=== PATIENT | female | born 1955 | race Caucasian/White ===

== ENCOUNTER → 2017-05-13 | Outpatient (CLI) | payer MEDICAID ==
--- NOTE | 2017-05-13 15:55 | MR ---
EXAMINATION TYPE: MR lumbar spine wo con DATE OF EXAM: 05/13/2017 COMPARISON: NONE HISTORY: Low back pain / Radiculopathy TECHNIQUE: Multiplanar, multisequence images of the lumbar spine were acquired. L1-L2: Normal disc appearance without desiccation. No herniation, protrusion or disc bulging. No ca nal stenosis is present. Foramina are patent bilaterally. L2-L3: Broad-based posterior disc bulge causes only slight anterior mass effect on the thecal sac. Fa cet arthropathy with hypertrophy of the ligamentum flavum encroaches on the lateral recesses. No sign ificant central stenosis or foraminal encroachment. L3-L4: Loss of disc height signal is present with endplate discogenic marrow signal change, spondylos is, circumferential posterior disc bulge is present with associated hypertrophy of the ligamentum fla vum, facet arthropathy resulting in the mild central canal stenosis, no significant foraminal encroac hment. L4-L5: Posterior extension of endplate disc bulge causes mild anterior mass effect on the thecal sac, listhesis as well as facet arthropathy with hypertrophy ligamentum flavum contributes to cause trefo il appearance of the thecal sac. No significant foraminal encroachment. L5-S1: Broad-based posterior disc bulge causes only slight contact with the anterior thecal sac and p ossibly proximal S1 nerve roots, no significant foraminal encroachment or spinal stenosis. There is f acet arthropathy with hypertrophy of the ligamentum flavum encroaching on the lateral recesses. Lumbar segments are intact. No paraspinal masses are identified. Conus medullaris has a normal appe arance. There is a spinal curvature. Minimal anterolisthesis grade 1 L4-5. IMPRESSION: Degenerative disc disease, facet arthropathy and additional findings above.
== END ==
LOC: RADMRIMAIN 10:30
PROVIDERS: ATTEND Orthopaedic Surgery Orthopaedic Surgery of the Spine
DX: M54.5 Low back pain (principal); M47.817 Spondylosis without myelopathy or radiculopathy, lumbosacral region; M54.16 Radiculopathy, lumbar region; M54.2 Cervicalgia; M46.1 Sacroiliitis, not elsewhere classified; M50.30 Other cervical disc degeneration, unspecified cervical region; M54.12 Radiculopathy, cervical region; S16.1XXA Strain of muscle, fascia and tendon at neck level, initial encounter; S39.012A Strain of muscle, fascia and tendon of lower back, initial encounter
CPT/HCPCS: 72148

== ENCOUNTER 2017-07-30 16:03 | Emergency (ER) | payer MEDICAID ==
[2017-07-30 16:09] VITALS: PULSE 79; TEMP 97.8
--- NOTE | 2017-07-30 16:39 | ED ---
General Adult HPI - General Chief complaint: Extremity Problem,Nontraumatic Stated complaint: Rt Shoulder Pain Time Seen by Provider: 07/30/17 16:25 Source: patient, RN notes reviewed Mode of arrival: ambulatory Limitations: no limitations - History of Present Illness Initial comments: Patient 61-year-old female presented to the emergency room today with a chief complaint of pain to the right shoulder over the last 4 weeks. Patient does admit that she had a rotator cuff repair 9 years ago. She states that 4 weeks ago began having some discomfort to the right shoulder that is worse with certain movements. She noticed that she cannot make certain movements and is worse with lifting. Patient denies any injury or trauma. She does admit that she's had some pain shoot down into the elbow at times and even some numbness tingling sensation down to the hands. She admits that she's had some neck pain as well and did have a surgery and some plates and the neck approximately 12 years ago. Patient denies any new injury to this area as well. Denies any other complaints. Patient denies any recent fever, chills, shortness of breath, chest pain, back pain, abdominal pain, nausea or vomiting, headaches or visual changes, or any other complaints. - Related Data Home Medications Medication Instructions Recorded Confirmed Cyanocobalamin (Vitamin B-12) 1,000 mcg PO DAILY 07/30/17 07/30/17 [Vitamin B-12] Previous Rx's Medication Instructions Recorded Dexamethasone 0.75 mg PO DIRECTED #12 tablet 07/30/17 Allergies Allergy/AdvReac Type Severity Reaction Status Date / Time No Known Allergies Allergy Verified 07/30/17 16:36 Review of Systems ROS Statement: Those systems with pertinent positive or pertinent negative responses have been documented in the HPI. ROS Other: All systems not noted in ROS Statement are negative. Past Medical History Past Medical History: No Reported History Additional Past Medical History / Comment(s): neck pain History of Any Multi-Drug Resistant Organisms: None Reported Additional Past Surgical History / Comment(s): neck surgery, rotator cuff Past Psychological History: No Psychological Hx Reported Smoking Status: Former smoker Past Alcohol Use History: None Reported Past Drug Use History: None Reported General Exam - General Exam Comments Initial Comments: General: The patient is awake and alert, in no distress, and does not appear acutely ill. Neck: The neck is supple, there is no tenderness or JVD. Musculoskeletal: Normal appearance of the right shoulder. Patient shows limited range of motion due to pain. Patient strength is 4/5 due to pain with both internal and external rotation and flexion and extension. Radial pulse 2+ . Sensation intact. Neurological: A&O x 3. CN II-XII intact, There are no obvious motor or sensory deficits. Coordination appears grossly intact. Speech is normal. Skin: Skin is warm and dry and no rashes or lesions are noted. Psychiatric: Normal mood and affect. Limitations: no limitations Course Vital Signs 07/30/17 16:06 Temperature 97.8 F Pulse Rate 79 Respiratory 18 Rate Blood Pressure 130/81 O2 Sat by Pulse 99 Oximetry Medical Decision Making - Medical Decision Making Patient's x-rays reviewed and are negative for any acute abnormality. Results were discussed with the patient. Patient currently on [place], Ultram, ibuprofen for pain. Patient will be started on a short course of steroids for her symptoms. Advised to follow-up with her orthopedic doctor further evaluation and possible MRI. Advised return if any symptoms increase or worsen or for any other concerns. Disposition Clinical Impression: Shoulder pain Disposition: HOME SELF-CARE Condition: Good Instructions: Shoulder Sprain (ED) Additional Instructions: Please use medication as discussed. Please follow-up with orthopedic/family doctor in the next 2 days. Please return to emergency room if the symptoms increase or worsen or for any other concerns. Prescriptions: Dexamethasone 0.75 mg PO DIRECTED #12 tablet Is patient prescribed a controlled substance at d/c from ED?: No Referrals: Jonathan Ly MD [Primary Care Provider] - 1-2 days Harlan Jimenez MD [STAFF PHYSICIAN] - 1-2 days Time of Disposition: 17:17
--- NOTE | 2017-07-30 16:55 | XR ---
EXAMINATION TYPE: XR shoulder complete RT DATE OF EXAM: 07/30/2017 CLINICAL HISTORY: Right shoulder pain with no known injury TECHNIQUE: Three views of the right shoulder are obtained. COMPARISON: None. FINDINGS: There is no acute fracture/dislocation evident in the right shoulder. There is widening o f the acromioclavicular joint space measuring 2.0 cm. Additionally the distal clavicle superior prakash x is inferior to the acromion. No overlying soft tissue swelling is seen. This appears chronic in com parison to exam of 12/06/2013. The acromioclavicular and glenohumeral joint spaces appear within norm al limits. The visualized ribs are intact and unremarkable. IMPRESSION: There is no acute fracture of the right shoulder. Chronic right acromioclavicular separa tion in comparison to exam of 2013. Old tear of the acromioclavicular ligament is suspected.
[2017-07-30 17:36] VITALS: BP 130/80; RESP 16
== END 2017-07-30 17:34 | disposition home or self-care (01) ==
LOC: EC 16:03
DX: M25.511 Pain in right shoulder (principal); M25.521 Pain in right elbow; R20.0 Anesthesia of skin; R20.2 Paresthesia of skin; M54.2 Cervicalgia; Z87.891 Personal history of nicotine dependence; Z79.899 Other long term (current) drug therapy; Z98.890 Other specified postprocedural states
CPT/HCPCS: 99283

== ENCOUNTER → 2017-07-31 | Outpatient (CLI) | payer MEDICAID ==
[2017-07-31 10:49] LABS: Basophils % (A) 1 %; Eosinophils # (A) 0.2 k/uL (0-0.7); Eosinophils % (A) 3 %; HCT 45.3 % (34.0-46.0); Lymphocytes # (A) 1.4 k/uL (1.0-4.8); Lymphocytes % (A) 23 %; MCH 32.5 pg (25.0-35.0); MCHC 33.2 g/dL (31.0-37.0); MCV 97.8 fL (80.0-100.0); Mean Platelet Volume 6.7; Monocytes # (A) 0.2 k/uL (0-1.0); Monocytes % (A) 4 %; Neutrophils # (A) 4.4 k/uL (1.3-7.7); Neutrophils % (A) 69 %; Platelet Count 239 k/uL (150-450); RBC 4.63 m/uL (3.80-5.40); RDW 13.7 % (11.5-15.5); WBC 6.3 k/uL (3.8-10.6)
[2017-07-31 11:03] LABS: ALT 27 U/L (9-52); AST 19 U/L (14-36); Albumin 4.5 g/dL (3.5-5.0); Alkaline Phosphatase 65 U/L (38-126); Anion Gap 11 mmol/L; Blood Urea Nitrogen 10 mg/dL (7-17); Calcium 9.6 mg/dL (8.4-10.2); Carbon Dioxide 26 mmol/L (22-30); Chloride 104 mmol/L (98-107); Cholesterol 236 mg/dL (<200); Glucose 99 mg/dL (74-99); HDL Cholesterol 68 mg/dL (40-60); LDL Cholesterol,Calculated 147 mg/dL (0-99); Potassium 4.5 mmol/L (3.5-5.1); Sodium 141 mmol/L (137-145); Total Bilirubin 0.4 mg/dL (0.2-1.3); Total Protein 6.9 g/dL (6.3-8.2); Triglycerides 104 mg/dL (<150)
== END | disposition home or self-care (01) ==
LOC: LABWHC1 10:16
PROVIDERS: ATTEND Internal Medicine
DX: Z00.00 Encounter for general adult medical examination without abnormal findings (principal)
CPT/HCPCS: 36415; 80053; 80061; 84443; 85025

== ENCOUNTER 2019-08-19 17:57 | Emergency (ER) | payer MEDICARE, OTHER ==
[2019-08-19 18:08] VITALS: BP 112/67; PULSE 89; RESP 18; TEMP 98.1
--- NOTE | 2019-08-19 19:12 | XR ---
EXAMINATION TYPE: XR femur LT DATE OF EXAM: 08/19/2019 COMPARISON: NONE HISTORY: Pain TECHNIQUE: 4 views FINDINGS: The hip joint and knee joint appear intact. There is slight narrowing of the medial joint s pace of the left knee. I see no fracture nor dislocation. Acetabulum is intact. IMPRESSION: Minor arthritic change at the knee joint. No fracture seen.
--- NOTE | 2019-08-19 19:14 | XR ---
EXAMINATION TYPE: XR knee 4V LT DATE OF EXAM: 08/19/2019 COMPARISON: 06/25/2012 HISTORY: Pain TECHNIQUE: 4 views FINDINGS: There is mild spurring of the medial tibial condyle. There is minimal medial meniscal calci fication. There is no evidence of joint effusion. Joint spaces overall are fairly well-maintained. I see no bony destructive process. IMPRESSION: Early osteoarthritis of the medial joint space with chondrocalcinosis. No fracture seen.
[2019-08-19] MEDS ORDERED: IBUPROFEN 600 MG STARTER PACK 4 TAB BTL PO STA (19:50)
--- NOTE | 2019-08-19 19:53 | ED ---
General Adult HPI - General Chief complaint: Extremity Injury, Lower Stated complaint: [facility] - fall, lt knee pain Time Seen by Provider: 08/19/19 18:11 Source: patient, RN notes reviewed, old records reviewed Mode of arrival: ambulatory Limitations: physical limitation - History of Present Illness Initial comments: 63-year-old female patient was eating a chief complaint of left knee pain and left distal femur pain. She reports that she slipped and fell on her left side while at work. Denies any trauma to head or neck. This occurred yesterday. Patient reports that she is having pain with bending her knee and it feels stiff. She denies any other complaints. Systemic: Pt denies fatigue, fever/chills, rash. Pt denies weakness, night sweats, weight loss. Neuro: Pt denies headache, visual disturbances, syncope or pre-syncope. HEENT: Pt denies ocular discharge or irritation, otalgia, rhinorrhea, pharyngitis or notable lymphadenopathy. Cardiopulmonary: Pt denies chest pain, SOB, heart palpitations, dyspnea on exertion. Abdominal/GI: Pt denies abdominal pain, n/v/d. : Pt denies dysuria, burning w/ urination, frequency/urgency. Denies new onset urinary or bowel incontinence. Neuro: Pt denies new onset weakness, paresthesias. - Related Data Home Medications Medication Instructions Recorded Confirmed Cyanocobalamin (Vitamin B-12) 1,000 mcg PO DAILY 07/30/17 08/19/19 [Vitamin B-12] HYDROcodone/APAP 10-325MG [[place] 1 tab PO DAILY PRN 08/19/19 08/19/19 10-325] Ibuprofen [Motrin] 800 mg PO TID 08/19/19 08/19/19 Multivitamins, Thera [Multivitamin 1 tab PO DAILY 08/19/19 08/19/19 (formulary)] Umeclidinium Brm/Vilanterol Tr 1 puff INHALATION RT-BID 08/19/19 08/19/19 [Anoro Ellipta 62.5-25 Mcg INH] traMADol HCL 100 mg PO TID 08/19/19 08/19/19 Allergies Allergy/AdvReac Type Severity Reaction Status Date / Time No Known Allergies Allergy Verified 08/19/19 19:25 Review of Systems ROS Statement: Those systems with pertinent positive or pertinent negative responses have been documented in the HPI. ROS Other: All systems not noted in ROS Statement are negative. Past Medical History Past Medical History: No Reported History Additional Past Medical History / Comment(s): neck pain History of Any Multi-Drug Resistant Organisms: None Reported Additional Past Surgical History / Comment(s): neck surgery, rotator cuff Past Psychological History: No Psychological Hx Reported Smoking Status: Former smoker Past Alcohol Use History: None Reported Past Drug Use History: None Reported General Exam - General Exam Comments Initial Comments: Constitutional: NAD, AOX3, Pt has pleasant affect. HEENT: NC/AT, trachea midline, neck supple, no lymphadenopathy. Posterior pharynx non erythematous, without exudates. External ears appear normal, without discharge. Mucous membranes moist. Eyes PERRLA, EOM intact. There is no scleral icterus. No pallor noted. Cardiopulmonary: RRR, no murmurs, rubs or gallops, no JVD noted. Lungs CTAB in anterior and posterior vasquez. No peripheral edema. Abdominal exam: Abdomen soft and non-distended. Abdomen non-tender to palpation in all 4 quadrants. Bowel sounds active in LLQ. No hepatosplenomegaly. No ecchymosis Neuro: CN II-XII grossly intact. No nuchal rigidity. No raccon eyes, no landry sign, no hemotympanum. No cervical spinal tenderness. MSK: Anterior aspect left knee mildly tender to palpation. Distal aspect of left femur moderately tender palpation. no skin changes. Patient able to bear weight. Range of motion is intact. Neurovascularly intact. Limitations: physical limitation Course Vital Signs 08/19/19 18:05 Temperature 98.1 F Pulse Rate 89 Respiratory 18 Rate Blood Pressure 112/67 O2 Sat by Pulse 96 Oximetry Medical Decision Making - Medical Decision Making 63-year-old female patient was ED with chief complaint of left femur and knee pain after slip and fall history. Denies hitting her head or neck. Amylase of blood thinners. Patient vital signs are stable, afebrile. Physical exam did display some tenderness to the left anterior and distal femur region. Plain film of femur and knee displayed arthritic changes but no acute process. Patient placed in knee immobilizer will discharge and will follow up with primary care provider and orthopedic consult on outpatient basis. Case discussed with Dr. Gannon. Disposition Clinical Impression: Knee sprain Disposition: HOME SELF-CARE Condition: Stable Instructions (If sedation given, give patient instructions): Knee Sprain (ED) Additional Instructions: Continue to wear knee immobilizer. Use crutches, do not bear weight and left lower extremity. Follow-up with primary care provider and orthopedic consult tomorrow. Return to ER if condition worsens. Is patient prescribed a controlled substance at d/c from ED?: No Referrals: Isaias Hay MD [Primary Care Provider] - 1-2 days Vamshi Murcia MD [Medical Doctor] - 1-2 days
== END 2019-08-19 20:14 | disposition home or self-care (01) ==
LOC: EC 17:57
DX: S83.92XA Sprain of unspecified site of left knee, initial encounter (principal); M79.652 Pain in left thigh; Z87.891 Personal history of nicotine dependence; W01.0XXA Fall on same level from slipping, tripping and stumbling without subsequent striking against object, initial encounter
CPT/HCPCS: 99284

== ENCOUNTER → 2019-08-23 | Outpatient (CLI) | payer OTHER ==
--- NOTE | 2019-08-23 12:36 | XR ---
EXAMINATION TYPE: XR tibia fibula LT DATE OF EXAM: 08/23/2019 COMPARISON: NONE HISTORY: Pain TECHNIQUE: Two views are submitted. FINDINGS: The osseous structures are intact. Arthropathy of the knee.. IMPRESSION: 1. No acute osseous abnormality.
== END | disposition home or self-care (01) ==
LOC: RADXRMAIN 12:00
PROVIDERS: ATTEND Emergency Medicine
DX: S80.12XA Contusion of left lower leg, initial encounter (principal)

== ENCOUNTER → 2020-02-28 | Outpatient (CLI) | payer MEDICARE ==
[2020-02-28 14:45] LABS: HCT 40.4 % (34.0-46.0); HGB 13.9 gm/dL (11.4-16.0); MCH 32.9 pg (25.0-35.0); MCHC 34.3 g/dL (31.0-37.0); Mean Platelet Volume 7.3; Platelet Count 265 k/uL (150-450); RBC 4.21 m/uL (3.80-5.40); RDW 12.6 % (11.5-15.5)
[2020-02-28 14:47] LABS: Appearance,Urine Cloudy (Clear); Bacteria,Urine Rare /hpf; Bilirubin,Urine Negative (Negative); Blood,Urine Negative (Negative); Color,Urine Yellow; Glucose,Urine (UA) Negative (Negative); Hyaline Casts,Urine 2 /lpf (0-2); Ketones,Urine Negative (Negative); Leukocyte Esterase,Urine Large (Negative); Mucus,Urine Many /hpf; Nitrite,Urine Negative (Negative); Protein,Urine Trace (Negative); RBC,Urine 1 /hpf (0-5); Specific Gravity,Urine 1.022 (1.001-1.035); Squamous Epithelial Cell,Urine 10 /hpf (0-4); WBC,Urine 21 /hpf (0-5)
[2020-02-28 20:20] LABS: ALT 14 U/L (8-44); AST 21 U/L (13-35); African American GFR (CKD) 106.9 (60.0-200.0); Albumin/Globulin Ratio 2.32 (1.60-3.17); Alkaline Phosphatase 83 U/L (41-126); BUN/Creat Ratio 14.29 Ratio (12.00-20.00); Calcium 9.4 mg/dL (8.7-10.3); Carbon Dioxide 25.1 mmol/L (21.6-31.8); Chloride 107 mmol/L (96-109); Globulin 1.9 g/dL (1.6-3.3); Glucose 116 mg/dL (70-110); Iron 84 ug/dL (50-170); Non-African American GFR(CKD) 92.2 (60.0-200.0); Potassium 3.8 mmol/L (3.5-5.5); Sodium 140 mmol/L (135-145); Total Bilirubin 0.2 mg/dL (0.2-1.2); Total Protein 6.3 g/dL (6.2-8.2)
[2020-02-28 21:07] LABS: Vitamin B12 >4000.0 pg/mL (211-911)
== END | disposition home or self-care (01) ==
LOC: LABWHC1 10:45
PROVIDERS: ATTEND Family Medicine
DX: R53.83 Other fatigue (principal)
CPT/HCPCS: 36415; 80053; 81001; 82306; 82607; 83540; 84439; 84443; 85027; 87086

== ENCOUNTER 2020-03-27 11:41 | Emergency (ER) | payer MEDICARE ==
[2020-03-27] MEDS ORDERED: ASPIRIN 81 MG PO STA (12:00)
--- NOTE | 2020-03-27 12:00 | ED ---
General Adult HPI - General Chief complaint: Arrhythmia/Palpitations Stated complaint: sob Time Seen by Provider: 03/27/20 11:41 Source: patient, RN notes reviewed, old records reviewed Mode of arrival: wheelchair Limitations: no limitations - History of Present Illness Initial comments: This is a 64-year-old female presents emergency department with past medical history significant for a pneumothorax secondary to trauma and she continues to smoke. Patient comes in today stating that last few days she's had difficulty breathing especially when she exerts herself. Patient denies any anterior chest pain. Patient states most of the chest pain is the lRight lower rib area. Patient denies any recent fever chills or cough per patient denies any pa lpitations. Patient denies any swelling to her legs or calf tenderness. Patient denies any abdominal pain patient denies nausea vomiting diarrhea. Patient denies lightheadedness or dizziness. -: week(s) - Related Data Home Medications Medication Instructions Recorded Confirmed Cyanocobalamin (Vitamin B-12) 1,000 mcg PO DAILY 07/30/17 03/27/20 [Vitamin B-12] HYDROcodone/APAP 10-325MG [[place] 1 tab PO DAILY PRN 08/19/19 03/27/20 10-325] Multivitamins, Thera [Multivitamin 1 tab PO DAILY 08/19/19 03/27/20 (formulary)] traMADol HCL 100 mg PO TID 08/19/19 03/27/20 Cholecalciferol [Vitamin D3 (25 25 mcg PO DAILY 03/27/20 03/27/20 Mcg = 1000 Iu)] Allergies Allergy/AdvReac Type Severity Reaction Status Date / Time No Known Allergies Allergy Verified 03/27/20 12:37 Review of Systems ROS Statement: Those systems with pertinent positive or pertinent negative responses have been documented in the HPI. ROS Other: All systems not noted in ROS Statement are negative. Past Medical History Past Medical History: No Reported History Additional Past Medical History / Comment(s): neck pain History of Any Multi-Drug Resistant Organisms: None Reported Additional Past Surgical History / Comment(s): neck surgery, rotator cuff Past Psychological History: No Psychological Hx Reported Smoking Status: Current every day smoker Past Alcohol Use History: None Reported Past Drug Use History: None Reported General Exam - General Exam Comments Initial Comments: GENERAL: Patient is well-developed and well-nourished. Patient is nontoxic and well- hydrated and is in Milddistress. ENT: Neck is soft and supple. No significant lymphadenopathy is noted. Oropharynx is clear. Moist mucous membranes. Neck has full range of motion without eliciting any pain. EYES: The sclera were anicteric and conjunctiva were pink and moist. Extraocular movements were intact and pupils were equal round and reactive to light. Eyelids were unremarkable. PULMONARY: Diminished breath sounds on the right. CARDIOVASCULAR: tient is tachycardic abouat 130 beats a minute ABDOMEN: Soft and nontender with normal bowel sounds. No palpable organomegaly was noted. There is no palpable pulsatile mass. SKIN: Skin is clear with no lesions or rashes and otherwise unremarkable. NEUROLOGIC: Patient is alert and oriented x3. Cranial nerves II through XII are grossly intact. Motor and sensory are also intact. Normal speech, volume and content. Symmetrical smile. MUSCULOSKELETAL: Normal extremities with adequate strength and full range of motion. No lower extremity swelling or edema. No calf tenderness. LYMPHATICS: No significant lymphadenopathy is noted PSYCHIATRIC: Normal psychiatric evaluation. interpersonal interactions appears functionally intact in deals appropriately with others. No signs of depressPa Limitations: no limitations Course Vital Signs 03/27/20 03/27/20 03/27/20 11:42 11:50 12:13 Temperature 98.2 F Pulse Rate 148 H 108 H Respiratory 22 24 18 Rate Blood Pressure 144/96 139/70 O2 Sat by Pulse 96 99 Oximetry 03/27/20 13:26 Temperature Pulse Rate 101 H Respiratory 18 Rate Blood Pressure 118/77 O2 Sat by Pulse 97 Oximetry Medical Decision Making - Medical Decision Making EKG shows sinus tachycardia at 131 bpm ME interval 134 QRS is under 12 QTC intervals 318 QTC is 469. Patient has significant ST segment depression in inferior leads 2 and 3 and in precordial leads V2 V3 V4 V5 and V6. Patient also has T-wave inversions inferiorly as well as Precordial leads V1 through V4 Chest x-ray shows large right-sided pleural effusion. I did a CAT scan the patient because her d-dimer was elevated did not show any pulmonary resident did show a large right-sided pleural effusionAs well as a suspicious nodule. I spoke with Dr. Hay he agreed to admit the patient admitted the patient wrote admitting orders. - Lab Data Result diagrams: 03/27/20 12:03 03/27/20 12:03 Lab Results 03/27/20 03/27/20 03/27/20 Range/Units 12:03 12:03 12:03 WBC 10.5 (3.8-10.6) k/uL RBC 5.04 (3.80-5.40) m/uL Hgb 16.4 H (11.4-16.0) gm/dL Hct 48.1 H (34.0-46.0) % MCV 95.3 (80.0-100.0) fL MCH 32.5 (25.0-35.0) pg MCHC 34.1 (31.0-37.0) g/dL RDW 12.7 (11.5-15.5) % Plt Count 341 (150-450) k/uL MPV 7.6 Neutrophils % 75 % Lymphocytes % 17 % Monocytes % 5 % Eosinophils % 2 % Basophils % 1 % Neutrophils # 7.8 H (1.3-7.7) k/uL Lymphocytes # 1.8 (1.0-4.8) k/uL Monocytes # 0.5 (0-1.0) k/uL Eosinophils # 0.2 (0-0.7) k/uL Basophils # 0.1 (0-0.2) k/uL PT 10.4 (9.0-12.0) sec INR 1.0 (<1.2) APTT 24.5 (22.0-30.0) sec D-Dimer 4.25 H (<0.60) mg/L FEU Sodium 134 L (137-145) mmol/L Potassium 3.9 (3.5-5.1) mmol/L Chloride 99 (98-107) mmol/L Carbon Dioxide 28 (22-30) mmol/L Anion Gap 7 mmol/L BUN 10 (7-17) mg/dL Creatinine 0.68 (0.52-1.04) mg/dL Est GFR (CKD-EPI)AfAm >90 (>60 ml/min/1.73 sqM) Est GFR (CKD-EPI)NonAf >90 (>60 ml/min/1.73 sqM) Glucose 127 H (74-99) mg/dL Plasma Lactic Acid Andrzej (0.7-2.0) mmol/L Calcium 9.9 (8.4-10.2) mg/dL Magnesium 1.5 L (1.6-2.3) mg/dL Total Bilirubin 0.4 (0.2-1.3) mg/dL AST 29 (14-36) U/L ALT 14 (4-34) U/L Alkaline Phosphatase 96 (38-126) U/L Troponin I (0.000-0.034) ng/mL NT-Pro-B Natriuret Pep pg/mL Total Protein 7.1 (6.3-8.2) g/dL Albumin 4.3 (3.5-5.0) g/dL 03/27/20 03/27/20 03/27/20 Range/Units 12:03 12:03 12:03 WBC (3.8-10.6) k/uL RBC (3.80-5.40) m/uL Hgb (11.4-16.0) gm/dL Hct (34.0-46.0) % MCV (80.0-100.0) fL MCH (25.0-35.0) pg MCHC (31.0-37.0) g/dL RDW (11.5-15.5) % Plt Count (150-450) k/uL MPV Neutrophils % % Lymphocytes % % Monocytes % % Eosinophils % % Basophils % % Neutrophils # (1.3-7.7) k/uL Lymphocytes # (1.0-4.8) k/uL Monocytes # (0-1.0) k/uL Eosinophils # (0-0.7) k/uL Basophils # (0-0.2) k/uL PT (9.0-12.0) sec INR (<1.2) APTT (22.0-30.0) sec D-Dimer (<0.60) mg/L FEU Sodium (137-145) mmol/L Potassium (3.5-5.1) mmol/L Chloride (98-107) mmol/L Carbon Dioxide (22-30) mmol/L Anion Gap mmol/L BUN (7-17) mg/dL Creatinine (0.52-1.04) mg/dL Est GFR (CKD-EPI)AfAm (>60 ml/min/1.73 sqM) Est GFR (CKD-EPI)NonAf (>60 ml/min/1.73 sqM) Glucose (74-99) mg/dL Plasma Lactic Acid Andrzej 1.5 (0.7-2.0) mmol/L Calcium (8.4-10.2) mg/dL Magnesium (1.6-2.3) mg/dL Total Bilirubin (0.2-1.3) mg/dL AST (14-36) U/L ALT (4-34) U/L Alkaline Phosphatase (38-126) U/L Troponin I <0.012 (0.000-0.034) ng/mL NT-Pro-B Natriuret Pep 40 pg/mL Total Protein (6.3-8.2) g/dL Albumin (3.5-5.0) g/dL Disposition Clinical Impression: Dyspnea, Pleural effusion, Lung nodule Disposition: ADMITTED IP TO THIS HOSP Referrals: Isaias Hay MD [Primary Care Provider] - 1-2 days Time of Disposition: 15:41
[2020-03-27 12:15] VITALS: RESP 18
--- NOTE | 2020-03-27 12:19 | XR ---
EXAMINATION TYPE: XR chest 2V DATE OF EXAM: 03/27/2020 COMPARISON: Chest x-ray December 06, 2013. CT lung low dose February 28, 2019 HISTORY: Shortness of breath TECHNIQUE: Frontal and lateral views of the chest are obtained. FINDINGS: Anterior fusion plate lower cervical spine partially imaged. There is now moderate right-s ided pleural effusion. Background moderate underlying emphysematous change. Left lung clear. Silhouet ting right heart border and hemidiaphragm. The cardiac silhouette size is likely within normal limits . IMPRESSION: New Moderate right-sided pleural effusion and associated compressive atelectasis on back ground moderate emphysematous change.
[2020-03-27 12:22] LABS: Basophils # (A) 0.1 k/uL (0-0.2); Basophils % (A) 1 %; Eosinophils # (A) 0.2 k/uL (0-0.7); Eosinophils % (A) 2 %; HCT 48.1 % (34.0-46.0); HGB 16.4 gm/dL (11.4-16.0); Lymphocytes # (A) 1.8 k/uL (1.0-4.8); Lymphocytes % (A) 17 %; MCH 32.5 pg (25.0-35.0); MCHC 34.1 g/dL (31.0-37.0); MCV 95.3 fL (80.0-100.0); Mean Platelet Volume 7.6; Monocytes # (A) 0.5 k/uL (0-1.0); Monocytes % (A) 5 %; Neutrophils # (A) 7.8 k/uL (1.3-7.7); Neutrophils % (A) 75 %; Platelet Count 341 k/uL (150-450); RBC 5.04 m/uL (3.80-5.40); RDW 12.7 % (11.5-15.5); WBC 10.5 k/uL (3.8-10.6)
[2020-03-27 12:36] LABS: ALT 14 U/L (4-34); AST 29 U/L (14-36); African American GFR (CKD) >90 (>60 ml/min/1.73 sqM); Albumin 4.3 g/dL (3.5-5.0); Alkaline Phosphatase 96 U/L (38-126); Anion Gap 7 mmol/L; Blood Urea Nitrogen 10 mg/dL (7-17); Calcium 9.9 mg/dL (8.4-10.2); Carbon Dioxide 28 mmol/L (22-30); Chloride 99 mmol/L (98-107); Glucose 127 mg/dL (74-99); Magnesium 1.5 mg/dL (1.6-2.3); Non-African American GFR(CKD) >90 (>60 ml/min/1.73 sqM); Potassium 3.9 mmol/L (3.5-5.1); Sodium 134 mmol/L (137-145); Total Bilirubin 0.4 mg/dL (0.2-1.3); Total Protein 7.1 g/dL (6.3-8.2)
[2020-03-27 12:41] LABS: Partial Thromboplastin Time 24.5 sec (22.0-30.0); Prothrombin Time 10.4 sec (9.0-12.0)
[2020-03-27 12:51] LABS: D-Dimer 4.25 mg/L FEU (<0.60)
--- NOTE | 2020-03-27 14:45 | CT ---
EXAMINATION TYPE: CT chest angio for PE DATE OF EXAM: 03/27/2020 COMPARISON: Same day chest x-ray. CT low-dose lung screening CT February 28, 2019 HISTORY: Elevated d-dimer. Shortness of breath. CT DLP: 194.6 mGycm Automated exposure control for dose reduction was used. CONTRAST: CT Chest for pulmonary embolism performed with with IV Contrast, patient injected with 66, 31 wasted mL of Isovue 370. FINDINGS: LUNGS: Moderate underlying emphysematous change redemonstrated. There is confirmation of moderate rig ht-sided pleural effusion as suspected on recent x-ray new from prior CT. There is associated compre ssive atelectasis. New Anterior 1.9 x 1.0 cm low dense nodule or nodular consolidation right mid lung axial image 89. Left l laine is clear. No mediastinal shift. Patent tracheobronchial tree. Right lower lobe volume loss noted. MEDIASTINUM: There is satisfactory enhancement of the pulmonary artery and its branches, there is no CT evidence for pulmonary embolism. There are no greater than 1 cm hilar or mediastinal lymph nodes. No cardiomegaly or pericardial effusion is seen. OTHER: Slight underlying scoliotic curvature with mild to moderate multilevel spurring. Subcentimeter lesion left hepatic lobe image 134 2 small to further characterize. IMPRESSION: 1. No CT evidence for acute pulmonary embolism. 2. Moderate emphysematous change with confirmation of moderate right-sided pleural effusion and assoc iated compressive atelectasis. Right lower lobe volume loss noted. No definitive new mass or nodule b ut slightly suspicious new 1.9 x 1.1 cm nodule or nodular consolidation medial anterior right mid to lower lung. Thoracentesis for diagnostic and/or therapeutic benefit would likely be beneficial.
[2020-03-27] MEDS ORDERED: MIDAZOLAM 1 MG/ML 5 ML VIAL IV STA (15:36)
[2020-03-27] MEDS ORDERED: LIDOCAINE 1% INJ 10MG/ML (20 ML MDV) SQ ONE (15:37)
[2020-03-27] MEDS ORDERED: SODIUM CHLORIDE 0.9% 1,000 ML IV ONE (15:42)
[2020-03-27 16:37] VITALS: BP 114/81; PULSE 100; TEMP 97.9
== END 2020-03-27 16:36 | disposition other institution (70) ==
LOC: EC 11:41 → UNDOADMOB 16:05 → 3SCARD 16:05 → EC 16:36
DX: J90 Pleural effusion, not elsewhere classified (principal); F17.200 Nicotine dependence, unspecified, uncomplicated; R91.1 Solitary pulmonary nodule
CPT/HCPCS: 36415; 93005; 85379; 83880; 80053; 83605; 83735; 84484; 85025; 85610; 85730; 71046; 71275; 99285; Q9967

== ENCOUNTER → 2020-04-13 | Day surgery (SDC) | payer MEDICARE ==
[~2020-04-13] MED LIST: SODIUM CHLORIDE 0.9% 500 ML 500 ML in EMPTY BAG 1 BAG IV PRN
[2020-04-13 12:59] VITALS: BP 131/82; PULSE 121; RESP 16; TEMP 98.7
--- NOTE | 2020-04-13 13:57 | XR ---
EXAMINATION TYPE: XR chest 1V portable DATE OF EXAM: 04/13/2020 COMPARISON: Chest x-ray 03/27/2020 HISTORY: Status post thoracentesis TECHNIQUE: Single frontal view of the chest is obtained. FINDINGS: Findings are similar to prior exam. No evident pneumothorax. IMPRESSION: No evident complication status post thoracentesis. Findings consistent with right pleura l effusion.
--- NOTE | 2020-04-13 16:02 | PCN ---
PROCEDURE NOTE PROCEDURE: Right-sided thoracentesis. Indication: Pleural effusion. A time-out was completed verifying correct patient, procedure, site, positioning, and implant (s) or special equipment if applicable. Ultrasound guidance was used and appropriate fluid pocket was identified and marked. Patient was positioned, prepped and draped in usual sterile fashion. Lidocaine was used to anesthetize the area. A thoracentesis catheter was introduced into the pleural space and fluid was removed. Blood loss was none. A chest x-ray was ordered to evaluate for pneumothorax. Total Fluid Removed: Roughly about 1350 mL Color of Fluid: Brown, bloody Fluid was sent for appropriate laboratory tests, including microbiology, cytology and chemistry. Patient tolerated the procedure well and there were no immediate complications. If the chest x-ray is normal, the patient can be discharged home. The procedure was done on the third floor [facility] in the outpatient area. MMODL / IJN: [id number] /
[2020-04-13 19:07] LABS: Color,BF Orange
[2020-04-13 19:08] LABS: Appearance,BF Cloudy; Nucleated Cells, Body Fluid 290 /uL; RBC, Body Fluid 16850 /uL
[2020-04-13 19:30] LABS: Mononuclear WBC,Body Fluid 85 %; Polynuclear WBC,Body Fluid 15 %; Total Cells Counted,Body Fluid 100
[2020-04-14 05:52] LABS: Glucose, BF Source Pleural Fluid; Glucose, Body Fluid 39 mg/dL; LDH, Body Fluid Source Pleural Fluid
== END ==
LOC: PROCWHC3 12:36
PROVIDERS: ATTEND Internal Medicine Critical Care Medicine
DX: J90 Pleural effusion, not elsewhere classified (principal); C78.00 Secondary malignant neoplasm of unspecified lung; C56.9 Malignant neoplasm of unspecified ovary; J43.9 Emphysema, unspecified; J93.9 Pneumothorax, unspecified; R00.0 Tachycardia, unspecified; R91.1 Solitary pulmonary nodule; F17.210 Nicotine dependence, cigarettes, uncomplicated; Z80.1 Family history of malignant neoplasm of trachea, bronchus and lung; Z82.5 Family history of asthma and other chronic lower respiratory diseases; Z98.1 Arthrodesis status
CPT/HCPCS: 32554; 71045; 82945; 83615; 84157; 87070; 87075; 87102; 87116; 87205; 87206; 87252; 87496; 87498; 87502; 87529; 87634; 87798; 88108; 88305; 88341; 88342; 89050

== ENCOUNTER → 2020-04-13 | Outpatient (CLI) | payer MEDICARE ==
--- NOTE | 2020-04-13 12:45 | US ---
EXAMINATION TYPE: US chest DATE OF EXAM: 04/13/2020 COMPARISON: Xray, CT CLINICAL HISTORY: J90 Pural effusion. Effusion TECHNIQUE: Targeted ultrasound of the posterior lower bilateral hemithoraces EXAM MEASUREMENTS: Right Pleural Effusion pocket size: 20.2 cm Right skin surface to fluid distance: 3.5 cm Right side marked for possible thoracentesis outside the dept. Left side NOT marked for possible thoracentesis outside the dept, No fluid visualized. Pulmonologists are able to review the images in the patient?s EMR. IMPRESSIONS: 1. Right pleural effusion
== END | disposition home or self-care (01) ==
LOC: RADUSWWP 12:04
PROVIDERS: ATTEND Internal Medicine Critical Care Medicine
DX: J90 Pleural effusion, not elsewhere classified (principal)
CPT/HCPCS: 76604

== ENCOUNTER → 2020-04-17 | Outpatient (CLI) | payer MEDICARE ==
--- NOTE | 2020-04-20 07:36 | PE ---
"EXAMINATION TYPE: PET CT fusion skull to thigh DATE OF EXAM: 04/17/2020 COMPARISON: CTA chest March 27, 2020 and older CTs. HISTORY: Solitary pulmonary nodule. Recent abnormal CT. TECHNIQUE: Following the intravenous administration of 10.19 mCi of F-18 FDG, whole body images are performed from the skull base to the midthigh. Images are reviewed on the computer in the coronal, a xial, and sagittal planes. Reconstructed rotating images are created on independent workstation and reviewed on the computer. A localization and attenuation correction CT is performed in conjunction with the PET scan. Blood glucose level equals 97. SCAN: Initial Scan FINDINGS: SKULL BASE AND NECK: No areas of abnormal hypermetabolic uptake. CHEST, MEDIASTINUM, AND HILAR REGION: Persistent background mild to moderate underlying emphysematous change. Moderate to large right pleural effusion shows interval increase in size from March 27 shayy dy. There is associated compressive atelectasis centrally extending anteriorly in the mid to lower jesu ng. No definitive abnormal hypermetabolic uptake to suggest obstructing central nodule or mass. Left lung shows no areas of focal groundglass opacity anomaly in the periphery of the left upper to m idlung greatest in the anterior aspect of left upper lobe. Areas of increased opacity centrally in th e right lung suggest degree of alveolar edema. Mild hypermetabolic uptake corresponds to the new area s of groundglass opacity. No enlarged or hypermetabolic thoracic lymph nodes. ABDOMEN AND PELVIS: Normal excretion is present. No adrenal masses. Moderate pelvic ascites with abno rmal hypermetabolic uptake is concerning axial image 209, max SUV is 5.07. OSSEOUS STRUCTURES: No suspicious hypermetabolic uptake. OTHER CT: Mild calcified plaque bilateral carotid bulb level. Hepatomegaly. Patient has little intra-abdominal fat. Moderate plaque of the aorta extends into iliac branch vessels. Anteverted uterus. Left-sided pelvic phleboliths. IMPRESSION: Worsening moderate to large right pleural effusion is ametabolic. No hypermetabolic right -sided lung nodule or mass. Moderate pelvic ascites with abnormal hypermetabolic uptake is concerning . New multifocal areas of groundglass opacity left lung raise concerning for covid-19 infection in cu rrent medical involvement. Correlate clinically. Would advise right-sided thoracentesis for both diag nostic and/or therapeutic values to further assess for possible malignancy. If negative, sampling of pelvic fluid may be necessary. A Yellow level critical message alert has been initiated for Tristen Mcclendon DO via the [employer] 36 0 | Critical Results System on 04/20/2020 7:34 AM. This message alert has been sent to Tristen Mcclendon DO via the preferences provided by the clinician for the receipt of Radiology Critical Findings. Mess age ID [id number]."
== END | disposition home or self-care (01) ==
LOC: RADPETMAIN 13:16
PROVIDERS: ATTEND Internal Medicine Critical Care Medicine
DX: R91.1 Solitary pulmonary nodule (principal)
CPT/HCPCS: 78815; A9552

== ENCOUNTER 2020-04-27 11:03 | Day surgery (SDC) | payer MEDICARE ==
--- NOTE | 2020-04-27 11:23 | US ---
EXAMINATION TYPE: US chest DATE OF EXAM: 04/27/2020 COMPARISON: NONE CLINICAL HISTORY: J90 Pleual Effusion. pleural effusion TECHNIQUE: Targeted ultrasound of the posterior lower bilateral hemithoraces EXAM MEASUREMENTS: Right Pleural Effusion pocket size: 14.3 cm Right skin surface to fluid distance: 2.1 cm Left Pleural Effusion pocket size: no significant fluid visualized Right side marked for possible thoracentesis outside the dept. Left side NOT marked for possible thoracentesis outside the dept. Pulmonologists are able to review the images in the patient?s EMR. IMPRESSIONS: Right pleural effusion
[2020-04-27 11:43] VITALS: TEMP 98.2
[2020-04-27] MEDS ORDERED: ATROPINE SULFATE 0.4 MG/ML 1 ML VIAL IM NR (12:15)
[2020-04-27 12:30] VITALS: BP 118/85; PULSE 96; RESP 16
--- NOTE | 2020-04-27 12:43 | XR ---
EXAMINATION TYPE: XR chest 1V portable DATE OF EXAM: 04/27/2020 Comparison: 04/13/2020 Clinical History: 64-year-old female post thoracentesis Findings: Heart normal size. Aorta and pulmonary vasculature within normal limits. Decreased now [id number] ate right effusion. No appreciable pneumothorax. Partially visualized ACDF hardware. Some strandy lef t basilar atelectasis. Impression: Decreased, now small to moderate right effusion with adjacent atelectasis and/or consolidation after thoracentesis. No pneumothorax.
--- NOTE | 2020-04-27 13:37 | PCN ---
PROCEDURE NOTE PROCEDURE: Right-sided thoracentesis. PREOPERATIVE DIAGNOSIS: Right pleural effusion. POSTOPERATIVE DIAGNOSIS: Right pleural effusion. Indication Pleural effusion. A time-out was completed verifying correct patient, procedure, site, positioning , and implant (s) or special equipment if applicable. Ultrasound guidance was used and appropriate fluid pocket was identified and marked. Patient was positioned, prepped and draped in usual sterile fashion. Lidocaine was used to anesthetize the area. A Thoracentesis catheter was introduced into the pleural space and fluid was removed. Blood loss was none. A chest x-ray was ordered to evaluate for pneumothorax. Total Fluid Removed: 2050 mL Color of Fluid: Bloody fluid. Fluid was not sent for appropriate laboratory tests. Patient tolerated the procedure well and there were no complications. 2050 mL of bloody fluid was removed from the right pleural space. The fluid will not be analyzed at this is her second thoracentesis. We have a diagnosis. The patient's procedure was done in [facility] 3rd floor. There was informed consent. There was universal timeout. The right posterior chest was marked by ultrasound. There was no immediate complication. A chest x-ray was ordered. As long as there is no complication, the patient will be discharged. MMODL / IJN: [id number] /
== END 2020-04-27 14:40 ==
LOC: PROCWHC3 11:03
PROVIDERS: ATTEND Internal Medicine Critical Care Medicine
DX: J90 Pleural effusion, not elsewhere classified (principal); J44.9 Chronic obstructive pulmonary disease, unspecified; Z80.1 Family history of malignant neoplasm of trachea, bronchus and lung; F17.210 Nicotine dependence, cigarettes, uncomplicated; Z83.6 Family history of other diseases of the respiratory system
CPT/HCPCS: 32554; 71045; 76604; 96372; J0461

== ENCOUNTER 2020-05-15 10:27 | Day surgery (SDC) | payer MEDICARE ==
[~2020-05-15 10:27] MED LIST changes: +ATROPINE SULFATE 0.4 MG/ML 1 ML VIAL IM NR
[2020-05-15 11:50] VITALS: RESP 16; TEMP 98.1
--- NOTE | 2020-05-15 12:44 | XR ---
EXAMINATION TYPE: XR chest 1V portable DATE OF EXAM: 05/15/2020 COMPARISON: 04/27/2020 HISTORY: Post right thoracentesis TECHNIQUE: Single frontal view of the chest is obtained. FINDINGS: Hyperinflation suggests COPD. Postsurgical change overlying the cervical spine. Diffuse os teopenia. Right-sided consolidation and pleural effusion. No overt failure. Heart size normal. Athero sclerotic change aorta. IMPRESSION: 1. COPD with right lower lobe infiltrate and small pleural effusion. 2. No sizable pneumothorax.
--- NOTE | 2020-05-15 12:52 | PCN ---
PROCEDURE NOTE PROCEDURE: Right thoracentesis. PREOPERATIVE DIAGNOSIS: Right pleural effusion. POSTOPERATIVE DIAGNOSIS: Right pleural effusion. ABA THERAPIST: Dr. Mcclendon. There was informed consent and universal timeout. Indication Pleural effusion. A time-out was completed verifying correct patient, procedure, site, positioning, and implant (s) or special equipment if applicable. Ultrasound guidance was used and appropriate fluid pocket was identified and marked. Patient was positioned, prepped and draped in usual sterile fashion. Lidocaine was used to anesthetize the area. A Thoracentesis catheter was introduced into the pleural space and fluid was removed. Blood loss was none. A chest x-ray was ordered to evaluate for pneumothorax. Total Fluid Removed: 2300 to 2400 mL. Color of Fluid: Dark brown. Fluid was not sent for appropriate laboratory tests. Patient tolerated the procedure well and there were no complications. Right posterior chest was marked by ultrasound. 8200-8737 mL of fluid was removed from the right pleural space. The fluid was dark brown in color. There was no immediate complication. A chest x-ray was ordered to rule out pneumothorax. The fluid does not need to be sent for analysis as it was analyzed before. There was no immediate complication. The patient tolerated the procedure well. Once there is no evidence of pneumothorax and chest x-ray, the patient could be discharged. Again the fluid could be discarded. No analysis needs to be done. MMODL / IJN: [id number] /
[2020-05-15 13:12] VITALS: BP 122/86; PULSE 112
== END 2020-05-18 07:59 ==
LOC: PROCWHC3 10:27
PROVIDERS: ATTEND Internal Medicine Critical Care Medicine
DX: J90 Pleural effusion, not elsewhere classified (principal); M85.88 Other specified disorders of bone density and structure, other site; J44.9 Chronic obstructive pulmonary disease, unspecified; F17.210 Nicotine dependence, cigarettes, uncomplicated; Z85.43 Personal history of malignant neoplasm of ovary; Z80.1 Family history of malignant neoplasm of trachea, bronchus and lung; Z83.6 Family history of other diseases of the respiratory system
CPT/HCPCS: 71045; 96372; 32554; J0461

== ENCOUNTER → 2020-05-15 | Outpatient (CLI) | payer MEDICARE ==
--- NOTE | 2020-05-15 10:51 | US ---
EXAMINATION TYPE: US chest DATE OF EXAM: 05/15/2020 COMPARISON: NONE CLINICAL HISTORY: J90 Pleural effusion. Right side pleural effusion. TECHNIQUE: Targeted ultrasound of the posterior lower right hemithorax EXAM MEASUREMENTS: Right Pleural Effusion pocket size: 18.5 cm Right skin surface to fluid distance: 1.9 cm Lung tissue seen at 5.8 cm in fluid pocket. Right side marked for possible thoracentesis outside the dept. Pulmonologists are able to review the images in the patient?s EMR. IMPRESSIONS: Right pleural effusion.
== END | disposition home or self-care (01) ==
LOC: RADUSWWP 10:09
PROVIDERS: ATTEND Internal Medicine Critical Care Medicine
DX: J90 Pleural effusion, not elsewhere classified (principal)
CPT/HCPCS: 76604

== ENCOUNTER → 2020-05-20 | Day surgery (SDC) | payer MEDICARE ==
[2020-05-19 10:16] VITALS: BMI 20.5
[~2020-05-20] MED LIST changes: -ATROPINE SULFATE 0.4 MG/ML 1 ML VIAL IM NR; +GLUCAGON 1 MG/ML VIAL ONE; +LACTATED RINGERS 1,000 ML IV SCH; +LIDOCAINE 1% (10MG/ML) FOR IV START INTRADERMA ONE; +LIDOCAINE 1% INJ 10MG/ML (20 ML MDV) ONE; +PROPOFOL 10 MG/ML 20 ML VIAL IV ONE; -SODIUM CHLORIDE 0.9% 500 ML 500 ML in EMPTY BAG 1 BAG IV PRN
[2020-05-20 13:06] VITALS: RESP 18
--- NOTE | 2020-05-20 13:48 | P.GSHP ---
History of Present Illness H&P Date: 05/20/20 Chief Complaint: GERD, screening colonoscopy 67-year-old female who presents today for EGD and screening colonoscopy.. Past Medical History Past Medical History: COPD Additional Past Medical History / Comment(s): hx of pleural effusion, recent thoracentesis, tinnitis, states "being worked up for possible cancer" History of Any Multi-Drug Resistant Organisms: None Reported Past Surgical History: Orthopedic Surgery, Tubal Ligation Additional Past Surgical History / Comment(s): fusion neck surgery, right rotator cuff Past Anesthesia/Blood Transfusion Reactions: No Reported Reaction Smoking Status: Former smoker - Past Family History Mother Family Medical History: Cancer Medications and Allergies Home Medications Medication Instructions Recorded Confirmed Type Cyanocobalamin (Vitamin B-12) 1,000 mcg PO DAILY 07/30/17 05/20/20 History [Vitamin B-12] HYDROcodone/APAP 10-325MG [Peterson 1 tab PO DAILY PRN 08/19/19 05/20/20 History 10-325] Multivitamins, Thera [Multivitamin 1 tab PO DAILY 08/19/19 05/20/20 History (formulary)] traMADol HCL 100 mg PO TID 08/19/19 05/19/20 History Cholecalciferol [Vitamin D3 (25 25 mcg PO DAILY 03/27/20 05/20/20 History Mcg = 1000 Iu)] Albuterol Inhaler [Ventolin Hfa 2 puff INHALATION BID 04/13/20 05/20/20 History Inhaler] ALPRAZolam [Xanax] 0.25 mg PO DAILY PRN 05/19/20 05/19/20 History Ibuprofen [Motrin] 800 mg PO Q8H 05/19/20 05/19/20 History Ipratropium-Albuterol Nebulize 3 ml INHALATION BID 05/19/20 05/20/20 History [Duoneb 0.5 mg-3 mg/3 ml Soln] Acetaminophen Tab [Tylenol] 325 mg PO Q4H 05/20/20 05/20/20 History Allergies Allergy/AdvReac Type Severity Reaction Status Date / Time No Known Allergies Allergy Verified 05/19/20 10:12 Surgical - Exam Vital Signs Pulse Resp BP Pulse Ox 114 H 18 121/73 96 05/20/20 13:05 05/20/20 13:05 05/20/20 13:05 05/20/20 13:05 - General well developed, well nourished, no distress - Eyes PERRL - ENT normal pinna - Neck no masses - Respiratory normal expansion - Cardiovascular Rhythm: regular - Abdomen Abdomen: soft, non tender Assessment and Plan Assessment: GERD, we'll perform EGD. We'll perform screening colonoscopy.
--- NOTE | 2020-05-20 14:10 | P.OP ---
Date of Procedure: 05/20/20 Preoperative Diagnosis: GERD Screening colonoscopy Postoperative Diagnosis: Antral gastritis Hiatal hernia Esophagitis Procedure(s) Performed: EGD Screening colonoscopy Anesthesia: MAC Surgeon: Robbin Epstein Pathology: other (Antrum, esophagus) Condition: stable Disposition: PACU Description of Procedure: The patient's placed on the endoscopy table in the lateral position. She received IV sedation. The gastroscope placed oropharynx passed in the esophagus and then into the stomach. Scope was placed the pylorus. First portion duodenum appeared normal. Scope was then brought back the antrum spinal inflamed. A biopsies performed. Scope was unretroflexed and remainder the stomach appeared normal. There was a moderate size hiatal hernia. The distal esophagus was inflamed. The GE junction was at 38 7 is. The distal esophagus was biopsied. The proximal esophagus appeared normal. Scope withdrawn for patient. Next digital rectal exam was performed which revealed no abnormalities. Flexible colonoscope was then placed patient anus passed throughout the colon. The colonoscope could not be passed beyond the mid transverse colon secondary to tortuosity valve. Several times made to maneuver the colonoscope was impossible. This point scope was withdrawn. The distal transverse colon descending colon sigmoid colon and rectum appeared normal however the colon was quite tortuous. Scope withdrawn the patient. She was scheduled for a barium enema.
[2020-05-20 14:20] VITALS: BP 106/73; PULSE 94
--- NOTE | 2020-05-21 12:54 | FL ---
The EXAMINATION TYPE: FL barium enema w single contrast DATE OF EXAM: 05/21/2020 COMPARISON: The HISTORY: Change in bowel habits. TECHNIQUE: Barium was colon from the rectum to the cecum. Multiple spot and overhead images are obta ined. FINDINGS: I do not see evidence for annular constricting lesion or fungating mass. No polypoid lesio ns are identified. Mucosal fold pattern has a normal appearance. No evidence for inflammatory bowel disease. No significant diverticular disease. IMPRESSION: No significant abnormality identified at this time.
== END ==
LOC: ORWHC2ENDO 12:40
PROVIDERS: ATTEND Surgery
DX: Z12.11 Encounter for screening for malignant neoplasm of colon (principal); Q43.8 Other specified congenital malformations of intestine; K31.9 Disease of stomach and duodenum, unspecified; K21.00 Gastro-esophageal reflux disease with esophagitis, without bleeding; K29.70 Gastritis, unspecified, without bleeding; K44.9 Diaphragmatic hernia without obstruction or gangrene; J44.9 Chronic obstructive pulmonary disease, unspecified; H93.19 Tinnitus, unspecified ear; Z87.09 Personal history of other diseases of the respiratory system; Z98.890 Other specified postprocedural states; Z98.51 Tubal ligation status; Z98.1 Arthrodesis status; Z87.891 Personal history of nicotine dependence; Z79.891 Long term (current) use of opiate analgesic; Z79.899 Other long term (current) drug therapy; Z79.1 Long term (current) use of non-steroidal anti-inflammatories (NSAID); Z80.9 Family history of malignant neoplasm, unspecified
CPT/HCPCS: 88305; 43239; J1610; J2001; J2704; G0121; 45378; 74280

== ENCOUNTER → 2020-06-04 | Day surgery (SDC) | payer MEDICARE, OTHER ==
[2020-06-04 11:53] VITALS: RESP 16; TEMP 98
[2020-06-04 12:29] VITALS: BP 119/72; PULSE 94
--- NOTE | 2020-06-04 12:49 | XR ---
EXAMINATION TYPE: XR chest 1V portable DATE OF EXAM: 06/04/2020 COMPARISON: Chest x-ray 05/15/2020 HISTORY: Status post thoracentesis TECHNIQUE: Single frontal view of the chest is obtained. FINDINGS: There is been interval improvement in aeration at the right lung base, patchy bandlike are as of increased attenuation and blunting the costophrenic angle persist. There is no evident pneumoth orax. No other significant interval change. IMPRESSION: No evident complication status post thoracentesis.
--- NOTE | 2020-06-04 21:00 | PCN ---
PROCEDURE NOTE PROCEDURE: Right thoracentesis. Financial Advocate: Tristen Mcclendon MD Indication Pleural effusion. A time-out was completed verifying correct patient, procedure, site, positioning , and implant (s) or special equipment if applicable. There was informed consent and universal timeout. Ultrasound guidance was used and appropriate fluid pocket was identified and marked. Patient was positioned, prepped and draped in usual sterile fashion. Lidocaine was used to anesthetize the area. A thoracentesis catheter was introduced into the pleural space and fluid was removed. Blood loss was none. A chest x-ray was ordered to evaluate for pneumothorax. Total Fluid Removed: 1.8 L Color of Fluid: Brown Fluid was not sent for appropriate laboratory tests. The patient tolerated the procedure well. There was no immediate complication. Once the chest x-ray is reviewed by Radiology, the patient will be discharged home. MMGEEL / CLARISSEN: [id number] /
== END ==
LOC: PROCWHC3 10:36
PROVIDERS: ATTEND Internal Medicine Critical Care Medicine
DX: J90 Pleural effusion, not elsewhere classified (principal); C56.9 Malignant neoplasm of unspecified ovary; R00.0 Tachycardia, unspecified; J43.9 Emphysema, unspecified; F17.210 Nicotine dependence, cigarettes, uncomplicated; Z80.1 Family history of malignant neoplasm of trachea, bronchus and lung; Z83.6 Family history of other diseases of the respiratory system; Z98.1 Arthrodesis status; Z79.891 Long term (current) use of opiate analgesic; Z79.51 Long term (current) use of inhaled steroids; Z79.899 Other long term (current) drug therapy
CPT/HCPCS: 32554; 71045

== ENCOUNTER → 2020-06-04 | Outpatient (CLI) | payer MEDICARE ==
--- NOTE | 2020-06-04 12:45 | US ---
EXAMINATION TYPE: US chest DATE OF EXAM: 06/04/2020 COMPARISON: NONE CLINICAL HISTORY: J90 Pleural effusion. TECHNIQUE: Targeted ultrasound of the posterior lower EXAM MEASUREMENTS: Right Pleural Effusion pocket size: 18.0 cm Right skin surface to fluid distance: 1.8 cm Right side marked for possible thoracentesis outside the dept. Pulmonologists are able to review the images in the patient?s EMR. IMPRESSIONS: 1. Right pleural effusion
== END | disposition home or self-care (01) ==
LOC: RADUSWWP 10:13
PROVIDERS: ATTEND Internal Medicine Critical Care Medicine
DX: J90 Pleural effusion, not elsewhere classified (principal)
CPT/HCPCS: 76604

== ENCOUNTER → 2020-06-05 | Outpatient (CLI) | payer MEDICARE, OTHER ==
[2020-06-05 11:43] VITALS: BP 115/81; PULSE 94; RESP 16; TEMP 97.8
[2020-06-05] MEDS: FAMOTIDINE 20 MG/2 ML VIAL IV ONE (11:43)
[2020-06-05] MEDS: SODIUM CHLORIDE 0.9% 500 ML 500 ML in EMPTY BAG 1 BAG IV PRN (11:43)
[2020-06-05] MEDS: DEXAMETHASONE SOD PHOSPHATE 10 MG/ML 1 ML VIAL IV ONE (11:45)
[2020-06-05] MEDS: ONDANSETRON 16 MG in SODIUM CHLORIDE 0.9% 50 ML IVPB ONE (11:53)
== END ==
LOC: PROCWHC3 10:32
PROVIDERS: ATTEND Internal Medicine Hematology & Oncology
DX: C48.2 Malignant neoplasm of peritoneum, unspecified (principal); Z87.891 Personal history of nicotine dependence
CPT/HCPCS: 96360; 96367; 96375; J1100; J2405

== ENCOUNTER → 2020-06-15 | Outpatient (CLI) | payer MEDICARE, OTHER ==
--- NOTE | 2020-06-15 13:19 | MR ---
EXAMINATION TYPE: MR brain wo/w con DATE OF EXAM: 06/15/2020 12:31 PM COMPARISON: NONE HISTORY: Nausea, Vomiting , Altered Mental Status, KINGSLEY CONTRAST: Patient received 5.5 mL intravenous Gadavist gadolinium contrast. Multiplanar and multispin-echo imaging of the brain was performed . Pre and post contrast enhanced i mages are obtained. The ventricles, basal cisterns and sulci overlying the cerebral convexities are minimally enlarged. There is evidence of mild periventricular white matter ischemic demyelination. There are a few scattered foci of increased signal within the deep and subcortical white matter of fawn th cerebral hemispheres totaling approximately 10 within the right cerebral hemisphere and approximat jeevan 6 within the left cerebral hemisphere. Lesion measure up to 3 mm in maximal dimension. Differenti al diagnostic possibilities include sequela of chronic migraine headaches, deep white matter ischemic change, demyelination, sequela of Lyme's disease to name a few. No acute edema is seen on diffusion weighted imaging. There is no evidence for midline shift or mass effect. Acute intracranial hemorrhage or extra-axial collection is not evident. No enhancing lesions are seen. The paranasal sinuses and mastoid air cells are well-aerated. IMPRESSION: 1. Nonspecific white matter changes. 2. No enhancing lesions identified.
== END | disposition home or self-care (01) ==
LOC: RADMRIMAIN 11:32
PROVIDERS: ATTEND Internal Medicine Hematology & Oncology
DX: R90.82 White matter disease, unspecified (principal); R51.9 Headache, unspecified; R11.0 Nausea; R11.10 Vomiting, unspecified; R41.82 Altered mental status, unspecified
CPT/HCPCS: 70553; A9585

== ENCOUNTER → 2020-07-17 | Outpatient (CLI) | payer MEDICARE, OTHER ==
[2020-07-17 13:22] LABS: African American GFR (CKD) >90 (>60 ml/min/1.73 sqM); Blood Urea Nitrogen 17 mg/dL (7-17); Non-African American GFR(CKD) >90 (>60 ml/min/1.73 sqM)
--- NOTE | 2020-07-17 14:49 | CT ---
EXAMINATION TYPE: CT ChestAbdPelvis w con DATE OF EXAM: 07/17/2020 COMPARISON: 04/17/2020 PET/CT HISTORY: 7 6Z03.89 Peritoneal CA C48.2 CONTRAST: CT scan of the chest, abdomen and pelvis is performed with Oral Contrast and with IV Contrast, patien t injected with 100 mL of Isovue 300. CT Chest: LUNGS: Persistent large right-sided pleural effusion however significantly decreased in size since pr ior examination. No distinct pulmonary nodules or masses. Previously noted areas of atelectasis and/o r infiltrate have resolved. Mild residual within the right middle lobe medially. MEDIASTINUM: Thoracic aorta is of normal caliber. The heart is not enlarged. No evidence for media stinal mass or adenopathy. HILAR STRUCTURES: No evidence for mass. No hilar adenopathy is appreciated. OTHER: No significant abnormality. CONTRAST CT ABDOMEN AND PELVIS FINDINGS: LIVER/GB: No calcified gallstones. No space occupying hepatic lesion. Biliary tree is of normal ca liber. PANCREAS: No inflammation. No distinct mass. SPLEEN: No splenic enlargement. No lesion seen. ADRENALS: No nodule. No thickening. KIDNEYS/BLADDER: There is interval development of fqar-th-yztlyemj right-sided hydronephrosis. No florentino dence for obstructing calculus or mass. Left renal collecting systems of normal size. No nephrolithia sis. No distinct renal mass. BOWEL: Normal appendix. Normal bowel caliber. No inflammation. GENITAL ORGANS: Heterogenous enhancement of the uterus may reflect underlying mass. Trace free fluid within the pelvis. No ovarian mass identified. LYMPH NODES: No greater than 1cm abdominal or pelvic lymph nodes are appreciated. AORTA: No significant abnormality. OSSEOUS STRUCTURES: No significant abnormality is seen. OTHER: No significant additional abnormality is seen. IMPRESSION: 1. Persistent right-sided pleural effusion is smaller in size. 2. Areas of atelectasis and/or infiltrate right lower lobe have for the most part resolved with mild residual noted. 3. Tegy-bi-vtliszmw right-sided hydronephrosis of uncertain etiology.
== END | disposition home or self-care (01) ==
LOC: RADCTMAIN 12:36
PROVIDERS: ATTEND Internal Medicine Hematology & Oncology
DX: C48.2 Malignant neoplasm of peritoneum, unspecified (principal); J90 Pleural effusion, not elsewhere classified; N13.30 Unspecified hydronephrosis
CPT/HCPCS: 82565; 84520; 71260; 74177; 36415; Q9967

== ENCOUNTER → 2020-08-27 | Outpatient (CLI) | payer MEDICARE, OTHER ==
[2020-08-27 14:38] LABS: HCT 37.6 % (37.2-46.3); HGB 12.1 g/dL (12.0-15.0); MCH 33.5 pg (27.0-32.0); MCHC 32.2 g/dL (32.0-37.0); MCV 104.2 fL (80.0-97.0); Platelet Count 176 X 10*3/uL (140-440); RBC 3.61 X 10*6/uL (4.10-5.20); RDW 15.3 % (11.5-14.5); WBC 3.61 X 10*3/uL (4.50-10.00)
[2020-08-27 15:21] LABS: African American GFR (CKD) 112.4 (60.0-200.0); Albumin 4.5 g/dL (3.80-4.90); Albumin/Globulin Ratio 1.96 (1.60-3.17); Anion Gap 7.3 mmol/L (4.00-12.00); BUN/Creat Ratio 21.67 Ratio (12.00-20.00); Calcium 9.5 mg/dL (8.7-10.3); Carbon Dioxide 27.7 mmol/L (21.6-31.8); Globulin 2.3 g/dL (1.6-3.3); Magnesium 1.6 mg/dL (1.5-2.4); Potassium 4.4 mmol/L (3.5-5.5); Total Bilirubin 0.3 mg/dL (0.3-1.2); Total Protein 6.8 g/dL (6.2-8.2)
[2020-08-27 15:45] LABS: Basophils # (A) 0.02 X 10*3/uL (0.00-0.10); Basophils % (A) 0.6 %; Eosinophils # (A) 0.09 X 10*3/uL (0.04-0.35); Eosinophils % (A) 2.5 %; Lymphocytes # (A) 1.02 X 10*3/uL (0.90-5.00); Lymphocytes % (A) 28.3 %; Monocytes # (A) 0.28 X 10*3/uL (0.20-1.00); Monocytes % (A) 7.8 %; Neutrophils % (A) 60.8 %
== END | disposition home or self-care (01) ==
LOC: LABWHC1 10:31
PROVIDERS: ATTEND Obstetrics & Gynecology
DX: Z01.810 Encounter for preprocedural cardiovascular examination (principal); Z01.812 Encounter for preprocedural laboratory examination; C56.9 Malignant neoplasm of unspecified ovary; Z20.822 Contact with and (suspected) exposure to COVID-19
CPT/HCPCS: 80053; 86304; 83735; 85025; 93005; 36415; U0003; U0005

== ENCOUNTER 2020-09-08 15:44 | Emergency (ER) | payer MEDICARE, OTHER ==
[2020-09-08] MEDS ORDERED: HYDROmorphone 1 MG/ML 1 ML SYRINGE IVP STA ×2 (16:33→18:21)
[2020-09-08 16:36] LABS: Basophils % (A) 0 %; Eosinophils # (A) 0.1 k/uL (0-0.7); Eosinophils % (A) 3 %; HCT 30.2 % (34.0-46.0); Lymphocytes # (A) 0.2 k/uL (1.0-4.8); Lymphocytes % (A) 8 %; MCHC 32.8 g/dL (31.0-37.0); Macrocytosis Moderate; Mean Platelet Volume 7.5; Monocytes # (A) 0.1 k/uL (0-1.0); Monocytes % (A) 4 %; Neutrophils # (A) 1.9 k/uL (1.3-7.7); Neutrophils % (A) 82 %; Platelet Count 253 k/uL (150-450); RBC 2.83 m/uL (3.80-5.40); RDW 15.5 % (11.5-15.5); WBC 2.3 k/uL (3.8-10.6)
[2020-09-08 16:40] LABS: HGB 9.9 gm/dL (11.4-16.0)
[2020-09-08 16:41] LABS: MCV 106.7 fL (80.0-100.0)
[2020-09-08 16:49] LABS: ALT 30 U/L (4-34); AST 32 U/L (14-36); African American GFR (CKD) >90 (>60 ml/min/1.73 sqM); Albumin 3.6 g/dL (3.5-5.0); Alkaline Phosphatase 88 U/L (38-126); Amylase <30 U/L (30-110); Anion Gap 10 mmol/L; Blood Urea Nitrogen 11 mg/dL (7-17); Carbon Dioxide 26 mmol/L (22-30); Chloride 101 mmol/L (98-107); Glucose 108 mg/dL (74-99); Lipase <10 U/L (23-300); Non-African American GFR(CKD) >90 (>60 ml/min/1.73 sqM); Potassium 3.8 mmol/L (3.5-5.1); Sodium 137 mmol/L (137-145); Total Bilirubin 0.6 mg/dL (0.2-1.3)
--- NOTE | 2020-09-08 17:19 | XR ---
EXAMINATION TYPE: XR KUB portable DATE OF EXAM: 09/08/2020 COMPARISON: NONE HISTORY: Abdominal pain TECHNIQUE: 2 views FINDINGS: There are skin greg in the midline abdomen. There is no sign of intestinal obstruction o r pneumoperitoneum. Fecal pattern is normal. There is some blunting of the costophrenic angles. IMPRESSION: There is small pleural effusions. Nonacute abdomen.
--- NOTE | 2020-09-08 18:25 | ED ---
General Adult HPI - General Chief complaint: Abdominal Pain Stated complaint: abd pain Time Seen by Provider: 09/08/20 16:16 Source: patient, EMS, RN notes reviewed Mode of arrival: EMS Limitations: no limitations - History of Present Illness Initial comments: Patient is a 64-year-old female that presents to emergency room complaining about pain. She was recently discharged from [facility] in [facility] status post hysterectomy and partial colectomy. She notes that she was taking her pain medication at home as prescribed but the pain was still too much. She is wanted to come in to make sure nothing was wrong. She denied any other issues or complaints. She denied any chest pain shortness breath headache diarrhea constipation fever fatigue chills. - Related Data Home Medications Medication Instructions Recorded Confirmed Cyanocobalamin (Vitamin B-12) 1,000 mcg PO DAILY 07/30/17 07/31/20 [Vitamin B-12] HYDROcodone/APAP 10-325MG [[place] 1 tab PO DAILY PRN 08/19/19 07/31/20 10-325] Multivitamins, Thera [Multivitamin 1 tab PO DAILY 08/19/19 07/31/20 (formulary)] traMADol HCL 100 mg PO TID 08/19/19 07/31/20 Cholecalciferol [Vitamin D3 (25 25 mcg PO DAILY 03/27/20 07/31/20 Mcg = 1000 Iu)] Albuterol Inhaler [Ventolin Hfa 2 puff INHALATION BID 04/13/20 07/31/20 Inhaler] ALPRAZolam [Xanax] 0.25 mg PO DAILY PRN 05/19/20 07/31/20 Ipratropium-Albuterol Nebulize 3 ml INHALATION BID 05/19/20 07/31/20 [Duoneb 0.5 mg-3 mg/3 ml Soln] Acetaminophen Tab [Tylenol] 325 mg PO Q4H 05/20/20 07/31/20 Prochlorperazine [Compazine] 1 tab PO TID 06/04/20 07/31/20 Famciclovir [Famvir] 500 mg PO Q8HR 06/19/20 07/31/20 Prochlorperazine [Compazine] 10 mg PO Q8H PRN 06/19/20 07/31/20 Allergies Allergy/AdvReac Type Severity Reaction Status Date / Time No Known Allergies Allergy Verified 07/10/20 07:36 Review of Systems ROS Statement: Those systems with pertinent positive or pertinent negative responses have been documented in the HPI. ROS Other: All systems not noted in ROS Statement are negative. Past Medical History Past Medical History: COPD Additional Past Medical History / Comment(s): hx of pleural effusion, recent thoracentesis, tinnitis, states "being worked up for possible cancer" History of Any Multi-Drug Resistant Organisms: None Reported Past Surgical History: Hysterectomy, Orthopedic Surgery, Tubal Ligation Additional Past Surgical History / Comment(s): fusion neck surgery, right rotator cuff, Past Anesthesia/Blood Transfusion Reactions: No Reported Reaction Past Psychological History: Anxiety Smoking Status: Former smoker Past Alcohol Use History: None Reported Past Drug Use History: None Reported - Past Family History Mother Family Medical History: Cancer General Exam Limitations: no limitations General appearance: alert, in no apparent distress Head exam: Present: atraumatic, normocephalic, normal inspection Eye exam: Present: normal appearance, PERRL, EOMI. Absent: scleral icterus, conjunctival injection, periorbital swelling Neck exam: Present: normal inspection Respiratory exam: Present: normal lung sounds bilaterally. Absent: respiratory distress, wheezes, rales, rhonchi, stridor Cardiovascular Exam: Present: regular rate, normal rhythm, normal heart sounds. Absent: systolic murmur, diastolic murmur, rubs, gallop, clicks GI/Abdominal exam: Present: soft, normal bowel sounds, other (Surgical incision is healing well, no signs or symptoms of infection no erythema.). Absent: d istended, tenderness, guarding, rebound, rigid Extremities exam: Present: normal inspection, full ROM, normal capillary refill. Absent: tenderness, pedal edema, joint swelling, calf tenderness Neurological exam: Present: alert, oriented X3 Psychiatric exam: Present: normal affect, normal mood Skin exam: Present: warm, dry, intact, normal color. Absent: rash Course Vital Signs 09/08/20 09/08/20 15:48 16:13 Temperature 98.4 F Pulse Rate 128 H Respiratory 30 H Rate Blood Pressure 117/62 O2 Sat by Pulse 85 L 94 L Oximetry Medical Decision Making - Medical Decision Making 54-year-old female complaining of abdominal pain status post hysterectomy and partial colectomy. Labs, KUB, 1 mg of Dilaudid, 4 mg Zofran, 1 L normal saline ordered. Labs unremarkable from baseline. KUB negative for any acute process. 2 mg of Dilaudid ordered for increased pain, patient is agreeable to go home and follow-up with surgeon. Case discussed with Dr. Albright, patient can discharge home in stable condition. - Lab Data Result diagrams: 09/08/20 16:30 09/08/20 16:30 Lab Results 09/08/20 09/08/20 Range/Units 16:30 16:30 WBC 2.3 L (3.8-10.6) k/uL RBC 2.83 L (3.80-5.40) m/uL Hgb 9.9 L D (11.4-16.0) gm/dL Hct 30.2 L (34.0-46.0) % MCV 106.7 H D (80.0-100.0) fL MCH 35.0 (25.0-35.0) pg MCHC 32.8 (31.0-37.0) g/dL RDW 15.5 (11.5-15.5) % Plt Count 253 (150-450) k/uL MPV 7.5 Neutrophils % 82 % Lymphocytes % 8 % Monocytes % 4 % Eosinophils % 3 % Basophils % 0 % Neutrophils # 1.9 (1.3-7.7) k/uL Lymphocytes # 0.2 L (1.0-4.8) k/uL Monocytes # 0.1 (0-1.0) k/uL Eosinophils # 0.1 (0-0.7) k/uL Basophils # 0.0 (0-0.2) k/uL Macrocytosis Moderate Sodium 137 (137-145) mmol/L Potassium 3.8 (3.5-5.1) mmol/L Chloride 101 (98-107) mmol/L Carbon Dioxide 26 (22-30) mmol/L Anion Gap 10 mmol/L BUN 11 (7-17) mg/dL Creatinine 0.51 L (0.52-1.04) mg/dL Est GFR (CKD-EPI)AfAm >90 (>60 ml/min/1.73 sqM) Est GFR (CKD-EPI)NonAf >90 (>60 ml/min/1.73 sqM) Glucose 108 H (74-99) mg/dL Calcium 10.0 (8.4-10.2) mg/dL Total Bilirubin 0.6 (0.2-1.3) mg/dL AST 32 (14-36) U/L ALT 30 (4-34) U/L Alkaline Phosphatase 88 (38-126) U/L Total Protein 6.0 L (6.3-8.2) g/dL Albumin 3.6 (3.5-5.0) g/dL Amylase <30 L (30-110) U/L Lipase <10 L (23-300) U/L - Radiology Data Radiology results: report reviewed, image reviewed KUB: Small pleural effusions. Nonacute abdomen. Disposition Clinical Impression: Abdominal pain Disposition: HOME SELF-CARE Condition: Stable Instructions (If sedation given, give patient instructions): Abdominal Pain (ED) Additional Instructions: Please return to the Emergency Department if symptoms worsen or any other concerns. Follow-up with surgeon in the next several days. Continue take at home pain medication as prescribed. Increase oral fluids. May use heating pad or ice packs to help alleviate some pain. Is patient prescribed a controlled substance at d/c from ED?: No Referrals: Isaias Hay MD [Primary Care Provider] - 1-2 days Time of Disposition: 18:24
[2020-09-08 18:58] VITALS: BP 108/61; PULSE 107; RESP 18; TEMP 98.8
== END 2020-09-08 19:21 | disposition home or self-care (01) ==
LOC: EC 15:44
DX: R10.9 Unspecified abdominal pain (principal); J44.9 Chronic obstructive pulmonary disease, unspecified; Z87.891 Personal history of nicotine dependence; Z90.710 Acquired absence of both cervix and uterus; Z90.49 Acquired absence of other specified parts of digestive tract
CPT/HCPCS: 99284; 96374; 96376; 36415; 80053; 82150; 83690; 85025; 74018; J1170

== ENCOUNTER 2020-09-28 13:18 | Inpatient (IN) | payer MEDICARE, OTHER ==
[2020-09-28] MEDS ORDERED: SODIUM CHLORIDE 0.9% 1,000 ML IV STA (14:13)
[2020-09-28] MEDS ORDERED: ONDANSETRON 4 MG/2 ML VIAL IVP STA (14:13)
[2020-09-28] MEDS ORDERED: SODIUM CHLORIDE 0.9% 500 ML 500 ML IV STA (14:13)
[2020-09-28] MEDS ORDERED: HYDROmorphone 0.5 MG/0.5 ML SYRINGE IVP STA ×2 (14:13→17:56)
--- NOTE | 2020-09-28 14:16 | ED ---
General Adult HPI - General Chief complaint: Nausea/Vomiting/Diarrhea Stated complaint: Possible Dehydration Time Seen by Provider: 09/28/20 13:45 Source: patient, RN notes reviewed, old records reviewed Mode of arrival: wheelchair Limitations: no limitations - History of Present Illness Initial comments: This is a 65-year-old female who presents emergency Department with a past medical history significant for peritoneal cancer. Patient comes emergency Department today complaining of a 2 day history of abdominal pain mostly on the left upper quadrant. Patient also states her nurse told her she looked dehydrated wanted to come in. Patient states she hasn't been eating or drinking because she has been persistently nauseated for the last few days. Patient denies any vomiting. Patient states she has an ostomy and has not noticed any changes in her bowel habits. Patient denies any chest pain difficulty breathing. Patient's any fever chills per patient has any back pain. Patient denies any dysuria hematuria urinary frequency. - Related Data Home Medications Medication Instructions Recorded Confirmed Cyanocobalamin (Vitamin B-12) 1,000 mcg PO DAILY 07/30/17 07/31/20 [Vitamin B-12] HYDROcodone/APAP 10-325MG [[place] 1 tab PO DAILY PRN 08/19/19 07/31/20 10-325] Multivitamins, Thera [Multivitamin 1 tab PO DAILY 08/19/19 07/31/20 (formulary)] traMADol HCL 100 mg PO TID 08/19/19 07/31/20 Cholecalciferol [Vitamin D3 (25 25 mcg PO DAILY 03/27/20 07/31/20 Mcg = 1000 Iu)] Albuterol Inhaler [Ventolin Hfa 2 puff INHALATION BID 04/13/20 07/31/20 Inhaler] ALPRAZolam [Xanax] 0.25 mg PO DAILY PRN 05/19/20 07/31/20 Ipratropium-Albuterol Nebulize 3 ml INHALATION BID 05/19/20 07/31/20 [Duoneb 0.5 mg-3 mg/3 ml Soln] Acetaminophen Tab [Tylenol] 325 mg PO Q4H 05/20/20 07/31/20 Prochlorperazine [Compazine] 1 tab PO TID 06/04/20 07/31/20 Famciclovir [Famvir] 500 mg PO Q8HR 06/19/20 07/31/20 Prochlorperazine [Compazine] 10 mg PO Q8H PRN 06/19/20 07/31/20 Allergies Allergy/AdvReac Type Severity Reaction Status Date / Time No Known Allergies Allergy Verified 09/28/20 13:49 Review of Systems ROS Statement: Those systems with pertinent positive or pertinent negative responses have been documented in the HPI. ROS Other: All systems not noted in ROS Statement are negative. Past Medical History Past Medical History: COPD Additional Past Medical History / Comment(s): hx of pleural effusion, recent thoracentesis, tinnitis, states "being worked up for possible cancer" peritoneal cancer, History of Any Multi-Drug Resistant Organisms: None Reported Past Surgical History: Hysterectomy, Orthopedic Surgery, Tubal Ligation Additional Past Surgical History / Comment(s): fusion neck surgery, right rotator cuff, colectomy with colostomy, Past Anesthesia/Blood Transfusion Reactions: No Reported Reaction Past Psychological History: Anxiety Smoking Status: Former smoker Past Alcohol Use History: None Reported Past Drug Use History: None Reported - Past Family History Mother Family Medical History: Cancer General Exam - General Exam Comments Initial Comments: GENERAL: Patient is well-developed and well-nourished. Patient is nontoxic and well- hydrated and is in mild distress. ENT: Neck is soft and supple. No significant lymphadenopathy is noted. Oropharynx is clear. Dry mucous membranes. Neck has full range of motion without eliciting any pain. EYES: The sclera were anicteric and conjunctiva were pink and moist. Extraocular movements were intact and pupils were equal round and reactive to light. Eyelids were unremarkable. PULMONARY: Unlabored respirations. Good breath sounds bilaterally. No audible rales rhonchi or wheezing was noted. CARDIOVASCULAR: There is a regular rate and rhythm without any murmurs gallops or rubs. ABDOMEN: Patient's abdomen is tender left upper quadrant no rebound but the patient is having some guarding SKIN: Skin is clear with no lesions or rashes and otherwise unremarkable. NEUROLOGIC: Patient is alert and oriented x3. Cranial nerves II through XII are grossly intact. Motor and sensory are also intact. Normal speech, volume and content. Symmetrical smile. MUSCULOSKELETAL: Normal extremities with adequate strength and full range of motion. No lower extremity swelling or edema. No calf tenderness. LYMPHATICS: No significant lymphadenopathy is noted PSYCHIATRIC: Normal psychiatric evaluation. Limitations: no limitations Course Vital Signs 09/28/20 09/28/20 13:46 18:39 Temperature 97.8 F Pulse Rate 118 H 85 Respiratory 18 18 Rate Blood Pressure 130/87 133/74 O2 Sat by Pulse 96 97 Oximetry Medical Decision Making - Medical Decision Making I went back into reevaluate the patient she stated she was more nauseous any more abdominal pain. No eye exam of the patient's belly and it was tender in both upper quadrants. EKG shows sinus rhythm at 92 bpm DE interval is 92 QRS is 96 QT interval 400 QTC is 494. Computed tomography scan showed fluid in the abdomen possibly consistent peritonitis. This occurred at 7:35 PM I started the patient on antibiotics. I spoke with Dr. Lockett he agreed to admit the patient admitted the patient I wrote admitting orders. - Lab Data Result diagrams: 09/28/20 14:34 09/28/20 16:38 Lab Results 09/28/20 09/28/20 09/28/20 Range/Units 14:34 14:34 16:38 WBC 6.4 (3.8-10.6) k/uL RBC 3.27 L (3.80-5.40) m/uL Hgb 11.1 L (11.4-16.0) gm/dL Hct 35.2 (34.0-46.0) % MCV 107.6 H (80.0-100.0) fL MCH 33.9 (25.0-35.0) pg MCHC 31.5 (31.0-37.0) g/dL RDW 15.0 (11.5-15.5) % Plt Count 508 H D (150-450) k/uL MPV 8.9 Neutrophils % 80 % Lymphocytes % 11 % Monocytes % 6 % Eosinophils % 1 % Basophils % 0 % Neutrophils # 5.2 (1.3-7.7) k/uL Lymphocytes # 0.7 L (1.0-4.8) k/uL Monocytes # 0.4 (0-1.0) k/uL Eosinophils # 0.1 (0-0.7) k/uL Basophils # 0.0 (0-0.2) k/uL Hypochromasia Moderate Macrocytosis Moderate Sodium 137 (137-145) mmol/L Potassium 3.7 (3.5-5.1) mmol/L Chloride 103 (98-107) mmol/L Carbon Dioxide 26 (22-30) mmol/L Anion Gap 8 mmol/L BUN 9 (7-17) mg/dL Creatinine 0.36 L (0.52-1.04) mg/dL Est GFR (CKD-EPI)AfAm >90 (>60 ml/min/1.73 sqM) Est GFR (CKD-EPI)NonAf >90 (>60 ml/min/1.73 sqM) Glucose 100 H (74-99) mg/dL Plasma Lactic Acid Andrzej (0.7-2.0) mmol/L Calcium 8.6 (8.4-10.2) mg/dL Total Bilirubin 0.1 L (0.2-1.3) mg/dL AST 19 (14-36) U/L ALT 6 (4-34) U/L Alkaline Phosphatase 128 H (38-126) U/L Total Protein 5.7 L (6.3-8.2) g/dL Albumin 2.8 L (3.5-5.0) g/dL Amylase 34 (30-110) U/L Lipase 29 (23-300) U/L Urine Color Yellow Urine Appearance Cloudy H (Clear) Urine pH 6.0 (5.0-8.0) Ur Specific [place] 1.033 (1.001-1.035) Urine Protein 1+ H (Negative) Urine Glucose (UA) Negative (Negative) Urine Ketones 1+ H (Negative) Urine Blood Small H (Negative) Urine Nitrite Negative (Negative) Urine Bilirubin Negative (Negative) Urine Urobilinogen <2.0 (<2.0) mg/dL Ur Leukocyte Esterase Negative (Negative) Urine RBC 26 H (0-5) /hpf Urine WBC 21 H (0-5) /hpf Ur Squamous Epith Cells 15 H (0-4) /hpf Urine Bacteria Rare H (None) /hpf Urine Mucus Many H (None) /hpf 09/28/20 Range/Units 16:38 WBC (3.8-10.6) k/uL RBC (3.80-5.40) m/uL Hgb (11.4-16.0) gm/dL Hct (34.0-46.0) % MCV (80.0-100.0) fL MCH (25.0-35.0) pg MCHC (31.0-37.0) g/dL RDW (11.5-15.5) % Plt Count (150-450) k/uL MPV Neutrophils % % Lymphocytes % % Monocytes % % Eosinophils % % Basophils % % Neutrophils # (1.3-7.7) k/uL Lymphocytes # (1.0-4.8) k/uL Monocytes # (0-1.0) k/uL Eosinophils # (0-0.7) k/uL Basophils # (0-0.2) k/uL Hypochromasia Macrocytosis Sodium (137-145) mmol/L Potassium (3.5-5.1) mmol/L Chloride (98-107) mmol/L Carbon Dioxide (22-30) mmol/L Anion Gap mmol/L BUN (7-17) mg/dL Creatinine (0.52-1.04) mg/dL Est GFR (CKD-EPI)AfAm (>60 ml/min/1.73 sqM) Est GFR (CKD-EPI)NonAf (>60 ml/min/1.73 sqM) Glucose (74-99) mg/dL Plasma Lactic Acid Andrzej 0.9 (0.7-2.0) mmol/L Calcium (8.4-10.2) mg/dL Total Bilirubin (0.2-1.3) mg/dL AST (14-36) U/L ALT (4-34) U/L Alkaline Phosphatase (38-126) U/L Total Protein (6.3-8.2) g/dL Albumin (3.5-5.0) g/dL Amylase (30-110) U/L Lipase (23-300) U/L Urine Color Urine Appearance (Clear) Urine pH (5.0-8.0) Ur Specific [place] (1.001-1.035) Urine Protein (Negative) Urine Glucose (UA) (Negative) Urine Ketones (Negative) Urine Blood (Negative) Urine Nitrite (Negative) Urine Bilirubin (Negative) Urine Urobilinogen (<2.0) mg/dL Ur Leukocyte Esterase (Negative) Urine RBC (0-5) /hpf Urine WBC (0-5) /hpf Ur Squamous Epith Cells (0-4) /hpf Urine Bacteria (None) /hpf Urine Mucus (None) /hpf Disposition Clinical Impression: Abdominal pain, Nausea, Peritonitis Disposition: ADMITTED IP TO THIS HOSP Referrals: Isaias Hay MD [Primary Care Provider] - 1-2 days Time of Disposition: 19:42
[2020-09-28 16:40] LABS: Appearance,Urine Cloudy (Clear); Bacteria,Urine Rare /hpf; Bilirubin,Urine Negative (Negative); Blood,Urine Small (Negative); Color,Urine Yellow; Glucose,Urine (UA) Negative (Negative); Ketones,Urine 1+ (Negative); Leukocyte Esterase,Urine Negative (Negative); Mucus,Urine Many /hpf; Nitrite,Urine Negative (Negative); Protein,Urine 1+ (Negative); RBC,Urine 26 /hpf (0-5); Specific Gravity,Urine 1.033 (1.001-1.035); Squamous Epithelial Cell,Urine 15 /hpf (0-4); Urobilinogen,Urine <2.0 mg/dL (<2.0); WBC,Urine 21 /hpf (0-5)
[2020-09-28 16:55] LABS: Basophils % (A) 0 %; Eosinophils # (A) 0.1 k/uL (0-0.7); Eosinophils % (A) 1 %; HCT 35.2 % (34.0-46.0); HGB 11.1 gm/dL (11.4-16.0); Hypochromasia Moderate; Lymphocytes # (A) 0.7 k/uL (1.0-4.8); Lymphocytes % (A) 11 %; MCH 33.9 pg (25.0-35.0); MCHC 31.5 g/dL (31.0-37.0); MCV 107.6 fL (80.0-100.0); Macrocytosis Moderate; Mean Platelet Volume 8.9; Monocytes # (A) 0.4 k/uL (0-1.0); Monocytes % (A) 6 %; Neutrophils # (A) 5.2 k/uL (1.3-7.7); Neutrophils % (A) 80 %; RBC 3.27 m/uL (3.80-5.40); WBC 6.4 k/uL (3.8-10.6)
[2020-09-28 16:58] LABS: ALT 6 U/L (4-34); AST 19 U/L (14-36); African American GFR (CKD) >90 (>60 ml/min/1.73 sqM); Albumin 2.8 g/dL (3.5-5.0); Alkaline Phosphatase 128 U/L (38-126); Amylase 34 U/L (30-110); Anion Gap 8 mmol/L; Blood Urea Nitrogen 9 mg/dL (7-17); Calcium 8.6 mg/dL (8.4-10.2); Carbon Dioxide 26 mmol/L (22-30); Chloride 103 mmol/L (98-107); Glucose 100 mg/dL (74-99); Lipase 29 U/L (23-300); Non-African American GFR(CKD) >90 (>60 ml/min/1.73 sqM); Potassium 3.7 mmol/L (3.5-5.1); Sodium 137 mmol/L (137-145); Total Bilirubin 0.1 mg/dL (0.2-1.3); Total Protein 5.7 g/dL (6.3-8.2)
[2020-09-28 17:03] LABS: Platelet Count 508 k/uL (150-450)
[2020-09-28] MEDS ORDERED: METOCLOPRAMIDE 5 MG/ML 2 ML VIAL IVP STA (17:57)
--- NOTE | 2020-09-28 19:28 | CT ---
EXAMINATION TYPE: CT abdomen pelvis w con DATE OF EXAM: 09/28/2020 COMPARISON: None HISTORY: Abdominal pain with nausea. Recent hysterectomy and bowel resection with colostomy reversal. CT DLP: 737.9 mGycm Automated exposure control for dose reduction was used. TECHNIQUE: Helical acquisition of images was performed from the lung bases through the pelvis. CONTRAST: Performed without Oral Contrast and with IV Contrast, patient injected with 100 mL of Isovue 370. FINDINGS: LUNG BASES: She visualized moderate right and small left effusion and adjacent atelectasis. LIVER/GB: There is perihepatic loculated fluid that measures simple fluid attenuation but demonstrate s peripheral enhancement. There is a locule of air within the perihepatic fluid collection on the lef t. Subcentimeter hypodensities in the liver are too small to characterize. Gallbladder is distended raúl uring up to 4.7 cm axially and there subtle hypodense rim sign predominantly on the left. No biliary ductal dilatation. PANCREAS: No significant abnormality is seen. SPLEEN: Spleen is not enlarged however there is a splenic fluid that demonstrates rim enhancement. ADRENALS: There is redemonstration of a 9 mm hypodense left adrenal nodule that measures approximatel y 40 Hounsfield units. KIDNEYS: No significant abnormality is seen. Extrarenal pelvis on the right. FREE AIR: Few locules of air are noted in the upper abdomen. RETROPERITONEAL ADENOPATHY: Retroperitoneal lymph nodes. REPRODUCTIVE ORGANS: Patient is status post hysterectomy. URINARY BLADDER: Distended with a tiny amount of nondependent air. PELVIC ADENOPATHY: None. OSSEOUS STRUCTURES: Degenerative changes of the spine. Suspicious osseous lesions. BOWEL: Right lower quadrant ostomy. Bowel sutures noted in the left upper quadrant. Small amount of free fluid in the pelvis. Haziness and edema of the mesenteric fat. Anterior abdominal wall skin sutu res. OTHER: Atherosclerotic disease of the abdominal aorta and iliac vessels. No abdominal aortic aneurysm . IMPRESSION: 1. Postsurgical appearance of the abdomen with moderate amount of the rim-enhancing perihepatic and p erisplenic fluid which is concerning for peritonitis. A tiny amount of intraperitoneal free air is li keri postprocedural. 2. Gallbladder distention similar to prior. Correlate with ultrasound. 3. Partial visualization of a moderate right and small left effusion with adjacent atelectasis. 4. Sub-centimeter, enhancing left adrenal nodule. When patient condition allows consider adrenal prot ocol CT for further characterization.
[2020-09-28] MEDS ORDERED: PIPERACILLIN-TAZOBACTAM 3.375 GM in SODIUM CHLORIDE 0.9% 100 ML IVPB STA (19:39)
[2020-09-28] MEDS ORDERED: SODIUM CHLORIDE 0.9% 1,000 ML IV ONE (19:42)
[2020-09-28] MEDS: ONDANSETRON 4 MG/2 ML VIAL IVP PRN (22:18)
[2020-09-28] MEDS: HYDROmorphone 0.5 MG/0.5 ML SYRINGE IVP PRN (22:18)
[2020-09-28] MEDS ORDERED: IPRATROPIUM-ALBUTEROL 3 ML NEB INHALATION PRN (22:21)
[2020-09-28] MEDS ORDERED: PANTOPRAZOLE 40 MG TABLET PO PRN (22:21)
[2020-09-28] MEDS ORDERED: ACETAMINOPHEN TAB 325 MG TAB PO PRN (22:21)
[2020-09-28] MEDS ORDERED: ONDANSETRON 4 MG TAB PO PRN (22:21)
[2020-09-28] MEDS ORDERED: SUCRALFATE 1 GM TAB PO PRN (22:21)
[2020-09-29] MEDS: HYDROmorphone 0.5 MG/0.5 ML SYRINGE IVP PRN ×2 (02:18→08:29)
[2020-09-29] MEDS: traMADol 50 MG TAB PO PRN (04:37)
[2020-09-29] MEDS: ONDANSETRON 4 MG/2 ML VIAL IVP PRN ×4 (04:38→21:46)
[2020-09-29 05:49] LABS: Basophils % (A) 0 %; Eosinophils # (A) 0.1 k/uL (0-0.7); Eosinophils % (A) 2 %; HCT 29.5 % (34.0-46.0); Hypochromasia Marked; Lymphocytes # (A) 0.9 k/uL (1.0-4.8); Lymphocytes % (A) 13 %; MCH 34.1 pg (25.0-35.0); MCHC 31.2 g/dL (31.0-37.0); MCV 109.1 fL (80.0-100.0); Macrocytosis Marked; Mean Platelet Volume 7.5; Monocytes # (A) 0.4 k/uL (0-1.0); Monocytes % (A) 5 %; Neutrophils # (A) 4.9 k/uL (1.3-7.7); Neutrophils % (A) 77 %; Platelet Count 486 k/uL (150-450); RBC 2.71 m/uL (3.80-5.40); RDW 15.8 % (11.5-15.5); WBC 6.4 k/uL (3.8-10.6)
[2020-09-29 05:50] LABS: HGB 9.2 gm/dL (11.4-16.0)
--- NOTE | 2020-09-29 08:23 | HP ---
HISTORY AND PHYSICAL HISTORY OF PRESENT ILLNESS: 65-year-old white female with past medical history of peritoneal cancer, status post surgery x2 apparently. She has history of abdominal pain, left upper quadrant. Looks dehydrated, wants to come in. She has not been eating or drinking because she has been persistently nauseated for the last few days. Denies any vomiting. She has an ostomy and no changes in her bowel habits. Denies any chest pain, difficulty breathing, fever, chills or back pain. Denies any hematuria or urinary frequency. Home medicines: Vitamin B12, [place] 10/325 q.8 hours p.r.n., multivitamin daily, albuterol 2 puffs q.4 hours p.r.n., vitamin D 1000 international units daily, Xanax 0.25 daily, DuoNeb 3 mL q.i.d., Tylenol 325 q.4 Compazine 1 tab t.i.d., Famvir 500 q.8h, Compazine 10 mg q.8h p.r.n. ALLERGIES: Negative. REVIEW OF SYMPTOMS: 14 point review of systems otherwise negative. PAST MEDICAL HISTORY: History of pleural effusion, recent thoracentesis, tinnitus, peritoneal cancer. SURGERIES: Hysterectomy, orthopedic surgery, tubal ligation, anxiety. SOCIAL HISTORY: Former smoker. No alcohol. No drugs. FAMILY HISTORY: Mother cancer. PHYSICAL EXAM: Vital signs stable. Afebrile. Well developed, well nourished, no acute distress. CARDIOVASCULAR S1, S2. LUNGS: Clear. GI soft. Pupils equal, round, reactive. HEMATOLOGY negative [place]. PSYCH: Fair mood and affect. SKIN: Decreased skin turgor, dry mucous membranes. MUSCULOSKELETAL: Range of motion fair. Pulse is 85-118, respiratory 16 to 18, blood pressure 130s over 70s to 80s. O2 96 to 97. ASSESSMENT: 1. Dehydration. 2. Peritoneal cancer. 3. Abdominal plain. 4. Fluid in the abdomen on CT scan showing peritonitis. Surgical consult. IV antibiotics. Infectious Disease consult. GI and surgery consult. Prognosis guarded. MMODL / IJN: [id number] /
[2020-09-29] MEDS: PIPERACILLIN-TAZOBACTAM 3.375 GM in SODIUM CHLORIDE 0.9% 100 ML IVPB SCH ×3 (08:29→23:53)
[2020-09-29] MEDS: GABAPENTIN 100 MG CAP PO SCH ×3 (08:29→21:06)
[2020-09-29] MEDS: PANTOPRAZOLE 40 MG/10 ML VIAL IVP SCH ×2 (12:23→19:28)
[2020-09-29] MEDS: MORPHINE SULFATE 4 MG/ML SYRINGE IVP PRN ×4 (12:23→22:59)
[2020-09-29 13:04] LABS: ALT <8 U/L (8-44); AST 15 U/L (13-35); African American GFR (CKD) 127.6 (60.0-200.0); Albumin/Globulin Ratio 1.15 (1.60-3.17); Alkaline Phosphatase 120 U/L (41-126); Calcium 8.6 mg/dL (8.7-10.3); Carbon Dioxide 25.8 mmol/L (21.6-31.8); Chloride 108 mmol/L (96-109); Globulin 2.7 g/dL (1.6-3.3); Glucose 94 mg/dL (70-110); Non-African American GFR(CKD) 110.1 (60.0-200.0); Potassium 5.2 mmol/L (3.5-5.5); Sodium 145 mmol/L (135-145); Total Bilirubin 0.1 mg/dL (0.3-1.2); Total Protein 5.8 g/dL (6.2-8.2)
--- NOTE | 2020-09-29 13:49 | P.CONS ---
History of Present Illness - Reason for Consult Consult date: 09/29/20 Ovar - Chief Complaint Increased abdominal pain - History of Present Illness Malignant Pleural Effusion Follow Up Visit HPI : This is a very nice lady who presented with worsening dyspnea,some abdominal bloating and weight loss over 2-3 months duration. CXR done on 03/27/2020 revealed large right pleural effusion. CT angiogram of chest on 03/27/2020,was negative for PE but it showed large rig ht pleural effusion. 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 On 04/17/2020,PET scan revealed ametabolic right pleural effusion,moderate ascites with abnormal hypermetabolic uptake. EGD was negative,colonoscopy and barium enema (due to incomplete coloscopy) were negative. On 05/15/2020,she had repeat right thoracentesis due to worsening dyspnea,2400 cc was removed. 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 She had repeat thoracentesis on 06/08/2020. On 07/02/2020,CA125 was down to 542.(was 1432 on 04/28/2020). On 07/17/2020,repeat CT scan of chest/abdomen/pelvis revealed improvement in her pleural effusion She has significant nausea,under better control,she also has constipation,which are somewhat better,she also had bone pain,takes ultram as needed,her BP is under control while Recently treated on avastin,she has not required any repeat thoracentesis however persistented with poor tolerance and inability to eat without vomiting. therefore she was seen by [facility] in August and per patient underwent surgery resulting in ostomy. I have requested these operative reports. I have also reached out to Dr. Vigil for gudance moving forward. She presented with increased nausea, vomiting, pain, inability to tolerate PO intake, even since surgery. CT abdomen and pelvis reveal rim enhancing perihepatic and persplenic fluid concerning for peritonitis. IV antibiotics initiated. 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 History of Any Multi-Drug Resistant Organisms: None Reported Past Surgical History: Hysterectomy, Orthopedic Surgery, Tubal Ligation Additional Past Surgical History / Comment(s): fusion neck surgery, right rotator cuff, colectomy with colostomy, Past Anesthesia/Blood Transfusion Reactions: No Reported Reaction Past Psychological History: Anxiety Additional Psychological History / Comment(s): due to recent health issues Smoking Status: Former smoker Past Alcohol Use History: None Reported Additional Past Alcohol Use History / Comment(s): quit smoking 03/2020, smoked 1/2ppd from teens Past Drug Use History: None Reported - Past Family History Mother Family Medical History: Cancer Medications and Allergies Home Medications Medication Instructions Recorded Confirmed Type traMADol HCL 100 mg PO TID PRN 08/19/19 09/28/20 History Albuterol Inhaler [Ventolin Hfa 1 - 2 puff INHALATION RT-BID PRN 04/13/20 09/28/20 History Inhaler] Ipratropium-Albuterol Nebulize 3 ml INHALATION RT-BID PRN 05/19/20 09/28/20 H istory [Duoneb 0.5 mg-3 mg/3 ml Soln] Acetaminophen Tab [Tylenol] 650 mg PO Q6H PRN 05/20/20 09/28/20 History Cyclobenzaprine [Flexeril] 5 mg PO TID PRN 09/28/20 09/28/20 History Gabapentin [Neurontin] 100 mg PO TID 09/28/20 09/28/20 History Omeprazole 20 mg PO DAILY PRN 09/28/20 09/28/20 History Ondansetron [Zofran] 4 mg PO Q8H PRN 09/28/20 09/28/20 History Sucralfate [Carafate] 1 gm PO TID PRN 09/28/20 09/28/20 History oxyCODONE HCL [OxyCONTIN] 10 mg PO BID PRN 09/28/20 09/28/20 History Allergies Allergy/AdvReac Type Severity Reaction Status Date / Time No Known Allergies Allergy Verified 09/28/20 21:01 Physical Exam Vitals: Vital Signs Temp Pulse Pulse Pulse Resp BP BP 09/29/20 11:32 98.2 F 94 16 148/88 09/29/20 08:49 09/29/20 08:00 97 18 09/29/20 05:58 97 18 09/29/20 05:44 97.5 F L 97 18 163/92 09/29/20 03:00 98.0 F 81 16 143/88 09/28/20 22:11 97.9 F 91 18 114/70 09/28/20 18:39 85 18 133/74 09/28/20 13:46 97.8 F 118 H 18 130/87 Pulse Ox 09/29/20 11:32 97 09/29/20 08:49 97 09/29/20 08:00 09/29/20 05:58 09/29/20 05:44 97 09/29/20 03:00 96 09/28/20 22:11 95 09/28/20 18:39 97 09/28/20 13:46 96 Intake and Output 09/28/20 09/29/20 09/29/20 22:59 06:59 14:59 Other: Voiding Method Bedside Commode Bedside Commode # Voids 1 Weight 53.524 kg - Constitutional General appearance: cooperative, no acute distress - EENT Eyes: EOMI, poor dentition ENT: hard of hearing, NA/AT - Neck Neck: normal ROM - Respiratory Respiratory: bilateral: diminished - Cardiovascular Rhythm: regular leg Peripheral Edema: bilateral: 1+ - Gastrointestinal RLQ ostomy General gastrointestinal: tenderness - Integumentary Integumentary: pale - Neurologic Neurologic: CNII-XII intact - Musculoskeletal Musculoskeletal: generalized weakness, strength equal bilaterally - Psychiatric Psychiatric: A&O x's 3, appropriate affect, intact judgment & insight Results CBC & Chem 7: 09/29/20 05:12 09/29/20 05:12 Labs: Abnormal Lab Results - Last 24 Hours (Table) 09/28/20 09/28/20 09/28/20 Range/Units 14:34 14:34 16:38 RBC 3.27 L (3.80-5.40) m/uL Hgb 11.1 L (11.4-16.0) gm/dL Hct (34.0-46.0) % MCV 107.6 H (80.0-100.0) fL RDW (11.5-15.5) % Plt Count 508 H D (150-450) k/uL Lymphocytes # 0.7 L (1.0-4.8) k/uL Macrocytosis BUN (9.0-27.0) mg/dL Creatinine 0.36 L (0.52-1.04) mg/dL Glucose 100 H (74-99) mg/dL Calcium (8.7-10.3) mg/dL Total Bilirubin 0.1 L (0.2-1.3) mg/dL ALT (8-44) U/L Alkaline Phosphatase 128 H (38-126) U/L Total Protein 5.7 L (6.3-8.2) g/dL Albumin 2.8 L (3.5-5.0) g/dL Albumin/Globulin Ratio (1.60-3.17) g/dL Urine Appearance Cloudy H (Clear) Urine Protein 1+ H (Negative) Urine Ketones 1+ H (Negative) Urine Blood Small H (Negative) Urine RBC 26 H (0-5) /hpf Urine WBC 21 H (0-5) /hpf Ur Squamous Epith Cells 15 H (0-4) /hpf Urine Bacteria Rare H (None) /hpf Urine Mucus Many H (None) /hpf 09/29/20 09/29/20 Range/Units 05:12 05:12 RBC 2.71 L (3.80-5.40) m/uL Hgb 9.2 L D (11.4-16.0) gm/dL Hct 29.5 L (34.0-46.0) % MCV 109.1 H (80.0-100.0) fL RDW 15.8 H (11.5-15.5) % Plt Count 486 H (150-450) k/uL Lymphocytes # 0.9 L (1.0-4.8) k/uL Macrocytosis Marked A BUN 8.0 L (9.0-27.0) mg/dL Creatinine 0.4 L (0.52-1.04) mg/dL Glucose (74-99) mg/dL Calcium 8.6 L (8.7-10.3) mg/dL Total Bilirubin 0.1 L (0.2-1.3) mg/dL ALT <8 L (8-44) U/L Alkaline Phosphatase (38-126) U/L Total Protein 5.8 L (6.3-8.2) g/dL Albumin 3.10 L (3.5-5.0) g/dL Albumin/Globulin Ratio 1.15 L (1.60-3.17) g/dL Urine Appearance (Clear) Urine Protein (Negative) Urine Ketones (Negative) Urine Blood (Negative) Urine RBC (0-5) /hpf Urine WBC (0-5) /hpf Ur Squamous Epith Cells (0-4) /hpf Urine Bacteria (None) /hpf Urine Mucus (None) /hpf Microbiology - Last 24 Hours (Table) 09/28/20 14:34 Urine Culture - Preliminary Urine,Voided CT scan - abdomen: report reviewed CT scan - pelvis: report reviewed Assessment and Plan (1) Ovarian cancer Current Visit: Yes Status: Acute Code(s): C56.9 - MALIGNANT NEOPLASM OF UNSPECIFIED OVARY SNOMED Code(s): 978939772 (2) Peritonitis Current Visit: Yes Status: Acute Code(s): K65.9 - PERITONITIS, UNSPECIFIED SNOMED Code(s): 90737855 Plan: Continue on antibiotics and continue pain management in the interim. I will discuss further with [employer] for any additional recommendations. Monitor daily CBC and CMP Recheck Ca125 Discuss in detail with sister and patient Physician Attest: I have completed the full history and physical and agree with above dictation, dictated as a ascribe.
--- NOTE | 2020-09-29 14:35 | P.CONS ---
History of Present Illness - Reason for Consult Consult date: 09/29/20 Peritonitis Requesting physician: Isaias Hay - Chief Complaint Nausea and vomiting, abdominal pain - History of Present Illness This a pleasant 65-year-old white female with a history of ovarian cancer which was diagnosed in March of this year who follows with Dr. Vigil and Dr. Burrell. She recently underwent a hysterectomy and colon surgery by Dr. Vigil, states she had a bowel resection and temporary colostomy for infection in August,. She presented to the emergency department with complaints of abdominal pain mostly in the left upper quadrant, nausea, vomiting, diarrhea and decreased appetite over the last 1 week duration. She denies any fever, sick contacts. She states she started chemotherapy after her diagnosis but stopped for her surgeries. She had an EGD and colonoscopy 05/[address] Ramses Jaramillo with findings of antral gastritis, hiatal hernia, and esophagitis. Colonoscopy showed a tortuous colon and was aborted, patient underwent a barium enema which was normal. As part of her workup in the emergency department she had a CT of the abdomen and pelvis showing postsurgical appearance of the abdomen with moderate amount of rim enhancing perihepatic and. Splenic fluid which is concerning for peritonitis. A tiny amount of intraperitoneal free air is likely postprocedural. Gallbladder distention similar to prior. Correlate with u ltrasound. Partial visualization of moderate right and small left effusion with adjacent atelectasis. Subcentimeter, enhancing left adrenal nodule. When patient condition allows consider adrenal protocol CT for further characterization. Presenting labs WBC 6, hemoglobin 9.2, hematocrit 29, plate let count 486,000, total bilirubin 0.1, alkaline phosphatase 128, AST 19, ALT 6, lipase 29, amylase 34. She is currently on Zosyn, infectious disease has also been consulted. Review of Systems REVIEW OF SYSTEMS: CARDIOPULMONARY: No chest pain or shortness of breath. Gastrointestinal: Right upper quadrant pain.. Nausea, no vomiting. Decreased appetite. No hematemesis, coffee-ground emesis. No rectal bleeding, or melena. GENITOURINARY: No dysuria or hematuria. MUSCULOSKELETAL: Reports normal range of motion., Joint pain. SKIN: No rashes. No jaundice. ENDOCRINE: No chills, fevers. No excessive weight gain or loss. No polydipsia or polyuria. PSYCHIATRIC: Unremarkable. NEUROLOGY: No change in mental status. Denies dizziness, headache. ENT: Vision unremarkable. CONSTITUTIONAL: No recent weight loss. No fever, chills, night sweats. 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 History of Any Multi-Drug Resistant Organisms: None Reported Past Surgical History: Hysterectomy, Orthopedic Surgery, Tubal Ligation Additional Past Surgical History / Comment(s): fusion neck surgery, right rotator cuff, colectomy with colostomy, Past Anesthesia/Blood Transfusion Reactions: No Reported Reaction Past Psychological History: Anxiety Additional Psychological History / Comment(s): due to recent health issues Smoking Status: Former smoker Past Alcohol Use History: None Reported Additional Past Alcohol Use History / Comment(s): quit smoking 03/2020, smoked 1/2ppd from teens Past Drug Use History: None Reported - Past Family History Mother Family Medical History: Cancer Medications and Allergies Home Medications Medication Instructions Recorded Confirmed Type traMADol HCL 100 mg PO TID PRN 08/19/19 09/28/20 History Albuterol Inhaler [Ventolin Hfa 1 - 2 puff INHALATION RT-BID PRN 04/13/20 09/28/20 History Inhaler] Ipratropium-Albuterol Nebulize 3 ml INHALATION RT-BID PRN 05/19/20 09/28/20 History [Duoneb 0.5 mg-3 mg/3 ml Soln] Acetaminophen Tab [Tylenol] 650 mg PO Q6H PRN 05/20/20 09/28/20 History Cyclobenzaprine [Flexeril] 5 mg PO TID PRN 09/28/20 09/28/20 History Gabapentin [Neurontin] 100 mg PO TID 09/28/20 09/28/20 History Omeprazole 20 mg PO DAILY PRN 09/28/20 09/28/20 History Ondansetron [Zofran] 4 mg PO Q8H PRN 09/28/20 09/28/20 History Sucralfate [Carafate] 1 gm PO TID PRN 09/28/20 09/28/20 History oxyCODONE HCL [OxyCONTIN] 10 mg PO BID PRN 09/28/20 09/28/20 History Allergies Allergy/AdvReac Type Severity Reaction Status Date / Time No Known Allergies Allergy Verified 09/28/20 21:01 Physical Exam Vitals: Vital Signs Temp Pulse Pulse Resp BP BP Pulse Ox 09/29/20 08:49 97 09/29/20 08:00 97 18 09/29/20 05:58 97 18 09/29/20 05:44 97.5 F L 97 18 163/92 97 09/29/20 03:00 98.0 F 81 16 143/88 96 09/28/20 22:11 97.9 F 91 18 114/70 95 09/28/20 18:39 85 18 133/74 97 09/28/20 13:46 97.8 F 118 H 18 130/87 96 Intake and Output 09/28/20 09/29/20 09/29/20 22:59 06:59 14:59 Other: Voiding Method Bedside Commode Bedside Commode # Voids 1 Weight 53.524 kg General appearance: The patient is alert, oriented, appears in no acute distress. HET: Head is normocephalic and atraumatic. Conjunctiva pink. Sclera anicteric. Neck: Supple without lymphadenopathy. Trachea midline. Heart: S1 S2. Regular rate and rhythm. Lungs: Clear to auscultation. Abdomen: Soft, abdomen nontender, patient has tenderness over rib cages bilaterally, greater on left than right. nondistended with bowel sounds. No guarding or rigidity. Skin: No rashes. No jaundice. Extremities: Normal skin color and turgor. No pedal edema. Neurological: No focal deficits. Alert and oriented 3.. Results CBC & Chem 7: 09/29/20 05:12 09/29/20 05:12 Labs: Abnormal Lab Results - Last 24 Hours (Table) 09/28/20 09/28/20 09/28/20 Range/Units 14:34 14:34 16:38 RBC 3.27 L (3.80-5.40) m/uL Hgb 11.1 L (11.4-16.0) gm/dL Hct (34.0-46.0) % MCV 107.6 H (80.0-100.0) fL RDW (11.5-15.5) % Plt Count 508 H D (150-450) k/uL Lymphocytes # 0.7 L (1.0-4.8) k/uL Macrocytosis Creatinine 0.36 L (0.52-1.04) mg/dL Glucose 100 H (74-99) mg/dL Total Bilirubin 0.1 L (0.2-1.3) mg/dL Alkaline Phosphatase 128 H (38-126) U/L Total Protein 5.7 L (6.3-8.2) g/dL Albumin 2.8 L (3.5-5.0) g/dL Urine Appearance Cloudy H (Clear) Urine Protein 1+ H (Negative) Urine Ketones 1+ H (Negative) Urine Blood Small H (Negative) Urine RBC 26 H (0-5) /hpf Urine WBC 21 H (0-5) /hpf Ur Squamous Epith Cells 15 H (0-4) /hpf Urine Bacteria Rare H (None) /hpf Urine Mucus Many H (None) /hpf 09/29/20 Range/Units 05:12 RBC 2.71 L (3.80-5.40) m/uL Hgb 9.2 L D (11.4-16.0) gm/dL Hct 29.5 L (34.0-46.0) % MCV 109.1 H (80.0-100.0) fL RDW 15.8 H (11.5-15.5) % Plt Count 486 H (150-450) k/uL Lymphocytes # 0.9 L (1.0-4.8) k/uL Macrocytosis Marked A Creatinine (0.52-1.04) mg/dL Glucose (74-99) mg/dL Total Bilirubin (0.2-1.3) mg/dL Alkaline Phosphatase (38-126) U/L Total Protein (6.3-8.2) g/dL Albumin (3.5-5.0) g/dL Urine Appearance (Clear) Urine Protein (Negative) Urine Ketones (Negative) Urine Blood (Negative) Urine RBC (0-5) /hpf Urine WBC (0-5) /hpf Ur Squamous Epith Cells (0-4) /hpf Urine Bacteria (None) /hpf Urine Mucus (None) /hpf Comments: CT of the abdomen and pelvis showing postsurgical appearance of the abdomen with moderate amount of rim enhancing perihepatic and. Splenic fluid which is concerning for peritonitis. A tiny amount of intraperitoneal free air is likely postprocedural. Gallbladder distention similar to prior. Correlate with u ltrasound. Partial visualization of moderate right and small left effusion with adjacent atelectasis. Subcentimeter, enhancing left adrenal nodule. When patient condition allows consider adrenal protocol CT for further characterization. Assessment and Plan (1) Peritonitis Narrative/Plan: 65-year-old female who presented to the emergency department with decreased appetite due to nausea, left upper quadrant pain, and weakness. Patient was r ecently diagnosed with ovarian cancer in March of this year and follows with Dr. Vigil and Dr. Burrell. She initially was started on chemotherapy but that was stopped due to impending surgery. Patient underwent hysterectomy and bowel resection due to infection in August of this year. Ever since the surgery patient has had decreased appetite, nausea, but states no vomiting. States she can only eat usually about every other day. She had a CT of the abdomen and pelvis done in the emergency department showing postsurgical appearance of the abdomen with moderate amount of rim enhancing perihepatic and. Splenic fluid which is concerning for peritonitis. A tiny amount of intraperitoneal free air is likely postprocedural. Gallbladder distention similar to prior. Correlate with ultrasound. Partial visualization of moderate right and small left effusion with adjacent atelectasis. Subcentimeter, enhancing left adrenal nodule. When patient condition allows consider adrenal protocol CT for further characterization. Today she states she is feeling better, she denies any change from her ostomy output, denies any blood or black stool. States she still has some nausea, but no vomiting. Started on IV Zosyn, infectious disease has been consult it. Current Visit: Yes Status: Acute Code(s): K65.9 - PERITONITIS, UNSPECIFIED SNOMED Code(s): 50404192 (2) Abdominal pain Current Visit: Yes Status: Acute Code(s): R10.9 - UNSPECIFIED ABDOMINAL PAIN SNOMED Code(s): 18841388 (3) Nausea Current Visit: Yes Status: Acute Code(s): R11.0 - NAUSEA SNOMED Code(s): 398417938 (4) Ovarian cancer Current Visit: Yes Status: Acute Code(s): C56.9 - MALIGNANT NEOPLASM OF UNSPECIFIED OVARY SNOMED Code(s): 290727686 Plan: 1. Continue IV Zosyn 2. Continue antiemetics as needed 3. Patient may have clear liquid diet 4. Ensure clear ordered 5. Continue symptomatic and supportive care 6. Infectious disease and oncology following patient Thank you for this consultation, we will continue to follow Dr. Rajput I agree with the dictator's note, documented as a scribe by Stacie Benavidez.
--- NOTE | 2020-09-29 23:31 | P.CONS ---
History of Present Illness - Reason for Consult Consult date: 09/29/20 peritonitis Requesting physician: Isaias Hay - Chief Complaint abd pain x 2 days - History of Present Illness History of present illness : Patient is a 65-year female with a past medical history notable for ovarian cancer diagnosed in March 2020 in this pa tient who is status post hysterectomy and colon surgery with a temporary colostomy that was completed in August 2020 patient presented to [facility] yesterday afternoon for evaluation of abdominal pain patient pain has been going on for about 2 days and mostly left upper abdominal area patient described the pain to be more of a sharp in nature intensity can be 5-6 over 10 no radiation patient has been nauseated but no vomiting did have decreased oral intake patient denies having any fever or any chills on presentation to the hospital the patient was afebrile and no fever was recorded subsequently patient did have a normal white count there was a was a normal urine was mildly positive patient did have a CT of abdominal pelvis which did show some postsurgical appearance of the abdominal with moderate amount of rim-enhancing perihepatic and perisplenic fluid concerning for peritonitis patient has been admitted to the hospital patient was started on Zosyn infectious disease was consulted for further management of antibiotic therapy Review of system: Positive point has been mentioned in HPI rest of the systems are negative Past medical history : Reviewed, documented below Past surgical history : Reviewed, documented below Social history: Reviewed, documented below Medications: Reviewed, as documented below GENERAL DESCRIPTION: Middle-aged female lying in bed, no distress. No tachypnea or accessory muscle of respiration use. HEENT: Shows Pallor , no scleral icterus. Oral mucous membrane is dry. NECK: Trachea central, no thyromegaly. LUNGS: Unlabored breathing. Clear to auscultation anteriorly. No wheeze or crackle. HEART: S1, S2, regular rate and rhythm. ABDOMEN: Soft, no tenderness , midline abdominal incision with no swelling or redness or drainage EXTREMITIES: No edema of feet. SKIN: No rash, no masses palpable. NEUROLOGICAL: The patient is awake, alert, oriented x3, mood and affect normal. LABS AND RADIOLOGY: Reviewed results see below Assessment : Patient with a recent diagnosis of ovarian cancer metastatic in this patient status post hysterectomy and diverting colostomy, now presented to hospital with abdominal pain in this patient with no fever or elevated white count CT abdominal pelvis did shows perisplenic and perihepatic fluid collection concerning for possible abscess though clinically not behaving as an abscess with no fever or elevated white count and no tenderness Plan: 1-CT will be reviewed with radiologist to see if the fluid can be CT- guided aspirated and sent for culture 2-patient to continue with empiric Zosyn at this point while waiting for condition to stabilize and work-up to complete Multiple family member at the bedside their questions and concerns were answered We will follow on clinical condition and cultures to further adjust medication if needed Thank you for this consultation we will follow the patient along with you 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 History of Any Multi-Drug Resistant Organisms: None Reported Past Surgical History: Hysterectomy, Orthopedic Surgery, Tubal Ligation Additional Past Surgical History / Comment(s): fusion neck surgery, right rotator cuff, colectomy with colostomy, Past Anesthesia/Blood Transfusion Reactions: No Reported Reaction Past Psychological History: Anxiety Additional Psychological History / Comment(s): due to recent health issues Smoking Status: Former smoker Past Alcohol Use History: None Reported Additional Past Alcohol Use History / Comment(s): quit smoking 03/2020, smoked 1/2ppd from teens Past Drug Use History: None Reported - Past Family History Mother Family Medical History: Cancer Medications and Allergies Home Medications Medication Instructions Recorded Confirmed Type traMADol HCL 100 mg PO TID PRN 08/19/19 09/28/20 History Albuterol Inhaler [Ventolin Hfa 1 - 2 puff INHALATION RT-BID PRN 04/13/20 09/28/20 History Inhaler] Ipratropium-Albuterol Nebulize 3 ml INHALATION RT-BID PRN 05/19/20 09/28/20 History [Duoneb 0.5 mg-3 mg/3 ml Soln] Acetaminophen Tab [Tylenol] 650 mg PO Q6H PRN 05/20/20 09/28/20 History Cyclobenzaprine [Flexeril] 5 mg PO TID PRN 09/28/20 09/28/20 History Gabapentin [Neurontin] 100 mg PO TID 09/28/20 09/28/20 History Omeprazole 20 mg PO DAILY PRN 09/28/20 09/28/20 History Ondansetron [Zofran] 4 mg PO Q8H PRN 09/28/20 09/28/20 History Sucralfate [Carafate] 1 gm PO TID PRN 09/28/20 09/28/20 History oxyCODONE HCL [OxyCONTIN] 10 mg PO BID PRN 09/28/20 09/28/20 History Allergies Allergy/AdvReac Type Severity Reaction Status Date / Time No Known Allergies Allergy Verified 09/28/20 21:01 Physical Exam Vitals: Vital Signs Temp Pulse Pulse Pulse Resp BP BP 09/29/20 11:32 98.2 F 94 16 148/88 09/29/20 08:49 09/29/20 08:00 97 18 09/29/20 05:58 97 18 09/29/20 05:44 97.5 F L 97 18 163/92 09/29/20 03:00 98.0 F 81 16 143/88 09/28/20 22:11 97.9 F 91 18 114/70 09/28/20 18:39 85 18 133/74 Pulse Ox 09/29/20 11:32 97 09/29/20 08:49 97 09/29/20 08:00 09/29/20 05:58 09/29/20 05:44 97 09/29/20 03:00 96 09/28/20 22:11 95 09/28/20 18:39 97 Intake and Output 09/29/20 09/29/20 09/29/20 06:59 14:59 22:59 Intake Total 600 Balance 600 Intake: Intake, IV Titration 600 Amount Sodium Chloride 0.9% 1, 600 000 ml @ 75 mls/hr IV . [id number] ONE Rx#:[id number] Other: Voiding Method Bedside Commode Bedside Commode # Voids 1 Weight 53.524 kg Results CBC & Chem 7: 09/29/20 05:12 09/29/20 05:12 Labs: Abnormal Lab Results - Last 24 Hours (Table) 09/28/20 09/28/20 09/28/20 Range/Units 14:34 14:34 16:38 RBC 3.27 L (3.80-5.40) m/uL Hgb 11.1 L (11.4-16.0) gm/dL Hct (34.0-46.0) % MCV 107.6 H (80.0-100.0) fL RDW (11.5-15.5) % Plt Count 508 H D (150-450) k/uL Lymphocytes # 0.7 L (1.0-4.8) k/uL Macrocytosis BUN (9.0-27.0) mg/dL Creatinine 0.36 L (0.52-1.04) mg/dL Glucose 100 H (74-99) mg/dL Calcium (8.7-10.3) mg/dL Total Bilirubin 0.1 L (0.2-1.3) mg/dL ALT (8-44) U/L Alkaline Phosphatase 128 H (38-126) U/L Total Protein 5.7 L (6.3-8.2) g/dL Albumin 2.8 L (3.5-5.0) g/dL Albumin/Globulin Ratio (1.60-3.17) g/dL Urine Appearance Cloudy H (Clear) Urine Protein 1+ H (Negative) Urine Ketones 1+ H (Negative) Urine Blood Small H (Negative) Urine RBC 26 H (0-5) /hpf Urine WBC 21 H (0-5) /hpf Ur Squamous Epith Cells 15 H (0-4) /hpf Urine Bacteria Rare H (None) /hpf Urine Mucus Many H (None) /hpf 09/29/20 09/29/20 Range/Units 05:12 05:12 RBC 2.71 L (3.80-5.40) m/uL Hgb 9.2 L D (11.4-16.0) gm/dL Hct 29.5 L (34.0-46.0) % MCV 109.1 H (80.0-100.0) fL RDW 15.8 H (11.5-15.5) % Plt Count 486 H (150-450) k/uL Lymphocytes # 0.9 L (1.0-4.8) k/uL Macrocytosis Marked A BUN 8.0 L (9.0-27.0) mg/dL Creatinine 0.4 L (0.52-1.04) mg/dL Glucose (74-99) mg/dL Calcium 8.6 L (8.7-10.3) mg/dL Total Bilirubin 0.1 L (0.2-1.3) mg/dL ALT <8 L (8-44) U/L Alkaline Phosphatase (38-126) U/L Total Protein 5.8 L (6.3-8.2) g/dL Albumin 3.10 L (3.5-5.0) g/dL Albumin/Globulin Ratio 1.15 L (1.60-3.17) g/dL Urine Appearance (Clear) Urine Protein (Negative) Urine Ketones (Negative) Urine Blood (Negative) Urine RBC (0-5) /hpf Urine WBC (0-5) /hpf Ur Squamous Epith Cells (0-4) /hpf Urine Bacteria (None) /hpf Urine Mucus (None) /hpf Microbiology - Last 24 Hours (Table) 09/28/20 14:34 Urine Culture - Preliminary Urine,Voided
[2020-09-29] MEDS: CYCLOBENZAPRINE 5 MG TAB PO PRN (23:53)
[2020-09-30] MEDS: MORPHINE SULFATE 4 MG/ML SYRINGE IVP PRN ×4 (02:03→12:01)
[2020-09-30] MEDS: ONDANSETRON 4 MG/2 ML VIAL IVP PRN (07:46)
[2020-09-30] MEDS: PANTOPRAZOLE 40 MG/10 ML VIAL IVP SCH ×2 (07:46→21:03)
[2020-09-30] MEDS: PIPERACILLIN-TAZOBACTAM 3.375 GM in SODIUM CHLORIDE 0.9% 100 ML IVPB SCH ×3 (07:46→23:18)
[2020-09-30] MEDS: GABAPENTIN 100 MG CAP PO SCH ×3 (07:47→21:03)
[2020-09-30] MEDS ORDERED: PROMETHAZINE 25 MG TAB PO PRN (10:43)
[2020-09-30] MEDS: traMADol 50 MG TAB PO PRN (11:27)
[2020-09-30] MEDS: ONDANSETRON 4 MG/2 ML VIAL IVP SCH ×3 (11:27→23:18)
[2020-09-30 13:47] LABS: INR 2.3 (<1.2); Prothrombin Time 22.7 sec (9.0-12.0)
--- NOTE | 2020-09-30 14:11 | P.PN ---
Subjective Progress Note Date: 09/30/20 Principal diagnosis: peritonitis patient is seen and examined lying in bed. Patient states she is having severe pain still in her abdomen and her back. States she still having nausea, no vomiting. Infectious disease is following patient and is planning on fluid culture from peritoneal fluid.no other acute changes through the night. She's been afebrile, no evidence of leukocytosis. Objective - Vital Signs Vital signs: Vital Signs Temp 98.6 F 09/30/20 05:00 Pulse 114 H 09/30/20 05:00 Resp 20 09/30/20 05:00 BP 150/71 09/30/20 05:00 Pulse Ox 93 L 09/30/20 05:00 Intake & Output 09/29/20 09/30/20 09/30/20 18:59 06:59 18:59 Intake Total 600 1050 Output Total 200 Balance 600 850 Intake: Intake, IV Titration 600 700 Amount Piperacillin-Tazobactam 3 100 .375 gm In Sodium Chloride 0.9% 100 ml @ 25 mls/hr IVPB Q8HR [facility] Rx# :[id number] Sodium Chloride 0.9% 1, 600 600 000 ml @ 75 mls/hr IV . [id number] ONE Rx#:[id number] Oral 350 Output: Stool 200 Other: Voiding Method Bedside Commode Toilet # Voids 4 3 - Exam General appearance: The patient is alert, oriented, appears in no acute distress. HET: Head is normocephalic and atraumatic. Conjunctiva pink. Sclera anicteric. Neck: Supple without lymphadenopathy. Abdomen: Soft, diffuse tenderness, worse in the left lower quadrant, nondistended with bowel sounds. Colostomy bag with loose brown/green stool. No guarding or rigidity. Extremities: Normal skin color and turgor. No pedal edema Skin: No rashes, no jaundice Neurological: No focal deficits. Alert and oriented 3. - Labs CBC & Chem 7: 09/29/20 05:12 09/29/20 05:12 Labs: Abnormal Lab Results - Last 24 Hours (Table) 09/29/20 Range/Units 05:12 BUN 8.0 L (9.0-27.0) mg/dL Creatinine 0.4 L (0.6-1.5) mg/dL Calcium 8.6 L (8.7-10.3) mg/dL Total Bilirubin 0.1 L (0.3-1.2) mg/dL ALT <8 L (8-44) U/L Total Protein 5.8 L (6.2-8.2) g/dL Albumin 3.10 L (3.80-4.90) g/dL Albumin/Globulin Ratio 1.15 L (1.60-3.17) g/dL Microbiology - Last 24 Hours (Table) 09/28/20 14:34 Urine Culture - Preliminary Urine,Voided Assessment and Plan (1) Peritonitis Narrative/Plan: 65-year-old female who presented to the emergency department with decreased appetite due to nausea, left upper quadrant pain, and weakness. Patient was recently diagnosed with ovarian cancer in March of this year and follows with Dr. Vigil and Dr. Burrell. She initially was started on chemotherapy but that was stopped due to impending surgery. Patient underwent hysterectomy and bowel resection due to infection in August of this year. Ever since the surgery patient has had decreased appetite, nausea, but states no vomiting. States she can only eat usually about every other day. She had a CT of the abdomen and pelvis done in the emergency department showing postsurgical appearance of the abdomen with moderate amount of rim enhancing perihepatic and. Splenic fluid which is concerning for peritonitis. A tiny amount of intraperitoneal free air is likely postprocedural. Gallbladder distention similar to prior. Correlate with ultrasound. Partial visualization of moderate right and small left effusion with adjacent atelectasis. Subcentimeter, enhancing left adrenal nodule. When patient condition allows consider adrenal protocol CT for further characterization. Today she states she is feeling better, she denies any change from her ostomy output, denies any blood or black stool. States she still has some nausea, but no vomiting. Started on IV Zosyn, infectious disease has been consult it. Current Visit: Yes Status: Acute Code(s): K65.9 - PERITONITIS, UNSPECIFIED SNOMED Code(s): 48055550 (2) Abdominal pain Current Visit: Yes Status: Acute Code(s): R10.9 - UNSPECIFIED ABDOMINAL PAIN SNOMED Code(s): 03064973 (3) Nausea Current Visit: Yes Status: Acute Code(s): R11.0 - NAUSEA SNOMED Code(s): 592027641 (4) Ovarian cancer Current Visit: Yes Status: Acute Code(s): C56.9 - MALIGNANT NEOPLASM OF UNSPECIFIED OVARY SNOMED Code(s): 822392922 Plan: 1. Continue IV Zosyn 2. Continue antiemetics as needed 3. Advance diet as tolerated 4. Ensure clear ordered 5. Continue symptomatic and supportive care 6. Infectious disease on consult, follow their recommendations on IV antibi otics. Thank you for this consultation, we will continue to follow Dr. Rajput I agree with the dictator's note, documented as a scribe by Stacie Benavidez.
--- NOTE | 2020-09-30 14:27 | P.PN ---
Subjective Progress Note Date: 09/30/20 Principal diagnosis: Worsening pain and nausea and inability to eat Her surgeon states she was improved post operatively and eating. She is not tolerating anything PO and complains of pain not controlled with dilaudid 0.5, therefore changed to MS q3, however this has not helped either. Fentanyl patch added, dilaudid 1mg PRN. SPoke with Dr. Sharp. Baseline BC, will ask for Picc line and start TPN. IR to drain fluid collection for cultures as well. Continue Bowel Rest Objective - Vital Signs Vital signs: Vital Signs Temp 97.3 F L 09/30/20 11:41 Pulse 105 H 09/30/20 11:41 Resp 18 09/30/20 11:41 BP 155/88 09/30/20 11:41 Pulse Ox 93 L 09/30/20 11:41 Intake & Output 09/29/20 09/30/20 09/30/20 18:59 06:59 18:59 Intake Total 600 1050 Output Total 200 Balance 600 850 Intake: Intake, IV Titration 600 700 Amount Piperacillin-Tazobactam 3 100 .375 gm In Sodium Chloride 0.9% 100 ml @ 25 mls/hr IVPB Q8HR [facility] Rx# :[id number] Sodium Chloride 0.9% 1, 600 600 000 ml @ 75 mls/hr IV . [id number] ONE Rx#:[id number] Oral 350 Output: Stool 200 Other: Voiding Method Bedside Commode Toilet # Voids 4 3 - Exam Constitutional General appearance: cooperative, no acute distress - EENT Eyes: EOMI, poor dentition ENT: hard of hearing, NA/AT - Neck Neck: normal ROM - Respiratory Respiratory: bilateral: diminished - Cardiovascular Rhythm: regular leg Peripheral Edema: bilateral: 1+ - Gastrointestinal RLQ ostomy, Pain General gastrointestinal: tenderness - Integumentary Integumentary: pale - Neurologic Neurologic: CNII-XII intact - Musculoskeletal Musculoskeletal: generalized weakness, strength equal bilaterally - Psychiatric Psychiatric: A&O x's 3, appropriate affect, intact judgment & insight - Labs CBC & Chem 7: 09/30/20 13:20 09/30/20 13:20 Labs: Abnormal Lab Results - Last 24 Hours (Table) 09/30/20 Range/Units 13:20 PT 22.7 H (9.0-12.0) sec INR 2.3 H (<1.2) Microbiology - Last 24 Hours (Table) 09/28/20 14:34 Urine Culture - Final Urine,Voided Assessment and Plan (1) Ovarian cancer Current Visit: Yes Status: Acute Code(s): C56.9 - MALIGNANT NEOPLASM OF UNSPECIFIED OVARY SNOMED Code(s): 914808112 (2) Peritonitis Current Visit: Yes Status: Acute Code(s): K65.9 - PERITONITIS, UNSPECIFIED SNOMED Code(s): 89351447 Plan: Continue on antibiotics and continue pain management in the interim. I will discuss further with DIRECTOR [employer]ALENT [employer] [facility] for any additional recommendations. Monitor daily CBC and CMP Recheck Ca125 post operatively and eating. She is not tolerating anything PO and complains of pain not controlled with dilaudid 0.5, therefore changed to MS q3, however this has not helped either. Fentanyl patch added, dilaudid 1mg PRN. SPoke with Dr. Sharp. Baseline BC, will ask for Picc line and start TPN. IR to drain fluid collection for cultures as well. Continue Bowel Rest Prolonged INR - VItamin K Deficiency due to no PO intake, Vitamin K ordered 5mg in anticipation of fluid culture and picc line. Physician Attest: I have completed the full history and physical and agree with above dictation, dictated as a ascribe
--- NOTE | 2020-09-30 14:37 | PN ---
PROGRESS NOTE DATE OF SERVICE: 09/30/2020 REASON FOR FOLLOWUP VISIT: 1. Intraabdominal abscess. 2. Abdominal wall wound. INTERVAL HISTORY: Patient is afebrile. She has been complaining of pain to the abdomen mostly in the midsection, some radiation across the abdomen. Denies any worsening or any improvement since admission. No chest pain, shortness of breath or cough. No vomiting or diarrhea. PHYSICAL EXAMINATION: Blood pressure is 155/88 with a pulse of 105, temperature 97.3. She is 93% on room air. General description is a middle-aged female lying in bed in no distress. Respiratory system: Unlabored breathing, clear to auscultation anteriorly. Heart S1, S2. Regular rate and rhythm. Abdomen soft, rigidity. Extremities: No edema of the feet. LAB: Hemoglobin 9.1, white count 6.4, BUN of 8, creatinine 0.4. Chest CT reviewed with Radiology, Dr. Cabrera. The patient did have a right upper quadrant loculated fluid suspicious for abscess. DIAGNOSTIC IMPRESSION AND PLAN: 1. Patient with intraabdominal collection right upper quadrant multi lobe concern for possible abscess. CT-guided aspirate will be requested to send for both cytology and cultures. The patient is covered with Zosyn. May benefit from surgery consultation. 2. Patient with abdominal wall wound open area to be packed with dry Aquacel silver dressing to be changed every 48 hours. MMODL / IJN: [id number] /
[2020-09-30] MEDS: HYDROmorphone 1 MG/ML 1 ML SYRINGE IVP PRN ×3 (15:15→23:25)
[2020-09-30 15:23] LABS: ALT 6 U/L (4-34); AST 21 U/L (14-36); African American GFR (CKD) >90 (>60 ml/min/1.73 sqM); Albumin 2.7 g/dL (3.5-5.0); Albumin/Globulin Ratio 0.9; Alkaline Phosphatase 121 U/L (38-126); Anion Gap 10 mmol/L; Blood Urea Nitrogen 3 mg/dL (7-17); Calcium 8.3 mg/dL (8.4-10.2); Carbon Dioxide 23 mmol/L (22-30); Chloride 102 mmol/L (98-107); Glucose 100 mg/dL (74-99); Magnesium 1.3 mg/dL (1.6-2.3); Non-African American GFR(CKD) >90 (>60 ml/min/1.73 sqM); Potassium 3.4 mmol/L (3.5-5.1); Sodium 135 mmol/L (137-145); Total Bilirubin 0.2 mg/dL (0.2-1.3); Total Protein 5.7 g/dL (6.3-8.2)
[2020-09-30] MEDS ORDERED: PHYTONADIONE 5 MG in SODIUM CHLORIDE 0.9% 50 ML IVPB STA (15:23)
[2020-09-30 15:24] LABS: Basophils % (A) 0 %; Eosinophils % (A) 1 %; HCT 31.5 % (34.0-46.0); HGB 9.8 gm/dL (11.4-16.0); Hypochromasia Moderate; Lymphocytes # (A) 0.7 k/uL (1.0-4.8); Lymphocytes % (A) 10 %; MCH 33.8 pg (25.0-35.0); MCHC 31.2 g/dL (31.0-37.0); MCV 108.3 fL (80.0-100.0); Macrocytosis Marked; Mean Platelet Volume 7.7; Monocytes # (A) 0.4 k/uL (0-1.0); Monocytes % (A) 6 %; Neutrophils # (A) 5.7 k/uL (1.3-7.7); Neutrophils % (A) 82 %; Platelet Count 499 k/uL (150-450); RBC 2.91 m/uL (3.80-5.40); RDW 15.3 % (11.5-15.5)
[2020-09-30 15:28] VITALS: BMI 20.9
[2020-09-30] MEDS: CYCLOBENZAPRINE 5 MG TAB PO PRN (22:32)
[2020-10-01] MEDS: HYDROmorphone 1 MG/ML 1 ML SYRINGE IVP PRN ×4 (03:19→17:57)
[2020-10-01] MEDS: ONDANSETRON 4 MG/2 ML VIAL IVP SCH ×3 (05:25→17:26)
[2020-10-01] MEDS: CYCLOBENZAPRINE 5 MG TAB PO PRN ×2 (05:28→16:35)
[2020-10-01 06:00] LABS: Basophils % (A) 0 %; Eosinophils % (A) 0 %; HCT 29.2 % (34.0-46.0); HGB 9.1 gm/dL (11.4-16.0); Hypochromasia Marked; Lymphocytes # (A) 0.7 k/uL (1.0-4.8); Lymphocytes % (A) 7 %; MCH 34.1 pg (25.0-35.0); MCHC 31.3 g/dL (31.0-37.0); MCV 109.1 fL (80.0-100.0); Mean Platelet Volume 7.8; Monocytes # (A) 0.6 k/uL (0-1.0); Monocytes % (A) 6 %; Neutrophils # (A) 7.8 k/uL (1.3-7.7); Neutrophils % (A) 85 %; Platelet Count 413 k/uL (150-450); RBC 2.67 m/uL (3.80-5.40); RDW 15.2 % (11.5-15.5); WBC 9.3 k/uL (3.8-10.6)
[2020-10-01 06:01] LABS: Macrocytosis Marked
[2020-10-01 06:03] LABS: INR 1.4 (<1.2)
--- NOTE | 2020-10-01 06:21 | PN ---
PROGRESS NOTE 65-year-old white female, supposed to get a CT scan guided needle biopsy with abdominal fluid drained tomorrow. Wait for cultures for long-acting antibiotics with PICC line. Cardiovascular S1-S2. Lungs clear. GI is open sores times 3-4 midline abdomen. ASSESSMENT: 1. Intraabdominal abscess. 2. Abdominal wound cellulitis. Cover with Zosyn. Possible surgery consultation for abdominal wall wounds. Aquacel Silver every 48 hours to the wounds. MMODL / IJN: [id number] /
[2020-10-01 06:32] LABS: Ionized Calcium 4.8 mg/dL (4.5-5.3)
[2020-10-01 06:35] LABS: ALT <6 U/L (4-34); AST 19 U/L (14-36); African American GFR (CKD) >90 (>60 ml/min/1.73 sqM); Albumin 2.8 g/dL (3.5-5.0); Alkaline Phosphatase 115 U/L (38-126); Anion Gap 9 mmol/L; Blood Urea Nitrogen 4 mg/dL (7-17); Calcium 8.5 mg/dL (8.4-10.2); Carbon Dioxide 24 mmol/L (22-30); Chloride 103 mmol/L (98-107); Globulin 2.9 g/dL; Glucose 112 mg/dL (74-99); Magnesium 1.4 mg/dL (1.6-2.3); Non-African American GFR(CKD) >90 (>60 ml/min/1.73 sqM); Potassium 3.6 mmol/L (3.5-5.1); Sodium 136 mmol/L (137-145); Total Bilirubin 0.4 mg/dL (0.2-1.3); Total Protein 5.7 g/dL (6.3-8.2)
[2020-10-01] MEDS: PIPERACILLIN-TAZOBACTAM 3.375 GM in SODIUM CHLORIDE 0.9% 100 ML IVPB SCH ×2 (07:53→16:21)
[2020-10-01] MEDS ORDERED: PANTOPRAZOLE 40 MG TABLET PO SCH (09:00)
[2020-10-01] MEDS ORDERED: HYDROmorphone 1 MG/ML 1 ML SYRINGE IVP STA (09:54)
[2020-10-01] MEDS ORDERED: LIDOCAINE 1% INJ 10MG/ML (20 ML MDV) SQ ONE (10:21)
--- NOTE | 2020-10-01 10:49 | XR ---
EXAMINATION TYPE: XR chest 1V confirm line plctn DATE OF EXAM: 10/01/2020 COMPARISON: 06/04/2020 HISTORY: PICC line placement TECHNIQUE: Single frontal view of the chest is obtained. FINDINGS: Bilateral infiltrate and pleural effusion greater on the right. There is interstitial sunday torie correlate for venous congestion. Right-sided PICC line seen with the tip overlying the cavoatrial junction. Postsurgical change involving the cervical spine and hilum are noted. Diffuse osteopenia w ith chronic arthropathy of the shoulders. Underlying COPD suspected. IMPRESSION: 1. PICC line in good position. 2. Bilateral infiltrate and pleural effusion. Underlying venous congestion not excluded.
[2020-10-01] MEDS ORDERED: MVI, ADULT NO.4 WITH VIT K 10 ML, TRACE (CONC-1ML/DOSE) 1 ML in AMINO ACID 5%-D20W+LYTE... IV SCH ×3 (11:00)
[2020-10-01] MEDS ORDERED: POTASSIUM CHLORIDE 20 MEQ in WATER FOR INJECTION 1 100ML.BAG IVPB ONE (11:00)
[2020-10-01] MEDS: MAGNESIUM SULFATE-D5W PMX 1 GM in DEXTROSE/WATER 1 100ML.BAG IVPB SCH ×3 (11:16→15:06)
[2020-10-01] MEDS: GABAPENTIN 100 MG CAP PO SCH ×2 (11:16→16:35)
--- NOTE | 2020-10-01 11:29 | IR ---
PICC LINE PLACEMENT: HISTORY: TPN therapy PROCEDURE: Ultrasound guidance of PICC line placement. HEAVY DUTY PRESS OPERATOR: Dr. Kellogg. COMPLICATIONS: None ANESTHESIA: 1. 1% Lidocaine locally. FINDINGS/TECHNIQUE: The procedure was explained to the patient. The risks, complications, benefits and alternatives were discussed and any questions were answered. Informed consent was obtained. The patient was placed supine on the fluoroscopic table and prepped and draped in the usual sterile fash ion. Utilizing a 21 gauge needle and sonographic guidance, access in the right basilic vein was ach ieved and there is placement of a 0.018 guidewire. The vein is patent. A 5-F. sheath was placed ove r the guidewire. The guidewire and dilator were removed and a 5-F. Double lumen PICC line was placed through the sheath with the chest x-ray confirming the tip at the level of the SVC. The sheath was removed, the catheter was flushed and sutured into position. The patient was stable throughout the p rocedure and remained stable upon discharge from the Department of Radiology. The vein puncture was patent under ultrasound. A kenny scale image was obtained to document patency of the vein punctured. All elements of the maximal barrier technique were utilized. IMPRESSION: 1. Successful PICC line placement under ultrasound performed bedside.
--- NOTE | 2020-10-01 12:09 | P.GSCN ---
<Prerna Sam - Last Filed: 10/01/20 13:00> History of Present Illness Consult date: 10/01/20 History of present illness: CHIEF COMPLAINT: Abdominal pain HISTORY OF PRESENT ILLNESS: This is a 65-year-old female with a known history of ovarian cancer that was diagnosed in March 2020. She is status post hysterectomy. She had a bowel resection in August 2020 with colostomy placed due to infection in her colon. The surgery was completed at [facility] with a Dr. Vigil. Patient presents to the hospital with complaints of abdominal pain for the last 2 days. Most of her pain is in the left upper quadrant. She has been nauseated. Patient had started chemotherapy but this was stopped due to her surgeries. Patient had computed tomography scan of abdomen and pelvis showing postsurgical appearance of abdomen with moderate amount of REM enhancing perihepatic and parasplenic fluid which is concerning for peritonitis. A tiny amount of intraperitoneal free air is likely post procedural. Gallbladder distention similar to prior. Partial visualization of moderate this right and small left effusion with atelectasis. Subcentimeter enhancing left adrenal gland. Surgical service was consult that in regards to abdominal wall wounds. Patient reports having a home care nurse has been coming out in changing her incisional dressings. She does have trip in the incision. She denies any dr kleber from the incision. She denies any significant pain at the incision site. Patient is scheduled for CT-guided drainage of abdominal fluid by interventional radiology today. Patient is currently admitted to the hospital for peritonitis. Patient also reports that her ostomy is functioning yazmin ropriately. PAST MEDICAL HISTORY: See list. PAST SURGICAL HISTORY: See list. MEDICATIONS: See list. ALLERGIES: See list. SOCIAL HISTORY: No illicit drug use. REVIEW OF SYSTEMS: CONSTITUTIONAL: Denies fever or chills. HEENT: Denies blurred vision, vision changes, or eye pain. Denies hemoptysis CARDIOVASCULAR: Denies chest pain or pressure. RESPIRATORY: No shortness of breath. GASTROINTESTINAL: See HPI for pertinent findings HEMATOLOGIC: Denies bleeding disorders. GENITOURINARY: Denies any blood in urine or increased urinary frequency. SKIN: Denies pruitis. Denies rash. PHYSICAL EXAM: VITAL SIGNS: Reviewed GENERAL: Well-developed in no acute distress. HEENT: No sclera icterus. Extraocular movements grossly intact. Moist buccal mucosa. Head is atraumatic, normocephalic. No nasal drainage. ABDOMEN: Soft. Nondistended. Left upper quadrant abdominal tenderness with p alpation. Incision site is clean dry and intact. She has abdominal trip placed in the incision. No evidence of erythema or cellulitis. No significant drainage noted. Ostomy functioning NEUROLOGIC: Alert and oriented. Cranial nerves II through XII grossly intact. LABORATORY DATA: WBC is 9.3 hemoglobin 9.1 platelets 413 INR is 1.4 sodium 136 potassium 3.6 creatinine 0.34 Magnesium 1.4 LFTs normal Lipase normal IMAGING: Computed tomography scan findings as stated above ASSESSMENT: 1. Peritonitis 2. Abdominal incision site examined no evidence of cellulitis or infection noted 3. History of ovarian cancer 4. History of recent bowel resection with colostomy in August [address] Ford veronica out of [facility] PLAN: -No surgical intervention planned -Continue supportive care -Continue local wound care at incision site -Continue antibiotics per ID -Further recognitions forthcoming per surgeon Physician Stock Plan Administrator note has been reviewed by physician. Signing provider agrees with the documented findings, assessment, and plan of care. 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 History of Any Multi-Drug Resistant Organisms: None Reported Past Surgical History: Hysterectomy, Orthopedic Surgery, Tubal Ligation Additional Past Surgical History / Comment(s): fusion neck surgery, right rotator cuff, colectomy with colostomy, Past Anesthesia/Blood Transfusion Reactions: No Reported Reaction Past Psychological History: Anxiety Additional Psychological History / Comment(s): due to recent health issues Smoking Status: Former smoker Past Alcohol Use History: None Reported Additional Past Alcohol Use History / Comment(s): quit smoking 03/2020, smoked 1/2ppd from teens Past Drug Use History: None Reported - Past Family History Mother Family Medical History: Cancer Medications and Allergies Home Medications Medication Instructions Recorded Confirmed Type traMADol HCL 100 mg PO TID PRN 08/19/19 09/28/20 History Albuterol Inhaler [Ventolin Hfa 1 - 2 puff INHALATION RT-BID PRN 04/13/20 09/28/20 History Inhaler] Ipratropium-Albuterol Nebulize 3 ml INHALATION RT-BID PRN 05/19/20 09/28/20 History [Duoneb 0.5 mg-3 mg/3 ml Soln] Acetaminophen Tab [Tylenol] 650 mg PO Q6H PRN 05/20/20 09/28/20 History Cyclobenzaprine [Flexeril] 5 mg PO TID PRN 09/28/20 09/28/20 History Gabapentin [Neurontin] 100 mg PO TID 09/28/20 09/28/20 History Omeprazole 20 mg PO DAILY PRN 09/28/20 09/28/20 History Ondansetron [Zofran] 4 mg PO Q8H PRN 09/28/20 09/28/20 History Sucralfate [Carafate] 1 gm PO TID PRN 09/28/20 09/28/20 History oxyCODONE HCL [OxyCONTIN] 10 mg PO BID PRN 09/28/20 09/28/20 History Allergies Allergy/AdvReac Type Severity Reaction Status Date / Time No Known Allergies Allergy Verified 09/28/20 21:01 Surgical - Exam Vital Signs Temp Pulse Resp BP Pulse Ox 97.8 F 118 H 18 130/87 96 09/28/20 13:46 09/28/20 13:46 09/28/20 13:46 09/28/20 13:46 09/28/20 13:46 Results - Labs 10/01/20 05:16 10/01/20 05:16 Abnormal Lab Results - Last 24 Hours (Table) 09/30/20 09/30/20 09/30/20 Range/Units 13:20 13:20 13:20 RBC 2.91 L (3.80-5.40) m/uL Hgb 9.8 L (11.4-16.0) gm/dL Hct 31.5 L (34.0-46.0) % MCV 108.3 H (80.0-100.0) fL Plt Count 499 H (150-450) k/uL Neutrophils # (1.3-7.7) k/uL Lymphocytes # 0.7 L (1.0-4.8) k/uL Macrocytosis Marked A PT 22.7 H (9.0-12.0) sec INR 2.3 H (<1.2) Sodium 135 L (137-145) mmol/L Potassium 3.4 L (3.5-5.1) mmol/L BUN 3 L (7-17) mg/dL Creatinine 0.36 L (0.52-1.04) mg/dL Glucose 100 H (74-99) mg/dL Calcium 8.3 L (8.4-10.2) mg/dL Magnesium 1.3 L (1.6-2.3) mg/dL Total Protein 5.7 L (6.3-8.2) g/dL Albumin 2.7 L (3.5-5.0) g/dL 10/01/20 10/01/20 10/01/20 Range/Units 05:16 05:16 05:16 RBC 2.67 L (3.80-5.40) m/uL Hgb 9.1 L (11.4-16.0) gm/dL Hct 29.2 L (34.0-46.0) % MCV 109.1 H (80.0-100.0) fL Plt Count (150-450) k/uL Neutrophils # 7.8 H (1.3-7.7) k/uL Lymphocytes # 0.7 L (1.0-4.8) k/uL Macrocytosis Marked A PT 14.0 H (9.0-12.0) sec INR 1.4 H (<1.2) Sodium 136 L (137-145) mmol/L Potassium (3.5-5.1) mmol/L BUN 4 L (7-17) mg/dL Creatinine 0.34 L (0.52-1.04) mg/dL Glucose 112 H (74-99) mg/dL Calcium (8.4-10.2) mg/dL Magnesium 1.4 L (1.6-2.3) mg/dL Total Protein 5.7 L (6.3-8.2) g/dL Albumin 2.8 L (3.5-5.0) g/dL Microbiology - Last 24 Hours (Table) 09/28/20 14:34 Urine Culture - Final Urine,Voided Diabetes panel 09/30/20 10/01/20 Range/Units 13:20 05:16 Sodium 135 L 136 L (137-145) mmol/L Potassium 3.4 L 3.6 (3.5-5.1) mmol/L Chloride 102 103 (98-107) mmol/L Carbon Dioxide 23 24 (22-30) mmol/L BUN 3 L 4 L (7-17) mg/dL Creatinine 0.36 L 0.34 L (0.52-1.04) mg/dL Glucose 100 H 112 H (74-99) mg/dL Calcium 8.3 L 8.5 (8.4-10.2) mg/dL AST 21 19 (14-36) U/L ALT 6 <6 (4-34) U/L Alkaline Phosphatase 121 115 (38-126) U/L Total Protein 5.7 L 5.7 L (6.3-8.2) g/dL Albumin 2.7 L 2.8 L (3.5-5.0) g/dL Calcium panel 09/30/20 10/01/20 Range/Units 13:20 05:16 Calcium 8.3 L 8.5 (8.4-10.2) mg/dL Ionized Calcium [place] 4.8 (4.5-5.3) mg/dL Phosphorus 3.0 (2.5-4.5) mg/dL Albumin 2.7 L 2.8 L (3.5-5.0) g/dL Pituitary panel 09/30/20 10/01/20 Range/Units 13:20 05:16 Sodium 135 L 136 L (137-145) mmol/L Potassium 3.4 L 3.6 (3.5-5.1) mmol/L Chloride 102 103 (98-107) mmol/L Carbon Dioxide 23 24 (22-30) mmol/L BUN 3 L 4 L (7-17) mg/dL Creatinine 0.36 L 0.34 L (0.52-1.04) mg/dL Glucose 100 H 112 H (74-99) mg/dL Calcium 8.3 L 8.5 (8.4-10.2) mg/dL Adrenal panel 09/30/20 10/01/20 Range/Units 13:20 05:16 Sodium 135 L 136 L (137-145) mmol/L Potassium 3.4 L 3.6 (3.5-5.1) mmol/L Chloride 102 103 (98-107) mmol/L Carbon Dioxide 23 24 (22-30) mmol/L BUN 3 L 4 L (7-17) mg/dL Creatinine 0.36 L 0.34 L (0.52-1.04) mg/dL Glucose 100 H 112 H (74-99) mg/dL Calcium 8.3 L 8.5 (8.4-10.2) mg/dL Total Bilirubin 0.2 0.4 (0.2-1.3) mg/dL AST 21 19 (14-36) U/L ALT 6 <6 (4-34) U/L Alkaline Phosphatase 121 115 (38-126) U/L Total Protein 5.7 L 5.7 L (6.3-8.2) g/dL Albumin 2.7 L 2.8 L (3.5-5.0) g/dL <Ho Dempsey - Last Filed: 10/01/20 16:15> History of Present Illness History of present illness: As above. Patient with increasing pain over the last 1 week. CAT scan reviewed with radiology and shows multiple fluid collections including a fluid collection adjacent to the previous anastomosis left abdomen containing air. Suspect patient may have a small leak from that anastomotic site however the patient is thankfully diverted. Attempts at percutaneous drainage earlier today were unsuccessful because of the patient's inability to lay flat. Strongly advised transfer back to the patient's surgeon who performed his procedure recently. Patient's family apparently has already reached out to their office and both the patient's family, the patient herself, and [employer] oncology agree with that plan. Surgical - Exam Vital Signs Temp Pulse Resp BP Pulse Ox 97.8 F 118 H 18 130/87 96 09/28/20 13:46 09/28/20 13:46 09/28/20 13:46 09/28/20 13:46 09/28/20 13:46 Results - Labs 10/01/20 05:16 10/01/20 05:16 Abnormal Lab Results - Last 24 Hours (Table) 10/01/20 10/01/20 10/01/20 Range/Units 05:16 05:16 05:16 RBC 2.67 L (3.80-5.40) m/uL Hgb 9.1 L (11.4-16.0) gm/dL Hct 29.2 L (34.0-46.0) % MCV 109.1 H (80.0-100.0) fL Neutrophils # 7.8 H (1.3-7.7) k/uL Lymphocytes # 0.7 L (1.0-4.8) k/uL Macrocytosis Marked A PT 14.0 H (9.0-12.0) sec INR 1.4 H (<1.2) Sodium 136 L (137-145) mmol/L BUN 4 L (7-17) mg/dL Creatinine 0.34 L (0.52-1.04) mg/dL Glucose 112 H (74-99) mg/dL Magnesium 1.4 L (1.6-2.3) mg/dL Total Protein 5.7 L (6.3-8.2) g/dL Albumin 2.8 L (3.5-5.0) g/dL Diabetes panel 10/01/20 Range/Units 05:16 Sodium 136 L (137-145) mmol/L Potassium 3.6 (3.5-5.1) mmol/L Chloride 103 (98-107) mmol/L Carbon Dioxide 24 (22-30) mmol/L BUN 4 L (7-17) mg/dL Creatinine 0.34 L (0.52-1.04) mg/dL Glucose 112 H (74-99) mg/dL Calcium 8.5 (8.4-10.2) mg/dL AST 19 (14-36) U/L ALT <6 (4-34) U/L Alkaline Phosphatase 115 (38-126) U/L Total Protein 5.7 L (6.3-8.2) g/dL Albumin 2.8 L (3.5-5.0) g/dL Triglycerides 119.0 (0.0-149.0) mg/dL Calcium panel 10/01/20 Range/Units 05:16 Calcium 8.5 (8.4-10.2) mg/dL Ionized Calcium [place] 4.8 (4.5-5.3) mg/dL Phosphorus 3.0 (2.5-4.5) mg/dL Albumin 2.8 L (3.5-5.0) g/dL Pituitary panel 10/01/20 Range/Units 05:16 Sodium 136 L (137-145) mmol/L Potassium 3.6 (3.5-5.1) mmol/L Chloride 103 (98-107) mmol/L Carbon Dioxide 24 (22-30) mmol/L BUN 4 L (7-17) mg/dL Creatinine 0.34 L (0.52-1.04) mg/dL Glucose 112 H (74-99) mg/dL Calcium 8.5 (8.4-10.2) mg/dL Adrenal panel 10/01/20 Range/Units 05:16 Sodium 136 L (137-145) mmol/L Potassium 3.6 (3.5-5.1) mmol/L Chloride 103 (98-107) mmol/L Carbon Dioxide 24 (22-30) mmol/L BUN 4 L (7-17) mg/dL Creatinine 0.34 L (0.52-1.04) mg/dL Glucose 112 H (74-99) mg/dL Calcium 8.5 (8.4-10.2) mg/dL Total Bilirubin 0.4 (0.2-1.3) mg/dL AST 19 (14-36) U/L ALT <6 (4-34) U/L Alkaline Phosphatase 115 (38-126) U/L Total Protein 5.7 L (6.3-8.2) g/dL Albumin 2.8 L (3.5-5.0) g/dL
[2020-10-01 12:27] VITALS: RESP 20
[2020-10-01] MEDS: INSULIN ASPART (NovoLOG) 100 UNIT/ML VIAL SQ SCH ×2 (13:17→17:27)
--- NOTE | 2020-10-01 15:54 | P.PN ---
Subjective Progress Note Date: 10/01/20 Principal diagnosis: peritonitis Patient seen and examined lying in bed. Patient went down to interventional radiology for possible drainage of peritoneal fluid. Patient was unable to proceed with procedure. She did undergo a PICC line placement for TPN. Patient states she is still feeling nauseated and not taking in much oral fluids or food. Complains that she still has severe abdominal pain. She has been afebrile. Infectious diseases on consult and continues with current IV antibiotics. Gen. surgery has been consult.. Objective - Vital Signs Vital signs: Vital Signs Temp 98.3 F 10/01/20 04:50 Pulse 116 H 10/01/20 04:50 Resp 18 10/01/20 04:50 BP 124/76 10/01/20 04:50 Pulse Ox 90 L 10/01/20 04:50 Intake & Output 09/30/20 10/01/20 10/01/20 18:59 06:59 18:59 Intake Total 25 Output Total 100 200 Balance -75 -200 Weight 53.524 kg Intake: Intake, IV Titration 25 Amount Piperacillin-Tazobactam 3 25 .375 gm In Sodium Chloride 0.9% 100 ml @ 25 mls/hr IVPB Q8HR [facility] Rx# :[id number] Output: Stool 100 200 Other: Voiding Method Toilet # Voids 2 - Exam General appearance: The patient is alert, oriented, appears in no acute distress. HET: Head is normocephalic and atraumatic. Conjunctiva pink. Sclera anicteric. Neck: Supple without lymphadenopathy. Abdomen: Soft, diffuse tenderness, worse in the left lower quadrant, nondistended with bowel sounds. Colostomy bag with loose brown/green stool. No guarding or rigidity. Extremities: Normal skin color and turgor. No pedal edema Skin: No rashes, no jaundice Neurological: No focal deficits. Alert and oriented 3. - Labs CBC & Chem 7: 10/01/20 05:16 10/01/20 05:16 Labs: Abnormal Lab Results - Last 24 Hours (Table) 09/30/20 09/30/20 09/30/20 Range/Units 13:20 13:20 13:20 RBC 2.91 L (3.80-5.40) m/uL Hgb 9.8 L (11.4-16.0) gm/dL Hct 31.5 L (34.0-46.0) % MCV 108.3 H (80.0-100.0) fL Plt Count 499 H (150-450) k/uL Neutrophils # (1.3-7.7) k/uL Lymphocytes # 0.7 L (1.0-4.8) k/uL Macrocytosis Marked A PT 22.7 H (9.0-12.0) sec INR 2.3 H (<1.2) Sodium 135 L (137-145) mmol/L Potassium 3.4 L (3.5-5.1) mmol/L BUN 3 L (7-17) mg/dL Creatinine 0.36 L (0.52-1.04) mg/dL Glucose 100 H (74-99) mg/dL Calcium 8.3 L (8.4-10.2) mg/dL Magnesium 1.3 L (1.6-2.3) mg/dL Total Protein 5.7 L (6.3-8.2) g/dL Albumin 2.7 L (3.5-5.0) g/dL 10/01/20 10/01/20 10/01/20 Range/Units 05:16 05:16 05:16 RBC 2.67 L (3.80-5.40) m/uL Hgb 9.1 L (11.4-16.0) gm/dL Hct 29.2 L (34.0-46.0) % MCV 109.1 H (80.0-100.0) fL Plt Count (150-450) k/uL Neutrophils # 7.8 H (1.3-7.7) k/uL Lymphocytes # 0.7 L (1.0-4.8) k/uL Macrocytosis Marked A PT 14.0 H (9.0-12.0) sec INR 1.4 H (<1.2) Sodium 136 L (137-145) mmol/L Potassium (3.5-5.1) mmol/L BUN 4 L (7-17) mg/dL Creatinine 0.34 L (0.52-1.04) mg/dL Glucose 112 H (74-99) mg/dL Calcium (8.4-10.2) mg/dL Magnesium 1.4 L (1.6-2.3) mg/dL Total Protein 5.7 L (6.3-8.2) g/dL Albumin 2.8 L (3.5-5.0) g/dL Microbiology - Last 24 Hours (Table) 09/28/20 14:34 Urine Culture - Final Urine,Voided Assessment and Plan (1) Peritonitis Narrative/Plan: 65-year-old female who presented to the emergency department with decreased appetite due to nausea, left upper quadrant pain, and weakness. Patient was recently diagnosed with ovarian cancer in March of this year and follows with Dr. Vigil and Dr. Burrell. She initially was started on chemotherapy but that was stopped due to impending surgery. Patient underwent hysterectomy and bowel resection due to infection in August of this year. Ever since the surgery patient has had decreased appetite, nausea, but states no vomiting. States she can only eat usually about every other day. She had a CT of the abdomen and pelvis done in the emergency department showing postsurgical appearance of the abdomen with moderate amount of rim enhancing perihepatic and. Splenic fluid which is concerning for peritonitis. A tiny amount of intraperitoneal free air is likely postprocedural. Gallbladder distention similar to prior. Correlate with ultrasound. Partial visualization of moderate right and small left effusion with adjacent atelectasis. Subcentimeter, enhancing left adrenal nodule. When patient condition allows consider adrenal protocol CT for further characterization. Today she states she is feeling better, she denies any change from her ostomy output, denies any blood or black stool. States she still has some nausea, but no vomiting. Started on IV Zosyn, infectious disease has been consult it. Current Visit: Yes Status: Acute Code(s): K65.9 - PERITONITIS, UNSPECIFIED SNOMED Code(s): 32029449 (2) Abdominal pain Current Visit: Yes Status: Acute Code(s): R10.9 - UNSPECIFIED ABDOMINAL PAIN SNOMED Code(s): 76872694 (3) Nausea Current Visit: Yes Status: Acute Code(s): R11.0 - NAUSEA SNOMED Code(s): 039189256 (4) Ovarian cancer Current Visit: Yes Status: Acute Code(s): C56.9 - MALIGNANT NEOPLASM OF UNSPECIFIED OVARY SNOMED Code(s): 759832844 Plan: 1. Continue IV Zosyn 2. Continue antiemetics as needed 3. Diet as tolerated, agree with TPN 4. Ensure clear ordered 5. Continue symptomatic and supportive care 6. Infectious disease on consult, follow their recommendations on IV antibiotics. 7. Gen. surgery on consult, appreciate their recommendations. Agree with transfer. Thank you for this consultation, we will sign off at this time. Dr. Rajput I agree with the dictator's note, documented as a scribe by Stacie Benavidez.
--- NOTE | 2020-10-01 16:11 | P.PN ---
Subjective Progress Note Date: 10/01/20 Principal diagnosis: Worsening pain and nausea and inability to eat Patient was taken to IR today for fluid culture, however she stated she was in too much pain to proceed therefore brought back to floor. Additional medication added for prior to procedure, patient agreed to moving forward. A few hours later Nona (family) calls and is frustrated stating she doesnt understand why patient needs to wait to have re-scheduled cultures, why she is she uncomfortable and stating she doesnt know the plan. The plan was discussed in detail with last eventing and the evening before with the changes of her pain medication, the addition of Picc line and TPN as well as pulling fluid from area that appears to be the primary cause. Attempted to re-communicate this with family, who does not seem to understand that rescheduling for this procedure is needed. Increased medication prior to procedure was also told to her twice, but she stated again that "Yarelis wont tolerate since we will not do anything different". Yarelis was agreeable to plan with increased pain medication and ativan prior to IR procedure, therefore we will move foreward and continue communication with family as we have been, however re-education may need to be needed. Objective - Vital Signs Vital signs: Vital Signs Temp 100.8 F H 10/01/20 12:05 Pulse 115 H 10/01/20 12:05 Resp 20 10/01/20 12:05 BP 133/77 10/01/20 12:05 Pulse Ox 91 L 10/01/20 12:05 Intake & Output 09/30/20 10/01/20 10/01/20 18:59 06:59 18:59 Intake Total 25 Output Total 100 200 50 Balance -75 -200 -50 Weight 53.524 kg Intake: Intake, IV Titration 25 Amount Piperacillin-Tazobactam 3 25 .375 gm In Sodium Chloride 0.9% 100 ml @ 25 mls/hr IVPB Q8HR COUNT INCLUDES THE [facility] Rx# :[id number] Output: Stool 100 200 50 Other: Voiding Method Toilet Toilet # Voids 2 - Exam Constitutional General appearance: cooperative, no acute distress - EENT Eyes: EOMI, poor dentition ENT: hard of hearing, NA/AT - Neck Neck: normal ROM - Respiratory Respiratory: bilateral: diminished - Cardiovascular Rhythm: regular leg Peripheral Edema: bilateral: 1+ - Gastrointestinal RLQ ostomy, Pain General gastrointestinal: tenderness - Integumentary Integumentary: pale - Neurologic Neurologic: CNII-XII intact - Musculoskeletal Musculoskeletal: generalized weakness, strength equal bilaterally - Psychiatric Psychiatric: A&O x's 3, appropriate affect, intact judgment & insight - Labs CBC & Chem 7: 10/01/20 05:16 10/01/20 05:16 Labs: Abnormal Lab Results - Last 24 Hours (Table) 10/01/20 10/01/20 10/01/20 Range/Units 05:16 05:16 05:16 RBC 2.67 L (3.80-5.40) m/uL Hgb 9.1 L (11.4-16.0) gm/dL Hct 29.2 L (34.0-46.0) % MCV 109.1 H (80.0-100.0) fL Neutrophils # 7.8 H (1.3-7.7) k/uL Lymphocytes # 0.7 L (1.0-4.8) k/uL Macrocytosis Marked A PT 14.0 H (9.0-12.0) sec INR 1.4 H (<1.2) Sodium 136 L (137-145) mmol/L BUN 4 L (7-17) mg/dL Creatinine 0.34 L (0.52-1.04) mg/dL Glucose 112 H (74-99) mg/dL Magnesium 1.4 L (1.6-2.3) mg/dL Total Protein 5.7 L (6.3-8.2) g/dL Albumin 2.8 L (3.5-5.0) g/dL Assessment and Plan (1) Ovarian cancer Current Visit: Yes Status: Acute Code(s): C56.9 - MALIGNANT NEOPLASM OF UNSPECIFIED OVARY SNOMED Code(s): 186097724 (2) Peritonitis Current Visit: Yes Status: Acute Code(s): K65.9 - PERITONITIS, UNSPECIFIED SNOMED Code(s): 15132989 Plan: Continue on antibiotics and continue pain management in the interim. I will discuss further with [facility] for any additional recommendations. Monitor daily CBC and CMP Recheck Ca125 post operatively and eating. She is not tolerating anything PO and complains of pain not controlled with dilaudid 0.5, therefore changed to MS q3, however this has not helped either. Fentanyl patch added, dilaudid 1mg PRN. SPoke with Dr. Sharp. Baseline BC, will ask for Picc line and start TPN. IR to drain fluid collection for cultures as well. Continue Bowel Rest Dilaudid 2mg prior to procedures Ativan added prn Picc line today and TPN Interval of pain medication decreased to 3 hours as well Physician Attest: I have completed the full history and physical and agree with above dictation, dictated as a ascribe Greater than 45 minutes spent with patient and Family member
[2020-10-01] MEDS: traMADol 50 MG TAB PO PRN (16:12)
--- NOTE | 2020-10-01 16:36 | PN ---
PROGRESS NOTE DATE OF SERVICE: 10/01/2020. REASON FOR FOLLOW UP: Intraabdominal abscess. INTERVAL HISTORY: The patient did have a low grade fever 100.8 this afternoon. The patient has been breathing comfortably. She was taken to radiology for a CT guided drainage of this abscess. However, the patient was unable to lie flat and the procedure was postponed. The patient complaining of abdominal pain, lower, across the abdominal pain. Some nausea but no vomiting and no diarrhea. PHYSICAL EXAMINATION: On examination, blood pressure 133/77, pulse 103, temperature 98.8, she is 91% on 3 L nasal cannula. General description is a middle aged female lying in bed in no distress. Respiratory system: Unlabored breathing, clear to auscultation anteriorly. Heart: S1, S2 regular rate and rhythm. Abdomen soft, mildly distended. No guarding. Extremities: No edema of the feet. LABORATORY DATA: Hemoglobin 9.1, white count 9.0, BUN 4, creatinine 0.34. DIAGNOSTIC IMPRESSION AND PLAN: Patient with abdominal pain in this patient who did have CT suspicious for abdominal abscess multiloculated with surgery for ovarian tumor. Abscess could not be drained surgically. Surgical team did not recommend any procedure. Mentioned for the patient to be transferred back to [facility] to be seen by her surgeon. Continue Zosyn and monitor clinical course closely. MMODL / IJN: [id number] /
[2020-10-01] MEDS ORDERED: HYDROmorphone 2 MG TAB PO ONE (19:00)
[2020-10-01] MEDS ORDERED: HYDROmorphone 1 MG/ML 1 ML SYRINGE IVP ONE (19:30)
[2020-10-01 19:55] VITALS: BP 159/93; PULSE 128; TEMP 99.1
[2020-10-02] MEDS ORDERED: FAT EMULSION 20% 250 ML in EMPTY BAG 1 BAG IV SCH (09:00)
[2020-10-04] MEDS ORDERED: 1: MVI, ADULT NO.4 WITH VIT K 10 ML, TRACE (CONC-1ML/DOSE) 1 ML in AMINO ACID 5%-D20W+LY IV SCH ×3 (11:00)
== END 2020-10-01 20:45 | disposition short-term general hospital (02) | DRG 372 ==
LOC: EC 13:18 → 5NMEDONC 19:43
PROVIDERS: ADMIT Family Medicine; ATTEND Family Medicine
PROC: 3E0436Z Introduction of Nutritional Substance into Central Vein, Percutaneous Approach (ICD-10-PCS; 2020-10-01)
PROC: 02HV33Z Insertion of Infusion Device into Superior Vena Cava, Percutaneous Approach (ICD-10-PCS; principal; 2020-10-01 07:30)
DX: K65.1 Peritoneal abscess (principal); C56.9 Malignant neoplasm of unspecified ovary; C78.5 Secondary malignant neoplasm of large intestine and rectum; J91.0 Malignant pleural effusion; J98.11 Atelectasis; E27.8 Other specified disorders of adrenal gland; Z43.3 Encounter for attention to colostomy; E86.0 Dehydration; J44.9 Chronic obstructive pulmonary disease, unspecified; K82.8 Other specified diseases of gallbladder; K44.9 Diaphragmatic hernia without obstruction or gangrene; M54.9 Dorsalgia, unspecified; R19.7 Diarrhea, unspecified; K59.00 Constipation, unspecified; M79.7 Fibromyalgia; H93.19 Tinnitus, unspecified ear; H91.90 Unspecified hearing loss, unspecified ear; F41.9 Anxiety disorder, unspecified; Z90.710 Acquired absence of both cervix and uterus; Z79.899 Other long term (current) drug therapy; Z87.891 Personal history of nicotine dependence; Z87.42 Personal history of other diseases of the female genital tract; Z98.51 Tubal ligation status; Z98.1 Arthrodesis status; Z87.39 Personal history of other diseases of the musculoskeletal system and connective tissue; Z87.19 Personal history of other diseases of the digestive system; Z90.49 Acquired absence of other specified parts of digestive tract; Z98.890 Other specified postprocedural states; Z80.9 Family history of malignant neoplasm, unspecified
CPT/HCPCS: 36415; 36573; 74177; 80053; 81001; 82150; 82330; 83605; 83690; 83735; 84100; 84478; 85025; 85610; 86850; 86900; 86901; 87040; 87086; 93005; 94760; 96361; 96365; 96375; 96376; 99285

== ENCOUNTER → 2021-01-01 | Outpatient (CLI) | payer MEDICARE, OTHER ==
[2021-01-01 10:30] LABS: African American GFR (CKD) >90 (>60 ml/min/1.73 sqM); Blood Urea Nitrogen 16 mg/dL (7-17); Non-African American GFR(CKD) >90 (>60 ml/min/1.73 sqM)
--- NOTE | 2021-01-01 11:17 | CT ---
EXAMINATION TYPE: CT abdomen pelvis w con DATE OF EXAM: 01/01/2021 COMPARISON: 09/28/2020, 07/17/2020 HISTORY: Malignant neoplasm of peritoneum CT DLP: 449 mGycm Automated exposure control for dose reduction was used. CONTRAST: CT scan of the abdomen pelvis is performed with IV Contrast, patient injected with 100 mL of Isovue 3 00. FINDINGS- LUNG BASES-bilateral consolidation with small pleural effusion reduced from the prior exam. There yazmin ears to be a drainage catheter within the left pleural space correlate clinically.. LIVER/GB-Subcentimeter hypodensities in the liver are too small to characterize. Gallbladder is diste nded measuring up to 4.7 cm axially and there subtle hypodense rim sign predominantly on the left. No biliary ductal dilatation. PANCREAS- No gross abnormality is seen. SPLEEN- No gross abnormality is seen. ADRENALS- There is redemonstration of a 9 mm hypodense left adrenal nodule that measures approximate ly 40 Hounsfield units. KIDNEYS/BLADDER-There is heterogeneous enhancement of the kidneys which may be related to the phase o f imaging. Would recommend correlation with urinalysis to exclude pyelonephritis. 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 BOWEL-Right lower quadrant ostomy. Bowel sutures noted in the left upper quadrant. Small amount of fr ee fluid in the pelvis. Haziness and edema of the mesenteric fat. Anterior abdominal wall skin suture s. There is thickening of the left paracolic gutter which is nonspecific but improved from the prior exam where there appear to be a loculated abscess. No sizable fluid collection is seen. LYMPH NODES- No greater than 1cm abdominal or pelvic lymph nodes areappreciated. OSSEOUS STRUCTURES-hypertrophic and degenerative changes of the spine.. OTHER- the multiple loculated areas of fluid collection within the upper abdomen are markedly improv ed relative to the prior exam. There is some residual fluid surrounding the liver as well as a small loculated collection adjacent to the gallbladder fossa which is improved from prior exam. Atherosclerotic change of the aorta with no evidence of aneurysm. IMPRESSION- 1. Interval marked improvement in reduction of the amount of fluid in fluid collection suspected to b e abscess within the abdomen showing significant interval improvement. 2. Interval reduction in the size of pleural fluid bilaterally with left-sided pleural drainage pradeep ter suspected. 3. Heterogeneous enhancement of the kidneys may be related to the phase of imaging correlate with uri nalysis to exclude a mild pyelonephritis. Next line 4. Findings are compatible with moderate right hydronephrosis which may be secondary to a congenital right-sided UPJ obstruction
== END | disposition home or self-care (01) ==
LOC: RADCTMAIN 09:40
PROVIDERS: ATTEND Internal Medicine Hematology & Oncology
DX: Z03.89 Encounter for observation for other suspected diseases and conditions ruled out (principal); C48.2 Malignant neoplasm of peritoneum, unspecified; R10.84 Generalized abdominal pain
CPT/HCPCS: 82565; 84520; 74177; 36415; Q9967

== ENCOUNTER → 2021-01-19 | Outpatient (CLI) | payer MEDICARE, OTHER ==
--- NOTE | 2021-01-19 23:48 | US ---
EXAMINATION TYPE: US chest DATE OF EXAM: 01/19/2021 COMPARISON: NONE CLINICAL HISTORY: J90 pleural effusion. SOB, known COPD TECHNIQUE: Targeted ultrasound of the posterior lower Right EXAM MEASUREMENTS: Right Pleural Effusion pocket size: 7.9cm Right skin surface to fluid distance: 1.9cm Right side NOT marked, no free fluid noted, all consolidated, solid appearing collection. Pulmonologists are able to review the images in the patient?s EMR. IMPRESSIONS: 1. Small right pleural effusion
== END | disposition home or self-care (01) ==
LOC: RADUSWWP 15:48
PROVIDERS: ATTEND Internal Medicine Critical Care Medicine
DX: J90 Pleural effusion, not elsewhere classified (principal)
CPT/HCPCS: 76604

== ENCOUNTER → 2021-03-10 | Outpatient (CLI) | payer MEDICARE, OTHER ==
--- NOTE | 2021-03-10 15:55 | XR ---
EXAMINATION TYPE: XR femur LT DATE OF EXAM: 03/10/2021 CLINICAL HISTORY: Pain TECHNIQUE: Two views of the left femur are obtained. COMPARISON: None FINDINGS: There is no acute fracture or dislocation seen in the left femur. There is mild to moderat e concentric narrowing the joint space. There is a chronic deformity involving the inferior pubic cari us likely in the basis of remote fracture. Diffuse osteopenia. No destructive lesion seen. No blastic lesions identified. Arthropathy of the knee joint. IMPRESSION: 1. No diagnostic evidence of metastasis by plain film x-ray. Correlate with bone scan as clinically w arranted. 2. Remote fracture involving the left inferior pubic ramus.
--- NOTE | 2021-03-10 15:57 | XR ---
EXAMINATION TYPE: XR Hip Complete LT DATE OF EXAM: 03/10/2021 COMPARISON: NONE HISTORY: Pain TECHNIQUE: 2 views submitted FINDINGS: There is no evidence of erosive change or acute fracture. Diffuse osteopenia with mild to moderate concentric narrowing of the hip joint. Calcification overlyi ng the superior pubic ramus likely vascular. Remote fracture left inferior pubic ramus. No diagnostic evidence of destructive change. IMPRESSION: 1. No acute osseous abnormality. 2. Remote fracture left inferior pubic ramus. 3. Arthropathy
--- NOTE | 2021-03-10 16:02 | XR ---
EXAMINATION TYPE: XR sacrum coccyx DATE OF EXAM: 03/10/2021 COMPARISON: CT scan 01/01/2021 HISTORY: Pain Three views are submitted. Sacrum is intact. SI joints are symmetric. Coccyx appears to be intact. Visualized pelvic structures intact. Facet arthropathy and degenerative change of the lumbar spine . No destructive changes. Asymmetric sclerosis involving the left iliac bone likely is positional. IMPRESSION: 1. Degenerative change lower lumbar spine with diffuse osteopenia. There is asymmetric sclerosis of t he left iliac bone adjacent to the SI joint which is seen on only one view. This is felt to be most l ikely due to rotation and positioning. Recent CT scan dated 01/01/2021 demonstrates no abnormality in this region.
--- NOTE | 2021-03-10 16:03 | XR ---
EXAM TYPE: LUMBAR SPINE X RAY SERIES COMPARISON: NONE HISTORY: Lower back pain TECHNIQUE: 4 views are submitted. FINDINGS: Alignment is anatomic. The pedicles are intact. The transverse processes are intact. There is no s pondylolysis or spondylolisthesis. There is multilevel degenerative disc disease with facet arthropat hy. Vascular calcifications noted. Diffuse osteopenia. Multilevel hypertrophic spurring. Slight curva ture of the spine correlate for scoliosis. No compression deformities. No destructive changes seen. IMPRESSION: 1. Multilevel mild to moderate degenerative disc disease and facet arthropathy.
== END | disposition home or self-care (01) ==
LOC: RADXRMAIN 14:37
PROVIDERS: ATTEND Internal Medicine Hematology & Oncology
DX: C48.2 Malignant neoplasm of peritoneum, unspecified (principal); J91.0 Malignant pleural effusion; B37.0 Candidal stomatitis; M79.7 Fibromyalgia; M47.896 Other spondylosis, lumbar region; M85.88 Other specified disorders of bone density and structure, other site
CPT/HCPCS: 72100; 72220; 73502

== ENCOUNTER 2021-06-24 20:50 | Inpatient (IN) | payer MEDICARE, OTHER ==
[2021-06-24] MEDS ORDERED: DEXAMETHASONE SOD PHOSPHATE 10 MG/ML 1 ML VIAL IV STA (21:05)
--- NOTE | 2021-06-24 21:05 | ED ---
General Adult HPI - General Stated complaint: Shortness of Breath Time Seen by Provider: 06/24/21 20:58 - History of Present Illness Initial comments: Dictation was produced using [employer] dictation software. please excuse any grammatical, word or spelling errors. Chief Complaint: Patient is 65-year-old male past medical history peritoneal cancer, COPD, home oxygen presents emergency department for shortness of breath. She does positive for COVID-19 today History of Present Illness: Patient is a 65-year-old female she has past medical history peritoneal cancer. She wears home oxygen at 4 L nasal cannula for COPD. States that she's been having URI symptoms for the last 3 days. She taken at home Covid test today which ended up being positive. Brought in by EMS. EMS states the patient was not hypoxic. They still however did put her on nonrebreather. Patient states a lot of her Covid symptoms have improved. She is not vaccinated because she did not want to feel sick from the vaccinations. The ROS documented in this emergency department record has been reviewed and confirmed by me. Those systems with pertinent positive or negative responses have been documented in the HPI. All other systems are other negative and/or noncontributory. PHYSICAL EXAM: General Impression: Alert and oriented x3, dyspneic HEENT: Normocephalic atraumatic, extra-ocular movements intact, pupils equal and reactive to light bilaterally, mucous membranes moist. Cardiovascular: Heart regular rate and rhythm Chest: Able to complete full sentences, no retractions, no tachypnea, clear lung sounds bilaterally Abdomen: abdomen soft, non-tender, non-distended, no organomegaly Musculoskeletal: Pulses present and equal in all extremities, no peripheral edema Motor: no focal deficits noted Neurological: CN II-XII grossly intact, no focal motor or sensory deficits noted Skin: Intact with no visualized rashes Psych: Normal affect and mood ED course: 65-year-old female with multiple comorbidities presents emergency department for Covid symptoms 3 days. Patient is not hypoxic on her home O2. She is on 4 L is a cannula and satting in the high 90s. Patient tachypneic at 28, heart rate is 114. Chest x-ray shows bilateral pleural effusions that seems unchanged from most previous x-ray. He ceases leukopenia of 2.9. She does have some macrocytosis which appears to be baseline. Metabolic panel shows potassium 3.2, magnesium 1.5. Slight elevation of creatinine 1.11. D-dimer is elevated at 5.97. Coag panel is unremarkable. Patient's negative for influenza and RSV. Patient reevaluated bedside at 10:15 PM pot to be in s table medical condition. She is breathing much more comfortably. There is likely component of anxiety. Patient is not hypoxic status oriented signs respiratory distress. Risks and benefits were discussed regarding monoclonal antibodies. Patient would meet criteria given that she is not dyspneic and not hypoxic. Patient is agreeable. EKG interpretation: Ventricular rate 105, sinus tachycardia,. 104, QS 123, QTc 440. No ND prolongation, no QTC prolongation, no ST or T-wave changes noted. EKG compared to 09/28/2020 that shows new right bundle branch block. - Related Data Home Medications Medication Instructions Recorded Confirmed Gabapentin [Neurontin] 100 mg PO TID PRN 09/28/20 06/24/21 ALPRAZolam [Xanax] 0.5 mg PO BID PRN 06/24/21 06/24/21 Apixaban [Eliquis] 2.5 mg PO BID 06/24/21 06/24/21 Cyclobenzaprine [Flexeril] 10 mg PO BID PRN 06/24/21 06/24/21 Loratadine 10 mg PO DAILY 06/24/21 06/24/21 Megestrol [Megace] 600 mg PO DAILY 06/24/21 06/24/21 Metoprolol Succinate (ER) [Toprol 25 mg PO DAILY 06/24/21 06/24/21 Xl] Morphine Sulfate ER [Ms Contin] 60 mg PO TID 06/24/21 06/24/21 Niraparib Tosylate [Zejula] 100 mg PO BID 06/24/21 06/24/21 OLANZapine [ZyPREXA] 5 mg PO HS 06/24/21 06/24/21 ondansetron HCL [Zofran] 8 mg PO Q6H PRN 06/24/21 06/24/21 oxyCODONE HCL [oxyCODONE HCL (IR)] 15 mg PO Q6H PRN 06/24/21 06/24/21 Allergies Allergy/AdvReac Type Severity Reaction Status Date / Time No Known Allergies Allergy Verified 06/24/21 21:38 Review of Systems ROS Statement: Those systems with pertinent positive or pertinent negative responses have been documented in the HPI. ROS Other: All systems not noted in ROS Statement are negative. 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 History of Any Multi-Drug Resistant Organisms: None Reported Past Surgical History: Hysterectomy, Orthopedic Surgery, Tubal Ligation Additional Past Surgical History / Comment(s): fusion neck surgery, right rotator cuff, colectomy with colostomy, Past Anesthesia/Blood Transfusion Reactions: No Reported Reaction Smoking Status: Former smoker - Past Family History Mother Family Medical History: Cancer Course Vital Signs 06/24/21 06/24/21 21:00 21:30 Temperature 97.6 F Pulse Rate 114 H Respiratory 28 H 40 H Rate Blood Pressure 146/78 O2 Sat by Pulse 99 Oximetry Medical Decision Making - Lab Data Result diagrams: 06/24/21 21:11 06/24/21 21:11 Lab Results 06/24/21 06/24/21 06/24/21 Range/Units 21:11 21:11 21:11 WBC 2.9 L (3.8-10.6) k/uL RBC 4.90 (3.80-5.40) m/uL Hgb 15.9 (11.4-16.0) gm/dL Hct 50.1 H (34.0-46.0) % MCV 102.2 H (80.0-100.0) fL MCH 32.4 (25.0-35.0) pg MCHC 31.7 (31.0-37.0) g/dL RDW 13.0 (11.5-15.5) % Plt Count 104 L (150-450) k/uL MPV 7.9 Neutrophils % 72 % Lymphocytes % 17 % Monocytes % 6 % Eosinophils % 2 % Basophils % 2 % Neutrophils # 2.1 (1.3-7.7) k/uL Lymphocytes # 0.5 L (1.0-4.8) k/uL Monocytes # 0.2 (0-1.0) k/uL Eosinophils # 0.1 (0-0.7) k/uL Basophils # 0.1 (0-0.2) k/uL Macrocytosis Slight PT 11.4 (9.0-12.0) sec INR 1.1 (<1.2) APTT 26.5 (22.0-30.0) sec D-Dimer 5.97 H (<0.60) mg/L FEU Sodium 138 (137-145) mmol/L Potassium 3.2 L (3.5-5.1) mmol/L Chloride 103 (98-107) mmol/L Carbon Dioxide 20 L (22-30) mmol/L Anion Gap 15 mmol/L BUN 12 (7-17) mg/dL Creatinine 1.11 H (0.52-1.04) mg/dL Est GFR (CKD-EPI)AfAm 61 (>60 ml/min/1.73 sqM) Est GFR (CKD-EPI)NonAf 53 (>60 ml/min/1.73 sqM) Glucose 130 H (74-99) mg/dL Plasma Lactic Acid Andrzej (0.7-2.0) mmol/L Calcium 9.7 (8.4-10.2) mg/dL Magnesium 1.5 L (1.6-2.3) mg/dL Troponin I (0.000-0.034) ng/mL C-Reactive Protein 2.1 H (<1.0) mg/dL NT-Pro-B Natriuret Pep pg/mL Influenza Type A (PCR) (Not Detectd) Influenza Type B (PCR) (Not Detectd) RSV (PCR) (Not Detectd) SARS-CoV-2 (PCR) (Not Detectd) 06/24/21 06/24/21 06/24/21 Range/Units 21:11 21:11 21:11 WBC (3.8-10.6) k/uL RBC (3.80-5.40) m/uL Hgb (11.4-16.0) gm/dL Hct (34.0-46.0) % MCV (80.0-100.0) fL MCH (25.0-35.0) pg MCHC (31.0-37.0) g/dL RDW (11.5-15.5) % Plt Count (150-450) k/uL MPV Neutrophils % % Lymphocytes % % Monocytes % % Eosinophils % % Basophils % % Neutrophils # (1.3-7.7) k/uL Lymphocytes # (1.0-4.8) k/uL Monocytes # (0-1.0) k/uL Eosinophils # (0-0.7) k/uL Basophils # (0-0.2) k/uL Macrocytosis PT (9.0-12.0) sec INR (<1.2) APTT (22.0-30.0) sec D-Dimer (<0.60) mg/L FEU Sodium (137-145) mmol/L Potassium (3.5-5.1) mmol/L Chloride (98-107) mmol/L Carbon Dioxide (22-30) mmol/L Anion Gap mmol/L BUN (7-17) mg/dL Creatinine (0.52-1.04) mg/dL Est GFR (CKD-EPI)AfAm (>60 ml/min/1.73 sqM) Est GFR (CKD-EPI)NonAf (>60 ml/min/1.73 sqM) Glucose (74-99) mg/dL Plasma Lactic Acid Andrzej 2.9 H* (0.7-2.0) mmol/L Calcium (8.4-10.2) mg/dL Magnesium (1.6-2.3) mg/dL Troponin I 0.012 (0.000-0.034) ng/mL C-Reactive Protein (<1.0) mg/dL NT-Pro-B Natriuret Pep 48 pg/mL Influenza Type A (PCR) (Not Detectd) Influenza Type B (PCR) (Not Detectd) RSV (PCR) (Not Detectd) SARS-CoV-2 (PCR) (Not Detectd) 06/24/21 Range/Units 21:11 WBC (3.8-10.6) k/uL RBC (3.80-5.40) m/uL Hgb (11.4-16.0) gm/dL Hct (34.0-46.0) % MCV (80.0-100.0) fL MCH (25.0-35.0) pg MCHC (31.0-37.0) g/dL RDW (11.5-15.5) % Plt Count (150-450) k/uL MPV Neutrophils % % Lymphocytes % % Monocytes % % Eosinophils % % Basophils % % Neutrophils # (1.3-7.7) k/uL Lymphocytes # (1.0-4.8) k/uL Monocytes # (0-1.0) k/uL Eosinophils # (0-0.7) k/uL Basophils # (0-0.2) k/uL Macrocytosis PT (9.0-12.0) sec INR (<1.2) APTT (22.0-30.0) sec D-Dimer (<0.60) mg/L FEU Sodium (137-145) mmol/L Potassium (3.5-5.1) mmol/L Chloride (98-107) mmol/L Carbon Dioxide (22-30) mmol/L Anion Gap mmol/L BUN (7-17) mg/dL Creatinine (0.52-1.04) mg/dL Est GFR (CKD-EPI)AfAm (>60 ml/min/1.73 sqM) Est GFR (CKD-EPI)NonAf (>60 ml/min/1.73 sqM) Glucose (74-99) mg/dL Plasma Lactic Acid Andrzej (0.7-2.0) mmol/L Calcium (8.4-10.2) mg/dL Magnesium (1.6-2.3) mg/dL Troponin I (0.000-0.034) ng/mL C-Reactive Protein (<1.0) mg/dL NT-Pro-B Natriuret Pep pg/mL Influenza Type A (PCR) Not Detected (Not Detectd) Influenza Type B (PCR) Not Detected (Not Detectd) RSV (PCR) Not Detected (Not Detectd) SARS-CoV-2 (PCR) Detected A (Not Detectd) Disposition Referrals: Kieran Burrell MD [Primary Care Provider] - 1-2 days
[2021-06-24 21:22] LABS: Basophils # (A) 0.1 k/uL (0-0.2); Basophils % (A) 2 %; Eosinophils # (A) 0.1 k/uL (0-0.7); Eosinophils % (A) 2 %; HCT 50.1 % (34.0-46.0); HGB 15.9 gm/dL (11.4-16.0); Lymphocytes # (A) 0.5 k/uL (1.0-4.8); Lymphocytes % (A) 17 %; MCH 32.4 pg (25.0-35.0); MCHC 31.7 g/dL (31.0-37.0); MCV 102.2 fL (80.0-100.0); Macrocytosis Slight; Mean Platelet Volume 7.9; Monocytes # (A) 0.2 k/uL (0-1.0); Monocytes % (A) 6 %; Neutrophils # (A) 2.1 k/uL (1.3-7.7); Neutrophils % (A) 72 %; Platelet Count 104 k/uL (150-450); WBC 2.9 k/uL (3.8-10.6)
[2021-06-24 21:38] LABS: C Reactive Protein 2.1 mg/dL (<1.0); Calcium 9.7 mg/dL (8.4-10.2); Magnesium 1.5 mg/dL (1.6-2.3); Potassium 3.2 mmol/L (3.5-5.1)
[2021-06-24] MEDS ORDERED: MAGNESIUM OXIDE 400 MG TAB PO STA (21:40)
[2021-06-24] MEDS ORDERED: POTASSIUM CHLORIDE ER 20 MEQ TAB.ER PO STA (21:40)
[2021-06-24] MEDS ORDERED: METOCLOPRAMIDE 5 MG/ML 2 ML VIAL IVP STA (21:41)
[2021-06-24] MEDS ORDERED: SODIUM CHLORIDE 0.9% 500 ML 500 ML IV STA (21:41)
--- NOTE | 2021-06-24 21:43 | XR ---
EXAMINATION TYPE: XR chest 1V portable DATE OF EXAM: 06/24/2021 9:26 PM COMPARISON: CT chest from same date 10/01/2020, chest radiograph 05/06/2021 TECHNIQUE: XR chest 1V portable Frontal view of the chest. CLINICAL INDICATION:Female, 65 years old with history of covid dyspnea; FINDINGS: Lungs/Pleura: Interstitial and bilateral pleural effusions. No evidence of pneumothorax or focal cons olidation. Pulmonary vascularity: Unremarkable. Heart/mediastinum: Cardiomediastinal silhouette is unremarkable. Musculoskeletal: No acute osseous pathology. There is fixation hardware in the lower cervical spine. IMPRESSION: Bilateral layering pleural effusions without evidence for significant change from prior.
[2021-06-24 22:06] LABS: INR 1.1 (<1.2); Partial Thromboplastin Time 26.5 sec (22.0-30.0); Prothrombin Time 11.4 sec (9.0-12.0)
[2021-06-24] MEDS ORDERED: ACETAMINOPHEN TAB 325 MG TAB PO PRN (22:26)
[2021-06-24] MEDS ORDERED: NALOXONE 0.4 MG/ML 1 ML VIAL IV PRN (22:26)
[2021-06-24] MEDS ORDERED: BEBTELOVIMAB (EUA) 175 MG/2 ML VIAL IV ONE (22:30)
[2021-06-24] MEDS ORDERED: MORPHINE SULFATE 4 MG/ML SYRINGE IVP STA (22:49)
--- NOTE | 2021-06-24 22:55 | CT ---
EXAMINATION TYPE: CT angio chest DATE OF EXAM: 06/24/2021 COMPARISON: 07/17/2020 HISTORY: POSITIVE D-DIMER. SOB CT DLP: 196.3 mGycm Automated exposure control for dose reduction was used. CONTRAST: Performed with IV Contrast, patient injected with 60ml mL of Isovue 370. Images obtained from the thoracic inlet to the diaphragm without IV contrast. There are Three-D postp rocessed images. There is some mild pulmonary emphysema. There is small right pleural effusion. There is no mediastina l adenopathy. There are no hilar masses. There is normal contrast opacification of the pulmonary kelli cristobal. No filling defect. There is 1 cm right bronchial lymph nodes. Thoracic aorta is intact. No aneu rysm or dissection. Heart size is fairly normal. There is some airspace consolidation at both posteri or lung bases with atelectasis. The thoracic spine is intact. No compression fracture. The sternum is intact IMPRESSION: No evidence of pulmonary embolism. Bilateral pleural effusions with lower lobe pneumonia and atelectasis. Right pleural effusion improved compared to old exam. Lower lobe pneumonia and atelectasis appears ne w compared to old exam.
[2021-06-24] MEDS: SODIUM CHLORIDE 0.9% 1,000 ML IV SCH (23:09)
--- NOTE | 2021-06-25 02:54 | P.HPIM ---
History of Present Illness H&P Date: 06/24/21 Chief Complaint: Covid positive 45-year-old female with history of cancer status post ileostomy, COPD with chronic hypoxic respiratory failure on 4 L nasal cannula Patient comes in with a 3 day history of upper respiratory infection like symptoms complaining of cough and sore throat with generalized body aches and low-grade fevers chills she difficult to test today and was positive for which she decided come the hospital for evaluation she reports that she is not hypoxic denies any nausea vomiting denies any bleeding denies any loss of smell and taste sensation denies any changes in bowel or urinary habits denies any abdominal pain. Denies any sick contacts denies any recent hospitalization denies any recent travel he denies any history of blood clots patient is on blood thinner low dose she is not sure why In the ED workup showed elevated d-dimer CTA of the chest no acute PE Elevated kidney function low potassium and low magnesium Lactic acidosis Leukopenia Covid test is positive Review of Systems Pertinent positives as noted in HPI. 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 History of Any Multi-Drug Resistant Organisms: None Reported Past Surgical History: Hysterectomy, Orthopedic Surgery, Tubal Ligation Additional Past Surgical History / Comment(s): fusion neck surgery, right rotator cuff, colectomy with colostomy, Past Anesthesia/Blood Transfusion Reactions: No Reported Reaction Smoking Status: Former smoker - Past Family History Mother Family Medical History: Cancer Medications and Allergies Home Medications Medication Instructions Recorded Confirmed Type Gabapentin [Neurontin] 100 mg PO TID PRN 09/28/20 06/24/21 History ALPRAZolam [Xanax] 0.5 mg PO BID PRN 06/24/21 06/24/21 History Apixaban [Eliquis] 2.5 mg PO BID 06/24/21 06/24/21 History Cyclobenzaprine [Flexeril] 10 mg PO BID PRN 06/24/21 06/24/21 History Loratadine 10 mg PO DAILY 06/24/21 06/24/21 History Megestrol [Megace] 600 mg PO DAILY 06/24/21 06/24/21 History Metoprolol Succinate (ER) [Toprol 25 mg PO DAILY 06/24/21 06/24/21 History Xl] Morphine Sulfate ER [Ms Contin] 60 mg PO TID 06/24/21 06/24/21 History Niraparib Tosylate [Zejula] 100 mg PO BID 06/24/21 06/24/21 History OLANZapine [ZyPREXA] 5 mg PO HS 06/24/21 06/24/21 History ondansetron HCL [Zofran] 8 mg PO Q6H PRN 06/24/21 06/24/21 History oxyCODONE HCL [oxyCODONE HCL (IR)] 15 mg PO Q6H PRN 06/24/21 06/24/21 History Allergies Allergy/AdvReac Type Severity Reaction Status Date / Time No Known Allergies Allergy Verified 06/24/21 21:38 Physical Exam Vitals: Vital Signs Temp Pulse Resp BP Pulse Ox 06/25/21 01:11 112 H 30 H 138/93 95 06/24/21 22:48 101 H 18 147/89 98 06/24/21 21:30 40 H 06/24/21 21:00 97.6 F 114 H 28 H 146/78 99 Intake and Output 06/24/21 06/24/21 06/25/21 14:59 22:59 06:59 Other: Weight 51.71 kg 51.71 kg Constitutional: No acute distress, conversant, pleasant Eyes: Anicteric sclerae, moist conjunctiva, Pupils equal round reactive to light ENMT: NC/AT Oropharynx clear, no erythema, or exudates Neck: Supple, , no masses, or JVD No carotid bruits No thyromegaly Lungs: Clear to auscultation Clear to percussion Normal respiratory effort, no accessory muscle use Cardiovascular: Heart regular in rate and rhythm, No murmurs, gallops, or rubs No peripheral edema Abdominal: Soft, right ileostomy bag in place and functional no bleeding Nontender, no guarding, rebound or rigidity Abdomen moving with respiration Normoactive bowel sounds No hepatomegaly, No splenomegaly No palpable mass No abdominal wall hernia noted Skin: Normal temperature, tone, texture, turgor No induration No subcutaneous nodules No rash, lesions No ulcers Extremities: No digital cyanosis No clubbing Pedal pulses intact and symmetrical Radial pulses intact and symmetrical No calf tenderness Psychiatric: Alert and oriented to person, place and time Appropriate affect fair judgement Neuro Muscles Strength 4/5 in all 4 extremities Sensation to light touch grossly present throughout Cranial nerves II-XII grossly intact No focal sensory deficits Lymphatics: no palpable cervical or supraclavicular , or inguinal lymph nodes Results CBC & Chem 7: 06/24/21 21:11 06/24/21 21:11 Labs: Abnormal Lab Results - Last 24 Hours (Table) 06/24/21 06/24/21 06/24/21 Range/Units 21:11 21:11 21:11 WBC 2.9 L (3.8-10.6) k/uL Hct 50.1 H (34.0-46.0) % MCV 102.2 H (80.0-100.0) fL Plt Count 104 L (150-450) k/uL Lymphocytes # 0.5 L (1.0-4.8) k/uL D-Dimer 5.97 H (<0.60) mg/L FEU Potassium 3.2 L (3.5-5.1) mmol/L Carbon Dioxide 20 L (22-30) mmol/L Creatinine 1.11 H (0.52-1.04) mg/dL Glucose 130 H (74-99) mg/dL Plasma Lactic Acid Andrzej (0.7-2.0) mmol/L Magnesium 1.5 L (1.6-2.3) mg/dL C-Reactive Protein 2.1 H (<1.0) mg/dL SARS-CoV-2 (PCR) (Not Detectd) 06/24/21 06/24/21 Range/Units 21:11 21:11 WBC (3.8-10.6) k/uL Hct (34.0-46.0) % MCV (80.0-100.0) fL Plt Count (150-450) k/uL Lymphocytes # (1.0-4.8) k/uL D-Dimer (<0.60) mg/L FEU Potassium (3.5-5.1) mmol/L Carbon Dioxide (22-30) mmol/L Creatinine (0.52-1.04) mg/dL Glucose (74-99) mg/dL Plasma Lactic Acid Andrzej 2.9 H* (0.7-2.0) mmol/L Magnesium (1.6-2.3) mg/dL C-Reactive Protein (<1.0) mg/dL SARS-CoV-2 (PCR) Detected A (Not Detectd) Assessment and Plan Assessment: Covid pneumonia Chronic hypoxic respiratory failure and supplemental oxygen stable COPD compensated Lactic acidosis IRENE Plan Supportive care Continue supplemental oxygen Decadron daily Initiate full anticoagulation with Lovenox due to elevated d-dimer CTA of the lungs negative for acute PE Supportive care Contact and droplet precautions Gentle IV fluid hydration with normal saline, Avoid nephrotoxic meds Monitor urine output Pulmonary consult Patient given monoclonal antibody in the ED DVT prophylaxis on full anticoagulation with Lovenox due to elevated d-dimer Full code Anticipated length of stay less than 2 midnights
[2021-06-25] MEDS ORDERED: ALBUTEROL HFA INHALER INHALATION PRN (02:56)
[2021-06-25] MEDS ORDERED: ENOXAPARIN 60 MG/0.6 ML SYRINGE SQ SCH (03:00)
[2021-06-25] MEDS: MORPHINE SULFATE ER 30 MG TABLET PO PRN ×3 (03:25→19:02)
[2021-06-25] MEDS: ONDANSETRON 4 MG/2 ML VIAL IVP PRN (03:25)
[2021-06-25] MEDS: GABAPENTIN 100 MG CAP PO PRN ×2 (03:25→11:07)
[2021-06-25] MEDS ORDERED: LORATADINE 10 MG TAB PO SCH (09:00)
[2021-06-25] MEDS ORDERED: NIRAPARIB TOSYLATE 100 MG PO SCH ×2 (09:00→21:00)
[2021-06-25] MEDS ORDERED: HYDROmorphone 1 MG/ML 1 ML SYRINGE IVP STA (09:05)
[2021-06-25 09:23] LABS: Basophils # (A) 0.01 X 10*3/uL (0.00-0.10); Basophils % (A) 0.2 %; Eosinophils # (A) 0 X 10*3/uL (0.04-0.35); Eosinophils % (A) 0 %; HCT 46.5 % (37.2-46.3); HGB 14.9 g/dL (12.0-15.0); Immature Grans, Automated 0.2 %; Lymphocytes # (A) 0.29 X 10*3/uL (0.90-5.00); Lymphocytes % (A) 5.9 %; MCH 32.4 pg (27.0-32.0); MCV 101.1 fL (80.0-97.0); Mean Platelet Volume 10.5 fL (9.5-12.2); Monocytes # (A) 0.14 X 10*3/uL (0.20-1.00); Monocytes % (A) 2.9 %; NRBC Per 100 WBC 0 /100 WBCS (0.0-0.0); Neutrophils # (A) 4.43 X 10*3/uL (1.80-7.70); Neutrophils % (A) 90.8 %; Platelet Count 114 X 10*3/uL (140-440); WBC 4.88 X 10*3/uL (4.50-10.00)
[2021-06-25] MEDS: MEGESTROL 400 MG/10 ML CUP PO SCH (09:25)
[2021-06-25] MEDS: METOPROLOL SUCCINATE (ER) 25 MG TAB.ER.24H PO SCH (09:29)
[2021-06-25] MEDS: DEXAMETHASONE SOD PHOSPHATE 10 MG/ML 1 ML VIAL IV SCH (09:30)
[2021-06-25 09:43] LABS: Albumin 4.7 g/dL (3.8-4.9); Albumin/Globulin Ratio 1.7 (1.60-3.17); BUN/Creat Ratio 11.3 Ratio (12.00-20.00); Blood Urea Nitrogen 11.3 mg/dL (9.0-27.0); C Reactive Protein 1.5 mg/dL (0.00-0.80); Calcium 9.4 mg/dL (8.7-10.3); Carbon Dioxide 17.4 mmol/L (20.0-27.5); Globulin 2.7 g/dL (1.6-3.3); Non-African American GFR(CKD) 59.5 (60.0-200.0); Potassium 4.1 mmol/L (3.5-5.5); Total Bilirubin 0.2 mg/dL (0.30-1.20); Total Protein 7.4 g/dL (6.2-8.2)
[2021-06-25] MEDS ORDERED: REMDESIVIR 200 MG in SODIUM CHLORIDE 0.9% 250 ML IVPB ONE (10:00)
--- NOTE | 2021-06-25 11:26 | P.CNPUL ---
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 Patient came in to the emergency department on 06/24/2021 with 3 day history of worsening shortness of breath, sore throat, green phlegm production. She denied any fever,. She does report some nausea and vomiting which has resolved now. She has abdominal pain but states this is mostly chronic for her and may be related to her history of severe and cancer. She is on pain medications on a regular basis. She was not vaccinated for COVID-19 because of a fear of an ALLERGIC reaction. Chest x-ray in the emergency department showed bilateral pleural effusions without evidence for significant change compared to 05/07/2021 chest x-ray. Patient was found to be positive for COVID-19, she tested negative for influenza A and B and RSV. Blood work showed a white blood cell count of 2.9, hemoglobin 15.9, d-dimer was 5.97, sodium is 138, potassium 3.8, lactic a kareem was mildly elevated at 2.9, troponin was negative at 0.012, CRP was 2.1, proBNP was within normal limits at 48. She is currently on 3 L of oxygen, her pulse ox is 96%, she appears to be in no respiratory distress, and she is mainly complaining of abdominal pain, and the abdomen is tender, and patient states this is chronic for her, and not significantly changed. CT angios Fransico in the chest showed no evidence of pulmonary embolism, bilateral pleural effusions with lower lobe pneumonia and atelectasis, and right pleural effusion improved compared old computed tomography scan. Patient was given Bebtelovimab in the emergency department, started on IV Decadron, IV hydration, and this consult was initiated. Review of Systems All systems: negative Constitutional: Reports fatigue, Reports weakness, Denies chills, Denies fever Eyes: denies blurred vision, denies pain Ears, nose, mouth and throat: Reports sore throat, Denies headache Cardiovascular: Denies chest pain, Denies shortness of breath Respiratory: Reports dyspnea, Denies cough Gastrointestinal: Reports vomiting, Denies abdominal pain, Denies diarrhea, Denies nausea Genitourinary: Denies dysuria, Denies hematuria Musculoskeletal: Denies myalgias Integumentary: Denies pruritus, Denies rash Neurological: Denies numbness, Denies weakness Psychiatric: Denies anxiety, Denies depression Endocrine: Denies fatigue, Denies weight change 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 History of Any Multi-Drug Resistant Organisms: None Reported Past Surgical History: Hysterectomy, Orthopedic Surgery, Tubal Ligation Additional Past Surgical History / Comment(s): fusion neck surgery, right rotator cuff, colectomy with colostomy, Past Anesthesia/Blood Transfusion Reactions: No Reported Reaction Smoking Status: Former smoker - Past Family History Mother Family Medical History: Cancer Additional Family Medical History / Comment(s): bone cancer Father Family Medical History: COPD Medications and Allergies Home Medications Medication Instructions Recorded Confirmed Type Gabapentin [Neurontin] 100 mg PO TID PRN 09/28/20 06/24/21 History ALPRAZolam [Xanax] 0.5 mg PO BID PRN 06/24/21 06/24/21 History Apixaban [Eliquis] 2.5 mg PO BID 06/24/21 06/24/21 History Cyclobenzaprine [Flexeril] 10 mg PO BID PRN 06/24/21 06/24/21 History Loratadine 10 mg PO DAILY 06/24/21 06/24/21 History Megestrol [Megace] 600 mg PO DAILY 06/24/21 06/24/21 History Metoprolol Succinate (ER) [Toprol 25 mg PO DAILY 06/24/21 06/24/21 History Xl] Morphine Sulfate ER [Ms Contin] 60 mg PO TID 06/24/21 06/24/21 History Niraparib Tosylate [Zejula] 100 mg PO BID 06/24/21 06/24/21 History OLANZapine [ZyPREXA] 5 mg PO HS 06/24/21 06/24/21 History ondansetron HCL [Zofran] 8 mg PO Q6H PRN 06/24/21 06/24/21 History oxyCODONE HCL [oxyCODONE HCL (IR)] 15 mg PO Q6H PRN 06/24/21 06/24/21 History Allergies Allergy/AdvReac Type Severity Reaction Status Date / Time No Known Allergies Allergy Verified 06/24/21 21:38 Physical Exam Vitals: Vital Signs Temp Pulse Pulse Pulse Resp BP BP 06/25/21 09:36 107 H 06/25/21 07:00 98.0 F 107 H 20 113/76 06/25/21 02:22 96 F L 86 18 117/75 06/25/21 01:11 112 H 30 H 138/93 06/24/21 22:48 101 H 18 147/89 06/24/21 21:30 40 H 06/24/21 21:00 97.6 F 114 H 28 H 146/78 Pulse Ox 06/25/21 09:36 06/25/21 07:00 100 06/25/21 02:22 96 06/25/21 01:11 95 06/24/21 22:48 98 06/24/21 21:30 06/24/21 21:00 99 Intake and Output 06/24/21 06/25/21 06/25/21 22:59 06:59 14:59 Intake Total 180 Balance 180 Intake: Oral 180 Other: # Voids 1 1 # Bowel Movements 1 Weight 51.71 kg 51.71 kg GENERAL EXAM: Alert, 65-year-old white female, in moderate amount of distress from abdominal discomfort, crying, but does not appear to be in any respiratory distress, on 3 L of oxygen pulse ox 100% HEAD: Normocephalic/atraumatic. EYES: Normal reaction of pupils, equal size. Conjunctiva pink, sclera white. NOSE: Clear with pink turbinates. THROAT: No erythema or exudates. NECK: No masses, no JVD, no thyroid enlargement, no adenopathy. CHEST: No chest wall deformity. Symmetrical expansion. LUNGS: Equal air entry with no crackles, wheeze, rhonchi or dullness. CVS: Regular rate and rhythm, normal S1 and S2, no gallops, no murmurs, no rubs ABDOMEN: Soft, tender. Ostomy is in place No hepatosplenomegaly, normal bowel sounds, no guarding or rigidity. EXTREMITIES: No clubbing, no edema, no cyanosis, 2+ pulses and upper and lower extremities. MUSCULOSKELETAL: Muscle strength and tone normal. SPINE: No scoliosis or deformity SKIN: No rashes CENTRAL NERVOUS SYSTEM: Alert and oriented -3. No focal deficits, tone is normal in all 4 extremities. PSYCHIATRIC: Alert and oriented -3. Appropriate affect. Intact judgment and insight. Results - Laboratory Findings CBC and BMP: 06/25/21 05:08 06/25/21 05:08 PT/INR, D-dimer PT 11.4 sec (9.0-12.0) 06/24/21 21:11 INR 1.1 (<1.2) 06/24/21 21:11 D-Dimer 6.53 mg/L FEU (<0.60) H 06/25/21 05:08 Abnormal lab findings: Abnormal Labs 06/24/21 06/24/21 06/24/21 21:11 21:11 21:11 WBC 2.9 L Hct 50.1 H MCV 102.2 H MCH Plt Count 104 L Lymphocytes # 0.5 L Monocytes # Eosinophils # D-Dimer 5.97 H Potassium 3.2 L Carbon Dioxide 20 L Creatinine 1.11 H Est GFR (CKD-EPI)NonAf BUN/Creatinine Ratio Glucose 130 H Plasma Lactic Acid Andrzej Magnesium 1.5 L Total Bilirubin Lactate Dehydrogenase C-Reactive Protein 2.1 H SARS-CoV-2 (PCR) 06/24/21 06/24/21 06/25/21 21:11 21:11 05:08 WBC Hct 46.5 H MCV 101.1 H MCH 32.4 H Plt Count 114 L Lymphocytes # 0.29 L Monocytes # 0.14 L Eosinophils # 0 L D-Dimer Potassium Carbon Dioxide Creatinine Est GFR (CKD-EPI)NonAf BUN/Creatinine Ratio Glucose Plasma Lactic Acid Andrzej 2.9 H* Magnesium Total Bilirubin Lactate Dehydrogenase C-Reactive Protein SARS-CoV-2 (PCR) Detected A 06/25/21 06/25/21 05:08 05:08 WBC Hct MCV MCH Plt Count Lymphocytes # Monocytes # Eosinophils # D-Dimer 6.53 H Potassium Carbon Dioxide 17.4 L Creatinine Est GFR (CKD-EPI)NonAf 59.5 L BUN/Creatinine Ratio 11.30 L Glucose 128 H Plasma Lactic Acid Andrzej Magnesium Total Bilirubin 0.20 L Lactate Dehydrogenase 250 H C-Reactive Protein 1.50 H SARS-CoV-2 (PCR) - Diagnostic Findings Chest x-ray: report reviewed, image reviewed CT scan - chest: report reviewed, image reviewed Assessment and Plan Plan: Assessment: #1. Acute on chronic hypoxic respiratory failure related to acute COVID-19 infection, and small bilateral pleural effusions with the possibility of pneumonia. Patient states she started with her symptoms 3 days ago, none X and it for COVID-19, she status post Bebtelovimab infusion in the emergency de partment, and she is a candidate for Remdesivir and will be started on it today on 06/25/2021 #2. History of metastatic ovarian cancer, peritoneal metastases, status post hysterectomy #3. 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 COPD on home oxygen #5. Fibromyalgia #6. Former smoker #7. Chronic pain syndrome Plan: Patient denies any significant respiratory distress She has however complaining of significant abdominal pain Continue home dose MS Contin, we'll give the patient one-time dose of IV Dilaudid We'll start Remdesivir per protocol Continue Decadron Patient is on Eliquis at home, unclear for what reason She continues on therapeutic dose Lovenox here We'll obtain lower extremity Dopplers Continue supportive medical treatment We'll continue to follow her clinical course I have personally seen and examined the patient, performed the documentation and the assessment and plan as written. Number of minutes spent on the visit: [15] Time with Patient: Greater than 30
--- NOTE | 2021-06-25 11:43 | US ---
EXAMINATION TYPE: US venous doppler duplex LE DATE OF EXAM: 06/25/2021 9:52 AM COMPARISON: NONE CLINICAL HISTORY: elevated d-dimeer. elevated D-Dimer SIDE PERFORMED: bilateral TECHNIQUE: The lower extremity deep venous system is examined utilizing real time linear array sonog heather with graded compression, doppler sonography and color-flow sonography. VESSELS IMAGED: Common Femoral Vein Deep Femoral Vein Greater Saphenous Vein * Femoral Vein Popliteal Vein Small Saphenous Vein * Proximal Calf Veins (* superficial vessels) There is normal flow, compressibility, vascular waveforms. Right Leg: no evidence of DVT Left Leg: no evidence of DVT IMPRESSION: No evident deep venous thrombosis within the lower extremities from the level of the knee s centrally
[2021-06-25 12:03] VITALS: BMI 20.2
[2021-06-25] MEDS: APIXABAN 2.5 MG TABLET PO SCH ×2 (12:18→21:00)
[2021-06-25] MEDS ORDERED: CYCLOBENZAPRINE 10 MG TAB PO PRN (13:12)
--- NOTE | 2021-06-25 14:35 | P.PN ---
Subjective Progress Note Date: 06/25/21 Principal diagnosis: shortness of breath Patient was seen and examined. No acute events overnight. Currently on 3 L nasal cannula. This is baseline for the patient. She reports slight improvement in her symptoms since admission. She continues complaint of shortness of breath. Reports intractable pain related to her diagnosis of cancer would like her home narcotic medications restarted. Objective - Vital Signs Vital signs: Vital Signs Temp 98.2 F 06/25/21 13:14 Pulse 113 H 06/25/21 13:14 Resp 20 06/25/21 13:14 BP 138/81 06/25/21 13:14 Pulse Ox 99 06/25/21 13:14 Intake & Output 06/24/21 06/25/21 06/25/21 18:59 06:59 18:59 Intake Total 180 Output Total 250 Balance -70 Weight 51.71 kg 51.71 kg Intake: Oral 180 Output: Stool 250 Other: # Voids 1 1 # Bowel Movements 1 - Exam General: [non toxic], [no distress], [appears at stated age] Derm: [warm], [dry] Head: [atraumatic], [normocephalic], [symmetric] Eyes: [EOMI], [no lid lag], [anicteric sclera] Mouth: [no lip lesion], [mucus membranes moist] Cardiovascular: [S1S2 reg], [no murmur] Lungs: [decreased breath sounds bilateral], [no rhonchi, no rales] , [no accessory muscle use] Abdominal: [soft], [ nontender to palpation], [no guarding], [no appreciable organomegaly] Ext: [no gross muscle atrophy], [no edema], [no contractures] Neuro: [no focal neuro deficits] Psych: [Alert], [oriented], [appropriate affect] - Labs CBC & Chem 7: 06/25/21 05:08 06/25/21 05:08 Labs: Abnormal Lab Results - Last 24 Hours (Table) 06/24/21 06/24/21 06/24/21 Range/Units 21:11 21:11 21:11 WBC 2.9 L (3.8-10.6) k/uL Hct 50.1 H (34.0-46.0) % MCV 102.2 H (80.0-100.0) fL MCH (27.0-32.0) pg Plt Count 104 L (150-450) k/uL Lymphocytes # 0.5 L (1.0-4.8) k/uL Monocytes # (0.20-1.00) X 10*3/uL Eosinophils # (0.04-0.35) X 10*3/uL D-Dimer 5.97 H (<0.60) mg/L FEU Potassium 3.2 L (3.5-5.1) mmol/L Carbon Dioxide 20 L (22-30) mmol/L Creatinine 1.11 H (0.52-1.04) mg/dL Est GFR (CKD-EPI)NonAf (60.0-200.0) BUN/Creatinine Ratio (12.00-20.00) Ratio Glucose 130 H (74-99) mg/dL Plasma Lactic Acid Andrzej (0.7-2.0) mmol/L Magnesium 1.5 L (1.6-2.3) mg/dL Ferritin (10.0-291.0) ng/mL Total Bilirubin (0.30-1.20) mg/dL Lactate Dehydrogenase (120-246) U/L C-Reactive Protein 2.1 H (<1.0) mg/dL SARS-CoV-2 (PCR) (Not Detectd) 06/24/21 06/24/21 06/25/21 Range/Units 21:11 21:11 05:08 WBC (3.8-10.6) k/uL Hct 46.5 H (34.0-46.0) % MCV 101.1 H (80.0-100.0) fL MCH 32.4 H (27.0-32.0) pg Plt Count 114 L (150-450) k/uL Lymphocytes # 0.29 L (1.0-4.8) k/uL Monocytes # 0.14 L (0.20-1.00) X 10*3/uL Eosinophils # 0 L (0.04-0.35) X 10*3/uL D-Dimer (<0.60) mg/L FEU Potassium (3.5-5.1) mmol/L Carbon Dioxide (22-30) mmol/L Creatinine (0.52-1.04) mg/dL Est GFR (CKD-EPI)NonAf (60.0-200.0) BUN/Creatinine Ratio (12.00-20.00) Ratio Glucose (74-99) mg/dL Plasma Lactic Acid Andrzej 2.9 H* (0.7-2.0) mmol/L Magnesium (1.6-2.3) mg/dL Ferritin (10.0-291.0) ng/mL Total Bilirubin (0.30-1.20) mg/dL Lactate Dehydrogenase (120-246) U/L C-Reactive Protein (<1.0) mg/dL SARS-CoV-2 (PCR) Detected A (Not Detectd) 06/25/21 06/25/21 Range/Units 05:08 05:08 WBC (3.8-10.6) k/uL Hct (34.0-46.0) % MCV (80.0-100.0) fL MCH (27.0-32.0) pg Plt Count (150-450) k/uL Lymphocytes # (1.0-4.8) k/uL Monocytes # (0.20-1.00) X 10*3/uL Eosinophils # (0.04-0.35) X 10*3/uL D-Dimer 6.53 H (<0.60) mg/L FEU Potassium (3.5-5.1) mmol/L Carbon Dioxide 17.4 L (22-30) mmol/L Creatinine (0.52-1.04) mg/dL Est GFR (CKD-EPI)NonAf 59.5 L (60.0-200.0) BUN/Creatinine Ratio 11.30 L (12.00-20.00) Ratio Glucose 128 H (74-99) mg/dL Plasma Lactic Acid Andrzej (0.7-2.0) mmol/L Magnesium (1.6-2.3) mg/dL Ferritin 1950.0 H (10.0-291.0) ng/mL Total Bilirubin 0.20 L (0.30-1.20) mg/dL Lactate Dehydrogenase 250 H (120-246) U/L C-Reactive Protein 1.50 H (<1.0) mg/dL SARS-CoV-2 (PCR) (Not Detectd) Assessment and Plan Assessment: #Acute on chronic hypoxic respiratory failure #COVID-19 pneumonia #Chronic pain syndrome along with fibromyalgia #Metabolic acidosis #Elevated d-dimer #Macrocytosis Resolved: Lactic acidosis, Hypokalemia Chronic conditions: History of metastatic ovarian cancer with peritoneal m etastasis, chronic pleural effusion status post thoracentesis, COPD without exacerbation Patient is status post Bebtelovimab infusion in the ED. She has been started on Remdesivir. Supplemental O2 to maintain oxygen saturation greater than 92%. Albuterol inhaler as needed for shortness of breath and wheezing. Continue Decadron 6 mg IV daily. Telemetry monitoring. Trend CRP, LDH, Ferritin and D- Dimer. Restart home medication of morphine sulfate and oxycodone as needed for severe pain. Continue gabapentin. Continue Flexeril as needed. Continue normal saline at 75 mL per hour. Repeat BMP tomorrow morning. CT chest ruled out PE. D-dimer elevation likely related to COVID-19 infection. Patient refusing Lovenox injections. Continue Eliquis home dose. Started due to hypercoaguable state of her diagnosis of cancer according to the patient. DVT prophylaxis: [Eliquis] Discussed with: [Patient] Anticipated discharge: [2-3 days] Anticipated discharge place: [Home] A total of [45] minutes was spent on the care of this complex patient more than 50% of the time was spent in counseling and care coordination.
[2021-06-25] MEDS: ALPRAZolam 0.5 MG TAB PO PRN (16:25)
[2021-06-25] MEDS ORDERED: ONDANSETRON 4 MG TAB PO PRN (16:53)
[2021-06-25] MEDS ORDERED: LORATADINE 10 MG TAB PO PRN (16:54)
[2021-06-25] MEDS ORDERED: ONDANSETRON 8 MG TAB PO PRN (17:03)
[2021-06-25] MEDS: SODIUM CHLORIDE 0.9% 1,000 ML IV SCH (17:23)
[2021-06-25] MEDS: NIRAPARIB TOSYLATE 100 MG PO SCH (19:06)
[2021-06-25] MEDS: OLANZapine 5 MG TAB PO SCH (21:00)
[2021-06-25] MEDS: ASCORBIC ACID 500 MG TAB PO SCH (21:00)
[2021-06-26] MEDS: SODIUM CHLORIDE 0.9% 1,000 ML IV SCH (01:42)
[2021-06-26] MEDS: GABAPENTIN 100 MG CAP PO PRN ×2 (04:50→14:06)
[2021-06-26] MEDS: REMDESIVIR 100 MG in SODIUM CHLORIDE 0.9% 250 ML IVPB SCH (09:13)
[2021-06-26] MEDS: MEGESTROL 400 MG/10 ML CUP PO SCH ×2 (09:14→09:17)
[2021-06-26] MEDS: METOPROLOL SUCCINATE (ER) 25 MG TAB.ER.24H PO SCH (09:15)
[2021-06-26] MEDS: ASCORBIC ACID 500 MG TAB PO SCH ×2 (09:15→20:22)
[2021-06-26] MEDS: CHOLECALCIFEROL 25 MCG (1000 IU) TABLET PO SCH (09:15)
[2021-06-26] MEDS: DEXAMETHASONE SOD PHOSPHATE 10 MG/ML 1 ML VIAL IV SCH (09:15)
[2021-06-26] MEDS: APIXABAN 2.5 MG TABLET PO SCH ×2 (09:15→20:22)
[2021-06-26] MEDS: MORPHINE SULFATE ER 30 MG TABLET PO PRN (09:33)
--- NOTE | 2021-06-26 10:03 | P.PN ---
Subjective Progress Note Date: 06/26/21 Principal diagnosis: shortness of breath Patient was seen and examined. No acute events overnight. Currently on 3 L nasal cannula. This is baseline for the patient. She continues complaint of shortness of breath. Symptoms have slowly started to improve. Objective - Vital Signs Vital signs: Vital Signs Temp 99 F 06/26/21 07:27 Pulse 86 06/26/21 07:27 Resp 16 06/26/21 07:27 BP 112/70 06/26/21 07:27 Pulse Ox 94 L 06/26/21 07:52 Intake & Output 06/25/21 06/26/21 06/26/21 18:59 06:59 18:59 Intake Total 720 900 Output Total 250 200 Balance 470 700 Weight 51.71 kg Intake: IV 900 Sodium Chloride 0.9% 1, 900 000 ml @ 75 mls/hr IV . [id number] [facility] Rx#:[id number] Oral 720 Output: Stool 250 200 Other: Voiding Method Bedside Commode # Voids 1 3 - Exam General: [non toxic], [no distress], [appears at stated age] Derm: [warm], [dry] Head: [atraumatic], [normocephalic], [symmetric] Eyes: [EOMI], [no lid lag], [anicteric sclera] Mouth: [no lip lesion], [mucus membranes moist] Cardiovascular: [S1S2 reg], [no murmur] Lungs: [decreased breath sounds bilateral], [no rhonchi, no rales] , [no accessory muscle use] Abdominal: [soft], [ nontender to palpation], [no guarding], [no appreciable organomegaly] Ext: [no gross muscle atrophy], [no edema], [no contractures] Neuro: [no focal neuro deficits] Psych: [Alert], [oriented], [appropriate affect] - Labs CBC & Chem 7: 06/25/21 05:08 06/25/21 05:08 Labs: Abnormal Lab Results - Last 24 Hours (Table) 06/25/21 Range/Units 05:08 Ferritin 1950.0 H (10.0-291.0) ng/mL Assessment and Plan Assessment: #Acute on chronic hypoxic respiratory failure #COVID-19 pneumonia #Chronic pain syndrome along with fibromyalgia #Metabolic acidosis #Elevated d-dimer #Macrocytosis Resolved: Lactic acidosis, Hypokalemia Chronic conditions: History of metastatic ovarian cancer with peritoneal metastasis, chronic pleural effusion status post thoracentesis, COPD without exacerbation Patient is status post Bebtelovimab infusion in the ED. Continue Remdesivir. Supplemental O2 to maintain oxygen saturation greater than 92%. Albuterol inhaler as needed for shortness of breath and wheezing. Continue Decadron 6 mg IV daily. Telemetry monitoring. Trend CRP, LDH, Ferritin and D-Dimer. Restart home medication of morphine sulfate and oxycodone as needed for severe pain. Continue gabapentin. Continue Flexeril as needed. DC IVF and encourage hydration by mouth. Repeat BMP tomorrow morning. CT chest ruled out PE. D-dimer elevation likely related to COVID-19 infection. Patient refusing Lovenox injections. Continue Eliquis home dose. Started due to hypercoaguable state of her diagnosis of cancer according to the patient. DVT prophylaxis: [Eliquis] Discussed with: [Patient] Anticipated discharge: [2 days] Anticipated discharge place: [Home] A total of [30] minutes was spent on the care of this complex patient more than 50% of the time was spent in counseling and care coordination. She is pending clinical improvement. Continue Remdesivir and supportive treat ment. Pulmonology on board. Anticipate DC on Monday.
--- NOTE | 2021-06-26 12:22 | P.PN ---
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 Patient came in to the emergency department on 06/24/2021 with 3 day history of worsening shortness of breath, sore throat, green phlegm production. She denied any fever,. She does report some nausea and vomiting which has resolved now. She has abdominal pain but states this is mostly chronic for her and may be related to her history of severe and cancer. She is on pain medications on a regular basis. She was not vaccinated for COVID-19 because of a fear of an ALLERGIC reaction. Chest x-ray in the emergency department showed bilateral pleural effusions without evidence for significant change compared to 05/07/2021 chest x-ray. Patient was found to be positive for COVID-19, she tested negative for influenza A and B and RSV. Blood work showed a white blood cell count of 2.9, hemoglobin 15.9, d-dimer was 5.97, sodium is 138, potassium 3.8, lactic acid was mildly elevated at 2.9, troponin was negative at 0.012, CRP was 2.1, proBNP was within normal limits at 48. She is currently on 3 L of oxygen, her pulse ox is 96%, she appears to be in no respiratory distress, and she is mainly complaining of abdominal pain, and the abdomen is tender, and patient states this is chronic for her, and not significantly changed. CT angios Fransico in the chest showed no evidence of pulmonary embolism, bilateral pleural effusions with lower lobe pneumonia and atelectasis, and right pleural effusion improved compared old computed tomography scan. Patient was given Bebtelovimab in the emergency department, started on IV Decadron, IV hydration, and this consult was initiated. The patient is seen today 06/26/2021 in follow-up on the regular medical floor. She is currently sitting up in bed. Awake and alert in no acute distress. Maintaining O2 saturations in the 90s on 3 L/m per nasal cannula. She's been afebrile. This is day #2 of Remdesivir. She remains on antibiotics in the form of ceftriaxone and azithromycin. She is on Decadron and vitamin supplements. Anticoagulated with Eliquis. Objective - Vital Signs Vital signs: Vital Signs Temp 99 F 06/26/21 07:27 Pulse 86 06/26/21 07:27 Resp 18 06/26/21 08:00 BP 112/70 06/26/21 07:27 Pulse Ox 94 L 06/26/21 07:52 Intake & Output 06/25/21 06/26/21 06/26/21 18:59 06:59 18:59 Intake Total 720 900 Output Total 250 200 Balance 470 700 Weight 51.71 kg Intake: IV 900 Sodium Chloride 0.9% 1, 900 000 ml @ 75 mls/hr IV . [id number] [facility] Rx#:[id number] Oral 720 Output: Stool 250 200 Other: Voiding Method Bedside Commode # Voids 1 3 - Exam GENERAL EXAM: Alert, pleasant 65-year-old female patient, on 3 L nasal cannula, comfortable in no apparent distress. HEAD: Normocephalic. EYES: Normal reaction of pupils, equal size. NOSE: Clear with pink turbinates. THROAT: No erythema or exudates. NECK: No masses, no JVD. CHEST: No chest wall deformity. LUNGS: Equal air entry with crackles in the posterior bases. CVS: S1 and S2 normal with no audible murmur, regular rhythm. ABDOMEN: No hepatosplenomegaly, normal bowel sounds, no guarding or rigidity. SPINE: No scoliosis or deformity SKIN: No rashes CENTRAL NERVOUS SYSTEM: No focal deficits, tone is normal in all 4 extremities. EXTREMITIES: There is no peripheral edema. No clubbing, no cyanosis. Peripheral pulses are intact. - Labs CBC & Chem 7: 06/25/21 05:08 06/25/21 05:08 Labs: Abnormal Lab Results - Last 24 Hours (Table) 06/25/21 Range/Units 05:08 Ferritin 1950.0 H (10.0-291.0) ng/mL Assessment and Plan Assessment: 1 Acute on chronic hypoxic respiratory failure related to acute COVID-19 infection, and small bilateral pleural effusions with the possibility of pneumonia. 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 Number of minutes spent on the visit: 10.
[2021-06-26] MEDS: ALPRAZolam 0.5 MG TAB PO PRN (13:18)
[2021-06-26] MEDS: AZITHROMYCIN 500 MG TAB PO SCH (13:19)
[2021-06-26] MEDS: ONDANSETRON 4 MG/2 ML VIAL IVP PRN (15:22)
[2021-06-26] MEDS: MORPHINE SULFATE ER 30 MG TABLET PO SCH ×2 (16:50→20:23)
[2021-06-26] MEDS ORDERED: ONDANSETRON 4 MG/2 ML VIAL IVP STA (17:28)
[2021-06-26] MEDS: NIRAPARIB TOSYLATE 100 MG PO SCH (19:10)
[2021-06-26] MEDS: OLANZapine 5 MG TAB PO SCH (20:22)
--- NOTE | 2021-06-27 07:02 | XR ---
EXAMINATION TYPE: XR chest 1V portable DATE OF EXAM: 06/27/2021 COMPARISON: 06/24/2021 HISTORY: Covid, dyspnea TECHNIQUE: Single frontal view of the chest is obtained. FINDINGS: There is been no interval change in the opacity obscuring the right hemidiaphragm consiste nt with a small to moderate right pleural effusion. The left lung is clear. . There heart size is normal and the pulmonary vasculature is not congested. There are postsurgical changes in the cervical spine otherwise the osseous structures are intact. IMPRESSION: Acute cardiopulmonary disease with no interval change as described above.
[2021-06-27] MEDS: DEXAMETHASONE SOD PHOSPHATE 10 MG/ML 1 ML VIAL IV SCH (08:11)
[2021-06-27] MEDS: APIXABAN 2.5 MG TABLET PO SCH ×2 (08:11→21:11)
[2021-06-27] MEDS: ASCORBIC ACID 500 MG TAB PO SCH ×2 (08:11→21:11)
[2021-06-27] MEDS: METOPROLOL SUCCINATE (ER) 25 MG TAB.ER.24H PO SCH (08:11)
[2021-06-27] MEDS: CHOLECALCIFEROL 25 MCG (1000 IU) TABLET PO SCH (08:11)
[2021-06-27] MEDS: MEGESTROL 400 MG/10 ML CUP PO SCH (08:12)
[2021-06-27] MEDS: AZITHROMYCIN 500 MG TAB PO SCH (08:13)
[2021-06-27] MEDS: REMDESIVIR 100 MG in SODIUM CHLORIDE 0.9% 250 ML IVPB SCH (09:22)
[2021-06-27] MEDS: MORPHINE SULFATE ER 30 MG TABLET PO SCH ×3 (09:23→21:10)
--- NOTE | 2021-06-27 11:40 | P.PN ---
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 Patient came in to the emergency department on 06/24/2021 with 3 day history of worsening shortness of breath, sore throat, green phlegm production. She denied any fever,. She does report some nausea and vomiting which has resolved now. She has abdominal pain but states this is mostly chronic for her and may be related to her history of severe and cancer. She is on pain medications on a regular basis. She was not vaccinated for COVID-19 because of a fear of an ALLERGIC reaction. Chest x-ray in the emergency department showed bilateral pleural effusions without evidence for significant change compared to 05/07/2021 chest x-ray. Patient was found to be positive for COVID-19, she tested negative for influenza A and B and RSV. Blood work showed a white blood cell count of 2.9, hemoglobin 15.9, d-dimer was 5.97, sodium is 138, potassium 3.8, lactic acid was mildly elevated at 2.9, troponin was negative at 0.012, CRP was 2.1, proBNP was within normal limits at 48. She is currently on 3 L of oxygen, her pulse ox is 96%, she appears to be in no respiratory distress, and she is mainly complaining of abdominal pain, and the abdomen is tender, and patient states this is chronic for her, and not significantly changed. CT angios Fransico in the chest showed no evidence of pulmonary embolism, bilateral pleural effusions with lower lobe pneumonia and atelectasis, and right pleural effusion improved compared old computed tomography scan. Patient was given Bebtelovimab in the emergency department, started on IV Decadron, IV hydration, and this consult was initiated. The patient is seen today 06/26/2021 in follow-up on the regular medical floor. She is currently sitting up in bed. Awake and alert in no acute distress. Maintaining O2 saturations in the 90s on 3 L/m per nasal cannula. She's been afebrile. This is day #2 of Remdesivir. She remains on antibiotics in the form of ceftriaxone and azithromycin. She is on Decadron and vitamin supplements. Anticoagulated with Eliquis. Patient is seen today 06/27/2021 in follow-up on the regular medical floor. She is currently sitting up in bed. Awake and alert in no acute distress. She is still having significant abdominal discomfort. Denies any worsening shortness of breath, cough or congestion. Chest x-ray continues to revealed opacities care in the right hemidiaphragm consistent with small to moderate right pleural effusion. Left lung is clear. Day #3 of Remdesivir. Anticoagulated with Eliquis. Continued on vitamin supplements. Remains on Decadron 6 mg daily. Antibiotics in the form of ceftriaxone and azithromycin. She is maintaining O2 saturations up to 100% on 3 L/m per nasal cannula. She's been afebrile. Hemodynamically stable. Objective - Vital Signs Vital signs: Vital Signs Temp 98.6 F 06/27/21 07:39 Pulse 73 06/27/21 08:00 Resp 18 06/27/21 08:00 BP 146/83 06/27/21 07:39 Pulse Ox 100 06/27/21 07:39 Intake & Output 06/26/21 06/27/21 06/27/21 18:59 06:59 18:59 Intake Total 118 150 480 Output Total 500 500 Balance -382 150 -20 Intake: Oral 118 150 480 Output: Stool 500 500 Other: Voiding Method Toilet Toilet # Voids 3 - Exam GENERAL EXAM: Alert, pleasant 65-year-old female patient, on 3 L nasal cannula, comfortable in no apparent distress. HEAD: Normocephalic. EYES: Normal reaction of pupils, equal size. NOSE: Clear with pink turbinates. THROAT: No erythema or exudates. NECK: No masses, no JVD. CHEST: No chest wall deformity. LUNGS: Equal air entry with crackles in the posterior bases. CVS: S1 and S2 normal with no audible murmur, regular rhythm. ABDOMEN: No hepatosplenomegaly, normal bowel sounds, no guarding or rigidity. SPINE: No scoliosis or deformity SKIN: No rashes CENTRAL NERVOUS SYSTEM: No focal deficits, tone is normal in all 4 extremities. EXTREMITIES: There is no peripheral edema. No clubbing, no cyanosis. Peripheral pulses are intact. - Labs CBC & Chem 7: 06/25/21 05:08 06/25/21 05:08 Assessment and Plan Assessment: 1 Acute on chronic hypoxic respiratory failure related to acute COVID-19 infection, and small bilateral pleural effusions with the possibility of pneumonia. Patient states she started with her symptoms 4 days ago, she status post Bebtelovimab infusion in the emergency department, and initiated on Remdesivir 06/25/2021. 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 Number of minutes spent on the visit: 10.
--- NOTE | 2021-06-27 12:29 | P.PN ---
Subjective Progress Note Date: 06/27/21 Principal diagnosis: shortness of breath Patient was seen and examined. No acute events overnight. Currently on 3 L nasal cannula. This is baseline for the patient. She continues complaint of shortness of breath. Symptoms have slowly started to improve. She is complaining about the timing of her Morphine and Oxycodone. Objective - Vital Signs Vital signs: Vital Signs Temp 98.6 F 06/27/21 07:39 Pulse 73 06/27/21 08:00 Resp 18 06/27/21 08:00 BP 146/83 06/27/21 07:39 Pulse Ox 100 06/27/21 07:39 Intake & Output 06/26/21 06/27/21 06/27/21 18:59 06:59 18:59 Intake Total 118 150 480 Output Total 500 500 Balance -382 150 -20 Intake: Oral 118 150 480 Output: Stool 500 500 Other: Voiding Method Toilet Toilet # Voids 3 - Exam General: [non toxic], [no distress], [appears at stated age] Derm: [warm], [dry] Head: [atraumatic], [normocephalic], [symmetric] Eyes: [EOMI], [no lid lag], [anicteric sclera] Mouth: [no lip lesion], [mucus membranes moist] Cardiovascular: [S1S2 reg], [no murmur] Lungs: [decreased breath sounds bilateral], [no rhonchi, no rales] , [no accessory muscle use] Abdominal: [soft], [ nontender to palpation], [no guarding], [no appreciable organomegaly] Ext: [no gross muscle atrophy], [no edema], [no contractures] Neuro: [no focal neuro deficits] Psych: [Alert], [oriented], [appropriate affect] - Labs CBC & Chem 7: 06/25/21 05:08 06/25/21 05:08 Assessment and Plan Assessment: #Acute on chronic hypoxic respiratory failure #COVID-19 pneumonia #Chronic pain syndrome along with fibromyalgia #Metabolic acidosis #Elevated d-dimer #Macrocytosis Resolved: Lactic acidosis, Hypokalemia Chronic conditions: History of metastatic ovarian cancer with peritoneal m etastasis, chronic pleural effusion status post thoracentesis, COPD without exacerbation Patient is status post Bebtelovimab infusion in the ED. Continue Remdesivir (day 3). Supplemental O2 to maintain oxygen saturation greater than 92%. Albuterol inhaler as needed for shortness of breath and wheezing. Continue Decadron 6 mg IV daily. Telemetry monitoring. Trend CRP, LDH, Ferritin and D-Dimer. Restart home medication of morphine sulfate and oxycodone as needed for severe pain. Continue gabapentin. Continue Flexeril as needed. DC IVF and encourage hydration by mouth. Repeat BMP tomorrow morning. CT chest ruled out PE. D-dimer elevation likely related to COVID-19 infection. Patient refusing Lovenox injections. Continue Eliquis home dose. Started due to hypercoaguable state of her diagnosis of cancer according to the patient. DVT prophylaxis: [Eliquis] Discussed with: [Patient] Anticipated discharge: [1 days] Anticipated discharge place: [Home] A total of [30] minutes was spent on the care of this complex patient more than 50% of the time was spent in counseling and care coordination. She is pending clinical improvement. Continue Remdesivir and supportive treatment. Pulmonology on board. Anticipate DC on Monday.
[2021-06-27] MEDS: ONDANSETRON 4 MG/2 ML VIAL IVP PRN (17:10)
[2021-06-27] MEDS: ALPRAZolam 0.5 MG TAB PO PRN (19:51)
[2021-06-27] MEDS: OLANZapine 5 MG TAB PO SCH (21:10)
[2021-06-28 07:05] LABS: African American GFR (CKD) >90 (>60 ml/min/1.73 sqM); Anion Gap 9 mmol/L; Blood Urea Nitrogen 16 mg/dL (7-17); Calcium 8.7 mg/dL (8.4-10.2); Carbon Dioxide 24 mmol/L (22-30); Chloride 107 mmol/L (98-107); Glucose 84 mg/dL (74-99); Non-African American GFR(CKD) >90 (>60 ml/min/1.73 sqM); Potassium 3.3 mmol/L (3.5-5.1); Sodium 140 mmol/L (137-145)
[2021-06-28 08:14] VITALS: BP 159/80; PULSE 86; RESP 15; TEMP 98.3
[2021-06-28] MEDS ORDERED: POTASSIUM CHLORIDE ER 20 MEQ TAB.ER PO STA (08:14)
[2021-06-28] MEDS: DEXAMETHASONE SOD PHOSPHATE 10 MG/ML 1 ML VIAL IV SCH (08:15)
[2021-06-28] MEDS: CHOLECALCIFEROL 25 MCG (1000 IU) TABLET PO SCH (08:17)
[2021-06-28] MEDS: APIXABAN 2.5 MG TABLET PO SCH (08:17)
[2021-06-28] MEDS: AZITHROMYCIN 500 MG TAB PO SCH (08:17)
[2021-06-28] MEDS: ASCORBIC ACID 500 MG TAB PO SCH (08:17)
[2021-06-28] MEDS: METOPROLOL SUCCINATE (ER) 25 MG TAB.ER.24H PO SCH (08:17)
[2021-06-28] MEDS: MEGESTROL 400 MG/10 ML CUP PO SCH (08:20)
--- NOTE | 2021-06-28 09:25 | P.DS ---
Providers Date of admission: 06/25/21 11:23 Expected date of discharge: 06/28/21 Attending physician: Palak Hastings MD Consults: 06/25/21 02:56 Consult Physician Stat Consulting Provider: James Reed Consult Reason/Comments: COVID Do you want consulting provider notified?: Yes, Notify in am Primary care physician: [facility] Course: 45-year-old female with history of cancer status post ileostomy, COPD with chronic hypoxic respiratory failure on 4 L nasal cannula Patient comes in with a 3 day history of upper respiratory infection like sympto ms complaining of cough and sore throat with generalized body aches and low- grade fevers chills she difficult to test today and was positive for which she decided come the hospital for evaluation she reports that she is not hypoxic denies any nausea vomiting denies any bleeding denies any loss of smell and taste sensation denies any changes in bowel or urinary habits denies any abdominal pain. Denies any sick contacts denies any recent hospitalization denies any recent travel he denies any history of blood clots patient is on blood thinner low dose she is not sure why. In the ED workup showed elevated d-dimer CTA of the chest no acute PE Elevated kidney function low potassium and low magnesium Lactic acidosis Leukopenia COVID 19 positive Patient was started on Rocephin and azithromycin for concerns of community acquired pneumonia. She was given Bebtelovimab infusion in the ED. She was given 2 doses of Remdesivir. She was started on Decadron and given Albuterol inhaler as needed for shortness of breath and wheezing. Inflammatory labs were trended. She was able to be weaned off to her home O2 of 3L. Pulmonology was consulted and followed the patient during her hospitalization. She was seen and examined on 06/28. She reported feeling back at baseline and was requesting to be discharged home. She was prescribed Levaquin for 4 more days (total of 7 days antibiotics) along with 6 more days of Decadron (total of 10 days). She was advised to follow up with her PCP within 1-2 days of discharge and Pulmonology within 2 weeks of discharge. Patient verbalized understanding of the plan. General: [non toxic], [no distress], [appears at stated age] Derm: [warm], [dry] Head: [atraumatic], [normocephalic], [symmetric] Eyes: [EOMI], [no lid lag], [anicteric sclera] Mouth: [no lip lesion], [mucus membranes moist] Cardiovascular: [S1S2 reg], [no murmur] Lungs: [decreased breath sounds bilateral], [no rhonchi, no rales] , [no accessory muscle use] Ext: [no gross muscle atrophy], [no edema], [no contractures] Neuro: [no focal neuro deficits] Psych: [Alert], [oriented], [appropriate affect] Discharge Diagnosis: #Acute on chronic hypoxic respiratory failure #COVID-19 pneumonia #Hypokalemia #Chronic pain syndrome along with fibromyalgia #Elevated d-dimer #Macrocytosis Resolved: Lactic acidosis, Metabolic acidosis Chronic conditions: History of metastatic ovarian cancer with peritoneal metastasis, chronic pleural effusion status post thoracentesis, COPD without exacerbation Pertinent Studies: Chest X ray Venous Doppler CTA chest Patient Condition at Discharge: Stable Plan - Discharge Summary New Discharge Prescriptions: New Levofloxacin [Levaquin] 750 mg PO DAILY 4 Days #4 tab Dexamethasone [Decadron] 6 mg PO DAILY #6 tablet Albuterol Inhaler [Ventolin Hfa Inhaler] 2 puff INHALATION RT-Q6H PRN #1 inh PRN Reason: Shortness Of Breath Or Wheezing Continue Gabapentin [Neurontin] 100 mg PO TID PRN PRN Reason: Pain oxyCODONE HCL [oxyCODONE HCL (IR)] 15 mg PO Q6H PRN PRN Reason: Breakthrough Pain Metoprolol Succinate (ER) [Toprol XL] 25 mg PO DAILY Apixaban [Eliquis] 2.5 mg PO BID ALPRAZolam [Xanax] 0.5 mg PO BID PRN PRN Reason: Anxiety ondansetron HCL [Zofran] 8 mg PO Q6H PRN PRN Reason: Nausea And Vomiting OLANZapine [ZyPREXA] 5 mg PO HS Morphine Sulfate ER [Ms Contin] 60 mg PO TID Megestrol [Megace] 600 mg PO DAILY Loratadine 10 mg PO DAILY Cyclobenzaprine [Flexeril] 10 mg PO BID PRN PRN Reason: Muscle Spasm Niraparib Tosylate [Zejula] 100 mg PO BID Discharge Medication List Gabapentin [Neurontin] 100 mg PO TID PRN 09/28/20 [History] ALPRAZolam [Xanax] 0.5 mg PO BID PRN 06/24/21 [History] Apixaban [Eliquis] 2.5 mg PO BID 06/24/21 [History] Cyclobenzaprine [Flexeril] 10 mg PO BID PRN 06/24/21 [History] Loratadine 10 mg PO DAILY 06/24/21 [History] Megestrol [Megace] 600 mg PO DAILY 06/24/21 [History] Metoprolol Succinate (ER) [Toprol XL] 25 mg PO DAILY 06/24/21 [History] Morphine Sulfate ER [Ms Contin] 60 mg PO TID 06/24/21 [History] Niraparib Tosylate [Zejula] 100 mg PO BID 06/24/21 [History] OLANZapine [ZyPREXA] 5 mg PO HS 06/24/21 [History] ondansetron HCL [Zofran] 8 mg PO Q6H PRN 06/24/21 [History] oxyCODONE HCL [oxyCODONE HCL (IR)] 15 mg PO Q6H PRN 06/24/21 [History] Albuterol Inhaler [Ventolin Hfa Inhaler] 2 puff INHALATION RT-Q6H PRN #1 inh 06/28/21 [Rx] Dexamethasone [Decadron] 6 mg PO DAILY #6 tablet 06/28/21 [Rx] Levofloxacin [Levaquin] 750 mg PO DAILY 4 Days #4 tab 06/28/21 [Rx] Follow up Appointment(s)/Referral(s): Luz Norris MD [STAFF PHYSICIAN] - 2 Weeks Kieran Burrell MD [Primary Care Provider] - 1-2 days Activity/Diet/Wound Care/Special Instructions: Patients home oxycodone and morphine sulfate ER are in the inpatient pharmacy. FU with PCP within 1-2 days of discharge. FU with Pulmonology within 2 weeks of discharge. Take all medications as advised. Come back to the ED or call 911 for worsening shortness of breath, chest pain, palpitations, lightheadedness/dizziness. Discharge Disposition: HOME SELF-CARE
[2021-06-28] MEDS: REMDESIVIR 100 MG in SODIUM CHLORIDE 0.9% 250 ML IVPB SCH (09:30)
== END 2021-06-28 11:43 | disposition home or self-care (01) | DRG 177 ==
LOC: EC 20:50 → 6NMEDSUR 22:26 → OBSVTOIN 06-25 11:23
PROVIDERS: ADMIT Internal Medicine; ATTEND Internal Medicine
PROC: XW043E5 Introduction of Remdesivir Anti-infective into Central Vein, Percutaneous Approach, New Technology Group 5 (ICD-10-PCS; principal; 2021-06-25)
DX: U07.1 COVID-19 (principal); J96.21 Acute and chronic respiratory failure with hypoxia; J12.82 Pneumonia due to coronavirus disease 2019; N17.9 Acute kidney failure, unspecified; D68.59 Other primary thrombophilia; E87.2 Acidosis; J44.0 Chronic obstructive pulmonary disease with (acute) lower respiratory infection; J90 Pleural effusion, not elsewhere classified; C78.6 Secondary malignant neoplasm of retroperitoneum and peritoneum; C78.5 Secondary malignant neoplasm of large intestine and rectum; M79.7 Fibromyalgia; D72.819 Decreased white blood cell count, unspecified; E87.6 Hypokalemia; F41.9 Anxiety disorder, unspecified; G89.4 Chronic pain syndrome; I45.10 Unspecified right bundle-branch block; D75.89 Other specified diseases of blood and blood-forming organs; Z79.01 Long term (current) use of anticoagulants; Z79.899 Other long term (current) drug therapy; Z82.5 Family history of asthma and other chronic lower respiratory diseases; Z85.43 Personal history of malignant neoplasm of ovary; Z87.891 Personal history of nicotine dependence; Z90.710 Acquired absence of both cervix and uterus; Z93.2 Ileostomy status; Z99.81 Dependence on supplemental oxygen; Z83.6 Family history of other diseases of the respiratory system; Z98.51 Tubal ligation status
CPT/HCPCS: 36415; 71045; 71275; 80048; 80053; 82728; 82784; 83605; 83615; 83735; 83880; 84484; 85025; 85379; 85384; 85610; 85730; 86140; 87636; 93005; 93970; 94760; 96361; 96374; 96375; 99285

== ENCOUNTER → 2021-09-17 | Outpatient (CLI) | payer MEDICARE, OTHER ==
--- NOTE | 2021-09-19 22:24 | CT ---
EXAMINATION TYPE: CT ChestAbdPelvis w con DATE OF EXAM: 09/17/2021 COMPARISON: 06/24/2021 and abdomen pelvis 01/01/2021 HISTORY: 65-year-old female C48.2, peritoneal cancer TECHNIQUE: Contiguous axial scanning of the chest, abdomen, and pelvis performed with IV Contrast, pa tient injected with 70ml mL of Isovue 300. Delayed images through the kidneys were obtained. Coronal/ sagittal reconstructions performed. CT DLP: 465.7 mGycm Automated exposure control for dose reduction was used. FINDINGS: CHEST: The heart is normal in size without pericardial effusion. Aorta normal caliber with conventional branching anatomy. Precarinal lymph node mildly enlarged at 1.3 cm versus 9 mm, previously. Right infrahilar lymph node at 1.5 cm versus 1.3 cm, previously Right axillary nodes measuring up to 1.8 cm versus 1.7 cm, previously. Increasing loculated pleural fluid posterior right upper lobe with scalloped margins measuring up to 2.3 cm thick. Corresponded mild pleural-based thickening. Increased irregular pleural thickening anterior medial right mid chest. Continued small right pleural effusion with associated pleural thickening and adjacent opacity. Patch y opacity is increasing medial basilar right middle lobe and centrally within the basilar right lower lobe. Unchanged lobulated nodular subpleural opacity posterior left lower lobe. Background moderate emphysematous change. ABDOMEN: A couple tiny subcentimeter hypodensities, unchanged in the left liver lobe, probable small cysts. Gallbladder, right adrenal gland, and spleen with only the body and tail of the pancreas is well seen . Remainder not well delineated. There is new nodularity in the gastrohepatic ligament region measuring 1.9 cm, axial image 68. Additional peripancreatic nodularity measuring 1.8 cm just below, axial image 73. There is new fluid in thickening of the left subphrenic region minimally encasing the upper pole of t he spleen and also the fundus proximal body of the stomach. Unchanged nodularity associated with the right adrenal gland measuring 1.5 cm. Unchanged right-sided pelviectasis/extrarenal pelvis. No excretion of contrast on the delayed kidney images. Correlation needs to be made to exclude acute kidney injury. Moderate atherosclerotic calcifications abdominal aorta and iliac arteries. No dilated small bowel or free air. There is limited assessment of the abdomen and pelvis due to extensive artifact from retained barium within the colon. There appears to be a right lower quadrant diverting enterostomy. PELVIS: Limited assessment due to artifact from retained barium. Bladder under distended. No definite pelvic lymphadenopathy. BONES: Facet arthropathy lower lumbar spine. No osseous destructive process. IMPRESSION: 1. FINDINGS SUSPICIOUS FOR DISEASE PROGRESSION. THERE IS INCREASED COMPLEX PLEURAL FLUID RIGHT UPPER LOBE WITH SCALLOPED MARGINS MEASURING UP TO 2.3 CM THICK. CORRESPONDING SCATTERED MILD IRREGULAR PLEU RAL THICKENING RIGHT HEMITHORAX. CONTINUED SMALL COMPLICATED BASILAR RIGHT PLEURAL EFFUSION WITH PLEU RAL THICKENING. INCREASING ADJACENT RIGHT LOWER LOBE OPACITY COULD REPRESENT ADDITIONAL DISEASE PROGR ESSION OR CONCURRENT PNEUMONIA. CLINICALLY CORRELATE. 2. RIGHT AXILLARY NODES RELATIVELY SIMILAR AT 1.8 CM VERSUS 1.7 CM, PREVIOUSLY. PRECARINAL LYMPH NODE INCREASING IN SIZE AT 1.3 CM VERSUS 9 MM, PREVIOUSLY. 3. NEW NODULARITY IN THE UPPER ABDOMEN WITHIN THE GASTROHEPATIC LIGAMENT AND PERIPANCREATIC REGION ME ASURING UP TO 1.9 CM. NEW LEFT SUBPHRENIC ASCITES FLUID MINIMALLY SURROUNDING THE UPPER POLE OF THE S PLEEN AND MORE PROMINENTLY SURROUNDING THE FUNDUS AND PROXIMAL BODY OF THE STOMACH. FINDINGS SUSPECTE D TO REPRESENT RECURRENT PERITONEAL DISEASE. 4. LIMITED ASSESSMENT OF MOST OF THE ABDOMEN AND PELVIS DUE TO EXTENSIVE ARTIFACT FROM RETAINED BARIU M CONTRAST IN THE COLON.
== END | disposition home or self-care (01) ==
LOC: RADCTMAIN 12:25
PROVIDERS: ATTEND Internal Medicine Hematology & Oncology
DX: Z03.89 Encounter for observation for other suspected diseases and conditions ruled out (principal); C48.2 Malignant neoplasm of peritoneum, unspecified
CPT/HCPCS: 82565; 84520; 71260; 74177; 36415; Q9967

== ENCOUNTER → 2021-09-23 | Outpatient (CLI) | payer MEDICARE, OTHER ==
--- NOTE | 2021-09-24 10:02 | CA ---
Transthoracic Echo Report Name: Yarelis Reddy Age: 66 Gender: F : 1955 Exam Date: 09/23/2021 15:54 Exam Location: [place] [facility] Ht (in): 63 Wt (lb): 117 Ordering Physician: Kieran Burrell MD Attending/Referring Phys: Seat Scooper Machine Maryellen Tellez RDCS Procedure CPT: Indications: Z01.818 PRE PROCEDURAL Cardiac Hx: Technical Quality: Fair Contrast 1: Total Dose (mL): Contrast 2: Total Dose (mL): MEASUREMENTS (Male / Female) Normal Values 2D ECHO LV Diastolic Diameter PLAX 4.3 cm 4.2 - 5.9 / 3.9 - 5.3 cm LV Systolic Diameter PLAX 2.9 cm IVS Diastolic Thickness 1.2 cm 0.6 - 1.0 / 0.6 - 0.9 cm LVPW Diastolic Thickness 1.1 cm 0.6 - 1.0 / 0.6 - 0.9 cm LV Relative Wall Thickness 0.5 LA Volume 21.5 cm??? 18 - 58 / 22 - 52 cm??? M-MODE Aortic Root Diameter MM 3.0 cm LA Systolic Diameter MM 2.5 cm LA Ao Ratio MM 0.8 AV Cusp Separation MM 1.7 cm DOPPLER AV Peak Velocity 132.8 cm/s AV Peak Gradient 7.1 mmHg LVOT Peak Velocity 78.6 cm/s LVOT Peak Gradient 2.5 mmHg MV Area PHT 3.7 cm??? Mitral E Point Velocity 66.9 cm/s Mitral A Point Velocity 64.8 cm/s Mitral E to A Ratio 1.0 MV Deceleration Time 203.6 ms MV E' Velocity 5.6 cm/s Mitral E to MV E' Ratio 11.9 TR Peak Velocity 171.8 cm/s TR Peak Gradient 11.8 mmHg Right Ventricular Systolic Press 16.8 mmHg FINDINGS Left Ventricle Mildly increased left ventricular wall thickness. Normal left ventricular systolic function with no obvious regional wall motion abnormalities. Normal left ventricular diastolic filling pattern. Left ventricular ejection fraction is estimated at 55-60 %. Right Ventricle Normal right ventricular size and function. Right ventricular systolic pressure within normal limits. Right Atrium Normal right atrial size. Left Atrium Normal left atrial size. No evidence for an atrial septal defect. Mitral Valve Structurally normal mitral valve. No mitral stenosis, regurgitation or prolapse. Aortic Valve No aortic valve stenosis or regurgitation. Tricuspid Valve Structurally normal tricuspid valve. Mild tricuspid regurgitation. Pulmonic Valve Trace pulmonic regurgitation. Pericardium No pericardial effusion. Aorta Normal size aortic root and proximal ascending aorta. CONCLUSIONS Normal LV size and systolic function Previewed by: Dr. Eliezer Garcia MD (Electronically Signed) Final Date: 24 September 2021 10:01
== END | disposition home or self-care (01) ==
LOC: RADECHMAIN 15:50
PROVIDERS: ATTEND Internal Medicine Hematology & Oncology
DX: Z01.818 Encounter for other preprocedural examination (principal)
CPT/HCPCS: 93306

== ENCOUNTER 2021-10-21 11:57 | Inpatient (IN) | payer MEDICARE, OTHER ==
[2021-10-21 12:02] VITALS: RESP 18
--- NOTE | 2021-10-21 13:33 | XR ---
EXAMINATION TYPE: XR chest 2V DATE OF EXAM: 10/21/2021 COMPARISON: 06/27/2021 TECHNIQUE: PA and lateral views submitted. HISTORY: Chest pain FINDINGS: Right lower lobe infiltrate with small effusion. Diffuse hyperinflation. Soft tissue artifact overlyi ng the left lower lung field. Chronic rib deformities are seen and there is a Mediport catheter with a large right hilar abnormal attenuation. AC joint chronic disease noted. Atherosclerotic change aort a. Coverage of spine with degenerative changes. IMPRESSION: 1. COPD with right lower lobe infiltrate and pleural effusion. There is a large area of abnormal dens ity in the right hilum could represent mass\adenopathy or aortic aneurysm recommend CT chest.
--- NOTE | 2021-10-21 15:25 | ED ---
General Adult HPI - General Chief complaint: Chest Pain Stated complaint: chest pain Time Seen by Provider: 10/21/21 14:57 Source: patient, RN notes reviewed Mode of arrival: ambulatory Limitations: no limitations - History of Present Illness Initial comments: Patient is a pleasant 66-year-old female presenting to the emergency Department with right-sided chest discomfort. Onset of symptoms was around a week ago. Patient may have some minimal associated dyspnea. 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 Patient has had thoracentesis twice previously with symptoms similar to what she is presenting with today. Patient denies having abdominal discomfort. No cough. No fever. - Related Data Home Medications Medication Instructions Recorded Confirmed Gabapentin [Neurontin] 100 mg PO TID 09/28/20 10/21/21 ALPRAZolam [Xanax] 0.5 mg PO BID PRN 06/24/21 10/21/21 Apixaban [Eliquis] 2.5 mg PO BID 06/24/21 10/21/21 Loratadine 10 mg PO DAILY PRN 06/24/21 10/21/21 Metoprolol Succinate (ER) [Toprol 25 mg PO DAILY 06/24/21 10/21/21 XL] Morphine Sulfate ER [Ms Contin] 60 mg PO TID 06/24/21 10/21/21 ondansetron HCL [Zofran] 8 mg PO Q6H PRN 06/24/21 10/21/21 oxyCODONE HCL [oxyCODONE HCL (IR)] 15 mg PO Q6H PRN 06/24/21 10/21/21 Previous Rx's Medication Instructions Recorded Albuterol Inhaler [Ventolin Hfa 2 puff INHALATION RT-Q6H PRN #1 inh 06/28/21 Inhaler] Allergies Allergy/AdvReac Type Severity Reaction Status Date / Time ciprofloxacin [From Cipro] Allergy Rash/Hives Verified 10/21/21 18:31 Review of Systems ROS Statement: Those systems with pertinent positive or pertinent negative responses have been documented in the HPI. ROS Other: All systems not noted in ROS Statement are negative. 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 History of Any Multi-Drug Resistant Organisms: None Reported Past Surgical History: Hysterectomy, Orthopedic Surgery, Tubal Ligation Additional Past Surgical History / Comment(s): fusion neck surgery, right rotator cuff, colectomy with colostomy, Past Anesthesia/Blood Transfusion Reactions: No Reported Reaction Past Psychological History: Anxiety Smoking Status: Former smoker - Past Family History Mother Family Medical History: Cancer Additional Family Medical History / Comment(s): bone cancer Father Family Medical History: COPD General Exam Limitations: no limitations General appearance: alert, in no apparent distress Head exam: Present: normocephalic Eye exam: Present: normal appearance Neck exam: Present: normal inspection Respiratory exam: Present: decreased breath sounds (Right-sided) Cardiovascular Exam: Present: regular rate, normal rhythm GI/Abdominal exam: Present: soft, tenderness (Mild tenderness right upper quadrant.). Absent: distended Extremities exam: Present: normal inspection Neurological exam: Present: alert Psychiatric exam: Present: normal affect, normal mood Skin exam: Present: normal color Course Vital Signs 10/21/21 12:00 Temperature 98.0 F Pulse Rate 90 Respiratory 18 Rate Blood Pressure 128/89 O2 Sat by Pulse 97 Oximetry EKG Findings - EKG Comments: EKG Findings:: Sinus rhythm with rate of 72. PA 135. QRS 100. QT 396. QTc 420. Normal axis. Normal QRS. No acute ST change. Medical Decision Making - Medical Decision Making Patient reevaluated. Patient updated on results and plan. Case discussed with practitioner Gale, covering Dr. Trinidad, who will admit. There is concern for right lower lobe effusion which may be partially chronic however there may be additional infiltrate component. Patient will need pulmonary evaluation for this. Patient also has thrombocytopenia and could benefit from oncology evaluation. - Lab Data Result diagrams: 10/21/21 15:30 10/21/21 15:30 Lab Results 09/01/22 09/01/22 09/01/22 Range/Units 15:30 15:30 15:30 WBC 3.0 L (3.8-10.6) k/uL RBC 3.38 L (3.80-5.40) m/uL Hgb 11.5 (11.4-16.0) gm/dL Hct 34.3 (34.0-46.0) % MCV 101.6 H (80.0-100.0) fL MCH 34.1 (25.0-35.0) pg MCHC 33.5 (31.0-37.0) g/dL RDW 12.5 (11.5-15.5) % Plt Count 37 L (150-450) k/uL MPV 8.6 Neutrophils % 69 % Lymphocytes % 22 % Monocytes % 4 % Eosinophils % 2 % Basophils % 1 % Neutrophils # 2.1 (1.3-7.7) k/uL Lymphocytes # 0.7 L (1.0-4.8) k/uL Monocytes # 0.1 (0-1.0) k/uL Eosinophils # 0.1 (0-0.7) k/uL Basophils # 0.0 (0-0.2) k/uL Manual Slide Review Performed PT 10.8 (9.0-12.0) sec INR 1.0 (<1.2) APTT >200.0 H* (22.0-30.0) sec Sodium 136 L (137-145) mmol/L Potassium 3.5 (3.5-5.1) mmol/L Chloride 99 (98-107) mmol/L Carbon Dioxide 25 (22-30) mmol/L Anion Gap 12 mmol/L BUN 10 (7-17) mg/dL Creatinine 0.64 (0.52-1.04) mg/dL Est GFR (CKD-EPI)AfAm >90 (>60 ml/min/1.73 sqM) Est GFR (CKD-EPI)NonAf >90 (>60 ml/min/1.73 sqM) Glucose 91 (74-99) mg/dL Plasma Lactic Acid Andrzej (0.7-2.0) mmol/L Calcium 9.0 (8.4-10.2) mg/dL Total Bilirubin 0.2 (0.2-1.3) mg/dL AST 37 H (14-36) U/L ALT 23 (4-34) U/L Alkaline Phosphatase 101 (38-126) U/L Total Protein 6.5 (6.3-8.2) g/dL Albumin 4.1 (3.5-5.0) g/dL 10/21/21 10/21/21 Range/Units 15:30 16:52 WBC (3.8-10.6) k/uL RBC (3.80-5.40) m/uL Hgb (11.4-16.0) gm/dL Hct (34.0-46.0) % MCV (80.0-100.0) fL MCH (25.0-35.0) pg MCHC (31.0-37.0) g/dL RDW (11.5-15.5) % Plt Count (150-450) k/uL MPV Neutrophils % % Lymphocytes % % Monocytes % % Eosinophils % % Basophils % % Neutrophils # (1.3-7.7) k/uL Lymphocytes # (1.0-4.8) k/uL Monocytes # (0-1.0) k/uL Eosinophils # (0-0.7) k/uL Basophils # (0-0.2) k/uL Manual Slide Review PT (9.0-12.0) sec INR (<1.2) APTT 24.7 (22.0-30.0) sec Sodium (137-145) mmol/L Potassium (3.5-5.1) mmol/L Chloride (98-107) mmol/L Carbon Dioxide (22-30) mmol/L Anion Gap mmol/L BUN (7-17) mg/dL Creatinine (0.52-1.04) mg/dL Est GFR (CKD-EPI)AfAm (>60 ml/min/1.73 sqM) Est GFR (CKD-EPI)NonAf (>60 ml/min/1.73 sqM) Glucose (74-99) mg/dL Plasma Lactic Acid Andrzej 0.9 (0.7-2.0) mmol/L Calcium (8.4-10.2) mg/dL Total Bilirubin (0.2-1.3) mg/dL AST (14-36) U/L ALT (4-34) U/L Alkaline Phosphatase (38-126) U/L Total Protein (6.3-8.2) g/dL Albumin (3.5-5.0) g/dL - Radiology Data Radiology results: report reviewed (Chest x-ray shows no pulmonary embolism. Redemonstrates [id number] partially loculated right pleural effusion with basilar consolidation/atelectasis. Left lower lobe nodular thickening. Mediastinal and right hilar lymphadenopathy.), image reviewed (Chest x-ray shows COPD right lower lobe infiltrate/effusion. Abnormal density right hilum possible mass or aneurysm.) Disposition Clinical Impression: Pleural effusion, Thrombocytopenia Disposition: ADMITTED IP TO THIS HOSP Is patient prescribed a controlled substance at d/c from ED?: No Referrals: Tristen Mcclendon DO [Primary Care Provider] - 1-2 days Time of Disposition: 19:13
[2021-10-21 16:28] LABS: Prothrombin Time 10.8 sec (9.0-12.0)
[2021-10-21 16:32] LABS: Basophils % (A) 1 %; Eosinophils # (A) 0.1 k/uL (0-0.7); Eosinophils % (A) 2 %; HCT 34.3 % (34.0-46.0); HGB 11.5 gm/dL (11.4-16.0); Lymphocytes # (A) 0.7 k/uL (1.0-4.8); Lymphocytes % (A) 22 %; MCH 34.1 pg (25.0-35.0); MCHC 33.5 g/dL (31.0-37.0); MCV 101.6 fL (80.0-100.0); Mean Platelet Volume 8.6; Monocytes # (A) 0.1 k/uL (0-1.0); Monocytes % (A) 4 %; Neutrophils # (A) 2.1 k/uL (1.3-7.7); Neutrophils % (A) 69 %; RBC 3.38 m/uL (3.80-5.40); RDW 12.5 % (11.5-15.5)
[2021-10-21 16:35] LABS: Platelet Count 37 k/uL (150-450)
[2021-10-21 16:41] LABS: ALT 23 U/L (4-34); Alkaline Phosphatase 101 U/L (38-126)
[2021-10-21 16:46] LABS: Partial Thromboplastin Time >200.0 sec (22.0-30.0)
[2021-10-21 17:12] LABS: AST 37 U/L (14-36); African American GFR (CKD) >90 (>60 ml/min/1.73 sqM); Albumin 4.1 g/dL (3.5-5.0); Anion Gap 12 mmol/L; Blood Urea Nitrogen 10 mg/dL (7-17); Carbon Dioxide 25 mmol/L (22-30); Chloride 99 mmol/L (98-107); Glucose 91 mg/dL (74-99); Non-African American GFR(CKD) >90 (>60 ml/min/1.73 sqM); Potassium 3.5 mmol/L (3.5-5.1); Sodium 136 mmol/L (137-145); Total Bilirubin 0.2 mg/dL (0.2-1.3); Total Protein 6.5 g/dL (6.3-8.2)
--- NOTE | 2021-10-21 18:16 | CT ---
Result: History: dyspnea, eval R hilum and aorta COMPARISON: 09/17/2021 TECHNIQUE: Contrast enhanced CT of the chest, abdomen and pelvis was obtained per departmental PE pr otocol; post processed coronal, sagittal and MIPS reformatted images were also reviewed. 100 mL of Isovue-370 was administered without noted event. Coronal and sagittal reformatted images were also provided. Imaging dose reduction technique was util ized per protocol. FINDINGS: Chest: This CT study is diagnostic to the subsegmental level branches of the pulmonary artery and demonstrat es no pulmonary emboli. There are mild thoracic aorta and coronary calcifications. Otherwise the heart and great vessels are unremarkable. There is no pericardial effusion. There are scattered multiple mildly enlarged medias tinal lymph nodes with index lesion measuring 12 mm short axis, similar to prior study. There is als o mild right hilar fullness, consistent with lymphadenopathy. There is small to moderate partially loculated right pleural effusion. There is moderate compressive consolidation in the right middle lobe. There is unchanged 1.4 cm left lower lobe nodular opacity, co ntiguous with a 1.1 cm focal nodular thickening of the posterior left lower lobe. There is moderate c entrilobular emphysema. No pneumothorax. Osseous structures demonstrate no acute abnormality. There is a right IJ port catheter in place. Pa rtially imaged cervical spine fusion seen. Abdomen/pelvis: There are scattered few low attenuating hepatic foci measuring up to 3 mm. There is 1.2 cm left adren al nodule. Otherwise no acute abnormality of the liver, gallbladder, pancreas, adrenal gland or splee n. There is moderate right renal pelvic ectasia without obstructing calculus or nephrolithiasis seen. No left hydronephrosis or nephrolithiasis. No bowel obstruction, free air or fluid. Normal appendix. No lymphadenopathy. Moderate atherosclerotic disease. No acute osseous abnormality. IMPRESSION: No acute pulmonary embolus. Redemonstrated small to moderate partially loculated right pleural effusion with basilar consolidatio n/atelectasis. Also left lower lobe and adjacent pleural nodular thickening are similar to prior study. Grossly unchanged mediastinal and right hilar lymphadenopathy. Unchanged few subcentimeter hepatic low attenuating foci, may represent cysts. Other etiologies not e xcluded. Unchanged left adrenal nodule. Otherwise no acute abnormality of the abdomen/pelvis.
[2021-10-21] MEDS ORDERED: AZITHROMYCIN 500 MG in SODIUM CHLORIDE 0.9% 250 ML IVPB STA (19:13)
[2021-10-21] MEDS ORDERED: PNEUMONIA PROTOCOL UTILIZED 1 EACH MISC PO PRN (19:13)
[2021-10-22] MEDS ORDERED: ONDANSETRON 4 MG/2 ML VIAL IVP STA (00:21)
[2021-10-22 06:18] VITALS: BP 111/74; PULSE 73; TEMP 97.9
--- NOTE | 2021-10-22 09:13 | XR ---
EXAMINATION TYPE: XR chest 1V DATE OF EXAM: 10/22/2021 COMPARISON: 10/21/2021 HISTORY: pneumonia TECHNIQUE: Single frontal view of the chest is obtained. FINDINGS: Right lower lobe infiltrate with small effusion. Diffuse hyperinflation. Soft tissue artif act overlying the left lower lung field. Chronic rib deformities are seen and there is a Mediport cat heter with a large right hilar abnormal attenuation. AC joint chronic disease noted. Atherosclerotic change aorta. Coverage of spine with degenerative changes. IMPRESSION: COPD with right lower lobe infiltrate and pleural effusion. There is a large area of abn ormal density in the right hilum could represent mass adenopathy or aortic aneurysm recommend CT ches t.
--- NOTE | 2021-10-22 12:53 | P.CNPUL ---
History of Present Illness Consult date: 10/22/21 Chief complaint: Right-sided chest pain History of present illness: 66-year-old female patient with a known history of metastatic malignancy/ovarian cancer with a malignant right-sided pleural effusion was coming into the hospital because of some right-sided chest wall pain. This is an ongoing chronic pain and probably slightly worse as the patient was not taking anything can a regular basis. No significant worsening shortness of breath and the patient's dyspnea is essentially chronic. No fever. No chills. No hemoptysis or pleurisy. Most recently, the patient was found to have elevation in her markers and the patient was started on oral chemotherapeutic agents. Mother the patient has metastatic ovarian cancer diagnosed in March 2020. She is post hysterectomy. The patient was also found to have peritoneal cancer/involvement and the patient underwent colectomy, colostomy. The patient was subsequently treated with systemic chemotherapy using a combination of carboplatinum and Taxol and Avastin. During the course of her illness, the patient required thoracentesis of the right lung 2 and her last thoracentesis was in was in April 2020. Since then, the patient has not had any further thoracentesis. The patient had a CAT scan of the chest which was done using the CVA protocol and the patient also had a CAT scan of the abdomen and pelvis. In summary, there was no evidence of any pulmonary embolism. There was right hilar lymphadenopathy which is essentially stable. There is also a small right-sided pleural effusion which is loculated in the right basilar atelectasis. There is also some left lower lobe and adjacent pleural nodular thickening similar to the prior studies. Overall, there is no major changes in the mediastinal and hilar lymphadenopathy. The CAT scan of the abdomen was also consistent with stable findings. There was moderate right renal pelvic ectasia without obstruction or calculus or nephrolithiasis. No evidence of any hydronephrosis. No abdominal lymphadenopathy. A small loculated right-sided pleural effusion was again seen. At this point in time, the patient is on long-term and accommodation with Eliquis and this was given to her because of her underlying malignancy and i ncreased risk of pulmonary embolism although this has not been documented in this patient. The patient also was in the hospital back in June 2021 treated for COVID 19 infection and she was successfully treated and she was discharged home. The white cell count today's at 3 with a hemoglobin 11.5 and a platelet count of 37. The patient's electrolytes all within normal limits. Review of Systems Constitutional: Reports fatigue, Reports weakness, Denies chills, Denies fever Eyes: denies blurred vision, denies pain Ears, nose, mouth and throat: Reports sore throat, Denies headache Cardiovascular: Denies chest pain, Denies shortness of breath, right chest wall pain Respiratory: Reports dyspnea, Denies cough Gastrointestinal: Reports vomiting, Denies abdominal pain, Denies diarrhea, Denies nausea Genitourinary: Denies dysuria, Denies hematuria Musculoskeletal: Denies myalgias Integumentary: Denies pruritus, Denies rash Neurological: Denies numbness, Denies weakness Psychiatric: Denies anxiety, Denies depression Endocrine: Denies fatigue, Denies weight change 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 History of Any Multi-Drug Resistant Organisms: None Reported Past Surgical History: Hysterectomy, Orthopedic Surgery, Tubal Ligation Additional Past Surgical History / Comment(s): fusion neck surgery, right rotator cuff, colectomy with colostomy, Past Anesthesia/Blood Transfusion Reactions: No Reported Reaction Past Psychological History: Anxiety Smoking Status: Former smoker - Past Family History Mother Family Medical History: Cancer Additional Family Medical History / Comment(s): bone cancer Father Family Medical History: COPD Medications and Allergies Home Medications Medication Instructions Recorded Confirmed Type Gabapentin [Neurontin] 100 mg PO TID 09/28/20 10/21/21 History ALPRAZolam [Xanax] 0.5 mg PO BID PRN 06/24/21 10/21/21 History Apixaban [Eliquis] 2.5 mg PO BID 06/24/21 10/21/21 History Loratadine 10 mg PO DAILY PRN 06/24/21 10/21/21 History Metoprolol Succinate (ER) [Toprol 25 mg PO DAILY 06/24/21 10/21/21 History XL] Morphine Sulfate ER [Ms Contin] 60 mg PO TID 06/24/21 10/21/21 History ondansetron HCL [Zofran] 8 mg PO Q6H PRN 06/24/21 10/21/21 History oxyCODONE HCL [oxyCODONE HCL (IR)] 15 mg PO Q6H PRN 06/24/21 10/21/21 History Albuterol Inhaler [Ventolin Hfa 2 puff INHALATION RT-Q6H PRN #1 inh 06/28/21 Rx Inhaler] Allergies Allergy/AdvReac Type Severity Reaction Status Date / Time ciprofloxacin [From Cipro] Allergy Rash/Hives Verified 10/21/21 18:31 Physical Exam Vitals: Vital Signs Temp Pulse Resp BP Pulse Ox 10/22/21 06:15 97.9 F 73 18 111/74 94 L 10/22/21 01:35 82 18 116/79 93 L 10/21/21 19:49 68 18 100/60 95 GENERAL EXAM: Alert, 65-year-old white female on room air oxygen and breathing is nonlabored HEAD: Normocephalic/atraumatic. EYES: Normal reaction of pupils, equal size. Conjunctiva pink, sclera white. NOSE: Clear with pink turbinates. THROAT: No erythema or exudates. NECK: No masses, no JVD, no thyroid enlargement, no adenopathy. CHEST: No chest wall deformity. Symmetrical expansion. LUNGS: Equal air entry with no crackles, wheeze, rhonchi or dullness. CVS: Regular rate and rhythm, normal S1 and S2, no gallops, no murmurs, no rubs ABDOMEN: Soft, tender. Ostomy is in place No hepatosplenomegaly, normal bowel sounds, no guarding or rigidity. EXTREMITIES: No clubbing, no edema, no cyanosis, 2+ pulses and upper and lower extremities. MUSCULOSKELETAL: Muscle strength and tone normal. SPINE: No scoliosis or deformity SKIN: No rashes CENTRAL NERVOUS SYSTEM: Alert and oriented -3. No focal deficits, tone is normal in all 4 extremities. PSYCHIATRIC: Alert and oriented -3. Appropriate affect. Intact judgment and insight. Results - Laboratory Findings CBC and BMP: 10/21/21 15:30 10/21/21 15:30 ABG WBC 3.0 k/uL (3.8-10.6) L 10/21/21 15:30 RBC 3.38 m/uL (3.80-5.40) L 10/21/21 15:30 Hgb 11.5 gm/dL (11.4-16.0) 10/21/21 15:30 Hct 34.3 % (34.0-46.0) 10/21/21 15: MCV 101.6 fL (80.0-100.0) H 10/21/21 15:30 MCH 34.1 pg (25.0-35.0) 10/21/21 15: MCHC 33.5 g/dL (31.0-37.0) 10/21/21 15:30 RDW 12.5 % (11.5-15.5) 10/21/21 15:30 Plt Count 37 k/uL (150-450) L 10/21/21: MPV 8.6 10/21/21 15:30 Neutrophils % 69 % 10/21/21 15:30 Lymphocytes % 22 % 10/21/21 15:30 Monocytes % 4 % 10/21/21 15:30 Eosinophils % 2 % 10/21/21: Basophils % 1 % 10/21/21 15:30 Neutrophils # 2.1 k/uL (1.3-7.7) 10/21/21 15:30 Lymphocytes # 0.7 k/uL (1.0-4.8) L 10/21/21 15:30 Monocytes # 0.1 k/uL (0-1.0) 10/21/21 15:30 Eosinophils # 0.1 k/uL (0-0.7) 10/21/21 15:30 Basophils # 0.0 k/uL (0-0.2) 10/21/21 15:30 Manual Slide Review Performed 10/21/21 15:30 PT 10.8 sec (9.0-12.0) 10/21/21 15:30 INR 1.0 (<1.2) 10/21/21 15:30 APTT 24.7 sec (22.0-30.0) 10/21/21 16:52 Sodium 136 mmol/L (137-145) L 10/21/21 15:30 Potassium 3.5 mmol/L (3.5-5.1) 10/21/21 15:30 Chloride 99 mmol/L (98-107) 10/21/21 15:30 Carbon Dioxide 25 mmol/L (22-30) 10/21/21 15:30 Anion Gap 12 mmol/L 10/21/21 15:30 BUN 10 mg/dL (7-17) 10/21/21 15:30 Creatinine 0.64 mg/dL (0.52-1.04) 10/21/21 15:30 Est GFR (CKD-EPI)AfAm >90 (>60 ml/min/1.73 sqM) 10/21/21 15:30 Est GFR (CKD-EPI)NonAf >90 (>60 ml/min/1.73 sqM) 10/21/21 15:30 Glucose 91 mg/dL (74-99) 10/21/21 15:30 Plasma Lactic Acid Andrzej 0.9 mmol/L (0.7-2.0) 10/21/21 15:30 Calcium 9.0 mg/dL (8.4-10.2) 10/21/21 15:30 Total Bilirubin 0.2 mg/dL (0.2-1.3) 10/21/21 15:30 AST 37 U/L (14-36) H 10/21/21 15:30 ALT 23 U/L (4-34) 10/21/21 15:30 Alkaline Phosphatase 101 U/L (38-126) 10/21/21 15:30 Total Protein 6.5 g/dL (6.3-8.2) 10/21/21 15:30 Albumin 4.1 g/dL (3.5-5.0) 10/21/21 15:30 PT/INR, D-dimer PT 10.8 sec (9.0-12.0) 10/21/21 15:30 INR 1.0 (<1.2) 10/21/21 15:30 Abnormal lab findings: Abnormal Labs 10/21/21 10/21/21 10/21/21 15:30 15:30 15:30 WBC 3.0 L RBC 3.38 L MCV 101.6 H Plt Count 37 L Lymphocytes # 0.7 L APTT >200.0 H* Sodium 136 L AST 37 H - Diagnostic Findings Chest x-ray: image reviewed CT scan - chest: image reviewed Assessment and Plan Plan: Right chest wall pain, nonspecific, unchanged. Rule out malignancy involving the chest wall. The patient has a stable small loculated right-sided pleural effusion and right basilar atelectasis. The patient also has unchanged right hilar/lymphadenopathy. Chronic malignant right-sided pleural effusion with previous thoracentesis in March or April 2020 and the fluid was consistent with metastatic adenocarcinoma with primary ovarian origin Metastatic ovarian cancer with peritoneal metastases and the patient is currently on oral therapeutic/chemotherapeutic agents COPD, currently inactive and stable, mild Fibromyalgia History of smoking Mild leukopenia thrombus cytopenia, could be drug induced and the patient is on oral chemotherapeutic agents. Plan The patient was seen and evaluated in the emergency. The patient was felt to be stable. The patient is chronic and the patient has been prescribed MS Contin and oxycodone for pain control. This can be resumed. No need for antibiotic coverage. No signs of any infection. Follow-up with oncology. The patient can discharge from the pulmonary standpoint. She is currently on room air oxygen. She is hemodynamically stable. CAT scan of the chest was noted and there is no concern for pulmonary embolism. In the correlation can be resumed on outpatient basis upon the request of medical oncology.
[2021-10-22] MEDS ORDERED: ALPRAZolam 0.5 MG TAB PO PRN (16:05)
[2021-10-22] MEDS ORDERED: ALBUTEROL NEBULIZED 2.5 MG/3 ML INHALATION PRN (16:05)
--- NOTE | 2021-10-22 20:08 | P.CONS ---
History of Present Illness - Reason for Consult Consult date: 10/22/21 metastatic Cancer - Chief Complaint Exertional Dyspnea - History of Present Illness This is a very nice lady who presented with worsening dyspnea,some abdominal bloating and weight loss over 2-3 months duration. CXR done on 03/27/2020 revealed large right pleural effusion. CT angiogram of chest on 03/27/2020,was negative for PE but it showed large right pleural effusion. 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 On 04/17/2020,PET scan revealed ametabolic right pleural effusion,moderate ascites with abnormal hypermetabolic uptake. EGD was negative,colonoscopy and barium enema (due to incomplete coloscopy) were negative. On 05/15/2020,she had repeat right thoracentesis due to worsening dyspnea,2400 cc was removed. 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 She had repeat thoracentesis on 06/08/2020. On 07/02/2020,CA125 was down to 542.(was 1432 on 04/28/2020). On 07/17/2020,repeat CT scan of chest/abdomen/pelvis revealed improvement in her pleural effusion She had total of 4 cycles of neoadjuvant carbo/taxol/avastin. On 09/03/2020 she underwent debulking surgery,which was complicated by bowel perforation which required surgical repair. On 12/04/2020,she resumed carboplatin/taxol and completed 3 addiitonal cycles on 01/15/2021 On 01/01/2021 CT scan of abdomen/pelvis (done because she had pain) revealed significant improvement in ascites and pleural effusion She started zejula end of 01/[address] scan of chest/abdomen/pelvis in 02/2021 revealed stable disease. CA125 on 03/03/2021 was down to 369 CA125 on 04/21/2021 was down to 365. CA125 on 05/26/2021 was 493. CA125 on 08/31/2021 was 775. On 09/17/2021,repeat CT scan of chest/abdomen/pelvis revealed disease progression in chesta nd abdomen She feels tired,she is also more short of breath,she also gets a lot of anxiety.Her neuropathy is stable, back on gabapentin,has some abdominal bloating,no nausea or vomiting,has her chronic musculoskeletal pain. Last Visit with Dr Burrell had a discussion with the patient and her brother today. She has clinical and radio graphic evidence of disease progression. She may discontinue zejula at this time. As next line therapy,we discussed carbo/doxil,potential benefit/side effects,she agreed to proceed with it. Baseline echo will be ordered. arrange for port placement. She is status post cycle one of carboplatin and Doxil for recent progression, she has required two recent thoracentesisi for recurrent effusions, her symptoms are similar to prior thoracentesis. 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 History of Any Multi-Drug Resistant Organisms: None Reported Past Surgical History: Hysterectomy, Orthopedic Surgery, Tubal Ligation Additional Past Surgical History / Comment(s): fusion neck surgery, right rotator cuff, colectomy with colostomy, Past Anesthesia/Blood Transfusion Reactions: No Reported Reaction Past Psychological History: Anxiety Smoking Status: Former smoker - Past Family History Mother Family Medical History: Cancer Additional Family Medical History / Comment(s): bone cancer Father Family Medical History: COPD Medications and Allergies Home Medications Medication Instructions Recorded Confirmed Type Gabapentin [Neurontin] 100 mg PO TID 09/28/20 10/21/21 History ALPRAZolam [Xanax] 0.5 mg PO BID PRN 06/24/21 10/21/21 History Apixaban [Eliquis] 2.5 mg PO BID 06/24/21 10/21/21 History Loratadine 10 mg PO DAILY PRN 06/24/21 10/21/21 History Metoprolol Succinate (ER) [Toprol 25 mg PO DAILY 06/24/21 10/21/21 History XL] Morphine Sulfate ER [Ms Contin] 60 mg PO TID 06/24/21 10/21/21 History ondansetron HCL [Zofran] 8 mg PO Q6H PRN 06/24/21 10/21/21 History oxyCODONE HCL [oxyCODONE HCL (IR)] 15 mg PO Q6H PRN 06/24/21 10/21/21 History Albuterol Inhaler [Ventolin Hfa 2 puff INHALATION RT-Q6H PRN #1 inh 06/28/21 10/21/21 Rx Inhaler] Allergies Allergy/AdvReac Type Severity Reaction Status Date / Time ciprofloxacin [From Cipro] Allergy Rash/Hives Verified 10/21/21 18:31 Physical Exam Vitals: Vital Signs Temp Pulse Resp BP Pulse Ox 10/22/21 06:15 97.9 F 73 18 111/74 94 L 10/22/21 01:35 82 18 116/79 93 L 10/21/21 19:49 68 18 100/60 95 - Constitutional General appearance: cooperative, mild distress - EENT Eyes: EOMI ENT: NA/AT - Neck Neck: normal ROM - Respiratory Respiratory: bilateral: diminished (increased effort) - Cardiovascular Rhythm: regularly irregular - Gastrointestinal General gastrointestinal: soft - Integumentary Integumentary: pale - Neurologic Neurologic: CNII-XII intact - Musculoskeletal Musculoskeletal: generalized weakness - Psychiatric Psychiatric: A&O x's 3, appropriate affect, intact judgment & insight Results CBC & Chem 7: 10/21/21 15:30 10/21/21 15:30 Labs: Abnormal Lab Results - Last 24 Hours (Table) 10/21/21 10/21/21 10/21/21 Range/Units 15:30 15:30 15:30 WBC 3.0 L (3.8-10.6) k/uL RBC 3.38 L (3.80-5.40) m/uL MCV 101.6 H (80.0-100.0) fL Plt Count 37 L (150-450) k/uL Lymphocytes # 0.7 L (1.0-4.8) k/uL APTT >200.0 H* (22.0-30.0) sec Sodium 136 L (137-145) mmol/L AST 37 H (14-36) U/L Chest x-ray: report reviewed Assessment and Plan (1) Pleural effusion Narrative/Plan: Pulmonary is following Current Visit: Yes Status: Acute Code(s): J90 - PLEURAL EFFUSION, NOT ELSEWHERE CLASSIFIED SNOMED Code(s): 32024323 (2) Thrombocytopenia Narrative/Plan: Hold AC therapy, no NSAIDS or Aspirin Transfuse platlets lesst than 50K Monitor CBC daily Current Visit: Yes Status: Acute Code(s): D69.6 - THROMBOCYTOPENIA, UNSPECIFIED SNOMED Code(s): 126674290 (3) Ovarian cancer Narrative/Plan: Recent progression status post cycle one carboplatin and Doxil Current Visit: No Status: Acute Code(s): C56.9 - MALIGNANT NEOPLASM OF UNSPECIFIED OVARY SNOMED Code(s): 054278846 Plan: Dr. Ngo: I have completed the full history and physical and developed the above impression and plan agree with dictation dictated as a scribe
[2021-10-22] MEDS ORDERED: AZITHROMYCIN 500 MG TAB PO SCH (21:00)
[2021-10-22] MEDS ORDERED: GABAPENTIN 100 MG CAP PO SCH (22:00)
[2021-10-22] MEDS ORDERED: MORPHINE SULFATE ER 60 MG TABLET PO SCH (22:00)
[2021-10-23] MEDS ORDERED: METOPROLOL SUCCINATE (ER) 25 MG TAB.ER.24H PO SCH (09:00)
--- NOTE | 2021-10-24 21:00 | P.HPIM ---
History of Present Illness H&P Date: 10/22/21 Chief Complaint: Chest pain 66-year-old female with history of COPD, fibromyalgia, presenting to the emergency Department with right-sided chest discomfort. Onset of symptoms was around a week ago. Patient may have some minimal associated dyspnea. 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 Patient has had thoracentesis twice previously with symptoms similar to what she is presenting with today. Patient denies having abdominal discomfort. No cough. No fever. Most recently, the patient was found to have elevation in her markers and the patient was started on oral chemotherapeutic agents. Mother the patient has metastatic ovarian cancer diagnosed in March 2020. She is post hysterectomy. The patient was also found to have peritoneal cancer/involvement and the patient underwent colectomy, colostomy. The patient was subsequently treated with systemic chemotherapy using a combination of carboplatinum and Taxol and Avastin. During the course of her illness, the patient required thoracentesis of the right lung 2 and her last thoracentesis was in was in April 2020. Since then, the patient has not had any further thoracentesis. The patient had a CAT scan of the chest which was done using the CVA protocol and the patient also had a CAT scan of the abdomen and pelvis. In summary, there was no evidence of any pulmonary embolism. There was right hilar lymphadenopathy which is essentially stable. There is also a small right-sided pleural effusion which is loculated in the right basilar atelectasis. There is also some left lower lobe and adjacent pleural nodular thickening similar to the prior studies. Overall, there is no major changes in the mediastinal and hilar lymphadenopathy. Review of Systems REVIEW OF SYSTEMS: CONSTITUTIONAL: No fever, no malaise, no fatigue. HEENT: No recent visual problems or hearing problems. Denied any sore throat. CARDIOVASCULAR: No chest pain, orthopnea, PND, no palpitations, no syncope. PULMONARY: No shortness of breath, no cough, no hemoptysis. GASTROINTESTINAL: No diarrhea, no nausea, no vomiting, no abdominal pain. NEUROLOGICAL: No headaches, no weakness, no numbness. HEMATOLOGICAL: Denies any bleeding or petechiae. GENITOURINARY: Denies any burning micturition, frequency, or urgency. MUSCULOSKELETAL/RHEUMATOLOGICAL: Denies any joint pain, swelling, or any muscle pain. ENDOCRINE: Denies any polyuria or polydipsia. The rest of the 14-point review of systems is negative. 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 History of Any Multi-Drug Resistant Organisms: None Reported Past Surgical History: Hysterectomy, Orthopedic Surgery, Tubal Ligation Additional Past Surgical History / Comment(s): fusion neck surgery, right rotator cuff, colectomy with colostomy, Past Anesthesia/Blood Transfusion Reactions: No Reported Reaction Past Psychological History: Anxiety Smoking Status: Former smoker - Past Family History Mother Family Medical History: Cancer Additional Family Medical History / Comment(s): bone cancer Father Family Medical History: COPD Medications and Allergies Home Medications Medication Instructions Recorded Confirmed Type Gabapentin [Neurontin] 100 mg PO TID 09/28/20 10/21/21 History ALPRAZolam [Xanax] 0.5 mg PO BID PRN 06/24/21 10/21/21 History Apixaban [Eliquis] 2.5 mg PO BID 06/24/21 10/21/21 History Loratadine 10 mg PO DAILY PRN 06/24/21 10/21/21 History Metoprolol Succinate (ER) [Toprol 25 mg PO DAILY 06/24/21 10/21/21 History XL] Morphine Sulfate ER [Ms Contin] 60 mg PO TID 06/24/21 10/21/21 History ondansetron HCL [Zofran] 8 mg PO Q6H PRN 06/24/21 10/21/21 History oxyCODONE HCL [oxyCODONE HCL (IR)] 15 mg PO Q6H PRN 06/24/21 10/21/21 History Albuterol Inhaler [Ventolin Hfa 2 puff INHALATION RT-Q6H PRN #1 inh 06/28/21 10/21/21 Rx Inhaler] Allergies Allergy/AdvReac Type Severity Reaction Status Date / Time ciprofloxacin [From Cipro] Allergy Rash/Hives Verified 10/21/21 18:31 Physical Exam Vitals: Vital Signs Temp Pulse Resp BP Pulse Ox 10/22/21 06:15 97.9 F 73 18 111/74 94 L 10/22/21 01:35 82 18 116/79 93 L 10/21/21 19:49 68 18 100/60 95 GENERAL EXAM: Alert, 65-year-old white female on room air oxygen and breathing is nonlabored HEAD: Normocephalic/atraumatic. EYES: Normal reaction of pupils, equal size. Conjunctiva pink, sclera white. NOSE: Clear with pink turbinates. THROAT: No erythema or exudates. NECK: No masses, no JVD, no thyroid enlargement, no adenopathy. CHEST: No chest wall deformity. Symmetrical expansion. LUNGS: Equal air entry with no crackles, wheeze, rhonchi or dullness. CVS: Regular rate and rhythm, normal S1 and S2, no gallops, no murmurs, no rubs ABDOMEN: Soft, tender. Ostomy is in place No hepatosplenomegaly, normal bowel sounds, no guarding or rigidity. EXTREMITIES: No clubbing, no edema, no cyanosis, 2+ pulses and upper and lower extremities. MUSCULOSKELETAL: Muscle strength and tone normal. SPINE: No scoliosis or deformity SKIN: No rashes CENTRAL NERVOUS SYSTEM: Alert and oriented -3. No focal deficits, tone is normal in all 4 extremities. Results CBC & Chem 7: 10/21/21 15:30 10/21/21 15:30 Labs: Abnormal Lab Results - Last 24 Hours (Table) 10/21/21 10/21/21 10/21/21 Range/Units 15:30 15:30 15:30 WBC 3.0 L (3.8-10.6) k/uL RBC 3.38 L (3.80-5.40) m/uL MCV 101.6 H (80.0-100.0) fL Plt Count 37 L (150-450) k/uL Lymphocytes # 0.7 L (1.0-4.8) k/uL APTT >200.0 H* (22.0-30.0) sec Sodium 136 L (137-145) mmol/L AST 37 H (14-36) U/L Assessment and Plan Assessment: 1. Right-sided chest wall pain; concerned about malignancy involving chest wall - CT of the chest revealed small loculated right-sided pleural effusion along with a right hilar lymphadenopathy which is unchanged from previous CT - Patient is planned to be admitted for evaluation by pulmonary and oncology service 2. Chronic malignant right-sided pleural effusion; patient underwent thoracentesis in 2020 at which time pleural fluid was consistent with metastatic adenocarcinoma with primary ovarian origin; patient does not seem to be in acute distress due to the effusions which are unchanged from previous exam; await further recommendations from pulmonary service 3. COPD; not in exacerbation; continue with home inhaler therapy 4. Mild leukopenia/thrombocytopenia; likely induced by chemotherapy; we will monitor CBC closely 5. Fibromyalgia 6. Metastatic ovarian cancer with peritoneal metastases; patient is currently on oral chemotherapy - Oncology is consulted for further recommendations
== END 2021-10-22 17:19 | disposition left against medical advice (07) | DRG 755 ==
LOC: EC 11:57 → 5NMEDONC 19:14 → 3SCARD 10-22 15:40
PROVIDERS: ADMIT Hospitalist; ATTEND Hospitalist
DX: C56.9 Malignant neoplasm of unspecified ovary (principal); C78.6 Secondary malignant neoplasm of retroperitoneum and peritoneum; J91.0 Malignant pleural effusion; J98.11 Atelectasis; R18.8 Other ascites; D69.59 Other secondary thrombocytopenia; M79.7 Fibromyalgia; Z93.3 Colostomy status; J44.9 Chronic obstructive pulmonary disease, unspecified; G62.9 Polyneuropathy, unspecified; G89.29 Other chronic pain; D72.819 Decreased white blood cell count, unspecified; T45.1X5A Adverse effect of antineoplastic and immunosuppressive drugs, initial encounter; F41.9 Anxiety disorder, unspecified; Z79.01 Long term (current) use of anticoagulants; Z79.891 Long term (current) use of opiate analgesic; Z79.899 Other long term (current) drug therapy; Z98.1 Arthrodesis status; Z88.1 Allergy status to other antibiotic agents; Z87.891 Personal history of nicotine dependence; Z80.8 Family history of malignant neoplasm of other organs or systems; Z82.5 Family history of asthma and other chronic lower respiratory diseases
CPT/HCPCS: 36415; 71045; 71046; 71275; 74177; 80053; 83605; 85025; 85610; 85730; 87040; 93005; 96365; 96366; 96368; 99285

== ENCOUNTER → 2021-12-17 | Outpatient (CLI) | payer MEDICARE, OTHER ==
[2021-12-17 13:38] LABS: African American GFR (CKD) >90 (>60 ml/min/1.73 sqM); Blood Urea Nitrogen 16 mg/dL (7-17); Non-African American GFR(CKD) 86 (>60 ml/min/1.73 sqM)
--- NOTE | 2021-12-20 07:04 | CT ---
EXAMINATION TYPE: CT ChestAbdPelvis w con DATE OF EXAM: 12/17/2021 COMPARISON: 09/17/2021 and older studies HISTORY: Malignant neoplasm of peritoneum CT DLP: 474.60 mGycm Automated exposure control for dose reduction was used. CONTRAST: CT scan of the chest, abdomen and pelvis is performed with Oral Contrast and with IV Contrast, patien t injected with 70 ml mL of Isovue 300. FINDINGS: CT chest: Background mild to moderate underlying emphysematous change redemonstrated. There is persistent locul ated small right pleural effusion or fluid collection. There is persistent peribronchial wall thicken ing and consolidation in the right infrahilar region extending inferiorly to the base. There is a peripheral 1.5 cm parenchymal nodule in the left lung base which is similar in size compar ed to previous. There are multiple stable mediastinal lymph nodes some which are prominent and abnormal enlarged. For reference is a 1.8 x 1.2 cm paracarinal lymph node axial image 27 stable from most recent CT There are postoperative changes of cervical fusion otherwise the osseous structures are grossly intac t. New right subclavian Mediport catheter. Abnormal enlarged right axillary lymph nodes are stable or sl ightly larger, for reference is a 1.9 x 1.6 cm lymph node axial image 18 where measured 1.6 x 1.[address] abdomen and pelvis: There are postsurgical changes of a colostomy in the right lower quadrant redemonstrated. Examination is somewhat limited secondary to artifact from barium. Hepatomegaly with occasional subcentimeter hypodense lesions throughout the liver is redemonstrated. Nonsimple fluid surrounding liver redemonstrated appears similar to prior dated Right adrenal gland n ot well seen. The kidneys show symmetric cortical medullary uptake. Persistent right-sided hydronephrosis. The caliber of the abdominal aorta is normal. The bowel loops are normal in caliber. Gastrohepatic nodularity measuring near 1.9 cm axial image 66 redemonstrated. Smaller nodularity infe rior to this less well seen. Fluid encasing a significant portion of stomach is again seen. Numerous calcified phleboliths redemonstrated. Underlying scoliosis again seen. Impression: Fairly stable findings from most recent CT. No definitive new or enlarging mass or adenop athy.
== END | disposition home or self-care (01) ==
LOC: RADPROMAIN 12:04
PROVIDERS: ATTEND Internal Medicine Hematology & Oncology
DX: C48.2 Malignant neoplasm of peritoneum, unspecified (principal)
CPT/HCPCS: 82565; 84520; 71260; 74177; J1642; Q9967

== ENCOUNTER → 2022-02-11 | Outpatient (CLI) | payer MEDICARE, OTHER ==
[2022-02-11 12:49] LABS: African American GFR (CKD) >90 (>60 ml/min/1.73 sqM); Blood Urea Nitrogen 13 mg/dL (7-17); Non-African American GFR(CKD) >90 (>60 ml/min/1.73 sqM)
--- NOTE | 2022-02-15 17:13 | CT ---
EXAMINATION TYPE: CT ChestAbdPelvis w con CT DLP: 458.5 mGycm, Automated exposure control for dose reduction was used. DATE OF EXAM: 02/11/2022 1:37 PM COMPARISON: CT chest abdomen and pelvis 12/17/2021. CLINICAL INDICATION:Female, 66 years old with history of C48.2 MALIGNANT NEOPLASM OF PERITONEUM, UNSP ECIFIE; PHH, Follow up for peritoneal cancer. Technique: Multiple axial images of the chest, abdomen, and pelvis were obtained following the intrav enous administration of 100 mL Isovue-300. Two-dimensional coronal and sagittal reconstructions were obtained. Findings: CHEST: LUNGS/ PLEURA: Mild to moderate centrilobular emphysematous changes redemonstrated. Persistent locul ated small right pleural effusion or fluid collection. Persistent peribronchial wall thickening and c onsolidation in the right infrahilar region extending freely to the base. Stable peripheral 1.5 cm pu lmonary nodule in the left lung base. No new suspicious pulmonary nodules. No pneumothorax. AIRWAY: Patent and unremarkable.. HEART: Mild prominent size. No pericardial effusion.. . MEDIASTINUM: Marginal decrease in size of precarinal lymph node measuring 1.0 cm short axis, previous ly 1.2 cm. Additional mildly prominent stable subcarinal and right hilar lymph nodes. VASCULATURE: No aortic aneurysm. Right chest wall subclavian Mediport catheter with distal tip termi nating in the low SVC. Atelectatic calcification of the aorta and its branches. MUSCULOSKELETAL: No acute osseous abnormalities. Partial visualization of anterior cervical fusion gaming rdware. No aggressive osseous lesion. SOFT TISSUES/LYMPH NODES: Stable right axillary enlarged lymph nodes with largest measuring 1.3 cm sh ort axis. LOWER NECK: No significant findings. ABDOMEN: ABDOMEN LIVER: Hepatomegaly with scattered subcentimeter hypodense lesions which are too small to characteriz e no new suspicious lesions. GALLBLADDER AND BILE DUCTS: Stable mild intra and extra hepatic biliary duct dilatation. PANCREAS: The body and tail are unremarkable. The head and neck are suboptimally visualized. SPLEEN: Unremarkable. ADRENAL GLANDS: Right adrenal glands unremarkable. Stable left adrenal gland 1.2 cm nodule. KIDNEYS AND URETERS: No evidence of hydronephrosis or renal calculus. Stable moderate right extrarena l pelvis. The kidneys enhance symmetrically. PELVIS BLADDER: Incompletely distended but grossly unremarkable. REPRODUCTIVE: Unremarkable. ABDOMEN & PELVIS STOMACH AND BOWEL: Stomach is unremarkable. Postsurgical changes with colostomy in the right lower qu adrant. Enteric contrast extending to the the proximal colon. No evidence of bowel obstruction. PERITONEUM: No evidence of pneumoperitoneum or free fluid. VASCULATURE: Moderate atherosclerotic calcifications are present throughout the abdominal aorta and i ts branches. Multiple pelvic fluids. MUSCULOSKELETAL: No acute osseous abnormalities. Remote left inferior pubic ramus fracture. No aggres sive osseous lesion. Scoliosis again seen. LYMPH NODES: Stable gastrohepatic nodularity measuring up to 1.9 cm. Smaller nodular inferior is agai n seen. SOFT TISSUE/ABDOMINAL WALL: Unremarkable IMPRESSION: 1. Stable small loculated right pleural effusion with right basilar consolidation. 2. [id number] COPD changes. 3. Marginal decrease in size of precarinal lymph node. 4. Stable nodularity of the gastrohepatic ligament. No new or enlarging mass or new adenopathy within the abdomen or pelvis.
== END | disposition home or self-care (01) ==
LOC: RADCTMAIN 11:44
PROVIDERS: ATTEND Internal Medicine Hematology & Oncology
DX: C48.2 Malignant neoplasm of peritoneum, unspecified (principal); J90 Pleural effusion, not elsewhere classified; J44.9 Chronic obstructive pulmonary disease, unspecified; K76.89 Other specified diseases of liver
CPT/HCPCS: 82565; 84520; 71260; 74177; Q9967

== ENCOUNTER → 2022-05-16 | Outpatient (CLI) | payer MEDICARE, OTHER ==
[2022-05-16 13:04] VITALS: BP 92/60; PULSE 96; RESP 16; TEMP 98.5
[2022-05-16 14:51] LABS: ALT 15 U/L (4-34); AST 20 U/L (14-36); African American GFR (CKD) >90 (>60 ml/min/1.73 sqM); Albumin 3.3 g/dL (3.5-5.0); Alkaline Phosphatase 83 U/L (38-126); Anion Gap 6 mmol/L; Blood Urea Nitrogen 9 mg/dL (7-17); Calcium 7.7 mg/dL (8.4-10.2); Carbon Dioxide 30 mmol/L (22-30); Chloride 101 mmol/L (98-107); Glucose 89 mg/dL (74-99); Non-African American GFR(CKD) >90 (>60 ml/min/1.73 sqM); Potassium 2.8 mmol/L (3.5-5.1); Sodium 137 mmol/L (137-145); Total Bilirubin 0.3 mg/dL (0.2-1.3); Total Protein 5.6 g/dL (6.3-8.2)
[2022-05-16 14:54] LABS: HCT 23.4 % (34.0-46.0); MCH 35.7 pg (25.0-35.0); MCHC 33.2 g/dL (31.0-37.0); MCV 107.5 fL (80.0-100.0); Macrocytosis Moderate; Mean Platelet Volume 11.3; RBC 2.17 m/uL (3.80-5.40); RDW 14.3 % (11.5-15.5)
[2022-05-16 14:57] LABS: HGB 7.8 gm/dL (11.4-16.0); Platelet Count 28 k/uL (150-450)
[2022-05-16 15:18] LABS: Eosinophils # (M) 0.06 k/uL (0-0.7); Lymphocytes # (M) 0.81 k/uL (1.0-4.8); Monocytes # (M) 0.09 k/uL (0-1.0); Neutrophils # (M) 2.04 k/uL (1.3-7.7); Neutrophils % (M) 68 %; Nucleated Red Blood Cells 1 /100 WBC (0-0); Total Cells Counted 100
[2022-05-16 15:19] LABS: Polychromasia Present
== END ==
LOC: LABPAT 12:35
PROVIDERS: ATTEND Urology
DX: Z01.818 Encounter for other preprocedural examination (principal); N13.30 Unspecified hydronephrosis; Z88.1 Allergy status to other antibiotic agents; Z87.891 Personal history of nicotine dependence
CPT/HCPCS: 80053; 85025; 36591; J1642

== ENCOUNTER 2022-05-17 11:52 | Emergency (ER) | payer MEDICARE, OTHER ==
[2022-05-17 12:02] VITALS: BP 107/70; PULSE 82; TEMP 98.7
--- NOTE | 2022-05-17 12:19 | ED ---
Recheck HPI - General Chief Complaint: Recheck/Abnormal Lab/Rx Stated Complaint: Recheck Time Seen by Provider: 05/17/22 12:04 Source: patient, RN/MD Mode of arrival: wheelchair Limitations: no limitations - History of Present Illness Initial Comments: 's patient is a 66-year-old woman who presents to have evaluation for hypokalemia. The patient had blood drawn yesterday in preparation to have outpatient cystoscopy. When she showed up to have the procedure today, the procedure was deferred as patient was found to have potassium of 2.8 on the previous prior days blood draw. Patient denies any new symptoms. She states she does feel a little weak but states she has not had anything to eat or drink since last night for the procedure. MD Complaint: abnormal lab Onset/Timin -: days(s) Returns Today for: Called Because of Abnormal Lab/Test Symptoms Since Prior Visit: no new symptoms Associated Symptoms: none - Related Data Home Medications Medication Instructions Recorded Confirmed Gabapentin [Neurontin] 100 mg PO TID 09/28/20 05/17/22 ALPRAZolam [Xanax] 0.5 mg PO TID PRN 06/24/21 05/17/22 Metoprolol Succinate (ER) [Toprol 25 mg PO DAILY 06/24/21 05/17/22 XL] Morphine Sulfate ER [Ms Contin] 60 mg PO TID PRN 06/24/21 05/17/22 ondansetron HCL [Zofran] 8 mg PO Q6H PRN 06/24/21 05/17/22 oxyCODONE HCL [oxyCODONE HCL (IR)] 15 mg PO Q3H PRN 06/24/21 05/17/22 Prochlorperazine [Compazine] 10 mg PO Q6H PRN 05/13/22 05/17/22 Cholecalciferol [Vitamin D3 (25 50 mcg PO DAILY 05/17/22 05/17/22 Mcg = 1000 Iu)] Loratadine 10 mg PO DAILY PRN 05/17/22 05/17/22 Morphine Sulfate ER [Ms Contin] 30 mg PO TID PRN 05/17/22 05/17/22 Multivitamins, Thera [Multivitamin 1 tab PO DAILY 05/17/22 05/17/22 (formulary)] Allergies Allergy/AdvReac Type Severity Reaction Status Date / Time ciprofloxacin [From Cipro] Allergy Rash/Hives Verified 05/17/22 12:33 Review of Systems ROS Statement: Those systems with pertinent positive or pertinent negative responses have been documented in the HPI. ROS Other: All systems not noted in ROS Statement are negative. Constitutional: Denies: fever Respiratory: Denies: cough, dyspnea Cardiovascular: Denies: chest pain, palpitations Gastrointestinal: Reports: abdominal pain (Chronic). Denies: nausea, vomiting Genitourinary: Denies: dysuria, hematuria Musculoskeletal: Denies: back pain Skin: Denies: rash Neurological: Denies: headache Past Medical History Past Medical History: Cancer, COPD, Fibromyalgia, Hearing Disorder / Deafness, Hypertension, Osteoarthritis (OA) Additional Past Medical History / Comment(s): Hx of pleural effusion, thoracentesis. Tinnitis. Peritoneal cancer(chronic pain) - mets to colon, colostomy. Current swollen ankles/bruising. History of Any Multi-Drug Resistant Organisms: None Reported Past Surgical History: Bowel Resection, Hysterectomy, Orthopedic Surgery, Tubal Ligation Additional Past Surgical History / Comment(s): Neck fusion, right rotator cuff repair, colectomy with colostomy, port in right shoulder area. Past Anesthesia/Blood Transfusion Reactions: No Reported Reaction Past Psychological History: Anxiety Smoking Status: Former smoker Past Alcohol Use History: None Reported Past Drug Use History: None Reported - Past Family History Mother Family Medical History: Cancer Additional Family Medical History / Comment(s): Bone cancer. Father Family Medical History: COPD General Exam Limitations: no limitations General appearance: alert, in no apparent distress Head exam: Present: atraumatic, normocephalic Neck exam: Present: normal inspection Respiratory exam: Present: wheezes (Trace expiratory wheezing). Absent: respiratory distress, rales, rhonchi, stridor Cardiovascular Exam: Present: regular rate, normal rhythm, normal heart sounds. Absent: systolic murmur, diastolic murmur, rubs, gallop GI/Abdominal exam: Present: soft. Absent: distended, tenderness, guarding, r ebound, rigid, mass Extremities exam: Present: normal inspection, normal capillary refill. Absent: pedal edema, calf tenderness Back exam: Present: normal inspection Skin exam: Present: warm, dry, intact, normal color. Absent: rash Course Vital Signs 05/17/22 11:56 Temperature 98.7 F Pulse Rate 82 Blood Pressure 107/70 O2 Sat by Pulse 88 L Oximetry Medical Decision Making - Medical Decision Making This patient is a 66-year-old woman coming here to have further evaluation and treatment after she was found to have hypokalemia on preoperative labs. The patient was seen and evaluated, and then appears to have left without completing services. Was pt. sent in by a medical professional or institution ([facility], EUCLID OPERATOR, urgent care, hospital, or assisted...) When possible be specific @ -[Patient was recommended to be seen by anesthesiology service. Did you speak to anyone other than the patient for history (EMS, parent, family, police, friend...)? What history was obtained from this source @ -[Family present Did you review nursing and triage notes (agree or disagree)? Why? @ -[I reviewed and agree with nursing and triage notes] Were old charts reviewed (outside hosp., previous admission, EMS record, old EKG, old radiological studies, urgent care reports/EKG's, assisted records)? Report findings @ -[Previous labs reviewed Differential Diagnosis (chest pain, altered mental status, abdominal pain women, abdominal pain men, vaginal bleeding, weakness, fever, dyspnea, syncope, headache, dizziness, GI bleed, back pain, seizure, CVA, palpatations, mental health, musculoskeletal)? @ -[The differential diagnosis includes hypokalemia, lab error, and condition resolved EKG interpreted by me (3pts min.). @ -[ X-rays interpreted by me (1pt min.). @ -[None done] CT interpreted by me (1pt min.). @ -[None done] U/S interpreted by me (1pt. min.). @ -[None done] What testing was considered but not performed or refused? (CT, X-rays, U/S, labs)? Why? @ -[None] What meds were considered but not given or refused? Why? @ -[None] Did you discuss the management of the patient with other professionals (professionals i.e. [facility], EUCLID OPERATOR, lab, RT, psych nurse, social science professor, heading and priming tool setter, teacher, physics technical officer, human services case manager)? Give summary @ -[No] Was smoking cessation discussed for >3mins.? @ -[No] Was critical care preformed (if so, how long)? @ -[No] Were there social determinants of health that impacted care today? How? (Homelessness, low income, unemployed, alcoholism, drug addiction, transportation, low edu. Level, literacy, decrease access to med. care, [facility], rehab)? @ -[No] Was there de-escalation of care discussed even if they declined (Discuss DNR or withdrawal of care, Hospice)? DNR status @ -[No] What co-morbidities impacted this encounter? (DM, HTN, Smoking, COPD, CAD, Cancer, CVA, ARF, Chemo, Hep., AIDS, mental health diagnosis, sleep apnea, morbid obesity)? @ -[None] Was patient admitted / discharged? Hospital course, mention meds given and route, prescriptions, significant lab abnormalities, going to OR and other pertinent info. @ -[Patient left without completing treatment Undiagnosed new problem with uncertain prognosis? @ -[No] Drug Therapy requiring intensive monitoring for toxicity (Heparin, Nitro, Insulin, Cardizem)? @ -[No] Were any procedures done? @ -[No] Diagnosis/symptom? @ -[Hypokalemia by history Acute, or Chronic, or Acute on Chronic? @ -[Acute Uncomplicated (without systemic symptoms) or Complicated (systemic symptoms)? @ -[default] Side effects of treatment? @ -[No] Exacerbation, Progression, or Severe Exacerbation? @ -[No] Poses a threat to life or bodily function? How? (Chest pain, USA, MS, pneumonia, PE, COPD, DKA, ARF, appy, cholecystitis, CVA, Diverticulitis, Homicidal, Suicidal, threat to staff... and all critical care pts) @ -[Undetermined Disposition Clinical Impression: History of hypokalemia Disposition: Left Against Medical Advice Condition: Undetermined Is patient prescribed a controlled substance at d/c from ED?: No Referrals: Isaias Hay MD [Primary Care Provider] - 1-2 days
== END 2022-05-17 12:35 | disposition left against medical advice (07) ==
LOC: EC 11:52
DX: E87.6 Hypokalemia (principal); J44.9 Chronic obstructive pulmonary disease, unspecified; I10 Essential (primary) hypertension; F41.9 Anxiety disorder, unspecified; Z53.29 Procedure and treatment not carried out because of patient's decision for other reasons; Z79.899 Other long term (current) drug therapy; Z88.1 Allergy status to other antibiotic agents; Z98.51 Tubal ligation status; Z90.710 Acquired absence of both cervix and uterus; Z87.891 Personal history of nicotine dependence; Z93.3 Colostomy status
CPT/HCPCS: 99284

== ENCOUNTER → 2022-05-17 | Day surgery (SDC) | payer MEDICARE, OTHER ==
[2022-05-13 14:32] VITALS: BMI 20.9
[~2022-05-17] MED LIST changes: +DEXAMETHASONE SOD PHOSPHATE 4 MG/ML 1 ML VIAL IV ONE; -GLUCAGON 1 MG/ML VIAL ONE; +HYDROmorphone 0.5 MG/0.5 ML SYRINGE IVP PRN; -LIDOCAINE 1% (10MG/ML) FOR IV START INTRADERMA ONE; -LIDOCAINE 1% INJ 10MG/ML (20 ML MDV) ONE; +ONDANSETRON 4 MG/2 ML VIAL IVP ONE; -PROPOFOL 10 MG/ML 20 ML VIAL IV ONE
--- NOTE | 2022-05-17 09:09 | P.HPIHPCON ---
History of Present Illness H&P Date: 05/17/22 Chief Complaint: Bilateral hydronephrosis This is a 66-year-old female with history of peritoneal cancer, and evidence of bilateral mild hydronephrosis. She is having bilateral flank pain. Discussed with her pain could be related to the hydronephrosis, but there is also po tential that is secondary to her cancer. Discussed the option of doing a bilateral retrograde pyelogram with possible stent insertion. I discussed tje images with her and her son in details and discussed there is evidence of hydronephrosis on both kidneys it's fairly mild, but discussed if there is evidence of obstruction then we'll proceed with stent insertion. Discussed with her the risk of surgery which includes but not limited to bleeding, infection, injury to the ureter. Discussed also the need of stent exchange every 3-4 months given the risk of encrustation. Risk of anesthesia was also discussed with her. She understood all the risk and agreed to proceed Consent for Procedure: I have explained the operation/procedure to the patient, including the risks, benefits, side effects, alternative therapies (including not receiving the proposed treatment or service), the likelihood of the patient achieving his/her goals, and potential recuperation problems for the procedure/sedation/analgesia, as well as any blood products, if indicated. I also explained to the patient the risks, benefits and side effects of the alternatives, as well as the risks relat ed to not receiving the proposed procedure, care, treatment, or services. Past Medical History Past Medical History: Cancer, COPD, Fibromyalgia, Hearing Disorder / Deafness, Hypertension, Osteoarthritis (OA) Additional Past Medical History / Comment(s): Hx of pleural effusion, thoracentesis. Tinnitis. Peritoneal cancer(chronic pain) - mets to colon, colostomy. Current swollen ankles/bruising. History of Any Multi-Drug Resistant Organisms: None Reported Past Surgical History: Bowel Resection, Hysterectomy, Orthopedic Surgery, Tubal Ligation Additional Past Surgical History / Comment(s): Neck fusion, right rotator cuff repair, colectomy with colostomy, port in right shoulder area. Past Anesthesia/Blood Transfusion Reactions: No Reported Reaction Past Psychological History: Anxiety Smoking Status: Former smoker Past Alcohol Use History: None Reported Additional Past Alcohol Use History / Comment(s): Quit smoking 03/2020, smoked 1/2ppd from teens. Past Drug Use History: None Reported - Past Family History Mother Family Medical History: Cancer Additional Family Medical History / Comment(s): Bone cancer. Father Family Medical History: COPD Medications and Allergies Home Medications Medication Instructions Recorded Confirmed Type Gabapentin [Neurontin] 100 mg PO TID 09/28/20 05/16/22 History ALPRAZolam [Xanax] 0.5 mg PO TID PRN 06/24/21 05/16/22 History Metoprolol Succinate (ER) [Toprol 12.5 mg PO BID 06/24/21 05/16/22 History XL] Morphine Sulfate ER [Ms Contin] 60 mg PO QID 06/24/21 05/16/22 History ondansetron HCL [Zofran] 8 mg PO Q6H PRN 06/24/21 05/16/22 History oxyCODONE HCL [oxyCODONE HCL (IR)] 15 mg PO Q3H PRN 06/24/21 05/16/22 History Prochlorperazine [Compazine] 10 mg PO Q6H PRN 05/13/22 05/16/22 History Allergies Allergy/AdvReac Type Severity Reaction Status Date / Time ciprofloxacin [From Cipro] Allergy Rash/Hives Verified 05/16/22 12:53 Surgical - Exam - General no distress, no pain - Eyes normal ocular movement, no pale - ENT normal nares, normal mucosa - Respiratory normal expansion, normal respiratory effort - Psychiatric oriented to time, oriented to person, oriented to place Assessment and Plan Assessment: OR for cystoscopy, bilateral retrograde pyelogram and possible stent insertion
== END ==
LOC: OR 10:43
PROVIDERS: ATTEND Urology
DX: Z53.9 Procedure and treatment not carried out, unspecified reason (principal); N13.30 Unspecified hydronephrosis

== ENCOUNTER 2022-07-18 13:39 | Emergency (ER) | payer MEDICARE, OTHER ==
--- NOTE | 2022-07-18 14:19 | ED ---
General Adult HPI - General Chief complaint: Shortness of Breath Stated complaint: SOB, Abd Pain Time Seen by Provider: 07/18/22 13:57 Source: patient Mode of arrival: wheelchair Limitations: no limitations - History of Present Illness Initial comments: This patient is a 66-year-old woman with history of COPD and also history of peritoneal cancer, who presents with 2 weeks of worsening of her respiratory status. She states initially she was noting dyspnea with exertion. This progressed to the point that she now is having some dyspnea at rest. She denied fever or chills. No productive cough. She states she does have a little bit of nonproductive cough due to COPD. In addition she has been having some intermittent abdominal pains that she states can be anywhere through her abdomen. She has not noted any change in the output of her ostomy. No change in urination. No leg pain or swelling. Onset/Timin -: week(s) Location: abdomen Radiation: non-radiation Quality: dull Consistency: intermittent Improves with: none Worsens with: none Associated Symptoms: denies other symptoms - Related Data Home Medications Medication Instructions Recorded Confirmed Gabapentin [Neurontin] 100 mg PO TID 09/28/20 07/18/22 ALPRAZolam [Xanax] 0.5 mg PO TID PRN 06/24/21 07/18/22 Morphine Sulfate ER [Ms Contin] 60 mg PO BID 06/24/21 07/18/22 ondansetron HCL [Zofran] 8 mg PO Q6H PRN 06/24/21 07/18/22 oxyCODONE HCL [oxyCODONE HCL (IR)] 15 mg PO Q3H PRN 06/24/21 07/18/22 Prochlorperazine [Compazine] 10 mg PO Q6H PRN 05/13/22 07/18/22 Loratadine 10 mg PO DAILY 05/17/22 07/18/22 Morphine Sulfate ER [Ms Contin] 30 mg PO BID 05/17/22 07/18/22 OLANZapine [ZyPREXA] 2.5 mg PO HS 07/18/22 07/18/22 Potassium Chloride ER [K-Dur 20] 20 meq PO BID 07/18/22 07/18/22 Previous Rx's Medication Instructions Recorded Azithromycin [Zithromax] 0 mg PO DIRECTED #6 tab 07/18/22 predniSONE [Deltasone] 20 mg PO BID #8 tab 07/18/22 Allergies Allergy/AdvReac Type Severity Reaction Status Date / Time ciprofloxacin [From Cipro] Allergy Rash/Hives Verified 07/18/22 17:52 Review of Systems ROS Statement: Those systems with pertinent positive or pertinent negative responses have been documented in the HPI. ROS Other: All systems not noted in ROS Statement are negative. Constitutional: Denies: fever, chills, weakness Respiratory: Reports: dyspnea, wheezes. Denies: cough, hemoptysis Cardiovascular: Reports: dyspnea on exertion. Denies: chest pain, palpitations, orthopnea, edema, syncope Gastrointestinal: Reports: abdominal pain, nausea. Denies: vomiting, diarrhea, constipation, melena, hematochezia Genitourinary: Denies: dysuria, hematuria Musculoskeletal: Denies: back pain Skin: Denies: rash Neurological: Denies: headache, weakness, numbness Past Medical History Past Medical History: Cancer, COPD, Fibromyalgia, Hearing Disorder / Deafness, Hypertension, Osteoarthritis (OA) Additional Past Medical History / Comment(s): Hx of pleural effusion, thoracentesis. Tinnitis. Peritoneal cancer(chronic pain) - mets to colon, colostomy. Current swollen ankles/bruising. History of Any Multi-Drug Resistant Organisms: None Reported Past Surgical History: Bowel Resection, Hysterectomy, Orthopedic Surgery, Tubal Ligation Additional Past Surgical History / Comment(s): Neck fusion, right rotator cuff repair, colectomy with colostomy, port in right shoulder area. Past Anesthesia/Blood Transfusion Reactions: No Reported Reaction Past Psychological History: Anxiety Smoking Status: Former smoker Past Alcohol Use History: None Reported Past Drug Use History: None Reported - Past Family History Mother Family Medical History: Cancer Additional Family Medical History / Comment(s): Bone cancer. Father Family Medical History: COPD General Exam Limitations: no limitations General appearance: alert, in no apparent distress Head exam: Present: atraumatic, normocephalic Eye exam: Present: normal appearance. Absent: scleral icterus, conjunctival injection ENT exam: Present: mucous membranes dry Neck exam: Present: normal inspection Respiratory exam: Present: normal lung sounds bilaterally, wheezes, decreased breath sounds (Right base). Absent: respiratory distress, rales, rhonchi, stridor Cardiovascular Exam: Present: regular rate, normal rhythm, normal heart sounds. Absent: systolic murmur, diastolic murmur, rubs, gallop GI/Abdominal exam: Present: soft. Absent: distended, tenderness, guarding, rebound, rigid, mass Extremities exam: Present: normal inspection, normal capillary refill. Absent: pedal edema, calf tenderness Back exam: Present: normal inspection. Absent: CVA tenderness (R), CVA tenderness (L) Neurological exam: Present: alert Skin exam: Present: warm, dry, intact, normal color. Absent: rash Course Vital Signs 07/18/22 07/18/22 07/18/22 13:40 17:33 18:26 Temperature 97.7 F 98.0 F Pulse Rate 99 96 77 Respiratory 22 17 18 Rate Blood Pressure 103/69 99/67 O2 Sat by Pulse 94 L 96 Oximetry 07/18/22 07/18/22 07/18/22 18:32 18:45 19:44 Temperature 98.0 F 98.3 F Pulse Rate 78 88 83 Respiratory 18 20 17 Rate Blood Pressure 107/50 110/57 O2 Sat by Pulse 98 98 Oximetry EKG Findings - EKG Results: EKG: interpreted by ERMAmy (I interpreted), sinus rhythm (Rate 87 bpm), normal axis - Blocks, Panther, Hypertrophy, ST Abn: Repolarization changes or abnormalities: nonspecific abnormality, ST segment, and/or T wave Medical Decision Making - Medical Decision Making This patient is 66-year-old woman with history of COPD and stage III peritoneal cancer. On arrival she was having moderate COPD symptoms and it appeared that she would require admission. I therefore discussed case with her primary physician and he did agree to admit this. Subsequently the patient was feeling better and I discussed with her her wishes to go home. She will have course of antibiotic, steroids, continue her inhaled medications and will have close fo llow-up. We discussed returning should she not have improvement or be feeling any worse. The patient had chest x-ray which I interpreted as showing COPD changes without acute infiltrate or pneumothorax. Abdominal x-ray obtained which I interpreted as not showing free air or obstruction Was pt. sent in by a medical professional or institution (, PA, VEGETABLE GRADER, urgent care, hospital, or halfway...) When possible be specific @ -[No] Did you speak to anyone other than the patient for history (EMS, parent, family, police, friend...)? What history was obtained from this source @ -[No] Did you review nursing and triage notes (agree or disagree)? Why? @ -[I reviewed and agree with nursing and triage notes] Were old charts reviewed (outside hosp., previous admission, EMS record, old EKG, old radiological studies, urgent care reports/EKG's, halfway records)? Report findings @ -[ old charts were reviewed] Differential Diagnosis (chest pain, altered mental status, abdominal pain women, abdominal pain men, vaginal bleeding, weakness, fever, dyspnea, syncope, headache, dizziness, GI bleed, back pain, seizure, CVA, palpatations, mental health, musculoskeletal)? @ -[Differential Dyspnea: Coronary syndrome, arrhythmia, tamponade, asthma, COPD, pulmonary embolism, pneumonia, pneumothorax, pulmonary effusion, anaphylaxis, diabetic ketoacidosis, flailed chest, pulmonary contusion, diaphragmatic rupture, anemia, neuromuscular, this is not meant to be an all-inclusive list. EKG interpreted by me (3pts min.). @ -[As above] X-rays interpreted by me (1pt min.). @ -[As above CT interpreted by me (1pt min.). @ -[None done] U/S interpreted by me (1pt. min.). @ -[None done] What testing was considered but not performed or refused? (CT, X-rays, U/S, labs)? Why? @ -[None] What meds were considered but not given or refused? Why? @ -[None] Did you discuss the management of the patient with other professionals (professionals i.e. , PA, VEGETABLE GRADER, lab, RT, psych nurse, protective services social worker, asbestos siding mechanic, teacher, safety and security officer, case managers)? Give summary @ -[No] Was smoking cessation discussed for >3mins.? @ -[No] Was critical care preformed (if so, how long)? @ -[No] Were there social determinants of health that impacted care today? How? (Home lessness, low income, unemployed, alcoholism, drug addiction, transportation, low edu. Level, literacy, decrease access to med. care, senior living, rehab)? @ -[No] Was there de-escalation of care discussed even if they declined (Discuss DNR or withdrawal of care, Hospice)? DNR status @ -[No] What co-morbidities impacted this encounter? (DM, HTN, Smoking, COPD, CAD, Cancer, CVA, ARF, Chemo, Hep., AIDS, mental health diagnosis, sleep apnea, morbid obesity)? @ -[Cancer and COPD Was patient admitted / discharged? Hospital course, mention meds given and route, prescriptions, significant lab abnormalities, going to OR and other pertinent info. @ -[See above, discharged Undiagnosed new problem with uncertain prognosis? @ -[No] Drug Therapy requiring intensive monitoring for toxicity (Heparin, Nitro, Insulin, Cardizem)? @ -[No] Were any procedures done? @ -[No] Diagnosis/symptom? @ -COPD exacerbation Acute, or Chronic, or Acute on Chronic? @ -[Acute on chronic Uncomplicated (without systemic symptoms) or Complicated (systemic symptoms)? @ -[Uncomplicated Side effects of treatment? @ -[No] Exacerbation, Progression, or Severe Exacerbation? @ -[No] Poses a threat to life or bodily function? How? (Chest pain, USA, ME, pneumonia, PE, COPD, DKA, ARF, appy, cholecystitis, CVA, Diverticulitis, Homicidal, Suicidal, threat to staff... and all critical care pts) @ -[No] - Lab Data Result diagrams: 07/18/22 14:41 07/18/22 14:41 Lab Results 07/18/22 07/18/22 07/18/22 Range/Units 14:41 14:41 14:41 WBC 4.3 (3.8-10.6) k/uL RBC 2.82 L (3.80-5.40) m/uL Hgb 9.8 L D (11.4-16.0) gm/dL Hct 30.3 L (34.0-46.0) % MCV 107.6 H (80.0-100.0) fL MCH 34.7 (25.0-35.0) pg MCHC 32.3 (31.0-37.0) g/dL RDW 14.0 (11.5-15.5) % Plt Count 95 L D (150-450) k/uL MPV 8.8 Neutrophils % 74 % Lymphocytes % 16 % Monocytes % 7 % Eosinophils % 2 % Basophils % 0 % Neutrophils # 3.1 (1.3-7.7) k/uL Lymphocytes # 0.7 L (1.0-4.8) k/uL Monocytes # 0.3 (0-1.0) k/uL Eosinophils # 0.1 (0-0.7) k/uL Basophils # 0.0 (0-0.2) k/uL Manual Slide Review Performed Hypochromasia Slight Macrocytosis Moderate PT 10.7 (9.0-12.0) sec INR 1.0 (<1.2) APTT 26.3 (22.0-30.0) sec D-Dimer 3.43 H (<0.60) mg/L FEU Sodium 134 L (137-145) mmol/L Potassium 3.7 (3.5-5.1) mmol/L Chloride 98 (98-107) mmol/L Carbon Dioxide 31 H (22-30) mmol/L Anion Gap 5 mmol/L BUN 11 (7-17) mg/dL Creatinine 0.75 (0.52-1.04) mg/dL Est GFR (CKD-EPI)AfAm >90 (>60 ml/min/1.73 sqM) Est GFR (CKD-EPI)NonAf 84 (>60 ml/min/1.73 sqM) Glucose 98 (74-99) mg/dL Plasma Lactic Acid Andrzej (0.7-2.0) mmol/L Calcium 8.7 (8.4-10.2) mg/dL Total Bilirubin 0.3 (0.2-1.3) mg/dL AST 32 (14-36) U/L ALT 23 (4-34) U/L Alkaline Phosphatase 156 H (38-126) U/L Troponin I (0.000-0.034) ng/mL NT-Pro-B Natriuret Pep pg/mL Total Protein 5.7 L (6.3-8.2) g/dL Albumin 3.2 L (3.5-5.0) g/dL Urine Color Urine Appearance (Clear) Urine pH (5.0-8.0) Ur Specific [place] (1.001-1.035) Urine Protein (Negative) Urine Glucose (UA) (Negative) Urine Ketones (Negative) Urine Blood (Negative) Urine Nitrite (Negative) Urine Bilirubin (Negative) Urine Urobilinogen (<2.0) mg/dL Ur Leukocyte Esterase (Negative) Urine RBC (0-5) /hpf Urine WBC (0-5) /hpf Ur Squamous Epith Cells (0-4) /hpf Urine Bacteria (None) /hpf Hyaline Casts (0-2) /lpf Urine Mucus (None) /hpf 07/18/22 07/18/22 07/18/22 Range/Units 14:41 14:41 14:41 WBC (3.8-10.6) k/uL RBC (3.80-5.40) m/uL Hgb (11.4-16.0) gm/dL Hct (34.0-46.0) % MCV (80.0-100.0) fL MCH (25.0-35.0) pg MCHC (31.0-37.0) g/dL RDW (11.5-15.5) % Plt Count (150-450) k/uL MPV Neutrophils % % Lymphocytes % % Monocytes % % Eosinophils % % Basophils % % Neutrophils # (1.3-7.7) k/uL Lymphocytes # (1.0-4.8) k/uL Monocytes # (0-1.0) k/uL Eosinophils # (0-0.7) k/uL Basophils # (0-0.2) k/uL Manual Slide Review Hypochromasia Macrocytosis PT (9.0-12.0) sec INR (<1.2) APTT (22.0-30.0) sec D-Dimer (<0.60) mg/L FEU Sodium (137-145) mmol/L Potassium (3.5-5.1) mmol/L Chloride (98-107) mmol/L Carbon Dioxide (22-30) mmol/L Anion Gap mmol/L BUN (7-17) mg/dL Creatinine (0.52-1.04) mg/dL Est GFR (CKD-EPI)AfAm (>60 ml/min/1.73 sqM) Est GFR (CKD-EPI)NonAf (>60 ml/min/1.73 sqM) Glucose (74-99) mg/dL Plasma Lactic Acid Andrzej 0.8 (0.7-2.0) mmol/L Calcium (8.4-10.2) mg/dL Total Bilirubin (0.2-1.3) mg/dL AST (14-36) U/L ALT (4-34) U/L Alkaline Phosphatase (38-126) U/L Troponin I <0.012 (0.000-0.034) ng/mL NT-Pro-B Natriuret Pep 109 pg/mL Total Protein (6.3-8.2) g/dL Albumin (3.5-5.0) g/dL Urine Color Urine Appearance (Clear) Urine pH (5.0-8.0) Ur Specific [place] (1.001-1.035) Urine Protein (Negative) Urine Glucose (UA) (Negative) Urine Ketones (Negative) Urine Blood (Negative) Urine Nitrite (Negative) Urine Bilirubin (Negative) Urine Urobilinogen (<2.0) mg/dL Ur Leukocyte Esterase (Negative) Urine RBC (0-5) /hpf Urine WBC (0-5) /hpf Ur Squamous Epith Cells (0-4) /hpf Urine Bacteria (None) /hpf Hyaline Casts (0-2) /lpf Urine Mucus (None) /hpf 07/18/22 Range/Units 15:47 WBC (3.8-10.6) k/uL RBC (3.80-5.40) m/uL Hgb (11.4-16.0) gm/dL Hct (34.0-46.0) % MCV (80.0-100.0) fL MCH (25.0-35.0) pg MCHC (31.0-37.0) g/dL RDW (11.5-15.5) % Plt Count (150-450) k/uL MPV Neutrophils % % Lymphocytes % % Monocytes % % Eosinophils % % Basophils % % Neutrophils # (1.3-7.7) k/uL Lymphocytes # (1.0-4.8) k/uL Monocytes # (0-1.0) k/uL Eosinophils # (0-0.7) k/uL Basophils # (0-0.2) k/uL Manual Slide Review Hypochromasia Macrocytosis PT (9.0-12.0) sec INR (<1.2) APTT (22.0-30.0) sec D-Dimer (<0.60) mg/L FEU Sodium (137-145) mmol/L Potassium (3.5-5.1) mmol/L Chloride (98-107) mmol/L Carbon Dioxide (22-30) mmol/L Anion Gap mmol/L BUN (7-17) mg/dL Creatinine (0.52-1.04) mg/dL Est GFR (CKD-EPI)AfAm (>60 ml/min/1.73 sqM) Est GFR (CKD-EPI)NonAf (>60 ml/min/1.73 sqM) Glucose (74-99) mg/dL Plasma Lactic Acid Andrzej (0.7-2.0) mmol/L Calcium (8.4-10.2) mg/dL Total Bilirubin (0.2-1.3) mg/dL AST (14-36) U/L ALT (4-34) U/L Alkaline Phosphatase (38-126) U/L Troponin I (0.000-0.034) ng/mL NT-Pro-B Natriuret Pep pg/mL Total Protein (6.3-8.2) g/dL Albumin (3.5-5.0) g/dL Urine Color Yellow Urine Appearance Cloudy H (Clear) Urine pH 6.0 (5.0-8.0) Ur Specific [place] 1.037 H (1.001-1.035) Urine Protein 1+ H (Negative) Urine Glucose (UA) Negative (Negative) Urine Ketones Negative (Negative) Urine Blood Trace H (Negative) Urine Nitrite Negative (Negative) Urine Bilirubin Negative (Negative) Urine Urobilinogen 2.0 (<2.0) mg/dL Ur Leukocyte Esterase Large H (Negative) Urine RBC 13 H (0-5) /hpf Urine WBC 20 H (0-5) /hpf Ur Squamous Epith Cells 10 H (0-4) /hpf Urine Bacteria Rare H (None) /hpf Hyaline Casts 10 H (0-2) /lpf Urine Mucus Many H (None) /hpf Disposition Clinical Impression: COPD exacerbation Disposition: HOME SELF-CARE Condition: Good Instructions (If sedation given, give patient instructions): COPD (Chronic Obstructive Pulmonary Disease) (ED) Prescriptions: predniSONE [Deltasone] 20 mg PO BID #8 tab Azithromycin [Zithromax] 0 mg PO DIRECTED #6 tab Is patient prescribed a controlled substance at d/c from ED?: No Referrals: Isaias Hay MD [Primary Care Provider] - 1-2 days
[2022-07-18 14:56] LABS: Basophils % (A) 0 %; Eosinophils # (A) 0.1 k/uL (0-0.7); Eosinophils % (A) 2 %; HCT 30.3 % (34.0-46.0); Hypochromasia Slight; Lymphocytes # (A) 0.7 k/uL (1.0-4.8); Lymphocytes % (A) 16 %; MCH 34.7 pg (25.0-35.0); MCHC 32.3 g/dL (31.0-37.0); MCV 107.6 fL (80.0-100.0); Macrocytosis Moderate; Mean Platelet Volume 8.8; Monocytes # (A) 0.3 k/uL (0-1.0); Monocytes % (A) 7 %; Neutrophils # (A) 3.1 k/uL (1.3-7.7); Neutrophils % (A) 74 %; RBC 2.82 m/uL (3.80-5.40); WBC 4.3 k/uL (3.8-10.6)
[2022-07-18 15:01] LABS: HGB 9.8 gm/dL (11.4-16.0)
--- NOTE | 2022-07-18 15:07 | XR ---
EXAMINATION TYPE: XR chest 2V DATE OF EXAM: 07/18/2022 COMPARISON: CT February 11, 2022 HISTORY: Difficulty in breathing. TECHNIQUE: Frontal and lateral views of the chest are obtained. FINDINGS: Background chronic emphysematous change redemonstrated. Stable right subclavian Mediport c atheter. Worsening right apical and basilar opacities. Left lung remains clear. Mild cardiomegaly red emonstrated. Anterior fusion plate in the cervical spine is noted. IMPRESSION: Chronic emphysematous change with small right pleural effusion and right upper and lower lung acute infiltrates and/or atelectasis are all more prominent from most recent CT.
[2022-07-18 15:08] LABS: ALT 23 U/L (4-34); AST 32 U/L (14-36); African American GFR (CKD) >90 (>60 ml/min/1.73 sqM); Albumin 3.2 g/dL (3.5-5.0); Alkaline Phosphatase 156 U/L (38-126); Anion Gap 5 mmol/L; Blood Urea Nitrogen 11 mg/dL (7-17); Calcium 8.7 mg/dL (8.4-10.2); Carbon Dioxide 31 mmol/L (22-30); Chloride 98 mmol/L (98-107); Glucose 98 mg/dL (74-99); Non-African American GFR(CKD) 84 (>60 ml/min/1.73 sqM); Potassium 3.7 mmol/L (3.5-5.1); Sodium 134 mmol/L (137-145); Total Bilirubin 0.3 mg/dL (0.2-1.3); Total Protein 5.7 g/dL (6.3-8.2)
[2022-07-18 15:09] LABS: Partial Thromboplastin Time 26.3 sec (22.0-30.0); Prothrombin Time 10.7 sec (9.0-12.0)
--- NOTE | 2022-07-18 15:09 | XR ---
EXAMINATION TYPE: XR KUB DATE OF EXAM: 07/18/2022 2:53 PM CLINICAL HISTORY: Abdominal pain TECHNIQUE: Single supine KUB image of the abdomen is obtained. COMPARISON: CT February 11, 2022 FINDINGS: Some paucity of bowel gas. Contrast seen in nondistended colon. Mid abdominal calcification s from chronic pancreatitis are present. Underlying scoliosis is seen. Entire right pelvis is not inc luded. The left lung base is clear IMPRESSION: Overall nonobstructive bowel gas pattern.
[2022-07-18 15:30] LABS: Platelet Count 95 k/uL (150-450)
[2022-07-18 16:07] LABS: Appearance,Urine Cloudy (Clear); Bacteria,Urine Rare /hpf; Bilirubin,Urine Negative (Negative); Blood,Urine Trace (Negative); Color,Urine Yellow; Glucose,Urine (UA) Negative (Negative); Hyaline Casts,Urine 10 /lpf (0-2); Ketones,Urine Negative (Negative); Leukocyte Esterase,Urine Large (Negative); Mucus,Urine Many /hpf; Nitrite,Urine Negative (Negative); Protein,Urine 1+ (Negative); RBC,Urine 13 /hpf (0-5); Specific Gravity,Urine 1.037 (1.001-1.035); Squamous Epithelial Cell,Urine 10 /hpf (0-4); WBC,Urine 20 /hpf (0-5)
[2022-07-18] MEDS ORDERED: ALBUTEROL NEBULIZED 2.5 MG/3 ML INHALATION STA ×2 (16:30→16:31)
[2022-07-18] MEDS ORDERED: predniSONE 20 MG TAB PO STA (16:30)
[2022-07-18] MEDS ORDERED: AZITHROMYCIN 500 MG TAB PO STA (16:30)
[2022-07-18] MEDS ORDERED: NALOXONE 0.4 MG/ML 1 ML VIAL IVP PRN (17:30)
[2022-07-18] MEDS ORDERED: IPRATROPIUM-ALBUTEROL 3 ML NEB INHALATION PRN (17:30)
[2022-07-18] MEDS ORDERED: RX INFO: IV CONTRAST WAS GIVEN 1 EACH MISC MISCELLANE PRN (17:55)
[2022-07-18 19:45] VITALS: BP 110/57; PULSE 83; RESP 17; TEMP 98.3
[2022-07-18] MEDS ORDERED: BUDESONIDE 0.5 MG/2 ML NEBU INHALATION SCH (20:00)
[2022-07-18] MEDS ORDERED: IPRATROPIUM-ALBUTEROL 3 ML NEB INHALATION SCH (20:00)
[2022-07-18] MEDS ORDERED: HEPARIN SODIUM,PORCINE/PF 5,000 UNIT/0.5 ML SYRINGE SQ SCH (21:00)
--- NOTE | 2022-07-18 21:14 | HP ---
HISTORY AND PHYSICAL HISTORY OF PRESENT ILLNESS: Female came in with hypoxemic respiratory distress, oxygen level in the 80s. She has a history of COPD and peritoneal cancer, presenting for the 2 weeks of worsening respiratory status. She has had some dyspnea at rest, some intermittent abdominal pain, . No leg swelling. HOME MEDICATIONS: 1. Neurontin 100 t.i.d. 2. Xanax 0.5 t.i.d. 3. Toprol-XL 25 daily. 4. MS Contin 60 t.i.d. 5. Zofran 8 mg q.6 p.r.n. 6. Oxycodone IR 15 mg q.3. 7. Compazine 10 mg q.6. 8. Loratadine 10 mg daily. 9. MS Contin 30 t.i.d. 10.Multivitamin daily. ALLERGIES: Cipro. REVIEW OF SYSTEMS: Fourteen-point review of systems otherwise is negative as mentioned above. She has cough, congestion, and hypoxemia. Oxygen level is low into the 80s. Otherwise, negative. 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 PAST SURGICAL HISTORY: Bowel surgery, hysterectomy, orthopedic surgery, tubal ligation, and rotator cuff repair. FAMILY HISTORY: Mother with cancer of the bone. Father, COPD. PHYSICAL EXAMINATION: VITAL SIGNS: Temperature 97.7, pulse 90 to 99, blood pressure 103/69, O2 of 94%, respiratory rate 22. CARDIOVASCULAR: S1 and S2. LUNGS: Decreased breath sounds x4. HEENT: Normocephalic and atraumatic. Pupils are equal, round, and reactive. BACK: Normal. NEUROLOGIC: Cranial nerves intact. LABORATORY DATA: Hemoglobin is at 9.8, white count is 4.3. Sodium 134, potassium 3.7. ASSESSMENT AND PLAN: [id number] hypoxemic respiratory failure secondary to chronic obstructive pulmonary disease exacerbation and retroperitoneal cancer. Prognosis is guarded. Please see further orders in the chart. Elevated D-dimer. Do the CT of the chest. MMODL / IJN: [id number] /
[2022-07-19] MEDS ORDERED: methylPREDNISolone SOD SUCCI 40 MG/ML 1 ML VIAL IV SCH
[2022-07-19] MEDS ORDERED: AZITHROMYCIN 500 MG TAB PO SCH (09:00)
[2022-07-19] MEDS ORDERED: predniSONE 20 MG TAB PO SCH (09:00)
== END 2022-07-18 19:44 | disposition home or self-care (01) ==
LOC: EC 13:39 → UNDOADMOB 17:30 → 4SSUR 17:30 → EC 19:44
DX: J44.1 Chronic obstructive pulmonary disease with (acute) exacerbation (principal); I10 Essential (primary) hypertension; M19.90 Unspecified osteoarthritis, unspecified site; Z79.899 Other long term (current) drug therapy; Z88.1 Allergy status to other antibiotic agents; Z87.891 Personal history of nicotine dependence
CPT/HCPCS: 36415; 94640; 93005; 85379; 83880; 80053; 83605; 84484; 85025; 85610; 85730; 81001; 87086; 71046; 74018; 99285; 96365; J0696; J7512

== ENCOUNTER → 2022-07-22 | Outpatient (CLI) | payer MEDICARE, OTHER ==
--- NOTE | 2022-07-22 12:47 | CT ---
EXAMINATION TYPE: CT chest w con DATE OF EXAM: 07/22/2022 COMPARISON: 02/11/2022 HISTORY: peritoneal CA CT DLP: 109.4 mGycm Automated exposure control for dose reduction was used. CONTRAST: CT scan of the chest is performed with IV Contrast, patient injected with 100 mL of Isovue 300. FINDINGS: LUNGS: Increasing nondescript right lower lobe parenchymal opacity with loculated fluid collection. U nderlying neoplasm is not excluded. There is also loculated collection within the right upper lobe wh ich has increased and currently measures 6.5 x 6.6 cm versus prior measurement of a 4.9 x 4.7 cm. Aer ated lung demonstrates increased interstitial pattern which could reflect interstitial spread of neop lasm. The left lung demonstrates stable enhancing nodular density at its lower lobe image 46 sequence 4 which measures 1.1 cm versus 1.1 cm previously. MEDIASTINUM: There are no greater than 1 cm hilar or mediastinal lymph nodes. No pericardial effusi on is seen. Thoracic aorta is of normal caliber. The heart is not enlarged. UPPER ABDOMEN: Pancreatic calcifications compatible with chronic pancreatitis. Small amount of fluid surrounds the stomach. OTHER: Persistent right axillary adenopathy measuring up to 1.2 cm short axis versus 1.3 cm previous ly. Enlarging left axillary lymph node measuring 1.5 cm short axis versus 1 cm previously. There are a couple of adjacent small subcentimeter lymph nodes noted as well. IMPRESSION: 1. Increasing right lower lobe parenchymal opacity with loculated pleural effusion may reflect infil trate however underlying neoplasm is not excluded. As noted there is increased interstitial appearanc e throughout the right lung which could reflect interstitial carcinomatosis. 2. Loculated right apical pleural effusion. 3. Axillary adenopathy with enlarged lymph node left axilla relative to prior study.
== END | disposition home or self-care (01) ==
LOC: RADPROMAIN 11:03
PROVIDERS: ATTEND Internal Medicine Critical Care Medicine
DX: J90 Pleural effusion, not elsewhere classified (principal); R59.0 Localized enlarged lymph nodes; R06.02 Shortness of breath
CPT/HCPCS: 82565; 84520; 71260; J1642; Q9967

== ENCOUNTER 2022-08-25 13:48 | Inpatient (IN) | payer MEDICARE, OTHER ==
[2022-08-25] MEDS ORDERED: ALBUTEROL NEBULIZED 2.5 MG/3 ML INHALATION STA (14:05)
[2022-08-25] MEDS ORDERED: IPRATROPIUM 0.5 MG/2.5 ML NEBU INHALATION STA (14:05)
[2022-08-25] MEDS ORDERED: methylPREDNISolone SOD SUCCI 125 MG/2 ML VIAL IV STA (14:06)
--- NOTE | 2022-08-25 14:10 | ED ---
General Adult HPI - General Source: patient, RN notes reviewed, old records reviewed Mode of arrival: ambulatory Limitations: no limitations <Poncho Gannon - Last Filed: 08/25/22 15:02> - General Source: RN notes reviewed, old records reviewed Mode of arrival: ambulatory Limitations: no limitations - History of Present Illness -: days(s) Radiation: non-radiation Severity scale (1-10): 7 Quality: sharp Consistency: constant Improves with: none Worsens with: none Associated Symptoms: chest pain, cough, shortness of breath, weakness Treatments Prior to Arrival: none <Poncho Friedman - Last Filed: 08/25/22 16:59> - General Chief complaint: Shortness of Breath Stated complaint: chest pain, sob Time Seen by Provider: 08/25/22 14:00 - History of Present Illness Initial comments: This is a 66-year-old female with a past medical history significant for peritoneal cancer and COPD history. Patient comes in today because she stating that last few days she's been short of breath and been having lateral rib pain bilaterally. Patient thinks is because she's been breathing so hard. Patient states she had chemotherapy one month ago and is due again this month. Patient denies any fever or chills. Patient denies any anterior chest pain. Patient de nies any abdominal pain patient denies nausea vomiting. Patient denies any swollen to the legs or calf tenderness. Patient denies any syncopal or near syncopal episodes. (Poncho Gannon) 66 female with history of peritoneal cancer coming in for shortness of breath and worsening COPD worsening symptoms of chest pain. (Poncho Friedman) - Related Data Home Medications Medication Instructions Recorded Confirmed Gabapentin [Neurontin] 100 mg PO BID 09/28/20 08/25/22 ALPRAZolam [Xanax] 0.5 mg PO TID PRN 06/24/21 08/25/22 Morphine Sulfate ER [Ms Contin] 60 mg PO BID 06/24/21 08/25/22 ondansetron HCL [Zofran] 8 mg PO Q6H PRN 06/24/21 08/25/22 oxyCODONE HCL [oxyCODONE HCL (IR)] 15 mg PO Q3H PRN 06/24/21 08/25/22 Prochlorperazine [Compazine] 10 mg PO Q6H PRN 05/13/22 08/25/22 Loratadine 10 mg PO DAILY 05/17/22 08/25/22 Morphine Sulfate ER [Ms Contin] 30 mg PO BID 05/17/22 08/25/22 OLANZapine [ZyPREXA] 2.5 mg PO HS 07/18/22 08/25/22 Potassium Chloride ER [K-Dur 20] 20 meq PO BID 07/18/22 08/25/22 Cholecalciferol [Vitamin D3 (25 25 mcg PO DAILY 08/25/22 08/25/22 Mcg = 1000 Iu)] Cyanocobalamin [Vitamin B-12] 500 mcg PO DAILY 08/25/22 08/25/22 Latanoprost [Latanoprost 0.005%] 1 drop BOTH EYES HS 08/25/22 08/25/22 Allergies Allergy/AdvReac Type Severity Reaction Status Date / Time ciprofloxacin [From Cipro] Allergy Rash/Hives Verified 08/25/22 15:22 Review of Systems ROS Other: All systems not noted in ROS Statement are negative. <Poncho Gannon - Last Filed: 08/25/22 15:02> ROS Other: All systems not noted in ROS Statement are negative. <Poncho Friedman - Last Filed: 08/25/22 16:59> ROS Statement: Those systems with pertinent positive or pertinent negative responses have been documented in the HPI. Past Medical History Past Medical History: Cancer, COPD, Fibromyalgia, Hearing Disorder / Deafness, Hypertension, Osteoarthritis (OA) Additional Past Medical History / Comment(s): Hx of pleural effusion, thoracentesis. Tinnitis. Peritoneal cancer(chronic pain) - mets to colon, colostomy. Current swollen ankles/bruising. History of Any Multi-Drug Resistant Organisms: None Reported Past Surgical History: Bowel Resection, Hysterectomy, Orthopedic Surgery, Tubal Ligation Additional Past Surgical History / Comment(s): Neck fusion, right rotator cuff repair, colectomy with colostomy, port in right shoulder area. Past Anesthesia/Blood Transfusion Reactions: No Reported Reaction Past Psychological History: Anxiety Smoking Status: Former smoker Past Alcohol Use History: None Reported Past Drug Use History: None Reported - Past Family History Mother Family Medical History: Cancer Additional Family Medical History / Comment(s): Bone cancer. Father Family Medical History: COPD <Poncho Gannon - Last Filed: 08/25/22 15:02> General Exam Limitations: no limitations <Poncho Gannon - Last Filed: 08/25/22 15:02> General appearance: alert, in no apparent distress, anxious Head exam: Present: atraumatic, normocephalic, normal inspection Eye exam: Present: normal appearance, PERRL, EOMI. Absent: scleral icterus, conjunctival injection, periorbital swelling ENT exam: Present: normal exam, mucous membranes moist Neck exam: Present: normal inspection. Absent: tenderness, meningismus, lymphadenopathy Respiratory exam: Present: respiratory distress, wheezes, accessory muscle use, decreased breath sounds, prolonged expiratory. Absent: rales, rhonchi, stridor Cardiovascular Exam: Present: regular rate, normal rhythm, normal heart sounds. Absent: systolic murmur, diastolic murmur, rubs, gallop, clicks GI/Abdominal exam: Present: soft, normal bowel sounds. Absent: distended, tenderness, guarding, rebound, rigid Extremities exam: Present: normal inspection, full ROM, normal capillary refill. Absent: tenderness, pedal edema, joint swelling, calf tenderness Back exam: Present: normal inspection Neurological exam: Present: alert, oriented X3, CN II-XII intact Psychiatric exam: Present: normal affect, normal mood Skin exam: Present: warm, dry, intact, normal color. Absent: rash <Poncho Friedman - Last Filed: 08/25/22 16:59> - General Exam Comments Initial Comments: GENERAL: Patient is well-developed and well-nourished. Patient is nontoxic and well- hydrated and is in mild distress. ENT: Neck is soft and supple. No significant lymphadenopathy is noted. Oropharynx is clear. Moist mucous membranes. Neck has full range of motion without eliciting any pain. EYES: The sclera were anicteric and conjunctiva were pink and moist. Extraocular movements were intact and pupils were equal round and reactive to light. Eyelids were unremarkable. PULMONARY: Expiratory wheezing bilaterally CARDIOVASCULAR: There is a regular rate and rhythm without any murmurs gallops or rubs. ABDOMEN: Soft and nontender with normal bowel sounds. SKIN: Skin is clear with no lesions or rashes and otherwise unremarkable. NEUROLOGIC: Patient is alert and oriented x3. Cranial nerves II through XII are grossly intact. Motor and sensory are also intact. Normal speech, volume and content. Symmetrical smile. MUSCULOSKELETAL: Normal extremities with adequate strength and full range of motion. No lower extremity swelling or edema. No calf tenderness. LYMPHATICS: No significant lymphadenopathy is noted PSYCHIATRIC: Normal psychiatric evaluation. (Poncho Gannon) Course <Poncho Friedman - Last Filed: 08/25/22 16:59> Vital Signs 08/25/22 08/25/22 08/25/22 13:55 14:56 15:05 Temperature 98.2 F Pulse Rate 89 104 H 104 H Respiratory 18 20 20 Rate Blood Pressure 135/83 O2 Sat by Pulse 97 Oximetry 08/25/22 08/25/22 16:43 16:48 Temperature Pulse Rate 120 H 117 H Respiratory 18 18 Rate Blood Pressure O2 Sat by Pulse Oximetry - Reevaluation(s) Reevaluation #1: 08/25/22 16:53 Medical records reviewed (Poncho Friedman) Reevaluation #2: 08/25/22 16:53 Patient symptoms are improving mildly with breathing treatments (Poncho Friedman) Reevaluation #3: 08/25/22 16:53 Patient informed of results and questions have been answered (Poncho Friedman) Reevaluation #4: 08/25/22 16:54 Was pt. sent in by a medical professional or institution? @ -no Did you speak to anyone other than the patient for history? @ -no Did you review nursing and triage notes? @ -agree Were old charts reviewed? @ -yes Differential Diagnosis? @ -prior EKG interpreted by me (3pts min.)? @ -yes X-rays interpreted by me (1pt min.)? @ -yes CT interpreted by me (1pt min.)? @ -no U/S interpreted by me (1pt. min.)? @ -no What testing was considered but not performed? (CT, X-rays, U/S, labs)? Why? @ -no What meds were considered but not given? Why? @ -no Did you discuss the management of the patient with other professionals? @ -no Did you reconcile home meds? @ -no Was smoking cessation discussed for >3mins.? @ -no Was critical care preformed (if so, how long)? @ -no Were there social determinants of health that impacted care today? How? (Homelessness, low income, unemployed, alcoholism, drug addiction, mccann sportation, low edu. Level, literacy, decrease access to med. care, shelter, rehab)? @ -no Was there de-escalation of care discussed even if they declined? (Discuss DNR or withdrawal of care, Hospice)? @ -no What co-morbidities impacted this encounter? (DM, HTN, Smoking, COPD, CAD, Cancer, CVA, Hep., AIDS, mental health diagnosis, sleep apnea, morbid obesity)? @ -none Was patient admitted / discharged? @ - Undiagnosed new problem with uncertain prognosis? @ -no Drug Therapy requiring intensive monitoring for toxicity (Heparin, Nitro, Insulin, Cardizem)? @ -no Were any procedures done? @ -no Diagnosis/symptom? @ - Acute, or Chronic, or Acute on Chronic? @ -acute Uncomplicated (without systemic symptoms) or Complicated (systemic symptoms)? @ -complicated Side effects of treatment? @ -no Exacerbation, Progression, or Severe Exacerbation] @ -no Poses a threat to life or bodily function? @ -yes (Poncho Friedman) Reevaluation #5: 08/25/22 16:54 Differential Chest Pain: Stable Angina, Unstable Angina, STEMI, NSTEMI Aortic Dissection, Pneumothorax, Musculoskeletal, Esophageal Spasm GERD, Cholecystitis, Pancreatitis, Zoster, this is not meant to be an all-inclusive list. Differential Dyspnea: Coronary syndrome, arrhythmia, tamponade, asthma, COPD, pulmonary embolism, pneumonia, pneumothorax, pulmonary effusion, anaphylaxis, diabetic ketoacidosis, flailed chest, pulmonary contusion, diaphragmatic rupture, anemia, neuromuscular, this is not meant to be an all-inclusive list. (Poncho Friedman) - Consultations Consultation #1: Spoke with admitting physicians will agree to admit this patient (Poncho Friedman) Medical Decision Making <Poncho Gannon - Last Filed: 08/25/22 15:02> - Lab Data Result diagrams: 08/25/22 14:35 08/25/22 14:35 - EKG Data -: EKG Interpreted by Me - Radiology Data Radiology results: report reviewed (CTA chest does show increasing pleural effusion no PE), image reviewed <Poncho Friedman Citlali - Last Filed: 08/25/22 16:59> - Medical Decision Making EKG interpreted by myself. EKG shows sinus tachycardia at 150 bpm ID interval 243 QRSs 103 QT interval 370 QTC is 385. Was pt. sent in by a medical professional or institution ([facility], [employer], urgent care, hospital, or skilled nursing...) When possible be specific @ -[No] Did you speak to anyone other than the patient for history (EMS, parent, family, police, friend...)? What history was obtained from this source @ -[No] Did you review nursing and triage notes (agree or disagree)? Why? @ -[I reviewed and agree with nursing and triage notes] Were old charts reviewed (outside hosp., previous admission, EMS record, old EKG, old radiological studies, urgent care reports/EKG's, skilled nursing records)? Report findings @ -Prior radiological studies and prior lab work Differential Diagnosis (chest pain, altered mental status, abdominal pain women, abdominal pain men, vaginal bleeding, weakness, fever, dyspnea, syncope, headache, dizziness, GI bleed, back pain, seizure, CVA, palpatations, mental health, musculoskeletal)? @ -Differential Dyspnea: Coronary syndrome, arrhythmia, tamponade, asthma, COPD, pulmonary embolism, pneumonia, pneumothorax, pulmonary effusion, anaphylaxis, diabetic ketoacidosis, flailed chest, pulmonary contusion, diaphragmatic rupture, anemia, neur omuscular, this is not meant to be an all-inclusive list. EKG interpreted by me (3pts min.). @ -[As above] X-rays interpreted by me (1pt min.). @ -Chest x-ray shows bilateral pleural effusions with the right upper lobe opac ification consistent with the previous radiological studies CT interpreted by me (1pt min.). @ -[None done] U/S interpreted by me (1pt. min.). @ -[None done] What testing was considered but not performed or refused? (CT, X-rays, U/S, labs)? Why? @ -[None] What meds were considered but not given or refused? Why? @ -[None] Did you discuss the management of the patient with other professionals (professionals i.e. Dr., PA, [employer], lab, RT, psych nurse, group social worker, mushroom sorter grader, teacher, pharmaceutical officer, family independence case manager)? Give summary @ -[No] Was smoking cessation discussed for >3mins.? @ -[No] Was critical care preformed (if so, how long)? @ -[No] Were there social determinants of health that impacted care today? How? (Ho melessness, low income, unemployed, alcoholism, drug addiction, transportation, low edu. Level, literacy, decrease access to med. care, shelter, rehab)? @ -[No] Was there de-escalation of care discussed even if they declined (Discuss DNR or withdrawal of care, Hospice)? DNR status @ -[No] What co-morbidities impacted this encounter? (DM, HTN, Smoking, COPD, CAD, Cancer, CVA, ARF, Chemo, Hep., AIDS, mental health diagnosis, sleep apnea, morbid obesity)? @ -[None] Was patient admitted / discharged? Hospital course, mention meds given and route, prescriptions, significant lab abnormalities, going to OR and other pertinent info. @ -Dr. Friedman will be taking over the care of this patient at 3 PM (Poncho Gannon) 66 female will be admitted for COPD exacerbation shortness of breath and increasing pleural effusions. No PE noted on CT, patient will continue supportive care with breathing treatments (Poncho Friedman) - Lab Data Lab Results 08/25/22 08/25/22 08/25/22 Range/Units 14:35 14:35 14:35 WBC 2.3 L (3.8-10.6) k/uL RBC 3.66 L (3.80-5.40) m/uL Hgb 12.2 (11.4-16.0) gm/dL Hct 39.0 (34.0-46.0) % MCV 106.4 H (80.0-100.0) fL MCH 33.3 (25.0-35.0) pg MCHC 31.3 (31.0-37.0) g/dL RDW 14.9 (11.5-15.5) % Plt Count 58 L (150-450) k/uL MPV 9.2 Neutrophils % 76 % Lymphocytes % 13 % Monocytes % 6 % Eosinophils % 2 % Basophils % 0 % Neutrophils # 1.7 (1.3-7.7) k/uL Lymphocytes # 0.3 L (1.0-4.8) k/uL Monocytes # 0.1 (0-1.0) k/uL Eosinophils # 0.0 (0-0.7) k/uL Basophils # 0.0 (0-0.2) k/uL Manual Slide Review Performed Hypochromasia Slight Macrocytosis Moderate PT 10.4 (9.0-12.0) sec INR 1.0 (<1.2) APTT 23.5 (22.0-30.0) sec D-Dimer 5.76 H (<0.60) mg/L FEU Sodium 135 L (137-145) mmol/L Potassium 3.3 L (3.5-5.1) mmol/L Chloride 98 (98-107) mmol/L Carbon Dioxide 34 H (22-30) mmol/L Anion Gap 3 mmol/L BUN 7 (7-17) mg/dL Creatinine 0.55 (0.52-1.04) mg/dL Est GFR (CKD-EPI)AfAm >90 (>60 ml/min/1.73 sqM) Est GFR (CKD-EPI)NonAf >90 (>60 ml/min/1.73 sqM) Glucose 95 (74-99) mg/dL Plasma Lactic Acid Andrzej (0.7-2.0) mmol/L Calcium 8.3 L (8.4-10.2) mg/dL Magnesium 1.0 L (1.6-2.3) mg/dL Total Bilirubin 0.4 (0.2-1.3) mg/dL AST 34 (14-36) U/L ALT 24 (4-34) U/L Alkaline Phosphatase 267 H (38-126) U/L Troponin I (0.000-0.034) ng/mL Total Protein 5.6 L (6.3-8.2) g/dL Albumin 3.1 L (3.5-5.0) g/dL 08/25/22 08/25/22 Range/Units 14:35 14:35 WBC (3.8-10.6) k/uL RBC (3.80-5.40) m/uL Hgb (11.4-16.0) gm/dL Hct (34.0-46.0) % MCV (80.0-100.0) fL MCH (25.0-35.0) pg MCHC (31.0-37.0) g/dL RDW (11.5-15.5) % Plt Count (150-450) k/uL MPV Neutrophils % % Lymphocytes % % Monocytes % % Eosinophils % % Basophils % % Neutrophils # (1.3-7.7) k/uL Lymphocytes # (1.0-4.8) k/uL Monocytes # (0-1.0) k/uL Eosinophils # (0-0.7) k/uL Basophils # (0-0.2) k/uL Manual Slide Review Hypochromasia Macrocytosis PT (9.0-12.0) sec INR (<1.2) APTT (22.0-30.0) sec D-Dimer (<0.60) mg/L FEU Sodium (137-145) mmol/L Potassium (3.5-5.1) mmol/L Chloride (98-107) mmol/L Carbon Dioxide (22-30) mmol/L Anion Gap mmol/L BUN (7-17) mg/dL Creatinine (0.52-1.04) mg/dL Est GFR (CKD-EPI)AfAm (>60 ml/min/1.73 sqM) Est GFR (CKD-EPI)NonAf (>60 ml/min/1.73 sqM) Glucose (74-99) mg/dL Plasma Lactic Acid Andrzej 0.8 (0.7-2.0) mmol/L Calcium (8.4-10.2) mg/dL Magnesium (1.6-2.3) mg/dL Total Bilirubin (0.2-1.3) mg/dL AST (14-36) U/L ALT (4-34) U/L Alkaline Phosphatase (38-126) U/L Troponin I <0.012 (0.000-0.034) ng/mL Total Protein (6.3-8.2) g/dL Albumin (3.5-5.0) g/dL Disposition <Poncho Gannon - Last Filed: 08/25/22 15:02> Is patient prescribed a controlled substance at d/c from ED?: No Time of Disposition: 16:50 <Poncho Friedman - Last Filed: 08/25/22 16:59> Clinical Impression: Community acquired pneumonia, Acute respiratory distress syndrome in adult, Acute exacerbation of chronic obstructive pulmonary disease, Pleural effusion, Recurrent right pleural effusion, Hypomagnesemia, Hypokalemia Disposition: ADMITTED IP TO THIS HOSP Condition: Fair Referrals: None,Stated [Primary Care Provider] - 1-2 days
--- NOTE | 2022-08-25 14:53 | XR ---
EXAMINATION TYPE: XR chest 2V DATE OF EXAM: 08/25/2022 2:45 PM COMPARISON: Chest radiographs from 07/18/2022 TECHNIQUE: XR chest 2V Frontal and lateral views of the chest. CLINICAL INDICATION:Female, 66 years old with history of difficulty breathing; FINDINGS: Lungs/Pleura: Right pleural effusion with associated atelectasis. There is left pleural effusion also present. Similar right upper lung opacification medially. Pulmonary vascularity: Unremarkable. Heart/mediastinum: Cardiomediastinal silhouette is partially obscured due to overlying and adjacent o pacities. Musculoskeletal: No acute osseous pathology. There is fixation hardware in the lower cervical spine. Chest wall Ukkous-y-Hohz with tip in stable position the superior vena cava. Right upper lung opacification medially. IMPRESSION: Bilateral pleural effusions right greater than left.
[2022-08-25 15:06] LABS: Basophils % (A) 0 %; Eosinophils % (A) 2 %; HGB 12.2 gm/dL (11.4-16.0); Hypochromasia Slight; Lymphocytes # (A) 0.3 k/uL (1.0-4.8); Lymphocytes % (A) 13 %; MCH 33.3 pg (25.0-35.0); MCHC 31.3 g/dL (31.0-37.0); MCV 106.4 fL (80.0-100.0); Macrocytosis Moderate; Mean Platelet Volume 9.2; Monocytes # (A) 0.1 k/uL (0-1.0); Monocytes % (A) 6 %; Neutrophils # (A) 1.7 k/uL (1.3-7.7); Neutrophils % (A) 76 %; RBC 3.66 m/uL (3.80-5.40); RDW 14.9 % (11.5-15.5); WBC 2.3 k/uL (3.8-10.6)
[2022-08-25 15:10] LABS: ALT 24 U/L (4-34); AST 34 U/L (14-36); African American GFR (CKD) >90 (>60 ml/min/1.73 sqM); Albumin 3.1 g/dL (3.5-5.0); Alkaline Phosphatase 267 U/L (38-126); Anion Gap 3 mmol/L; Blood Urea Nitrogen 7 mg/dL (7-17); Calcium 8.3 mg/dL (8.4-10.2); Carbon Dioxide 34 mmol/L (22-30); Chloride 98 mmol/L (98-107); Glucose 95 mg/dL (74-99); Non-African American GFR(CKD) >90 (>60 ml/min/1.73 sqM); Potassium 3.3 mmol/L (3.5-5.1); Sodium 135 mmol/L (137-145); Total Bilirubin 0.4 mg/dL (0.2-1.3); Total Protein 5.6 g/dL (6.3-8.2)
[2022-08-25 15:16] LABS: Partial Thromboplastin Time 23.5 sec (22.0-30.0); Prothrombin Time 10.4 sec (9.0-12.0)
[2022-08-25] MEDS ORDERED: KETOROLAC 15 MG/ML 1 ML VIAL IVP STA (15:21)
[2022-08-25] MEDS ORDERED: IPRATROPIUM-ALBUTEROL 3 ML NEB INHALATION STA (15:21)
[2022-08-25] MEDS ORDERED: DEXAMETHASONE SOD PHOSPHATE 10 MG/ML 1 ML VIAL IVP STA (15:21)
[2022-08-25] MEDS ORDERED: MORPHINE SULFATE 4 MG/ML SYRINGE IVP STA (15:21)
[2022-08-25] MEDS ORDERED: SODIUM CHLORIDE 0.9% 1,000 ML IV STA (15:22)
[2022-08-25 15:44] LABS: Platelet Count 58 k/uL (150-450)
--- NOTE | 2022-08-25 16:29 | CT ---
EXAMINATION TYPE: CT angio chest CT DLP: 920.7 mGycm, Automated exposure control for dose reduction was used. DATE OF EXAM: 08/25/2022 4:11 PM COMPARISON: CT chest 08/09/2022. CLINICAL INDICATION:Female, 66 years old with history of pain; Shortness of breath x3-4 days. History of peritoneal cancer. TECHNIQUE/CONTRAST: CTA scan of the thorax is performed with IV Contrast, patient injected with 100ml mL of Isovue 370, p ulmonary embolism protocol. MIP images are created and reviewed these are created on a separate work station.. FINDINGS: Pulmonary Artery: There is no evidence for a filling defect within the pulmonary vasculature to sugge st acute pulmonary embolism. The pulmonary artery is of normal size. Lungs/Pleura: Right upper lung consolidation and adjacent loculated pleural effusion. There is also r ight lower lung loculated pleural effusion noted with airspace opacities throughout the right lung. T he left lung is without evidence of pneumothorax or focal consolidation. There is small pleural effus ion with associated atelectasis. Airway: Narrowing of the right lower lung bronchus as seen on prior. Heart: The heart is mildly enlarged for size. Vasculature: No evidence of aortic aneurysm. Right lung chest wall [id number] with tip terminating in the superior vena cava. Mediastinum: Enlarged lymph nodes within the mediastinum including 18 mm right low paratracheal, not significantly changed from prior given differences in technique. Musculoskeletal: Moderate degenerative disc disease changes are present throughout the thoracolumbar spine. Fixation changes to the cervical spine. Hardware appears intact. Soft Tissues: Unremarkable. Lower neck: No significant findings. Upper Abdomen: No significant findings. IMPRESSION: 1. No evidence of pulmonary embolism. 2. Loculated right pleural effusion with right-sided airspace opacities and consolidation changes whi ch have worsened from 07/22/2022. There is suspected mucous plugging versus obstruction of the bronchus to the lower lungs. Underlying malignancy is not excluded.
--- NOTE | 2022-08-25 16:33 | CT ---
EXAMINATION TYPE: CT abdomen pelvis w con CT DLP: 920.7 mGycm, Automated exposure control for dose reduction was used. DATE OF EXAM: 08/25/2022 4:11 PM COMPARISON: CT abdomen pelvis most recent from 02/11/2022 CLINICAL INDICATION:Female, 66 years old with history of pain; Shortness of breath x3-4 days. History of peritoneal cancer. TECHNIQUE: Axial CT of the abdomen and pelvis. Sagittal and coronal reformats were created on a [employer] workstation. Contrast used:100ml mL of Isovue 370 with IV Contrast, (none if empty) Oral contrast used: without Oral Contrast (none if empty) FINDINGS: ABDOMEN LIVER: Similar, Hepatomegaly with scattered subcentimeter hypodense lesions which are too small to ch aracterize no new suspicious lesions. GALLBLADDER AND BILE DUCTS: Stable mild intra and extra hepatic biliary duct dilatation. PANCREAS: The body and tail are unremarkable. The head and neck are suboptimally visualized. SPLEEN: Unremarkable. ADRENAL GLANDS: Right adrenal glands unremarkable. Stable left adrenal gland 1.2 cm nodule. KIDNEYS AND URETERS: No evidence of hydronephrosis or renal calculus. Stable moderate right extrarena l pelvis. PELVIS BLADDER: Incompletely distended but grossly unremarkable. REPRODUCTIVE: Unremarkable. ABDOMEN & PELVIS STOMACH AND BOWEL: High density contrast is seen within the distal colon which limits evaluation. Fin dings similar to priors. Stomach is unremarkable. Postsurgical changes with colostomy in the right lo wer quadrant. Enteric contrast extending to the the proximal colon. No evidence of bowel obstruction. PERITONEUM: No evidence of pneumoperitoneum or free fluid. VASCULATURE: Moderate atherosclerotic calcifications are present throughout the abdominal aorta and i ts branches. Multiple pelvic phleboliths are present. MUSCULOSKELETAL: No acute osseous abnormalities. Remote left inferior pubic ramus fracture. No aggres sive osseous lesion. Scoliosis again seen. LYMPH NODES: Stable gastrohepatic nodularity measuring up to 1.9 cm. Smaller nodular inferior is agai n seen. SOFT TISSUE/ABDOMINAL WALL: Unremarkable IMPRESSION: Overall stable exam with out evidence for acute process or significant change from 02/11/2022. No lym phadenopathy or enlarging masses visualized.
[2022-08-25] MEDS ORDERED: MAGNESIUM OXIDE 400 MG TAB PO STA ×2 (16:51)
[2022-08-25] MEDS ORDERED: POTASSIUM BICARBONATE/CIT AC 20 MEQ TABLET.EFF PO ONE (16:51)
[2022-08-25] MEDS ORDERED: NALOXONE 0.4 MG/ML 1 ML VIAL IV PRN (16:56)
[2022-08-25] MEDS ORDERED: ONDANSETRON 4 MG/2 ML VIAL IVP PRN (16:56)
[2022-08-25] MEDS ORDERED: MORPHINE SULFATE 4 MG/ML SYRINGE IV PRN (16:56)
--- NOTE | 2022-08-25 17:43 | P.HPIM ---
History of Present Illness H&P Date: 08/25/22 Patient is a 66-year-old female with history of COPD, malignant recurrent right-sided pleural effusion, metastatic ovarian cancer, fibromyalgia presenting with worsening shortness of breath. She claims that her dyspnea has been progressive. She was recently seen by pulmonology as well as oncology. She was started on new chemotherapy about 1 week ago. She was told that her prognosis is poor. Currently she is having mostly dyspnea with exertion, able to only walk couple of steps before taking rest. She denies any significant dyspnea at rest, or orthopnea. She denies any chest pain, productive cough, nausea, vomiting, urinary or bowel complaints. She does have a stoma, and occasional bandlike abdominal pain. She also has a rash around her stoma from using duct tape to keep her stoma bag on. In the ED, temperature was 98.0 pulse 89, increased to 120, respiratory rate 20, blood pressure 135/83, saturating at 97% on room air. WBC 2.3 sodium 135, potassium 2.3, creatinine 0.55, magnesium 1, troponin negative, d-dimer 5.76. Chest x-ray shows bilateral pleural effusions with right greater than left. CTA chest shows no PE, loculated right pleural effusion Likely mucous plugging versus obstruction of bronchitis to the lower lungs. CT abdomen and pelvis shows no acute process. Patient being admitted for worsening shortness of breath, recurrent right-sided pleural effusion, suspected pneumonia and COPD exacerbation. Pertinent positives and negatives as discussed in HPI, a complete review of systems was performed and all other systems are negative. Patient seen and examined at bedside. Vital signs reviewed General: nontoxic, no distress, appears at stated age Derm: warm, dry Head: atraumatic, normocephalic, symmetric Eyes: EOMI, no lid lag, anicteric sclera, pupils equal round reactive to light ENT: Nose and ears atraumatic Neck: No thyromegaly, supple Mouth: no lip lesion, mucus membranes moist Cardiovascular: S1S2 reg, no murmur, no edema Lungs: clear to auscultation bilateral, no rhonchi, no rales, no wheeze, no accessory muscle use Abdominal: soft, nontender to palpation, no guarding, no appreciable organomegaly Ext: no gross muscle atrophy, muscle strength muscle strength 5 out of 5 in all 4 extremities, no contractures Neuro: CN II-XII grossly intact Psych: Alert, oriented, appropriate affect Assessment/Plan: Acute COPD exacerbation Suspected postobstructive pneumonia Recurrent right-sided pleural effusion Metastatic ovarian cancer metastatic to lungs Leukopenia, chronic Hypokalemia Hypomagnesemia Sinus tachycardia Contact dermatitis -Continue Solu-Medrol 60 mg IV every 8 hours, continue bronchodilators -Continue bronchodilators -Pulmonology consult -procalcitonin ordered, sputum cultures, Legionella urine antigen ordered -Blood cultures pending -Monitor off of antibiotics -Oncology consulted -Continue home pain medication -Potassium oral and magnesium oral given in the ED, repeat CMP and magnesium tomorrow -EKG personally interpreted, shows sinus tachycardia, in the setting of pain -Likely from using duct tape around stoma bag The patient is admitted with an anticipated greater than 2 midnight stay as inpatient status for evaluation of COPD exacerbation. Surrogate decision-maker: Sibling CODE STATUS: NO code DVT prophylaxis: Lovenox Anticipated discharge date: Pending clinical course Anticipated discharge place: Pending clinical course A total of 55 minutes was spent on the care of this complex patient more than 50% of the time was spent in counseling and care coordination. Past Medical History Past Medical History: Cancer, COPD, Fibromyalgia, Hearing Disorder / Deafness, Hypertension, Osteoarthritis (OA) Additional Past Medical History / Comment(s): Hx of pleural effusion, thor acentesis. Tinnitis. Peritoneal cancer(chronic pain) - mets to colon, colostomy. Current swollen ankles/bruising. History of Any Multi-Drug Resistant Organisms: None Reported Past Surgical History: Bowel Resection, Hysterectomy, Orthopedic Surgery, Tubal Ligation Additional Past Surgical History / Comment(s): Neck fusion, right rotator cuff repair, colectomy with colostomy, port in right shoulder area. Past Anesthesia/Blood Transfusion Reactions: No Reported Reaction Past Psychological History: Anxiety Smoking Status: Former smoker Past Alcohol Use History: None Reported Past Drug Use History: None Reported - Past Family History Mother Family Medical History: Cancer Additional Family Medical History / Comment(s): Bone cancer. Father Family Medical History: COPD Medications and Allergies Home Medications Medication Instructions Recorded Confirmed Type Gabapentin [Neurontin] 100 mg PO BID 09/28/20 08/25/22 History ALPRAZolam [Xanax] 0.5 mg PO TID PRN 06/24/21 08/25/22 History Morphine Sulfate ER [Ms Contin] 60 mg PO BID 06/24/21 08/25/22 History ondansetron HCL [Zofran] 8 mg PO Q6H PRN 06/24/21 08/25/22 History oxyCODONE HCL [oxyCODONE HCL (IR)] 15 mg PO Q3H PRN 06/24/21 08/25/22 History Prochlorperazine [Compazine] 10 mg PO Q6H PRN 05/13/22 08/25/22 History Loratadine 10 mg PO DAILY 05/17/22 08/25/22 History Morphine Sulfate ER [Ms Contin] 30 mg PO BID 05/17/22 08/25/22 History OLANZapine [ZyPREXA] 2.5 mg PO HS 07/18/22 08/25/22 History Potassium Chloride ER [K-Dur 20] 20 meq PO BID 07/18/22 08/25/22 History Cholecalciferol [Vitamin D3 (25 25 mcg PO DAILY 08/25/22 08/25/22 History Mcg = 1000 Iu)] Cyanocobalamin [Vitamin B-12] 500 mcg PO DAILY 08/25/22 08/25/22 History Latanoprost [Latanoprost 0.005%] 1 drop BOTH EYES HS 08/25/22 08/25/22 History Allergies Allergy/AdvReac Type Severity Reaction Status Date / Time ciprofloxacin [From Cipro] Allergy Rash/Hives Verified 08/25/22 15:22 Physical Exam Vitals: Vital Signs Temp Pulse Resp BP Pulse Ox 08/25/22 16:48 117 H 18 08/25/22 16:43 120 H 18 08/25/22 15:05 104 H 20 08/25/22 14:56 104 H 20 08/25/22 13:55 98.2 F 89 18 135/83 97 Intake and Output 08/25/22 08/25/22 08/25/22 06:59 14:59 22:59 Other: Weight 51.256 kg Results CBC & Chem 7: 08/25/22 14:35 08/25/22 14:35 Labs: Abnormal Lab Results - Last 24 Hours (Table) 08/25/22 08/25/22 08/25/22 Range/Units 14:35 14:35 14:35 WBC 2.3 L (3.8-10.6) k/uL RBC 3.66 L (3.80-5.40) m/uL MCV 106.4 H (80.0-100.0) fL Plt Count 58 L (150-450) k/uL Lymphocytes # 0.3 L (1.0-4.8) k/uL D-Dimer 5.76 H (<0.60) mg/L FEU Sodium 135 L (137-145) mmol/L Potassium 3.3 L (3.5-5.1) mmol/L Carbon Dioxide 34 H (22-30) mmol/L Calcium 8.3 L (8.4-10.2) mg/dL Magnesium 1.0 L (1.6-2.3) mg/dL Alkaline Phosphatase 267 H (38-126) U/L Total Protein 5.6 L (6.3-8.2) g/dL Albumin 3.1 L (3.5-5.0) g/dL
[2022-08-25] MEDS: MAGNESIUM SULFATE-D5W PMX 1 GM in DEXTROSE/WATER 1 100ML.BAG IVPB SCH ×2 (17:46→19:15)
[2022-08-25] MEDS: ALPRAZolam 0.5 MG TAB PO PRN (18:01)
[2022-08-25] MEDS: SODIUM CHLORIDE 0.9% 1,000 ML IV SCH (19:16)
[2022-08-25] MEDS: ALBUTEROL NEBULIZED 2.5 MG/3 ML INHALATION SCH (20:55)
[2022-08-25] MEDS: OLANZapine 2.5 MG TAB PO SCH (20:59)
[2022-08-25] MEDS: MORPHINE SULFATE ER 30 MG TABLET PO SCH (20:59)
[2022-08-25] MEDS: GABAPENTIN 100 MG CAP PO SCH (20:59)
[2022-08-25] MEDS: LATANOPROST 0.005% OPHTH DROPS 2.5 ML BTL BOTH EYES SCH (21:00)
[2022-08-25] MEDS ORDERED: MORPHINE SULFATE ER 60 MG TABLET PO SCH (21:00)
[2022-08-25] MEDS: methylPREDNISolone SOD SUCCI 125 MG/2 ML VIAL IV SCH (23:54)
[2022-08-26] MEDS: ALBUTEROL NEBULIZED 2.5 MG/3 ML INHALATION SCH ×3 (07:38→20:09)
[2022-08-26] MEDS: ENOXAPARIN 40 MG/0.4 ML SYRINGE SQ SCH (08:18)
[2022-08-26] MEDS: methylPREDNISolone SOD SUCCI 125 MG/2 ML VIAL IV SCH (08:18)
[2022-08-26] MEDS: MORPHINE SULFATE ER 30 MG TABLET PO SCH ×2 (08:19→21:24)
[2022-08-26] MEDS: LORATADINE 10 MG TAB PO SCH (08:19)
[2022-08-26] MEDS: GABAPENTIN 100 MG CAP PO SCH ×2 (08:19→21:24)
[2022-08-26] MEDS: CYANOCOBALAMIN 500 MCG TAB PO SCH (08:19)
[2022-08-26] MEDS: CHOLECALCIFEROL 25 MCG (1000 IU) TABLET PO SCH (08:19)
[2022-08-26] MEDS: ONDANSETRON 4 MG TAB PO PRN ×2 (08:20→14:22)
--- NOTE | 2022-08-26 09:00 | US ---
EXAMINATION TYPE: US chest DATE OF EXAM: 08/26/2022 COMPARISON: NONE CLINICAL INDICATION: Female, 66 years old with history of Right pleural effusion; TECHNIQUE: Targeted ultrasound of the posterior lower right hemithorax EXAM MEASUREMENTS: Right Pleural Effusion pocket size: 1.2 cm, small amount of fluid Right skin surface to fluid distance: 2.8 cm Area of consolidation of solid material noted measuring 5.8 cm. Right side marked for possible thoracentesis outside the dept. Pulmonologists are able to review the images in the patient?s EMR. IMPRESSIONS: Trace right pleural effusion. With area of consolidation. When correlating with recent CT the large p ocket of fluid is anteriorly and superiorly. The pocket marked by the application integration engineer is posterior and la teral. Consider targeting the anterior pocket.
[2022-08-26] MEDS: ALPRAZolam 0.5 MG TAB PO PRN (09:33)
[2022-08-26 09:59] LABS: ALT 22 U/L (8-44); AST 27 U/L (13-35); Albumin 3.8 d/dL (3.8-4.9); Albumin/Globulin Ratio 1.52 Ratio (1.60-3.17); Alkaline Phosphatase 281 U/L (41-126); BUN/Creat Ratio 14.71 Ratio (12.00-20.00); Blood Urea Nitrogen 10.3 mg/dL (9.0-27.0); Calcium 9.1 mg/dL (8.7-10.3); Carbon Dioxide 28.9 mmol/L (21.6-31.8); Chloride 99 mmol/L (96-109); Globulin 2.5 d/dL (1.6-3.3); Glucose 134 mg/dL (70-110); Magnesium 1.7 mg/dL (1.5-2.4); Phosphorus 3.1 mg/dL (2.4-5.1); Potassium 4.2 mmol/L (3.5-5.5); Sodium 140 mmol/L (135-145); Total Bilirubin 0.3 mg/dL (0.3-1.2); Total Protein 6.3 d/dL (6.2-8.2)
[2022-08-26 10:23] LABS: Basophils # (A) 0 X 10*3/uL (0.00-0.10); Basophils % (A) 0 %; Eosinophils # (A) 0 X 10*3/uL (0.04-0.35); Eosinophils % (A) 0 %; HCT 34.4 % (37.2-46.3); HGB 10.7 d/dL (12.0-15.0); Lymphocytes % (A) 5.6 %; MCH 33.5 pg (27.0-32.0); MCHC 31.1 d/dL (32.0-37.0); MCV 107.8 FL (80.0-97.0); Macrocytosis (M) 2+; Mean Platelet Volume 11.3 FL (9.5-12.2); Monocytes # (A) 0.05 X 10*3/uL (0.20-1.00); Monocytes % (A) 1.4 %; NRBC Per 100 WBC 0 X 10*3/uL (0.00-0.01); Neutrophils # (A) 3.27 X 10*3/uL (1.80-7.70); Neutrophils % (A) 92.4 %; Platelet Count 83 X 10*3/uL (140-440); RBC 3.19 X 10*6/uL (4.10-5.20); RDW 14.6 % (11.5-14.5); WBC 3.54 X 10*3/uL (4.50-10.00)
--- NOTE | 2022-08-26 13:49 | P.PN ---
Subjective Progress Note Date: 08/26/22 Hospital Course: 66-year-old female with history of COPD, malignant recurrent right-sided pleural effusion, metastatic ovarian cancer, fibromyalgia presenting with worsening shortness of breath. In the ED, temperature was 98.0 pulse 89, increased to 120, respiratory rate 20, blood pressure 135/83, saturating at 97% on room air. WBC 2.3 sodium 135, potassium 2.3, creatinine 0.55, magnesium 1, troponin negative, d-dimer 5.76. Chest x-ray shows bilateral pleural effusions with right greater than left. CTA chest shows no PE, loculated right pleural effusion Likely mucous plugging versus obstruction of bronchitis to the lower lungs. CT abdomen and pelvis shows no acute process. Patient being admitted for worsening shortness of breath, recurrent right-sided pleural effusion, suspected pneumonia and COPD exacerbation. Pulmonology and oncology consulted. Subjective: Patient seen and examined at bedside. SOB is still the same. Pertinent positives and negatives as discussed above, a complete review of systems was performed and all other systems are negative. Vitals Signs Reviewed. General: nontoxic, no distress, appears at stated age, chronically ill-appearing Derm: warm, dry Head: atraumatic, normocephalic, symmetric Eyes: EOMI, no lid lag, anicteric sclera, pupils equal round reactive to light ENT: Nose and ears atraumatic Neck: No thyromegaly, supple Mouth: no lip lesion, mucus membranes moist Cardiovascular: S1S2 reg, no murmur, no edema Lungs: clear to auscultation bilateral, no rhonchi, no rales, no wheeze, no accessory muscle use Abdominal: soft, nontender to palpation, no guarding, no appreciable organomegaly Ext: no gross muscle atrophy, muscle strength muscle strength 5 out of 5 in all 4 extremities, no contractures Neuro: CN II-XII grossly intact Psych: Alert, oriented, appropriate affect Data Reviewed Today: Pertinent Labs: WBC 3.54, hemoglobin 10.7, platelet 83, potassium 4.2, magnesium 1.7, pro calcitonin 0.6 Imaging: Chest ultrasound report reviewed, shows right pleural effusion, trace in the area of consolidation Assessment and Plan: Acute COPD exacerbation Suspected postobstructive pneumonia Recurrent right-sided pleural effusion Metastatic ovarian cancer metastatic to lungs Pancytopenia Hypokalemia, resolved Hypomagnesemia, resolved Sinus tachycardia Contact dermatitis -Continue Solu-Medrol 60 mg IV every 8 hours, continue bronchodilators -Pulmonology consult -procalcitonin slightly elevated, sputum cultures, Legionella urine antigen ordered -Blood cultures pending -Monitor off of antibiotics -Oncology consulted -Pancytopenia likely in the setting of chemotherapy -Continue home pain medication -Hospice consulted DVT ppx: Lovenox Code status: No code Anticipated discharge place: Pending clinical course Anticipated discharge time: Pending clinical course Objective - Vital Signs Vital signs: Vital Signs Temp 97.6 F 08/26/22 11:54 Pulse 96 08/26/22 13:24 Resp 18 08/26/22 11:54 BP 114/72 08/26/22 11:54 Pulse Ox 95 08/26/22 11:54 FiO2 Intake & Output 08/25/22 08/26/22 08/26/22 18:59 06:59 18:59 Intake Total 200 Output Total 200 Balance 0 Weight 51.256 kg 51.256 kg 51.256 kg Intake: Oral 200 Output: Urine 200 Other: Voiding Method Toilet # Voids 1 # Bowel Movements 2 - Labs CBC & Chem 7: 08/26/22 05:55 08/26/22 05:55 Labs: Abnormal Lab Results - Last 24 Hours (Table) 08/25/22 08/25/22 08/25/22 Range/Units 14:35 14:35 14:35 WBC 2.3 L (3.8-10.6) k/uL RBC 3.66 L (3.80-5.40) m/uL Hgb (12.0-15.0) d/dL Hct (37.2-46.3) % MCV 106.4 H (80.0-100.0) fL MCH (27.0-32.0) pg MCHC (32.0-37.0) d/dL RDW (11.5-14.5) % Plt Count 58 L (150-450) k/uL Lymphocytes # 0.3 L (1.0-4.8) k/uL Monocytes # (0.20-1.00) X 10*3/uL Eosinophils # (0.04-0.35) X 10*3/uL Macrocytosis (manual) D-Dimer 5.76 H (<0.60) mg/L FEU Sodium 135 L (137-145) mmol/L Potassium 3.3 L (3.5-5.1) mmol/L Carbon Dioxide 34 H (22-30) mmol/L Anion Gap (4.00-12.00) mmol/L Glucose (70-110) mg/dL Calcium 8.3 L (8.4-10.2) mg/dL Magnesium 1.0 L (1.6-2.3) mg/dL Alkaline Phosphatase 267 H (38-126) U/L Total Protein 5.6 L (6.3-8.2) g/dL Albumin 3.1 L (3.5-5.0) g/dL Albumin/Globulin Ratio (1.60-3.17) Ratio Procalcitonin (0.02-0.09) ng/mL 08/25/22 08/26/22 08/26/22 Range/Units 18:26 05:55 05:55 WBC 3.54 L (3.8-10.6) k/uL RBC 3.19 L (3.80-5.40) m/uL Hgb 10.7 L (12.0-15.0) d/dL Hct 34.4 L (37.2-46.3) % MCV 107.8 H (80.0-100.0) fL MCH 33.5 H (27.0-32.0) pg MCHC 31.1 L (32.0-37.0) d/dL RDW 14.6 H (11.5-14.5) % Plt Count 83 L (150-450) k/uL Lymphocytes # 0.20 L (1.0-4.8) k/uL Monocytes # 0.05 L (0.20-1.00) X 10*3/uL Eosinophils # 0 L (0.04-0.35) X 10*3/uL Macrocytosis (manual) 2+ A D-Dimer (<0.60) mg/L FEU Sodium (137-145) mmol/L Potassium (3.5-5.1) mmol/L Carbon Dioxide (22-30) mmol/L Anion Gap 12.10 H (4.00-12.00) mmol/L Glucose 134 H (70-110) mg/dL Calcium (8.4-10.2) mg/dL Magnesium (1.6-2.3) mg/dL Alkaline Phosphatase 281 H (38-126) U/L Total Protein (6.3-8.2) g/dL Albumin (3.5-5.0) g/dL Albumin/Globulin Ratio 1.52 L (1.60-3.17) Ratio Procalcitonin 0.16 H (0.02-0.09) ng/mL
--- NOTE | 2022-08-26 13:54 | P.CNPUL ---
History of Present Illness Consult date: 08/26/22 Requesting physician: Palak Hastings Reason for consult: dyspnea, pleural effusion, abnormal CXR/CT Chief complaint: Shortness of breath, back pain History of present illness: This is a very pleasant 66-year-old female patient with a known history of ovarian and peritoneal metastatic cancer to the colon with previous colon resection. She's also had metastatic adenocarcinoma positive in the lungs since back in 2020. She's received multiple rounds of chemotherapy and debulking surgery. He also has a history of previous CoVID pneumonia, chronic pain syndrome with fibromyalgia. She presented here to the emergency room yesterday with complaints of increasing shortness of breath and pain on inhalation with back pain. X-ray revealed bilateral pleural effusions right greater than left. CT angiogram revealed no evidence of pulmonary embolism. There is a loculated right pleural effusion with right-sided airspace opacities and consolidation changes that have worsened since 07/22/2022. There is suspected mucous plugging versus obstruction to the bronchus of the lower lungs. Computed tomography scan of the abdomen revealed stable exam without evidence for acute process or significant change from 02/11/2023. No lymphadenopathy or enlarging masses visualized. White count 3.5. Hemoglobin 10.7. Platelets 83,000. Sodium 140. Potassium 4.2. BUN 10. Creatinine 0.7. Glucose 134. AST 27. ALT 22. Alk phos 181. Troponins negative 2. Pro-calcitonin 0.16. She is seen today in consultation on the regular medical floor. She is currently sitting up in bed. Awake and alert in no acute distress. Maintaining O2 saturations in the mid 90s on 4 L/m per nasal cannula. She's been afebrile. Hemodynamically stable. She's been initiated on albuterol nebulized treatments, Solu-Medrol. Lovenox for DVT prophylaxis. Normal saline at KVO. Review of Systems REVIEW OF SYSTEMS: CONSTITUTIONAL: Denies any recent significant weight loss or weight gain. EYES: Denies change in vision. EARS, NOSE, MOUTH, THROAT: Denies headaches, denies sore throat. CARDIOVASCULAR: Positive for chest and back pain, no palpitations or syncopal episodes. RESPIRATORY: Positive for shortness of breath, cough, congestion no hemoptysis. GASTROINTESTINAL: Denies change in appetite, denies abdominal pain GENITOURINARY: Denies hematuria, denies infections. MUSKULOSKELETAL: Denies pain, denies swelling. INTEGUMENTARY: Denies rash, denies eczema. NEUROLOGICAL: Denies recent memory loss, no recent seizure activity. PSYCHIATRIC: Denies anxiety, denies depression. HEMATOLOGIC/LYMPHATIC: Denies anemia, denies enlarged lymph nodes. Past Medical History Past Medical History: Cancer, COPD, Fibromyalgia, Hearing Disorder / Deafness, Hypertension, Osteoarthritis (OA) Additional Past Medical History / Comment(s): Hx of pleural effusion, thoracentesis. Tinnitis. Peritoneal cancer(chronic pain) - mets to colon, colostomy. History of Any Multi-Drug Resistant Organisms: None Reported Past Surgical History: Bowel Resection, Hysterectomy, Orthopedic Surgery, Tubal Ligation Additional Past Surgical History / Comment(s): Neck fusion, right rotator cuff repair, colectomy with colostomy, port in right shoulder area. Past Anesthesia/Blood Transfusion Reactions: No Reported Reaction Past Psychological History: Anxiety Additional Psychological History / Comment(s): due to recent health issues Smoking Status: Former smoker Past Alcohol Use History: None Reported Additional Past Alcohol Use History / Comment(s): Quit smoking 03/2020, smoked 1/2ppd from teens. Past Drug Use History: None Reported - Past Family History Mother Family Medical History: Cancer Additional Family Medical History / Comment(s): Bone cancer. Father Family Medical History: COPD Medications and Allergies Home Medications Medication Instructions Recorded Confirmed Type Gabapentin [Neurontin] 100 mg PO BID 09/28/20 08/25/22 History ALPRAZolam [Xanax] 0.5 mg PO TID PRN 06/24/21 08/25/22 History Morphine Sulfate ER [Ms Contin] 60 mg PO BID 06/24/21 08/25/22 History ondansetron HCL [Zofran] 8 mg PO Q6H PRN 06/24/21 08/25/22 History oxyCODONE HCL [oxyCODONE HCL (IR)] 15 mg PO Q3H PRN 06/24/21 08/25/22 History Prochlorperazine [Compazine] 10 mg PO Q6H PRN 05/13/22 08/25/22 History Loratadine 10 mg PO DAILY 05/17/22 08/25/22 History Morphine Sulfate ER [Ms Contin] 30 mg PO BID 05/17/22 08/25/22 History OLANZapine [ZyPREXA] 2.5 mg PO HS 07/18/22 08/25/22 History Potassium Chloride ER [K-Dur 20] 20 meq PO BID 07/18/22 08/25/22 History Cholecalciferol [Vitamin D3 (25 25 mcg PO DAILY 08/25/22 08/25/22 History Mcg = 1000 Iu)] Cyanocobalamin [Vitamin B-12] 500 mcg PO DAILY 08/25/22 08/25/22 History Latanoprost [Latanoprost 0.005%] 1 drop BOTH EYES HS 08/25/22 08/25/22 History Allergies Allergy/AdvReac Type Severity Reaction Status Date / Time ciprofloxacin [From Cipro] Allergy Rash/Hives Verified 08/25/22 15:22 Physical Exam Vitals: Vital Signs Temp Pulse Pulse Resp BP BP Pulse Ox 08/26/22 13:24 96 08/26/22 13:12 98 08/26/22 11:54 97.6 F 105 H 18 114/72 95 08/26/22 07:51 98 08/26/22 07:38 96 08/26/22 07:15 97.6 F 99 18 139/84 93 L 08/26/22 02:04 97.4 F L 102 H 20 112/75 95 08/25/22 21:05 106 H 08/25/22 20:55 104 H 08/25/22 20:35 97.8 F 108 H 20 118/72 93 L 08/25/22 19:44 98.1 F 102 H 18 130/84 97 08/25/22 16:58 121 H 18 130/84 98 08/25/22 16:48 117 H 18 08/25/22 16:43 120 H 18 08/25/22 15:05 104 H 20 08/25/22 14:56 104 H 20 08/25/22 13:55 98.2 F 89 18 135/83 97 Intake and Output 08/25/22 08/26/22 08/26/22 22:59 06:59 14:59 Intake Total 200 Output Total 200 Balance 0 Intake: Oral 200 Output: Urine 200 Other: Voiding Method Toilet # Voids 1 # Bowel Movements 2 Weight 51.256 kg 51.256 kg GENERAL EXAM: Alert, very pleasant, thin 66-year-old female, on 4 L nasal cannula, fairly comfortable in no apparent distress. HEAD: Normocephalic. EYES: Normal reaction of pupils, equal size. NOSE: Clear with pink turbinates. THROAT: No erythema or exudates. NECK: No masses, no JVD. CHEST: No chest wall deformity. LUNGS: Equal air entry with crackles in the bilateral bases right greater than left. CVS: S1 and S2 normal with no audible murmur, regular rhythm. ABDOMEN: No hepatosplenomegaly, normal bowel sounds, no guarding or rigidity. SPINE: No scoliosis or deformity SKIN: No rashes CENTRAL NERVOUS SYSTEM: No focal deficits, tone is normal in all 4 extremities. EXTREMITIES: There is no peripheral edema. No clubbing, no cyanosis. Peripheral pulses are intact. Results - Laboratory Findings CBC and BMP: 08/26/22 05:55 08/26/22 05:55 PT/INR, D-dimer PT 10.4 sec (9.0-12.0) 08/25/22 14:35 INR 1.0 (<1.2) 08/25/22 14:35 D-Dimer 5.76 mg/L FEU (<0.60) H 08/25/22 14:35 Abnormal lab findings: Abnormal Labs 08/25/22 08/25/22 08/25/22 14:35 14:35 14:35 WBC 2.3 L RBC 3.66 L Hgb Hct MCV 106.4 H MCH MCHC RDW Plt Count 58 L Lymphocytes # 0.3 L Monocytes # Eosinophils # Macrocytosis (manual) D-Dimer 5.76 H Sodium 135 L Potassium 3.3 L Carbon Dioxide 34 H Anion Gap Glucose Calcium 8.3 L Magnesium 1.0 L Alkaline Phosphatase 267 H Total Protein 5.6 L Albumin 3.1 L Albumin/Globulin Ratio Procalcitonin 08/25/22 08/26/22 08/26/22 18:26 05:55 05:55 WBC 3.54 L RBC 3.19 L Hgb 10.7 L Hct 34.4 L MCV 107.8 H MCH 33.5 H MCHC 31.1 L RDW 14.6 H Plt Count 83 L Lymphocytes # 0.20 L Monocytes # 0.05 L Eosinophils # 0 L Macrocytosis (manual) 2+ A D-Dimer Sodium Potassium Carbon Dioxide Anion Gap 12.10 H Glucose 134 H Calcium Magnesium Alkaline Phosphatase 281 H Total Protein Albumin Albumin/Globulin Ratio 1.52 L Procalcitonin 0.16 H - Diagnostic Findings Chest x-ray: image reviewed CT scan - chest: image reviewed Assessment and Plan Assessment: Acute hypoxemic respiratory failure secondary to bilateral pleural effusions right greater than left ultrasound of the right chest revealed a trace right pleural effusion. Area of consolidation within. When correlating with recent computed tomography scan the large pocket of fluid is anteriorly and superiorly. The pocket marked by the vending mechanic his posterior lateral. Consider targeting the anterior pocket. The patient has a history of chronic malignant right-sided pleural effusion. Previous thoracentesis. Positive for metastatic adenocarcinoma with primary ovarian origin. History of metastatic ovarian/peritoneal cancer to the colon status post colostomy History of metastatic pleural effusions with previous thoracentesis Former smoker Chronic obstructive pulmonary disease History of anxiety History of chronic pain Plan: The patient was seen and evaluated Chest x-ray, CT scans, labs, ultrasound reviewed We'll request interventional radiology for ultrasound-guided thoracentesis Titrate the FiO2 as tolerated Discontinue Solu-Medrol We will continue to follow and make further recommendations based on her clini fernando status I have personally seen and examined the patient, performed the documentation and the assessment and plan as written. Number of minutes spent on the visit: 20.
[2022-08-26] MEDS: HYDROmorphone 1 MG/ML 1 ML SYRINGE IVP PRN ×3 (14:15→23:00)
--- NOTE | 2022-08-26 16:12 | P.CONS ---
History of Present Illness - Reason for Consult Consult date: 08/26/22 metastatic ovarian/peritoneal ca, SOB - History of Present Illness the patient is a 66-year-old white female, well-known to our service. She has a known history of ovarian/primary peritoneal cancer. The patient has had r ecent progression, causing progressive shortness of breath. She was started on a new treatment, Mirvetuximab, on 08/03/22, and is status post 1 cycle. Patient came into the hospital because of progressive shortness of breath. She also has a bandlike tightness, around the upper abdomen. She denies any cough or difficulty swallowing. Chest x-ray showed pleural effusion as well as extensive consolidative changes in the right lung. CT angiogram was negative for PE, and showed what appears to be elevated pleural effusion, as well as significant consolidation in the right lung especially the middle and lower portions, possibly due to mucous plugging or malignant obstruction. Chest ultrasound showed a small pocket of fluid. CT abdomen and pelvis was negative for significant ascites or any major progression. Consult therefore placed a further evaluation and recommendations. Oncology history is as follows. presented with worsening dyspnea,some abdominal bloating and weight loss over 2- 3 months duration. CXR done on 03/27/2020 revealed large right pleural effusion. CT angiogram of chest on 03/27/2020,was negative for PE but it showed large right pleural effusion. 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 On 04/17/2020,PET scan revealed ametabolic right pleural effusion,moderate ascites with abnormal hypermetabolic uptake. EGD was negative,colonoscopy and barium enema (due to incomplete coloscopy) were negative. On 05/15/2020,she had repeat right thoracentesis due to worsening dyspnea,2400 cc was removed. 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 She had total of 4 cycles of neoadjuvant carbo/taxol/avastin. On 09/03/2020 she underwent debulking surgery,which was complicated by bowel perforation which required surgical repair. On 12/04/2020,she resumed carboplatin/taxol and completed 3 addiitonal cycles on 01/15/2021 On 01/01/2021 CT scan of abdomen/pelvis (done because she had pain) revealed significant improvement in ascites and pleural effusion She started zejula end of 01/2021 On 09/17/2021,repeat CT scan of chest/abdomen/pelvis revealed disease progression in chest and abdomen. On 10/07/2021,she started carbo/doxil Folare receptor alpha on tumor cells were positive. On 03/31/2022,CA125 was 800 She completed 6 cycles of carbo/doxil on 04/18/2022. From her last visit - "She was admitted to [facility] with worsening abodominal pain,had CT scan of abdomen/pelvis which showed right hydronephrosis,her creatinine was up to 3.9,however,she then left AMA. Attempted ureteral stent placement as outpatient could not be done due to low K+,however,it was corrected and her renal function improved. She feels tired,progressive fatigue and dyspnea,abdominal pain and right sided chest pain,taking MS contin 60 mg BID and occasionally TID with partial releif,pain is 7/10,also using oxycodone as needed,has no appetite,no nausea or vomiting." at her last visit, comfort care, versus targeted therapy aimed at the folate receptor was discussed with her. She did want to pursue active treatment, due to which Mirvetuximab was initiated Review of Systems Constitutional: Reports chronic pain, Reports fatigue, Reports poor appetite, Reports weakness, Reports weight loss Eyes: denies blurred vision, denies pain Ears: deny: decreased hearing, ear discharge, earache, tinnitus Ears, nose, mouth and throat: Denies headache, Denies sore throat Cardiovascular: Reports shortness of breath Respiratory: Reports dyspnea Gastrointestinal: Reports abdominal pain, Reports bloating Genitourinary: Denies dysuria, Denies hematuria Menstruation: Reports postmenopausal Musculoskeletal: Denies myalgias Integumentary: Reports rash (rash around the ostomy site in the right abdomen, due to tape) Neurological: Reports weakness Psychiatric: Reports change in appetite, Reports change in sleep habits Endocrine: Reports fatigue, Reports weight change Hematologic/Lymphatic: Reports as per HPI Past Medical History Past Medical History: Cancer, COPD, Fibromyalgia, Hearing Disorder / Deafness, Hypertension, Osteoarthritis (OA) Additional Past Medical History / Comment(s): Hx of pleural effusion, thoracentesis. Tinnitis. Peritoneal cancer(chronic pain) - mets to colon, colostomy. History of Any Multi-Drug Resistant Organisms: None Reported Past Surgical History: Bowel Resection, Hysterectomy, Orthopedic Surgery, Tubal Ligation Additional Past Surgical History / Comment(s): Neck fusion, right rotator cuff repair, colectomy with colostomy, port in right shoulder area. Past Anesthesia/Blood Transfusion Reactions: No Reported Reaction Past Psychological History: Anxiety Additional Psychological History / Comment(s): due to recent health issues Smoking Status: Former smoker Past Alcohol Use History: None Reported Additional Past Alcohol Use History / Comment(s): Quit smoking 03/2020, smoked 1/2ppd from teens. Past Drug Use History: None Reported - Past Family History Mother Family Medical History: Cancer Additional Family Medical History / Comment(s): Bone cancer. Father Family Medical History: COPD Medications and Allergies Home Medications Medication Instructions Recorded Confirmed Type Gabapentin [Neurontin] 100 mg PO BID 09/28/20 08/25/22 History ALPRAZolam [Xanax] 0.5 mg PO TID PRN 06/24/21 08/25/22 History Morphine Sulfate ER [Ms Contin] 60 mg PO BID 06/24/21 08/25/22 History ondansetron HCL [Zofran] 8 mg PO Q6H PRN 06/24/21 08/25/22 History oxyCODONE HCL [oxyCODONE HCL (IR)] 15 mg PO Q3H PRN 06/24/21 08/25/22 History Prochlorperazine [Compazine] 10 mg PO Q6H PRN 05/13/22 08/25/22 History Loratadine 10 mg PO DAILY 05/17/22 08/25/22 History Morphine Sulfate ER [Ms Contin] 30 mg PO BID 05/17/22 08/25/22 History OLANZapine [ZyPREXA] 2.5 mg PO HS 07/18/22 08/25/22 History Potassium Chloride ER [K-Dur 20] 20 meq PO BID 07/18/22 08/25/22 History Cholecalciferol [Vitamin D3 (25 25 mcg PO DAILY 08/25/22 08/25/22 History Mcg = 1000 Iu)] Cyanocobalamin [Vitamin B-12] 500 mcg PO DAILY 07/06/23 07/06/23 History Latanoprost [Latanoprost 0.005%] 1 drop BOTH EYES HS 08/25/22 08/25/22 History Allergies Allergy/AdvReac Type Severity Reaction Status Date / Time ciprofloxacin [From Cipro] Allergy Rash/Hives Verified 08/25/22 15:22 Physical Exam Vitals: Vital Signs Temp Pulse Pulse Resp BP BP Pulse Ox 08/26/22 13:24 96 08/26/22 13:12 98 08/26/22 11:54 97.6 F 105 H 18 114/72 95 08/26/22 07:51 98 08/26/22 07:38 96 08/26/22 07:15 97.6 F 99 18 139/84 93 L 08/26/22 02:04 97.4 F L 102 H 20 112/75 95 08/25/22 21:05 106 H 08/25/22 20:55 104 H 08/25/22 20:35 97.8 F 108 H 20 118/72 93 L 08/25/22 19:44 98.1 F 102 H 18 130/84 97 08/25/22 16:58 121 H 18 130/84 98 08/25/22 16:48 117 H 18 08/25/22 16:43 120 H 18 Intake and Output 08/26/22 08/26/22 08/26/22 06:59 14:59 22:59 Intake Total 200 Output Total 200 Balance 0 Intake: Oral 200 Output: Urine 200 Other: Voiding Method Toilet # Voids 1 # Bowel Movements 2 Weight 51.256 kg - Constitutional General appearance: mild distress - EENT Eyes: EOMI, PERRLA ENT: hearing grossly normal, normal oropharynx - Neck Neck: no lymphadenopathy Thyroid: bilateral: normal size - Respiratory Respiratory: right: diminished (involving the lower half - lower two thirds of right lung field), rales, wheezing - Cardiovascular Rhythm: regular Heart sounds: normal: S1, S2 - Gastrointestinal right lower quadrant ostomy General gastrointestinal: decreased bowel sounds, soft - Integumentary Integumentary: rash (around the ostomy, because of tape) - Neurologic Neurologic: CNII-XII intact, focal deficits - Musculoskeletal Musculoskeletal: generalized weakness, strength equal bilaterally - Psychiatric Psychiatric: A&O x's 3, appropriate affect Results CBC & Chem 7: 08/26/22 05:55 08/26/22 05:55 Labs: Abnormal Lab Results - Last 24 Hours (Table) 08/25/22 08/26/22 08/26/22 Range/Units 18:26 05:55 05:55 WBC 3.54 L (4.50-10.00) X 10*3/uL RBC 3.19 L (4.10-5.20) X 10*6/uL Hgb 10.7 L (12.0-15.0) d/dL Hct 34.4 L (37.2-46.3) % MCV 107.8 H (80.0-97.0) FL MCH 33.5 H (27.0-32.0) pg MCHC 31.1 L (32.0-37.0) d/dL RDW 14.6 H (11.5-14.5) % Plt Count 83 L (140-440) X 10*3/uL Lymphocytes # 0.20 L (0.90-5.00) X 10*3/uL Monocytes # 0.05 L (0.20-1.00) X 10*3/uL Eosinophils # 0 L (0.04-0.35) X 10*3/uL Macrocytosis (manual) 2+ A Anion Gap 12.10 H (4.00-12.00) mmol/L Glucose 134 H (70-110) mg/dL Alkaline Phosphatase 281 H (41-126) U/L Albumin/Globulin Ratio 1.52 L (1.60-3.17) Ratio Procalcitonin 0.16 H (0.02-0.09) ng/mL Comments: US chest report reviewed and summarized Chest x-ray: report reviewed CT scan - abdomen: report reviewed CT scan - chest: report reviewed CT scan - pelvis: report reviewed Assessment and Plan (1) Acute and chronic respiratory failure ([id number]) Narrative/Plan: the patient has been having progressive shortness of breath. She has had pleur al effusion on the right, with the last thoracentesis about a year ago. Symptoms have progressed over the last several weeks, due to progressive disease. - The patient has just started a new therapy, but was admitted because of worsening. As noted, imaging shows mild compromise of the right lung. - The patient has been seen by pulmonary medicine. They were advised that if the compromise is mostly due to progressive pleural effusion, then the patient could obtain significant relief in the short-term the thoracentesis and/or placement of a drainage catheter. However if she has airway obstruction, then obviously removal of the fluid even if it is substantial, will not necessarily improve her symptoms. in that situation, if she is stable enough, she may benefit from a bronchoscopy, especially if internal obstruction is due to a benign causes such as mucous plugging. - Await final pulmonary decision in this regard. They were advised that if it is determined that her respiratory status cannot be improved sufficiently in the short-term, then it may not be possible for her to continue her antineoplastic treatment. - We also discussed that procedures such as thoracentesis or placement of drainage catheter, if appropriate, are justified even in patients were not pursuing active treatment from the colpostat standpoint. - They had multiple questions, which were answered in detail. They expressed understanding of the current situation at this time. Current Visit: Yes Status: Acute Code(s): J96.20 - ACUTE AND CHR RESP FAILURE, UNSP W HYPOXIA OR HYPERCAPNIA SNOMED Code(s): 56588580 (2) Ovarian cancer Narrative/Plan: the patient has developed progressive disease. Comfort care versus active treatment was discussed with her at her recent office visit and she opted for the latter. Therefore she was started on a new regimen. She has had just 1 cycle. She was advised that at this time it is too early to gauge if this treatment would be effective or not. She would ideally need to continue treatment, but for that, her performance status has to be improved sufficiently in the short-term. If that is not possible, due to intractable lung compromise for example, then it would be quite reasonable to consider comfort care. They expressed understanding of the same. We will continue to follow up Current Visit: No Status: Acute Code(s): C56.9 - MALIGNANT NEOPLASM OF UNSPECIFIED OVARY SNOMED Code(s): 536900451 Plan: the patient's Xanax dose will be increased to 0.75 mg by mouth 3 times a day, as they feel that this helped significantly with upper abdominal muscle spasm-type pain and the current dosage is not optimally effective. We will also review her medicine ensure that she is on gabapentin, which she was taking at home.
[2022-08-26] MEDS: SODIUM CHLORIDE 0.9% 1,000 ML IV SCH (18:01)
[2022-08-26] MEDS: ALPRAZolam 0.25 MG TAB PO PRN (19:42)
[2022-08-26] MEDS: LATANOPROST 0.005% OPHTH DROPS 2.5 ML BTL BOTH EYES SCH (21:24)
[2022-08-26] MEDS: OLANZapine 2.5 MG TAB PO SCH (21:25)
[2022-08-27] MEDS: HYDROmorphone 1 MG/ML 1 ML SYRINGE IVP PRN ×3 (02:01→14:47)
[2022-08-27 03:04] VITALS: RESP 18; TEMP 98.4
[2022-08-27] MEDS: ALPRAZolam 0.25 MG TAB PO PRN (06:21)
[2022-08-27] MEDS: ALBUTEROL NEBULIZED 2.5 MG/3 ML INHALATION SCH ×2 (07:27→11:15)
[2022-08-27 07:56] VITALS: BP 110/71
[2022-08-27] MEDS: CHOLECALCIFEROL 25 MCG (1000 IU) TABLET PO SCH (08:19)
[2022-08-27] MEDS: MORPHINE SULFATE ER 30 MG TABLET PO SCH (08:19)
[2022-08-27] MEDS: GABAPENTIN 100 MG CAP PO SCH (08:19)
[2022-08-27] MEDS: LORATADINE 10 MG TAB PO SCH (08:19)
[2022-08-27] MEDS: CYANOCOBALAMIN 500 MCG TAB PO SCH (08:19)
[2022-08-27] MEDS: ENOXAPARIN 40 MG/0.4 ML SYRINGE SQ SCH (08:19)
[2022-08-27 11:36] VITALS: PULSE 94
--- NOTE | 2022-08-27 12:10 | P.PN ---
Subjective Progress Note Date: 08/27/22 This is a very pleasant 66-year-old female patient with a known history of ovarian and peritoneal metastatic cancer to the colon with previous colon resection. She's also had metastatic adenocarcinoma positive in the lungs since back in 2020. She's received multiple rounds of chemotherapy and debulking surgery. He also has a history of previous CoVID pneumonia, chronic pain syndrome with fibromyalgia. She presented here to the emergency room yesterday with complaints of increasing shortness of breath and pain on inhalation with back pain. X-ray revealed bilateral pleural effusions right greater than left. CT angiogram revealed no evidence of pulmonary embolism. There is a loculated right pleural effusion with right-sided airspace opacities and consolidation changes that have worsened since 07/22/2022. There is suspected mucous plugging versus obstruction to the bronchus of the lower lungs. Computed tomography scan of the abdomen revealed stable exam without evidence for acute process or significant change from 02/11/2023. No lymphadenopathy or enlarging masses visualized. White count 3.5. Hemoglobin 10.7. Platelets 83,000. Sodium 140. Potassium 4.2. BUN 10. Creatinine 0.7. Glucose 134. AST 27. ALT 22. Alk phos 181. Troponins negative 2. Pro-calcitonin 0.16. She is seen today in consultation on the regular medical floor. She is currently sitting up in bed. Awake and alert in no acute distress. Maintaining O2 saturations in the mid 90s on 4 L/m per nasal cannula. She's been afebrile. Hemodynamically stable. She's been initiated on albuterol nebulized treatments, Solu-Medrol. Lovenox for DVT prophylaxis. Normal saline at [facility]. The patient is seen today 08/27/2022 in follow-up on the regular medical floor. She is currently resting comfortably in bed. She was requiring Dilaudid for pain control throughout the night. Her sister is at the bedside. The patient declined to have interventional radiology attempt a thoracentesis. The fluid is quite loculated. Urine legionella antigen was negative. She is currently maintaining O2 saturations in the low 90s on 4 L high flow nasal cannula. She's been afebrile. Hemodynamically stable. She remains on bronchodilators. Lovenox for DVT prophylaxis. Objective - Vital Signs Vital signs: Vital Signs Temp 98.4 F 08/27/22 07:41 Pulse 94 08/27/22 11:36 Resp 18 08/27/22 07:41 BP 110/71 08/27/22 07:41 Pulse Ox 91 L 08/27/22 07:41 FiO2 Intake & Output 08/26/22 08/27/22 08/27/22 18:59 06:59 18:59 Weight 51.256 kg Other: Voiding Method Toilet Toilet # Voids 2 3 # Bowel Movements 2 0 - Exam GENERAL EXAM: Alert, frail, thin 66-year-old female, on 4 L nasal cannula, comfortable in no apparent distress. HEAD: Normocephalic. EYES: Normal reaction of pupils, equal size. NOSE: Clear with pink turbinates. THROAT: No erythema or exudates. NECK: No masses, no JVD. CHEST: No chest wall deformity. LUNGS: Equal air entry with crackles in the bilateral bases right greater than left. CVS: S1 and S2 normal with no audible murmur, regular rhythm. ABDOMEN: No hepatosplenomegaly, normal bowel sounds, no guarding or rigidity. SPINE: No scoliosis or deformity SKIN: No rashes CENTRAL NERVOUS SYSTEM: No focal deficits, tone is normal in all 4 extremities. EXTREMITIES: There is no peripheral edema. No clubbing, no cyanosis. Peripheral pulses are intact. - Labs CBC & Chem 7: 08/26/22 05:55 08/26/22 05:55 Labs: Microbiology - Last 24 Hours (Table) 08/25/22 14:28 Blood Culture - Preliminary Blood Assessment and Plan Assessment: Acute hypoxemic respiratory failure secondary to bilateral pleural effusions right greater than left ultrasound of the right chest revealed a trace right pleural effusion. Area of consolidation within. When correlating with recent computed tomography scan the large pocket of fluid is anteriorly and superiorly. The patient has a history of chronic malignant right-sided pleural effusion. Previous thoracentesis was positive for metastatic adenocarcinoma with primary ovarian origin. History of metastatic ovarian/peritoneal cancer to the colon status post colostomy History of metastatic pleural effusions with previous thoracentesis Former smoker Chronic obstructive pulmonary disease History of anxiety History of chronic pain Plan: The patient was seen and evaluated She declines any repeat thoracentesis She is requesting to go home with hospice Social work is making arrangements I have personally seen and examined the patient, performed the documentation and the assessment and plan as written. Number of minutes spent on the visit: 10.
--- NOTE | 2022-08-27 14:11 | P.DS ---
Providers Date of admission: 08/25/22 16:56 Expected date of discharge: 08/27/22 Attending physician: Palak Hastings MD Consults: 08/25/22 16:56 Consult Physician Routine Consulting Provider: Tristen Mcclendon Consult Reason/Comments: copd Do you want consulting provider notified?: Yes Consult Physician Routine Consulting Provider: Kieran Burrell Consult Reason/Comments: known Do you want consulting provider notified?: Yes Primary care physician: Stated None Hospital Course: Discharge Diagnosis: Acute COPD exacerbation Suspected postobstructive pneumonia Recurrent right-sided pleural effusion Metastatic ovarian cancer metastatic to lungs Pancytopenia Hypokalemia Hypomagnesemia Sinus tachycardia Contact dermatitis Hospital Course: 66-year-old female with history of COPD, malignant recurrent right-sided pleural effusion, metastatic ovarian cancer, fibromyalgia presenting with worsening shortness of breath. In the ED, temperature was 98.0 pulse 89, increased to 120, respiratory rate 20, blood pressure 135/83, saturating at 97% on room air. WBC 2.3 sodium 135, potassium 2.3, creatinine 0.55, magnesium 1, troponin negative, d-dimer 5.76. Chest x-ray shows bilateral pleural effusions with right greater than left. CTA chest shows no PE, loculated right pleural effusion Likely mucous plugging versus obstruction of bronchitis to the lower lungs. CT abdomen and pelvis shows no acute process. Patient being admitted for worsening shortness of breath, recurrent right-sided pleural effusion, suspected pneumonia and COPD exacerbation. Pulmonology and oncology consulted. Patient decided to go home with hospice. Patient seen and examined at bedside. Vital signs reviewed and stable. General: nontoxic, no distress, appears at stated age, chronically ill-appearing Derm: warm, dry Head: atraumatic, normocephalic, symmetric Eyes: EOMI, no lid lag, anicteric sclera, pupils equal round reactive to light ENT: Nose and ears atraumatic Neck: No thyromegaly, supple Mouth: no lip lesion, mucus membranes moist Cardiovascular: S1S2 reg, no murmur, no edema Lungs: clear to auscultation bilateral, no rhonchi, no rales, no wheeze, no accessory muscle use Abdominal: soft, nontender to palpation, no guarding, no appreciable organomegaly Ext: no gross muscle atrophy, muscle strength muscle strength 5 out of 5 in all 4 extremities, no contractures Neuro: CN II-XII grossly intact Psych: Alert, oriented, appropriate affect A total of 33 minutes of time were spent preparing this complex discharge summary. Patient was discharged on 08/27/22 at 14:09. Patient Condition at Discharge: Poor Plan - Discharge Summary New Discharge Prescriptions: New ALPRAZolam [Xanax] 0.75 mg PO TID PRN tab PRN Reason: Anxiety Continue Gabapentin [Neurontin] 100 mg PO BID oxyCODONE HCL [oxyCODONE HCL (IR)] 15 mg PO Q3H PRN PRN Reason: Breakthrough Pain Loratadine 10 mg PO DAILY OLANZapine [ZyPREXA] 2.5 mg PO HS Latanoprost [Latanoprost 0.005%] 1 drop BOTH EYES HS ondansetron HCL [Zofran] 8 mg PO Q6H PRN PRN Reason: Nausea And Vomiting Morphine Sulfate ER [Ms Contin] 60 mg PO BID Prochlorperazine [Compazine] 10 mg PO Q6H PRN PRN Reason: Nausea Morphine Sulfate ER [Ms Contin] 30 mg PO BID Discontinued ALPRAZolam [Xanax] 0.5 mg PO TID PRN PRN Reason: Anxiety Potassium Chloride ER [K-Dur 20] 20 meq PO BID Cyanocobalamin [Vitamin B-12] 500 mcg PO DAILY Cholecalciferol [Vitamin D3 (25 Mcg = 1000 Iu)] 25 mcg PO DAILY Discharge Medication List Gabapentin [Neurontin] 100 mg PO BID 09/28/20 [History] Morphine Sulfate ER [Ms Contin] 60 mg PO BID 06/24/21 [History] ondansetron HCL [Zofran] 8 mg PO Q6H PRN 06/24/21 [History] oxyCODONE HCL [oxyCODONE HCL (IR)] 15 mg PO Q3H PRN 06/24/21 [History] Prochlorperazine [Compazine] 10 mg PO Q6H PRN 05/13/22 [History] Loratadine 10 mg PO DAILY 05/17/22 [History] Morphine Sulfate ER [Ms Contin] 30 mg PO BID 05/17/22 [History] OLANZapine [ZyPREXA] 2.5 mg PO HS 07/18/22 [History] Latanoprost [Latanoprost 0.005%] 1 drop BOTH EYES HS 08/25/22 [History] ALPRAZolam [Xanax] 0.75 mg PO TID PRN tab 08/27/22 [Rx] Follow up Appointment(s)/Referral(s): None,Stated [Primary Care Provider] - 1-2 days Discharge Disposition: HOME WITH HOSPICE
[2022-08-27] MEDS: ONDANSETRON 4 MG TAB PO PRN (14:46)
== END 2022-08-27 16:48 | disposition hospice, home (50) | DRG 193 ==
LOC: SUPCPDRO 13:48 → EC 13:48 → 5NMEDONC 16:56
PROVIDERS: ADMIT Internal Medicine; ATTEND Internal Medicine
DX: J18.9 Pneumonia, unspecified organism (principal); J96.21 Acute and chronic respiratory failure with hypoxia; J44.0 Chronic obstructive pulmonary disease with (acute) lower respiratory infection; J44.1 Chronic obstructive pulmonary disease with (acute) exacerbation; C48.1 Malignant neoplasm of specified parts of peritoneum; C56.9 Malignant neoplasm of unspecified ovary; D61.818 Other pancytopenia; C78.00 Secondary malignant neoplasm of unspecified lung; J91.0 Malignant pleural effusion; E83.42 Hypomagnesemia; D72.819 Decreased white blood cell count, unspecified; E87.6 Hypokalemia; D69.6 Thrombocytopenia, unspecified; M79.7 Fibromyalgia; H91.90 Unspecified hearing loss, unspecified ear; I10 Essential (primary) hypertension; M19.90 Unspecified osteoarthritis, unspecified site; G89.4 Chronic pain syndrome; Z66 Do not resuscitate; Z51.5 Encounter for palliative care; Z28.310 Unvaccinated for COVID-19; Z86.16 Personal history of COVID-19; L25.9 Unspecified contact dermatitis, unspecified cause; F41.9 Anxiety disorder, unspecified; Z93.3 Colostomy status; Z92.21 Personal history of antineoplastic chemotherapy; Z87.01 Personal history of pneumonia (recurrent); Z79.899 Other long term (current) drug therapy; Z87.891 Personal history of nicotine dependence; Z88.1 Allergy status to other antibiotic agents; Z85.038 Personal history of other malignant neoplasm of large intestine
CPT/HCPCS: 36415; 71046; 71275; 74177; 76604; 80053; 83605; 83735; 84100; 84145; 84484; 85025; 85379; 85610; 85730; 87040; 87449; 93005; 94640; 94760; 96365; 96366; 96375; 99285